=== PATIENT | female | born 1955 | race American Indian/Alaskan Native ===

== ENCOUNTER 2016-12-15 22:18 | Emergency (ER) | payer MEDICARE, MEDICAID ==
[2016-12-15 22:48] VITALS: BP 144/73
--- NOTE | 2016-12-16 00:20 | EDM.PDOC ---
ED HPI GENERAL MEDICAL PROBLEM - General Chief Complaint: Respiratory Problem Stated Complaint: SOPD SICK PAIN LEFT SIDE [id number] Time Seen by Provider: 12/16/16 00:10 Source of Information: Reports: Patient History Limitations: Reports: No Limitations - History of Present Illness INITIAL COMMENTS - FREE TEXT/NARRATIVE: This 61 yo female patient reports to the ED due to a 3 week history of her " COPD acting up" and a 3-4 day history of increased left flank pain. The patient reports she was hospitalized in [place] for 3 days and got out of the hospital last . The patient reports they had her on steroids and breathing treatments while in the hospital. The patient noticed increasing flank pain while riding in the car on the way back from [place]. The patient reports no history of falls or known injuries to her back. The patient reports her last neb treatment was at about 4:30 or 5:00 last night. Onset: Gradual Onset Date: 12/13/16 Duration: Constant, Getting Worse Location: Reports: Back (left flank pain), Other (generalized shortness of breath) Quality: Reports: Ache, Dull Severity: Moderate Improves with: Reports: Medication (nebulizer treatment) Worsens with: Reports: None Context: Reports: Other Associated Symptoms: Reports: Shortness of Breath Left Flank Pain Score (Numeric/FACES): 7 - Related Data Allergies Allergy/AdvReac Type Severity Reaction Status Date / Time codeine Allergy Cannot Verified 12/15/16 22:48 Remember tramadol HCl [From Ultram] Allergy Cannot Verified 12/15/16 22:48 Remember aspirin Allergy Abdominal Uncoded 12/15/16 22:48 Pain Home Meds: Home Meds Albuterol [Proair HFA] 2 puff INH Q4HR PRN 09/27/13 [History] Estrogens, Conjugated [Premarin] 1 tab PO DAILY 09/27/13 [History] Sertraline [Zoloft] 150 mg PO DAILY 09/27/13 [History] Tiotropium [Spiriva Handihaler] 1 puff INH DAILY 09/27/13 [History] Albuterol/Ipratropium [DuoNeb 3.0-0.5 MG/3 ML] 1 ampule INH QID PRN 02/20/14 [ History] Ranitidine [Zantac] 1 tab PO BID 09/23/14 [History] Pantoprazole [ProTONIX] 1 tab PO DAILY 10/01/14 [History] Gabapentin [Neurontin] 600 mg PO TID 11/01/14 [History] Mometasone/Formoterol [Dulera 100-5 MCG] 2 puff IH BIDRT 05/10/16 [History] Past Medical History - Past Health History Medical/Surgical History: Denies Medical/Surgical History HEENT History: Reports: Impaired Vision Other HEENT History: near sided Other Cardiovascular History: has a stress test this coming Respiratory History: Reports: Bronchitis, Recurrent, COPD, TB Other Respiratory History: TB when pt. was a small child. Emphysema by pt account Gastrointestinal History: Reports: GERD Other Gastrointestinal History: N/A Genitourinary History: Reports: Renal Calculus Other Genitourinary History: kidney stones Other OB/BYN History: nvd two children/ hysterectomy Musculoskeletal History: Reports: Arthritis Other Musculoskeletal History: arthritis , restless leg syndrome Neurological History: Reports: None Psychiatric History: Reports: None Endocrine/Metabolic History: Reports: None Hematologic History: Reports: None Dermatologic History: Reports: None - Infectious Disease History Infectious Disease History: Reports: TB - Past Surgical History GI Surgical History: Reports: Appendectomy, Cholecystectomy Female Surgical History: Reports: Hysterectomy Social & Family History - Family History Family Medical History: Noncontributory HEENT: Reports: None Cardiac: Reports: None Respiratory: Reports: None GI: Reports: None : Reports: None OBGYN: Reports: None - Tobacco Use Smoking Status *Q: Current Every Day Smoker Years of Tobacco use: 49 Packs/Tins Daily: 0.3 Used Tobacco, but Quit: No Month Tobacco Last Used: 10/23/14 Second Hand Smoke Exposure: Yes - Caffeine Use Caffeine Use: Reports: Coffee - Alcohol Use Days Per Week of Alcohol Use: 0 - Recreational Drug Use Recreational Drug Use: No - Living Situation & Occupation Living situation: Reports: , with Family Occupation: Retired ED ROS GENERAL - Review of Systems Review Of Systems: ROS reveals no pertinent complaints other than HPI. ED EXAM, GENERAL - Physical Exam Exam: See Below Exam Limited By: No Limitations General Appearance: Alert, WD/WN, Moderate Distress, Thin Eye Exam: Bilateral Eye: EOMI, Normal Inspection, PERRL Ears: Normal External Exam, Normal Canal, Hearing Grossly Normal, Normal TMs Nose: Normal Inspection, Normal Mucosa, No Blood Throat/Mouth: Normal Inspection, Normal Lips, Normal Teeth, Normal Gums, Normal Oropharynx, Normal Voice, No Airway Compromise Head: Atraumatic, Normocephalic Neck: Normal Inspection, Supple, Non-Tender, Full Range of Motion Respiratory/Chest: No Respiratory Distress, Chest Non-Tender, Crackles (diffuse) Cardiovascular: Normal Peripheral Pulses, Regular Rate, Rhythm, No Edema, No Gallop, No JVD, No Murmur, No Rub GI/Abdominal: Normal Bowel Sounds, Soft, Non-Tender, No Organomegaly, No Distention, No Abnormal Bruit, No Mass, Pelvis Stable (Female) Exam: Deferred Rectal (Female) Exam: Deferred Back Exam: CVA Tenderness (L) Extremities: Normal Inspection, Normal Range of Motion, Non-Tender, Normal Capillary Refill, No Pedal Edema Neurological: Alert, Oriented, CN II-XII Intact, Normal Cognition, Normal Gait, Normal Reflexes, No Motor/Sensory Deficits Psychiatric: Normal Affect, Normal Mood Skin Exam: Warm, Dry, Intact, Normal Color, No Rash Lymphatic: No Adenopathy Course - Vital Signs Last Recorded V/S: Last Vital Signs Temp 37.3 C 12/15/16 22:43 Pulse 102 H 12/15/16 22:43 Resp 18 12/15/16 22:43 BP 144/73 H 12/15/16 22:43 Pulse Ox 91 L 12/15/16 22:43 - Orders/Labs/Meds Orders: Active Orders 24 hr Category Date Time Status Chest 2V [CR] Urgent Exams 12/16/16 00:07 Taken Labs: Laboratory Tests 12/16/16 12/16/16 12/16/16 Range/Units 00:20 00:20 00:20 WBC 11.1 H (5.0-10.0) 10^3/uL RBC 4.78 (4.2-5.4) 10^6/uL Hgb 12.7 (12.0-16.0) g/dL Hct 39.1 (37.0-47.0) % MCV 81.8 (80-100) fL MCH 26.6 L (27.0-34.0) pg MCHC 32.5 L (33.0-35.0) g/dL Plt Count 310 (150-450) 10^3/uL Neut % (Auto) 60.0 (42.2-75.2) % Lymph % (Auto) 28.2 (20.5-50.1) % Desha % (Auto) 8.7 H (2-8) % Eos % (Auto) 3.0 (1.0-3.0) % Baso % (Auto) 0.1 (0.0-1.0) % Sodium 144 (135-145) mmol/L Potassium 3.4 L (3.6-5.0) mmol/L Chloride 107 (101-111) mmol/L Carbon Dioxide 28.0 (21.0-31.0) mmol/L Anion Gap 12.4 BUN 14 (7-18) mg/dL Creatinine 0.6 (0.6-1.3) mg/dL Est Cr Clr Drug Dosing 69.83 mL/min Estimated GFR (MDRD) > 60 BUN/Creatinine Ratio 23.33 Glucose 130 H (74-105) mg/dL Calcium 8.3 L (8.4-10.2) mg/dl Total Bilirubin 0.2 (0.2-1.0) mg/dL AST 16 (10-42) IU/L ALT 14 (10-60) IU/L Alkaline Phosphatase 84 (42-121) IU/L Total Protein 6.7 (6.7-8.2) g/dl Albumin 3.6 (3.2-5.5) g/dl Globulin 3.1 Albumin/Globulin Ratio 1.16 Urine Color (YELLOW) Urine Appearance (CLEAR) Urine pH (5.0-9.0) Ur Specific [place] (1.005-1.030) Urine Protein (NEGATIVE) Urine Glucose (UA) (NEGATIVE) Urine Ketones (NEGATIVE) Urine Occult Blood (NEGATIVE) Urine Nitrite (NEGATIVE) Urine Bilirubin (NEGATIVE) Urine Urobilinogen (0.2-1.0) mg/dL Ur Leukocyte Esterase (NEGATIVE) Urine RBC /HPF Urine WBC (0-5/HPF) /HPF Ur Epithelial Cells /HPF Amorphous Sediment (0/HPF) /HPF Urine Bacteria (0-FEW/HPF) /HPF Urine Opiates Screen (NEGATIVE) Ur Oxycodone Screen (NEGATIVE) Urine Methadone Screen (NEGATIVE) Ur Barbiturates Screen (NEGATIVE) U Tricyclic Antidepress (NEGATIVE) Ur Phencyclidine Scrn (NEGATIVE) Ur Amphetamine Screen (NEGATIVE) U Methamphetamines Scrn (NEGATIVE) Urine MDMA Screen (NEGATIVE) U Benzodiazepines Scrn (NEGATIVE) Urine Cocaine Screen (NEGATIVE) U Marijuana (THC) Screen (NEGATIVE) Ethyl Alcohol < 5 mg/dL 12/16/16 12/16/16 Range/Units 00:30 00:30 WBC (5.0-10.0) 10^3/uL RBC (4.2-5.4) 10^6/uL Hgb (12.0-16.0) g/dL Hct (37.0-47.0) % MCV (80-100) fL MCH (27.0-34.0) pg MCHC (33.0-35.0) g/dL Plt Count (150-450) 10^3/uL Neut % (Auto) (42.2-75.2) % Lymph % (Auto) (20.5-50.1) % Desha % (Auto) (2-8) % Eos % (Auto) (1.0-3.0) % Baso % (Auto) (0.0-1.0) % Sodium (135-145) mmol/L Potassium (3.6-5.0) mmol/L Chloride (101-111) mmol/L Carbon Dioxide (21.0-31.0) mmol/L Anion Gap BUN (7-18) mg/dL Creatinine (0.6-1.3) mg/dL Est Cr Clr Drug Dosing mL/min Estimated GFR (MDRD) BUN/Creatinine Ratio Glucose (74-105) mg/dL Calcium (8.4-10.2) mg/dl Total Bilirubin (0.2-1.0) mg/dL AST (10-42) IU/L ALT (10-60) IU/L Alkaline Phosphatase (42-121) IU/L Total Protein (6.7-8.2) g/dl Albumin (3.2-5.5) g/dl Globulin Albumin/Globulin Ratio Urine Color Yellow (YELLOW) Urine Appearance Clear (CLEAR) Urine pH 7.0 (5.0-9.0) Ur Specific [place] 1.020 (1.005-1.030) Urine Protein Negative (NEGATIVE) Urine Glucose (UA) Negative (NEGATIVE) Urine Ketones Negative (NEGATIVE) Urine Occult Blood Negative (NEGATIVE) Urine Nitrite Negative (NEGATIVE) Urine Bilirubin Negative (NEGATIVE) Urine Urobilinogen 0.2 (0.2-1.0) mg/dL Ur Leukocyte Esterase Negative (NEGATIVE) Urine RBC 0-5 /HPF Urine WBC 5-10 H (0-5/HPF) /HPF Ur Epithelial Cells Many H /HPF Amorphous Sediment Moderate H (0/HPF) /HPF Urine Bacteria Moderate H (0-FEW/HPF) /HPF Urine Opiates Screen Negative (NEGATIVE) Ur Oxycodone Screen Negative (NEGATIVE) Urine Methadone Screen Negative (NEGATIVE) Ur Barbiturates Screen Negative (NEGATIVE) U Tricyclic Antidepress Negative (NEGATIVE) Ur Phencyclidine Scrn Negative (NEGATIVE) Ur Amphetamine Screen Negative (NEGATIVE) U Methamphetamines Scrn Positive H (NEGATIVE) Urine MDMA Screen Negative (NEGATIVE) U Benzodiazepines Scrn Negative (NEGATIVE) Urine Cocaine Screen Negative (NEGATIVE) U Marijuana (THC) Screen Negative (NEGATIVE) Ethyl Alcohol mg/dL Meds: Medications Discontinued Medications Generic Name Dose Route Start Last Admin Trade Name Freq PRN Reason Stop Dose Admin Ketorolac Tromethamine 30 mg 12/16/16 01:00 Toradol IM 12/16/16 01:01 ONETIME ONE Departure - Departure Time of Disposition: 01:04 Disposition: Home, Self-Care 01 Condition: Fair Clinical Impression: COPD (chronic obstructive pulmonary disease) Qualifiers: COPD type: unspecified COPD Qualified Code(s): J44.9 - Chronic obstructive pulmonary disease, unspecified Low back strain Qualifiers: Encounter type: initial encounter Qualified Code(s): S39.012A - Strain of muscle, fascia and tendon of lower back, initial encounter - Discharge Information Instructions: Chronic Obstructive Pulmonary Disease, [id number], Back Pain, Adult, [id number] Forms: ED Department Discharge Care Plan Goals: The patient and family were advised of the examination, lab and x-ray results during the visit. The patient was given an injection of Toradol while in the ED. The patient was discharged with an oral dose of Toradol (10 mg) to take in the morning and a script for Toradol (10 mg) #16 to take 1 by mouth every 6 hours. If the patient has any additional symptoms or concerns, the patient should follow-up with her primary care facility or return to the emergency department. - My Orders Last 24 Hours: My Active Orders 12/16/16 00:07 Chest 2V [CR] Urgent - Assessment/Plan Last 24 Hours: My Active Orders 12/16/16 00:07 Chest 2V [CR] Urgent
[2016-12-16 00:46] LABS: CHLORIDE,CL 107 mmol/L (101-111); SODIUM,NA 144 mmol/L (135-145)
[2016-12-16] MEDS ORDERED: Ketorolac 30 MG/ML SDV IM ONE (01:00)
[2016-12-16] MEDS ORDERED: Ketorolac 10 MG Tab ONE (01:21)
[2016-12-16] MEDS ORDERED: Ketorolac 10 MG Tab PO ONE (01:21)
== END 2016-12-16 01:25 | disposition home or self-care (01) ==
LOC: DL.ED 22:18
DX: J44.9 Chronic obstructive pulmonary disease, unspecified (principal); S39.012A Strain of muscle, fascia and tendon of lower back, initial encounter; K21.9 Gastro-esophageal reflux disease without esophagitis; M19.90 Unspecified osteoarthritis, unspecified site; F17.210 Nicotine dependence, cigarettes, uncomplicated; Z88.5 Allergy status to narcotic agent; Z88.6 Allergy status to analgesic agent; Z90.49 Acquired absence of other specified parts of digestive tract; Z79.899 Other long term (current) drug therapy; Z90.710 Acquired absence of both cervix and uterus; X58.XXXA Exposure to other specified factors, initial encounter
CPT/HCPCS: 36415; 71020; 80053; 80305; 81001; 85025; 96372; 99285; A9270; G0480; J1885

== ENCOUNTER 2017-01-20 20:56 | Emergency (ER) | payer MEDICARE, MEDICAID ==
[2017-01-20] MEDS ORDERED: Albuterol/Ipratropium 3.0-0.5 MG/3 ML Neb Soln NEB ONE (21:10)
[2017-01-20 21:17] VITALS: BP 128/81
[2017-01-20] MEDS ORDERED: methylPREDNISolone Sodium Succinate 125 MG/2 ML SDV IVPUSH ONE (22:08)
--- NOTE | 2017-01-20 22:14 | EDM.PDOC ---
ED HPI GENERAL MEDICAL PROBLEM - General Chief Complaint: Respiratory Problem Stated Complaint: LUNGS Time Seen by Provider: 01/20/17 22:04 Source of Information: Reports: Patient History Limitations: Reports: No Limitations - History of Present Illness INITIAL COMMENTS - FREE TEXT/NARRATIVE: This 61 yo female patient reports to the ED with a 2 day history of increased shortness of breath with any exertion. The patient reports she has been getting winded with walking any more than about 10 feet. The patient also reports she has been coughing up whitish phlegm. 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 The patient has been doing the treatments as prescribed. Onset Date: 01/18/17 Duration: Constant, Getting Worse Location: Reports: Chest Quality: Reports: Other Severity: Moderate Improves with: Reports: None Worsens with: Reports: None Associated Symptoms: Reports: No Other Symptoms Lower Chest Pain Score (Numeric/FACES): 8 - Related Data Allergies Allergy/AdvReac Type Severity Reaction Status Date / Time codeine Allergy Cannot Verified 01/20/17 21:13 Remember tramadol HCl [From Ultram] Allergy Cannot Verified 01/20/17 21:13 Remember aspirin Allergy Abdominal Uncoded 01/20/17 21:13 Pain Home Meds: Home Meds Albuterol [Proair HFA] 2 puff INH Q4HR PRN 09/27/13 [History] Estrogens, Conjugated [Premarin] 1 tab PO DAILY 09/27/13 [History] Sertraline [Zoloft] 150 mg PO DAILY 09/27/13 [History] Tiotropium [Spiriva Handihaler] 1 puff INH DAILY 09/27/13 [History] Albuterol/Ipratropium [DuoNeb 3.0-0.5 MG/3 ML] 1 ampule INH QID PRN 02/20/14 [ History] Ranitidine [Zantac] 1 tab PO BID 09/23/14 [History] Pantoprazole [ProTONIX] 1 tab PO DAILY 10/01/14 [History] Gabapentin [Neurontin] 600 mg PO TID 11/01/14 [History] Budesonide [Pulmicort] 0.5 mg NEB ASDIRECTED 01/20/17 [History] Cetirizine HCl [All Day Allergy] 5 - 10 mg PO DAILY 01/20/17 [History] Ibuprofen 2 - 3 tab PO TID 01/20/17 [History] Past Medical History - Past Health History Medical/Surgical History: Denies Medical/Surgical History HEENT History: Reports: Impaired Vision Other HEENT History: near sided Cardiovascular History: Reports: None Other Cardiovascular History: has a stress test this coming Respiratory History: Reports: Bronchitis, Recurrent, COPD, TB Other Respiratory History: TB when pt. was a small child. Emphysema by pt account Gastrointestinal History: Reports: GERD Other Gastrointestinal History: N/A Genitourinary History: Reports: Renal Calculus Other Genitourinary History: kidney stones Other OB/BYN History: nvd two children/ hysterectomy Musculoskeletal History: Reports: Arthritis Other Musculoskeletal History: arthritis , restless leg syndrome Neurological History: Reports: None Psychiatric History: Reports: None Endocrine/Metabolic History: Reports: None Hematologic History: Reports: None Immunologic History: Reports: None Oncologic (Cancer) History: Reports: None Dermatologic History: Reports: None - Infectious Disease History Infectious Disease History: Reports: TB - Past Surgical History GI Surgical History: Reports: Appendectomy, Cholecystectomy Female Surgical History: Reports: Hysterectomy Social & Family History - Family History Family Medical History: Noncontributory HEENT: Reports: None Cardiac: Reports: None Respiratory: Reports: None GI: Reports: None : Reports: None OBGYN: Reports: None - Tobacco Use Smoking Status *Q: Light Tobacco Smoker Years of Tobacco use: 30 Packs/Tins Daily: 0.3 Used Tobacco, but Quit: No Month Tobacco Last Used: 10/23/14 Second Hand Smoke Exposure: Yes - Caffeine Use Caffeine Use: Reports: Coffee - Alcohol Use Days Per Week of Alcohol Use: 0 - Recreational Drug Use Recreational Drug Use: No - Living Situation & Occupation Living situation: Reports: , with Family Occupation: Retired ED ROS GENERAL - Review of Systems Review Of Systems: ROS reveals no pertinent complaints other than HPI. ED EXAM, GENERAL - Physical Exam Exam: See Below Exam Limited By: No Limitations General Appearance: Alert, WD/WN, Moderate Distress, Thin Eye Exam: Bilateral Eye: EOMI, Normal Inspection, PERRL Ears: Normal External Exam, Normal Canal, Hearing Grossly Normal, Normal TMs Nose: Normal Inspection, Normal Mucosa, No Blood Throat/Mouth: Normal Inspection, Normal Lips, Normal Teeth, Normal Gums, Normal Oropharynx, Normal Voice, No Airway Compromise Head: Atraumatic, Normocephalic Neck: Normal Inspection, Supple, Non-Tender, Full Range of Motion Respiratory/Chest: Decreased Breath Sounds (throughout ), Wheezing Cardiovascular: Normal Peripheral Pulses, Regular Rate, Rhythm, No Edema, No Gallop, No JVD, No Murmur, No Rub GI/Abdominal: Normal Bowel Sounds, Soft, Non-Tender, No Organomegaly, No Distention, No Abnormal Bruit, No Mass (Female) Exam: Deferred Rectal (Female) Exam: Deferred Back Exam: Normal Inspection, Full Range of Motion, NT Extremities: Normal Inspection, Normal Range of Motion, Non-Tender, Normal Capillary Refill, No Pedal Edema Neurological: Alert, Oriented, CN II-XII Intact, Normal Cognition, Normal Gait, Normal Reflexes, No Motor/Sensory Deficits Psychiatric: Normal Affect, Normal Mood Skin Exam: Warm, Dry, Intact, Normal Color, No Rash Lymphatic: No Adenopathy Course - Vital Signs Last Recorded V/S: Last Vital Signs Temp 37 C 01/20/17 21:13 Pulse 76 01/20/17 21:13 Resp 20 01/20/17 21:13 BP 128/81 01/20/17 21:13 Pulse Ox 94 L 01/20/17 21:13 - Orders/Labs/Meds Orders: Active Orders 24 hr Category Date Time Status RT Aerosol Therapy [RC] ASDIRECTED Care 01/20/17 21:10 Active CULTURE BLOOD [BC] Stat Lab 01/20/17 21:20 Received CULTURE BLOOD [BC] Stat Lab 01/20/17 21:26 Received Levofloxacin [Levaquin] Med 01/20/17 23:05 Once 500 mg PO ONETIME ONE Blood Culture x2 Reflex Set [OM.PC] Stat Oth 01/20/17 21:10 Ordered Labs: Laboratory Tests 01/20/17 01/20/17 01/20/17 Range/Units 21:20 21:20 21:20 WBC 8.9 (5.0-10.0) 10^3/uL RBC 5.20 (4.2-5.4) 10^6/uL Hgb 13.4 (12.0-16.0) g/dL Hct 41.6 (37.0-47.0) % MCV 80.0 (80-100) fL MCH 25.8 L (27.0-34.0) pg MCHC 32.2 L (33.0-35.0) g/dL Plt Count 281 (150-450) 10^3/uL Neut % (Auto) 65.8 (42.2-75.2) % Lymph % (Auto) 23.2 (20.5-50.1) % [place] % (Auto) 8.4 H (2-8) % Eos % (Auto) 2.5 (1.0-3.0) % Baso % (Auto) 0.1 (0.0-1.0) % Sodium 143 (135-145) mmol/L Potassium 4.0 (3.6-5.0) mmol/L Chloride 106 (101-111) mmol/L Carbon Dioxide 26.0 (21.0-31.0) mmol/L Anion Gap 15.0 BUN 17 (7-18) mg/dL Creatinine 0.6 (0.6-1.3) mg/dL Est Cr Clr Drug Dosing 69.83 mL/min Estimated GFR (MDRD) > 60 BUN/Creatinine Ratio 28.33 Glucose 86 (74-105) mg/dL Lactic Acid 0.8 (0.5-2.2) mmol/L Calcium 9.2 (8.4-10.2) mg/dl Total Bilirubin 0.3 (0.2-1.0) mg/dL AST 16 (10-42) IU/L ALT 14 (10-60) IU/L Alkaline Phosphatase 86 (42-121) IU/L Total Protein 7.0 (6.7-8.2) g/dl Albumin 3.5 (3.2-5.5) g/dl Globulin 3.5 Albumin/Globulin Ratio 1.00 Meds: Medications Discontinued Medications Generic Name Dose Route Start Last Admin Trade Name Freq PRN Reason Stop Dose Admin Albuterol/Ipratropium 3 ml 01/20/17 21:10 01/20/17 21:28 Duoneb 3.0-0.5 Mg/3 Ml NEB 01/20/17 21:11 3 ml ONETIME ONE Administration Methylprednisolone Sodium Succinate 125 mg 01/20/17 22:08 01/20/17 22:20 Solu-Medrol IVPUSH 01/20/17 22:09 125 mg ONETIME ONE Administration Departure - Departure Time of Disposition: 23:07 Disposition: Home, Self-Care 01 Condition: Fair Clinical Impression: Acute bronchitis with COPD - Discharge Information Instructions: Chronic Obstructive Pulmonary Disease Exacerbation, [id number] , Acute Bronchitis, [id number] Forms: ED Department Discharge Care Plan Goals: The patient was advised of the examination, lab and x-ray results during the visit. The patient was given a Duoneb treatment, IV SoluMedrol and oral Levaquin while in the ED. The patient was discharged with a script for Levaquin (500 mg) #7 to take 1 by mouth daily for 7 days and Prednisone (20 mg) #10 to take 2 by mouth daily for 5 days. The patient should follow-up with her primary care provider for continued evaluation and further treatment. If the patient has any additional symptoms or concerns, the patient should either visit her primary care facility or return to the emergency department. - My Orders Last 24 Hours: My Active Orders 01/20/17 21:10 RT Aerosol Therapy [RC] ASDIRECTED Blood Culture x2 Reflex Set [OM.PC] Stat 01/20/17 21:20 CULTURE BLOOD [BC] Stat 01/20/17 21:26 CULTURE BLOOD [BC] Stat 01/20/17 23:05 Levofloxacin [Levaquin] 500 mg PO ONETIME ONE - Assessment/Plan Last 24 Hours: My Active Orders 01/20/17 21:10 RT Aerosol Therapy [RC] ASDIRECTED Blood Culture x2 Reflex Set [OM.PC] Stat 01/20/17 21:20 CULTURE BLOOD [BC] Stat 01/20/17 21:26 CULTURE BLOOD [BC] Stat 01/20/17 23:05 Levofloxacin [Levaquin] 500 mg PO ONETIME ONE
[2017-01-20 22:34] LABS: CHLORIDE,CL 106 mmol/L (101-111); SODIUM,NA 143 mmol/L (135-145)
[2017-01-20] MEDS ORDERED: Levofloxacin 500 MG Tab PO ONE (23:05)
== END 2017-01-20 23:25 | disposition home or self-care (01) ==
LOC: DL.ED 20:56
DX: J44.0 Chronic obstructive pulmonary disease with (acute) lower respiratory infection (principal); J20.9 Acute bronchitis, unspecified; H54.7 Unspecified visual loss; K21.9 Gastro-esophageal reflux disease without esophagitis; J44.9 Chronic obstructive pulmonary disease, unspecified; M19.90 Unspecified osteoarthritis, unspecified site; Z90.710 Acquired absence of both cervix and uterus; Z88.5 Allergy status to narcotic agent; Z88.8 Allergy status to other drugs, medicaments and biological substances; Z79.899 Other long term (current) drug therapy
CPT/HCPCS: 36415; 71020; 80053; 83605; 85025; 87040; 96374; 99285; A9270; J2930; 99284

== ENCOUNTER 2017-01-25 21:35 | Inpatient (IN) | payer MEDICARE, MEDICAID ==
[2017-01-25 22:01] LABS: BICARBONATE,ARTERIAL 29.2 mmol/L (22-26); O2 DELIVERY DEVICE NASAL CANNULA; O2 SATURATION ARTERIAL 96 % (95-100); PCO2 ARTERIAL 52 mmHg (35-45); PO2 ARTERIAL 82 mmHg (70-100)
[2017-01-25 22:02] LABS: ALLEN TEST POSITIVE; BASE EXCESS ARTERIAL 3 mmol/L ((-2)-(+3)); O2 FLOW RATE 2
[2017-01-25 22:28] LABS: CHLORIDE,CL 105 mmol/L (101-111); SODIUM,NA 144 mmol/L (135-145)
[2017-01-25] MEDS ORDERED: Albuterol 0.083% 2.5 MG/3 ML Neb Soln NEB ONE (22:55)
--- NOTE | 2017-01-25 23:03 | EDM.PDOC ---
[id number]: SHORTNESS OF BREATH Time Seen by Provider: 01/25/17 21:40 Source of Information: Reports: Patient, EMS History Limitations: Reports: No Limitations - History of Present Illness INITIAL COMMENTS - FREE TEXT/NARRATIVE: ED via [facility] with c/o increased SOB karlo billings Was in ED on Saturday and started on ABX and prednisone but not getting any better. EMS report difficulty talking as short of breath. O2 sats 88% on arrival. 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 Patient reports some relief of dyspnea. Treatments POULTRY FARMER: Reports: Breathing Treatments, IV/IO, Other Medication(s), Oxygen Left Lower Chest Pain Score (Numeric/FACES): 3 Headache Pain Score (Numeric/FACES): 3 Chest Pain Score (Numeric/FACES): 6 - Related Data Allergies Allergy/AdvReac Type Severity Reaction Status Date / Time codeine Allergy Cannot Verified 01/20/17 21:13 Remember tramadol HCl [From Ultram] Allergy Cannot Verified 01/20/17 21:13 Remember aspirin Allergy Abdominal Uncoded 01/20/17 21:13 Pain Home Meds: Home Meds Albuterol [Proair HFA] 2 puff INH Q4HR PRN 09/27/13 [History] Estrogens, Conjugated [Premarin] 1 tab PO DAILY 09/27/13 [History] Sertraline [Zoloft] 150 mg PO DAILY 09/27/13 [History] Tiotropium [Spiriva Handihaler] 1 puff INH DAILY 09/27/13 [History] Albuterol/Ipratropium [DuoNeb 3.0-0.5 MG/3 ML] 1 ampule INH QID PRN 02/20/14 [ History] Ranitidine [Zantac] 1 tab PO BID 09/23/14 [History] Pantoprazole [ProTONIX] 1 tab PO DAILY 10/01/14 [History] Gabapentin [Neurontin] 600 mg PO TID 11/01/14 [History] Budesonide [Pulmicort] 0.5 mg NEB BID 01/20/17 [History] Cetirizine HCl [All Day Allergy] 5 - 10 mg PO DAILY 01/20/17 [History] Ibuprofen 2 - 3 tab PO TID 01/20/17 [History] Amoxicillin/Potassium Clav [Augmentin 500-125 Tablet] 1 each PO BID #14 tablet 01/29/17 [Rx] Prednisone [IJD: Prednisone] 10 mg PO DAILY #16 tab 01/29/17 [Rx] Past Medical History - Past Health History Medical/Surgical History: Denies Medical/Surgical History HEENT History: Reports: Impaired Vision Other HEENT History: near sided Cardiovascular History: Reports: None Other Cardiovascular History: has a stress test this coming Respiratory History: Reports: Bronchitis, Recurrent, COPD, TB Other Respiratory History: TB when pt. was a small child. Emphysema by pt account Gastrointestinal History: Reports: GERD Other Gastrointestinal History: N/A Genitourinary History: Reports: Renal Calculus Other Genitourinary History: kidney stones Other OB/BYN History: nvd two children/ hysterectomy Musculoskeletal History: Reports: Arthritis Other Musculoskeletal History: arthritis , restless leg syndrome Neurological History: Reports: None Psychiatric History: Reports: None Endocrine/Metabolic History: Reports: None Hematologic History: Reports: None Immunologic History: Reports: None Oncologic (Cancer) History: Reports: None Dermatologic History: Reports: None - Infectious Disease History Infectious Disease History: Reports: TB - Past Surgical History GI Surgical History: Reports: Appendectomy, Cholecystectomy Female Surgical History: Reports: Hysterectomy Social & Family History - Family History Family Medical History: Noncontributory HEENT: Reports: None Cardiac: Reports: None Respiratory: Reports: None GI: Reports: None : Reports: None OBGYN: Reports: None - Tobacco Use Smoking Status *Q: Current Every Day Smoker Years of Tobacco use: 40 Packs/Tins Daily: 0.5 Used Tobacco, but Quit: No Month Tobacco Last Used: 10/23/14 Second Hand Smoke Exposure: Yes - Caffeine Use Caffeine Use: Reports: Coffee - Alcohol Use Days Per Week of Alcohol Use: 0 - Recreational Drug Use Recreational Drug Use: No - Living Situation & Occupation Living situation: Reports: , with Family Occupation: Retired ED ROS GENERAL - Review of Systems Review Of Systems: See Below Constitutional: Denies: Fever, Chills HEENT: Reports: No Symptoms Respiratory: Reports: Shortness of Breath, Wheezing, Cough, Other (O2 dependent) Cardiovascular: Reports: Chest Pain (from coughing). Denies: Blood Pressure Problem, Lightheadedness Endocrine: Reports: No Symptoms GI/Abdominal: Reports: No Symptoms : Reports: No Symptoms Musculoskeletal: Reports: No Symptoms Skin: Reports: No Symptoms Neurological: Reports: No Symptoms Psychiatric: Reports: Anxiety ED EXAM, GENERAL - Physical Exam Exam: See Below Exam Limited By: No Limitations (1-2 word resposonses) General Appearance: Alert, Moderate Distress, Thin Eye Exam: Bilateral Eye: EOMI, PERRL Ears: Normal External Exam Nose: Normal Inspection Throat/Mouth: Normal Inspection Head: Atraumatic Respiratory/Chest: Decreased Breath Sounds, Rhonchi, Wheezing (inspiratory , expiratory throughout), Accessory Muscle Use Cardiovascular: Normal Peripheral Pulses, Regular Rate, Rhythm GI/Abdominal: Normal Bowel Sounds, Soft Extremities: Normal Inspection, Normal Range of Motion Neurological: Alert, Oriented, Normal Cognition Psychiatric: Normal Mood Skin Exam: Warm, Dry, Intact, Normal Color Course - Vital Signs Last Recorded V/S: Last Vital Signs Temp 97.5 F 01/29/17 11:00 Pulse 84 01/29/17 11:04 Resp 20 01/29/17 11:00 BP 148/79 H 01/29/17 11:00 Pulse Ox 99 01/29/17 11:04 - Orders/Labs/Meds Labs: Laboratory Tests 01/25/17 01/25/17 01/25/17 Range/Units 21:48 22:00 22:00 WBC 14.2 H (5.0-10.0) 10^3/uL RBC 4.82 (4.2-5.4) 10^6/uL Hgb 12.4 (12.0-16.0) g/dL Hct 38.4 (37.0-47.0) % MCV 79.7 L (80-100) fL MCH 25.7 L (27.0-34.0) pg MCHC 32.3 L (33.0-35.0) g/dL Plt Count 302 (150-450) 10^3/uL Neut % (Auto) 58.1 (42.2-75.2) % Lymph % (Auto) 31.8 (20.5-50.1) % [place] % (Auto) 6.3 (2-8) % Eos % (Auto) 3.7 H (1.0-3.0) % Baso % (Auto) 0.1 (0.0-1.0) % ABG pH 7.37 (7.35-7.45) ABG pCO2 52 H (35-45) mmHg ABG pO2 82 (70-100) mmHg ABG HCO3 29.2 H (22-26) mmol/L ABG O2 Saturation 96 (95-100) % ABG Base Excess 3 ((-2)-(+3)) mmol/L Eder Test Positive O2 Delivery Device Nasal cannula Oxygen Flow Rate 2 Sodium 144 (135-145) mmol/L Potassium 3.2 L (3.6-5.0) mmol/L Chloride 105 (101-111) mmol/L Carbon Dioxide 27.0 (21.0-31.0) mmol/L Anion Gap 15.2 BUN 25 H (7-18) mg/dL Creatinine 0.8 (0.6-1.3) mg/dL Est Cr Clr Drug Dosing TNP Estimated GFR (MDRD) > 60 BUN/Creatinine Ratio 31.25 Glucose 118 H (74-105) mg/dL Lactic Acid (0.5-2.2) mmol/L Calcium 8.7 (8.4-10.2) mg/dl Total Bilirubin 0.3 (0.2-1.0) mg/dL AST 15 (10-42) IU/L ALT 17 (10-60) IU/L Alkaline Phosphatase 79 (42-121) IU/L Troponin I < 0.02 (0.00-0.02) ng/ml B-Natriuretic Peptide 20 (0-100) pg/ml Total Protein 6.5 L (6.7-8.2) g/dl Albumin 3.3 (3.2-5.5) g/dl Globulin 3.2 Albumin/Globulin Ratio 1.03 Amylase 43 (28-100) U/L Lipase 15 L (22-51) U/L 01/25/17 Range/Units 22:00 WBC (5.0-10.0) 10^3/uL RBC (4.2-5.4) 10^6/uL Hgb (12.0-16.0) g/dL Hct (37.0-47.0) % MCV (80-100) fL MCH (27.0-34.0) pg MCHC (33.0-35.0) g/dL Plt Count (150-450) 10^3/uL Neut % (Auto) (42.2-75.2) % Lymph % (Auto) (20.5-50.1) % [place] % (Auto) (2-8) % Eos % (Auto) (1.0-3.0) % Baso % (Auto) (0.0-1.0) % ABG pH (7.35-7.45) ABG pCO2 (35-45) mmHg ABG pO2 (70-100) mmHg ABG HCO3 (22-26) mmol/L ABG O2 Saturation (95-100) % ABG Base Excess ((-2)-(+3)) mmol/L Eder Test O2 Delivery Device Oxygen Flow Rate Sodium (135-145) mmol/L Potassium (3.6-5.0) mmol/L Chloride (101-111) mmol/L Carbon Dioxide (21.0-31.0) mmol/L Anion Gap BUN (7-18) mg/dL Creatinine (0.6-1.3) mg/dL Est Cr Clr Drug Dosing Estimated GFR (MDRD) BUN/Creatinine Ratio Glucose (74-105) mg/dL Lactic Acid 0.9 (0.5-2.2) mmol/L Calcium (8.4-10.2) mg/dl Total Bilirubin (0.2-1.0) mg/dL AST (10-42) IU/L ALT (10-60) IU/L Alkaline Phosphatase (42-121) IU/L Troponin I (0.00-0.02) ng/ml B-Natriuretic Peptide (0-100) pg/ml Total Protein (6.7-8.2) g/dl Albumin (3.2-5.5) g/dl Globulin Albumin/Globulin Ratio Amylase (28-100) U/L Lipase (22-51) U/L Meds: Medications Discontinued Medications Generic Name Dose Route Start Last Admin Trade Name Freq PRN Reason Stop Dose Admin Acetaminophen 650 mg 01/26/17 02:22 01/27/17 21:10 Tylenol PO 650 mg Q4H PRN Administration Pain (mild 1-3 )/fever Albuterol 2.5 mg 01/25/17 22:55 01/25/17 23:02 Proventil Neb Soln NEB 01/25/17 22:56 2.5 mg ONETIME ONE Administration Albuterol 0 gm 01/26/17 02:27 Proventil Hfa INH Q4HR PRN Dyspnea Albuterol 0.63 mg 01/26/17 02:37 Proventil Neb Soln NEB Q6HRRT PRN Shortness of Breath Albuterol 2.5 mg 01/27/17 11:31 Proventil Neb Soln NEB Q4H PRN Wheezing Albuterol/Ipratropium 3 ml 01/26/17 02:27 01/27/17 11:14 Duoneb 3.0-0.5 Mg/3 Ml INH 3 ml QID PRN Administration Shortness of Breath Albuterol/Ipratropium 3 ml 01/27/17 17:00 01/29/17 11:03 Duoneb 3.0-0.5 Mg/3 Ml NEB 3 ml QIDRT ELIZABETH Administration Budesonide 0.5 mg 01/26/17 07:00 01/27/17 07:24 Pulmicort NEB 0.5 mg BIDRT ELIZABETH Administration Budesonide 0.5 mg 01/27/17 18:00 01/29/17 07:04 Pulmicort NEB 0.5 mg BIDRT ELIZABETH Administration Docusate Sodium 100 mg 01/26/17 02:22 Colace PO DAILY PRN Constipation Estrogens Conjugated 0.9 mg 01/26/17 09:00 01/28/17 08:53 Premarin PO Not Given DAILY [facility] Estrogens Conjugated 0.9 mg 01/29/17 09:00 Premarin PO DAILY [facility] Gabapentin 600 mg 01/26/17 09:00 01/29/17 14:18 Neurontin PO 600 mg TID ELIZABETH Administration Heparin Sodium (Porcine) 5,000 units 01/26/17 02:30 01/26/17 02:43 Heparin Sodium SUBCUT Not Given Q8H [facility] Heparin Sodium (Porcine) 5,000 units 01/26/17 06:00 01/29/17 14:19 Heparin Sodium SUBCUT 5,000 units Q8H [facility] Administration Piperacillin Sod/Tazobactam 100 mls @ 200 mls/hr 01/26/17 02:45 01/29/17 15: 30 Sod 3.375 gm/ Sodium Chloride IV Infused Q6H [facility] Infusion Methylprednisolone Sodium Succinate 40 mg 01/26/17 02:45 01/27/17 08:58 Solu-Medrol IVPUSH 40 mg Q6H ELIZABETH Administration Methylprednisolone Sodium Succinate 40 mg 01/27/17 17:00 01/29/17 15:00 Solu-Medrol IVPUSH 40 mg Q8H [facility] Administration Metoclopramide HCl 5 mg 01/27/17 00:48 01/27/17 00:59 Reglan IVPUSH 5 mg Q12H PRN Administration Nausea Metoclopramide HCl 5 mg 01/27/17 12:29 01/28/17 12:18 Reglan IVPUSH 5 mg Q8H PRN Administration Nausea Nicotine 14 mg 01/26/17 09:00 01/29/17 08:37 Habitrol TRDERM 14 mg DAILY ELIZ[facility]ETH Administration Ondansetron HCl 4 mg 01/28/17 19:26 01/28/17 21:42 Zofran Odt PO 4 mg Q6H PRN Administration Nausea/Vomiting Oxycodone HCl 5 mg 01/28/17 20:21 Oxycodone PO Q6H PRN Chest Pain Oxycodone HCl 5 mg 01/28/17 20:23 01/29/17 14:18 Oxycodone PO 5 mg Q8H PRN Administration Chest Pain Pantoprazole Sodium 40 mg 01/26/17 09:00 01/29/17 08:35 Protonix PO 40 mg DAILY [facility] Administration Potassium Chloride 20 meq 01/25/17 23:07 01/25/17 23:32 Klor-Con 10 PO 01/25/17 23:08 20 meq ONETIME ONE Administration Potassium Chloride 40 meq 01/26/17 02:45 01/26/17 03:29 Klor-Con 10 PO 01/26/17 02:46 40 meq ONETIME ONE Administration Sertraline HCl 150 mg 01/26/17 09:00 01/29/17 08:35 Zoloft PO 150 mg DAILY EL[facility]ETH Administration Tiotropium [place] 18 mcg 01/26/17 09:00 01/29/17 09:18 Spiriva Handihaler INH 18 mcg DAILY ELIZABETH Administration - Re-Assessments/Exams Free Text/Narrative Re-Assessment/Exam: 01/25/17 23:[address] Bolaños regarding patient with COPD exacerbation. Reviewed labs, medical hx and recent state with wheezing and frequency of nebs. does not feel patient meets admission criteria at present. 01/26/17 00:02 Follow up with MD, Patient up to BR and saturation dropped to 78%. Weak, Accessory muscle use. MD accepting for acute admission Departure - Departure Time of Disposition: 23:16 Disposition: Admitted As Inpatient 65 Condition: Poor Clinical Impression: COPD exacerbation, Hypoxia - Discharge Information
[2017-01-25] MEDS ORDERED: Potassium Chloride 10 MEQ Tab.ER PO ONE (23:07)
--- NOTE | 2017-01-26 01:50 | PCM.HP ---
H&P History of Present Illness - General Date of Service: 01/26/17 Admit Problem/Dx: Admitted with Increased shortness of breath and no improvement with Nebs treatment Source of Information: Patient, Old Records History Limitations: Reports: No Limitations - History of Present Illness Initial Comments - Free Text/Narative: Donna~is a 61 y.o.~COPD, a 45 year history of smoking, quit 4~months ago, depression, GERD, restless leg syndrome, and peripheral neuropathy, who came to the emergency room with complaint of feeling short of breath, she was recently admitted at [facility] on 11/15/16 and D/C 11/16/16 > she came to ED with complain of increased SOB this iona. Was in ED on Saturday ( 01/20) and started on ABX and prednisone but not getting any better. EMS report difficulty talking as short of breath. O2 sats 88% on arrival. Increased to 92% with 2L, Duo neb and Albuterol repeated as both given by EMS. Patient reports some relief of dyspnea but 02 sat dropped with any activity even going to rest room. Admitted for COPD exacerbation. Onset of Symptoms: Reports: Sudden Associated Symptoms: Reports: cough w sputum, Shortness of Breath Left Lower Chest Pain Score (Numeric/FACES): 0 - Related Data Allergies/Adverse Reactions: Allergies Allergy/AdvReac Type Severity Reaction Status Date / Time codeine Allergy Cannot Verified 01/20/17 21:13 Remember tramadol HCl [From Ultram] Allergy Cannot Verified 01/20/17 21:13 Remember aspirin Allergy Abdominal Uncoded 01/20/17 21:13 Pain Home Medications: Home Meds Albuterol [Proair HFA] 2 puff INH Q4HR PRN 09/27/13 [History] Estrogens, Conjugated [Premarin] 1 tab PO DAILY 09/27/13 [History] Sertraline [Zoloft] 150 mg PO DAILY 09/27/13 [History] Tiotropium [Spiriva Handihaler] 1 puff INH DAILY 09/27/13 [History] Albuterol/Ipratropium [DuoNeb 3.0-0.5 MG/3 ML] 1 ampule INH QID PRN 02/20/14 [ History] Ranitidine [Zantac] 1 tab PO BID 09/23/14 [History] Pantoprazole [ProTONIX] 1 tab PO DAILY 10/01/14 [History] Gabapentin [Neurontin] 600 mg PO TID 11/01/14 [History] Budesonide [Pulmicort] 0.5 mg NEB BID 01/20/17 [History] Cetirizine HCl [All Day Allergy] 5 - 10 mg PO DAILY 01/20/17 [History] Ibuprofen 2 - 3 tab PO TID 01/20/17 [History] Past Medical History - Past Health History Medical/Surgical History: Denies Medical/Surgical History HEENT History: Reports: Impaired Vision Other HEENT History: near sided Cardiovascular History: Reports: None Other Cardiovascular History: has a stress test this coming Respiratory History: Reports: Bronchitis, Recurrent, COPD, TB Other Respiratory History: TB when pt. was a small child. Emphysema by pt account Gastrointestinal History: Reports: GERD Other Gastrointestinal History: N/A Genitourinary History: Reports: Renal Calculus Other Genitourinary History: kidney stones Other OB/BYN History: nvd two children/ hysterectomy Musculoskeletal History: Reports: Arthritis, Back Pain, Chronic Other Musculoskeletal History: arthritis , restless leg syndrome Neurological History: Reports: None Psychiatric History: Reports: None Endocrine/Metabolic History: Reports: None Hematologic History: Reports: None Immunologic History: Reports: None Oncologic (Cancer) History: Reports: None Dermatologic History: Reports: None - Infectious Disease History Infectious Disease History: Reports: TB - Past Surgical History GI Surgical History: Reports: Appendectomy, Cholecystectomy Female Surgical History: Reports: Hysterectomy Social & Family History - Family History Family Medical History: Noncontributory HEENT: Reports: None Cardiac: Reports: None Respiratory: Reports: None GI: Reports: None : Reports: None OBGYN: Reports: None - Tobacco Use Smoking Status *Q: Current Every Day Smoker Years of Tobacco use: 49 Packs/Tins Daily: 0.5 Used Tobacco, but Quit: No Month Tobacco Last Used: 10/23/14 Second Hand Smoke Exposure: No - Caffeine Use Caffeine Use: Reports: Coffee - Alcohol Use Days Per Week of Alcohol Use: 0 - Recreational Drug Use Recreational Drug Use: No - Living Situation & Occupation Living situation: Reports: , with Family Occupation: Retired H&P Review of Systems - Review of Systems: Review Of Systems: See Below General: Reports: Weakness, Other (increased shortness of breath). Denies: Fever, Chills HEENT: Denies: Headaches, Post Nasal Drip, Sinus Congestion, Sore Throat, Visual Changes Pulmonary: Reports: Shortness of Breath, Wheezing. Denies: Cough, Sputum, Hemoptysis Cardiovascular: Reports: Dyspnea on Exertion. Denies: Chest Pain, Edema, Lightheadedness Gastrointestinal: Denies: Abdominal Pain, Constipation, Difficulty Swallowing, Nausea, Vomiting Genitourinary: Denies: Dysuria, Burning, Urgency, Flank Pain Musculoskeletal: Denies: Shoulder Pain, Back Pain, Foot Pain, Joint Pain Skin: Denies: Cyanosis, Bruising, Pruritis Psychiatric: Denies: Confusion Neurological: Denies: Dizziness, Numbness, Tremors Exam - Exam Exam: See Below - Vital Signs Vital Signs: Last Vital Signs Temp 37.3 C 01/26/17 00:20 Pulse 90 01/26/17 00:20 Resp 18 01/26/17 00:20 BP 127/72 01/26/17 00:20 Pulse Ox 98 01/26/17 00:20 Weight: 54.522 kg - Exam Quality Assessment: Supplemental Oxygen, DVT Prophylaxis. No: Urinary Catheter General: Alert, Oriented, Cooperative HEENT: Conjunctiva Clear, EOMI, Hearing Intact, Mucosa Moist & [place], Pupils Equal, Pupils Reactive Neck: Supple. No: Lymphadenopathy Lungs: Decreased Breath Sounds, Crackles, Wheezing Cardiovascular: Regular Rate, Regular Rhythm, Normal S1, Normal S2, Systolic Murmur GI/Abdominal Exam: Normal Bowel Sounds, Soft, Non-Tender, No Distention. No: Guarding, Rebound (Female) Exam: Deferred Rectal (Female) Exam: Deferred Back Exam: Normal Inspection, Full Range of Motion Extremities: Normal Inspection, Normal Range of Motion, No Pedal Edema Skin: Warm, Dry, Intact Neurological: Cranial Nerves Intact, Reflexes Equal Bilateral Neuro Extensive - Mental Status: Alert, Oriented x3, Normal Mood/Affect, Normal Cognition, Memory Intact Neuro Extensive - Motor, Sensory, Reflexes: CN II-XII Intact, Normal Gait, Normal Reflexes Psychiatric: Alert, Normal Affect, Normal Mood - Patient Data Result Diagrams: 01/25/17 22:00 01/26/17 10:03 *Q Meaningful Use (ADM) - VTE *Q VTE Criteria *Q: - Stroke *Q Stroke Criteria *Q: - AMI *Q AMI Criteria *Q: - Problem List (1) COPD exacerbation SNOMED Code(s): 764888940, [id number] ICD Code: J44.1 - CHRONIC OBSTRUCTIVE PULMONARY DISEASE W (ACUTE) EXACERBATION Status: Acute Current Visit: Yes (2) Depression SNOMED Code(s): 18979972 ICD Code: F32.9 - MAJOR DEPRESSIVE DISORDER, SINGLE EPISODE, UNSPECIFIED Status: Acute Current Visit: Yes (3) GERD (gastroesophageal reflux disease) SNOMED Code(s): 396157530 ICD Code: K21.9 - GASTRO-ESOPHAGEAL REFLUX DISEASE WITHOUT ESOPHAGITIS Status: Acute Current Visit: Yes Problem List Initiated/Reviewed/Updated: Yes Assessment/Plan Comment:: This is a 61 y/o F with history of COPD and multiple hospital visits and admission for COPD exacerbation. Admitted for COPD exacerbation 1. COPD exacerbation: The pt is with History of COPD and followed at [facility] with Dr. Collins, seen recently on 12/27 -Will start her on Zosyn 3.375 mg IV q6hrs -Will start Solumedrol 40 mg IV q6 hrs -Continue Due nebs and albuterol -Continue supplemental oxygen 2. Depression: cotinue out pt medication Zoloft 3. GI prophylaxis: Continue protonix 4. DVT prophylaxis: Heparin Code status: Full Code
[2017-01-26] MEDS ORDERED: Docusate Sodium 100 MG Cap PO PRN (02:22)
[2017-01-26] MEDS ORDERED: Albuterol 6.7 GM Inhaler INH PRN (02:27)
[2017-01-26] MEDS ORDERED: Heparin Sodium 5,000 Units/ML Vial SUBCUT SCH (02:30)
[2017-01-26] MEDS ORDERED: Budesonide 0.5 MG/2 ML Neb Susp NEB SCH (02:30)
[2017-01-26] MEDS ORDERED: Albuterol 0.021% 0.63 MG/3 ML Neb Soln NEB PRN (02:37)
[2017-01-26] MEDS ORDERED: Potassium Chloride 10 MEQ Tab.ER PO ONE (02:45)
[2017-01-26] MEDS: Piperacillin/Tazobactam 3.375 GM in Sodium Chloride 0.9% 100 ML IV SCH ×4 (03:30→21:05)
[2017-01-26] MEDS: methylPREDNISolone Sodium Succinate 40 MG/1 ML SDV IVPUSH SCH ×4 (03:30→21:05)
[2017-01-26] MEDS: Heparin Sodium 5,000 Units/ML Vial SUBCUT SCH ×3 (06:29→21:05)
[2017-01-26] MEDS: Budesonide 0.5 MG/2 ML Neb Susp NEB SCH ×2 (07:03→18:25)
[2017-01-26] MEDS: Albuterol/Ipratropium 3.0-0.5 MG/3 ML Neb Soln INH PRN ×3 (07:03→18:25)
[2017-01-26] MEDS: Tiotropium Inhaler 18 MCG Inhalation Powder Cap Kit of 5 INH SCH (10:03)
[2017-01-26] MEDS: Gabapentin 300 MG Cap PO SCH ×3 (10:05→21:05)
[2017-01-26] MEDS: Nicotine 14 MG/24 Hr Patch TRDERM SCH (10:06)
[2017-01-26] MEDS: Sertraline 50 MG Tab PO SCH (10:06)
[2017-01-26] MEDS: Pantoprazole 40 MG Tab.CR PO SCH (10:06)
[2017-01-26 10:37] LABS: CHLORIDE,CL 105 mmol/L (101-111); SODIUM,NA 140 mmol/L (135-145)
[2017-01-26] MEDS: Acetaminophen 325 MG Tab PO PRN (21:04)
[2017-01-27] MEDS ORDERED: Metoclopramide 10 MG/2 ML SDV IVPUSH PRN (00:48)
[2017-01-27] MEDS: methylPREDNISolone Sodium Succinate 40 MG/1 ML SDV IVPUSH SCH ×3 (03:20→17:34)
[2017-01-27] MEDS: Piperacillin/Tazobactam 3.375 GM in Sodium Chloride 0.9% 100 ML IV SCH ×4 (03:20→21:21)
[2017-01-27] MEDS: Albuterol/Ipratropium 3.0-0.5 MG/3 ML Neb Soln INH PRN ×3 (03:28→11:14)
[2017-01-27] MEDS: Heparin Sodium 5,000 Units/ML Vial SUBCUT SCH ×3 (05:54→21:27)
[2017-01-27] MEDS: Budesonide 0.5 MG/2 ML Neb Susp NEB SCH ×2 (07:24→17:09)
[2017-01-27] MEDS: Gabapentin 300 MG Cap PO SCH ×3 (08:36→21:11)
[2017-01-27] MEDS: Sertraline 50 MG Tab PO SCH (08:37)
[2017-01-27] MEDS: Pantoprazole 40 MG Tab.CR PO SCH (08:37)
[2017-01-27] MEDS: Nicotine 14 MG/24 Hr Patch TRDERM SCH (08:38)
[2017-01-27] MEDS: Tiotropium Inhaler 18 MCG Inhalation Powder Cap Kit of 5 INH SCH (08:46)
[2017-01-27] MEDS ORDERED: Albuterol 0.083% 2.5 MG/3 ML Neb Soln NEB PRN (11:31)
--- NOTE | 2017-01-27 12:27 | PCM.PN ---
- General Info Date of Service: 01/27/17 Admission Dx/Problem (Free Text): Admitted with Increased shortness of breath and no improvement with Nebs treatment, COPD exacerbation Subjective Update: pt is feeling much better today but her day time oxygen requirement is high with activity ( Need 2L instead of 1L ), appetite is good, but gets nauseated occasionally Functional Status: Reports: Pain Controlled, Tolerating Diet, Ambulating, Urinating - Review of Systems General: Reports: Weakness, Fatigue, Appetite (good). Denies: Fever, Chills HEENT: Denies: Eye Pain, Headaches, Sinus Congestion, Sore Throat Pulmonary: Reports: Shortness of Breath, Cough, Wheezing Cardiovascular: Reports: Dyspnea on Exertion. Denies: Chest Pain, Edema, Lightheadedness Gastrointestinal: Denies: Abdominal Pain, Diarrhea, Nausea, Vomiting Genitourinary: Denies: Dysuria, Frequency, Urgency, Flank Pain Musculoskeletal: Reports: Back Pain. Denies: Shoulder Pain, Leg Pain Skin: Denies: Cyanosis, Jaundice, Bruising, Pruritis, Rash Neurological: Denies: Confusion, Headache, Tremors Psychiatric: Denies: Confusion, Anxiety - Patient Data Vitals - Most Recent: Last Vital Signs Temp 36.9 C 01/27/17 11:00 Pulse 84 01/27/17 11:14 Resp 20 01/27/17 11:00 BP 138/78 01/27/17 11:00 Pulse Ox 98 01/27/17 11:14 Weight - Most Recent: 54.522 kg I&O - Last 24 Hours: Intake & Output 01/26/17 01/27/17 01/27/17 22:59 06:59 14:59 Intake Total 93 307 Output Total 300 Balance 93 7 Med Orders - Current: Current Medications Acetaminophen (Tylenol) 650 mg PO Q4H PRN PRN Reason: Pain (mild 1-3 )/fever Last Admin: 01/26/17 21:04 Dose: 650 mg Albuterol (Proventil Hfa) 0 gm INH Q4HR PRN PRN Reason: Dyspnea Albuterol (Proventil Neb Soln) 2.5 mg NEB Q4H PRN PRN Reason: Wheezing Albuterol/Ipratropium (Duoneb 3.0-0.5 Mg/3 Ml) 3 ml NEB QIDRT [facility] Budesonide (Pulmicort) 0.5 mg NEB BIDRT [facility] Docusate Sodium (Colace) 100 mg PO DAILY PRN PRN Reason: Constipation Estrogens Conjugated (Premarin) 0.9 mg PO DAILY [facility] Last Admin: 01/27/17 08:48 Dose: Not Given Gabapentin (Neurontin) 600 mg PO TID [facility] Last Admin: 01/27/17 08:36 Dose: 600 mg Heparin Sodium (Porcine) (Heparin Sodium) 5,000 units SUBCUT Q8H [facility] Last Admin: 01/27/17 05:54 Dose: 5,000 units Piperacillin Sod/Tazobactam (Sod 3.375 gm/ Sodium Chloride) 100 mls @ 200 mls/ hr IV Q6H [facility] Last Admin: 01/27/17 09:04 Dose: 100 mls/hr Methylprednisolone Sodium Succinate (Solu-Medrol) 40 mg IVPUSH Q6H [facility] Last Admin: 01/27/17 08:58 Dose: 40 mg Metoclopramide HCl (Reglan) 5 mg IVPUSH Q12H PRN PRN Reason: Nausea Last Admin: 01/27/17 00:59 Dose: 5 mg Nicotine (Habitrol) 14 mg TRDERM DAILY [facility] Last Admin: 01/27/17 08:38 Dose: 14 mg Pantoprazole Sodium (Protonix) 40 mg PO DAILY [facility] Last Admin: 01/27/17 08:37 Dose: 40 mg Sertraline HCl (Zoloft) 150 mg PO DAILY [facility] Last Admin: 01/27/17 08:37 Dose: 150 mg Tiotropium [place] (Spiriva Handihaler) 18 mcg INH DAILY [facility] Last Admin: 01/27/17 08:46 Dose: 18 mcg Discontinued Medications Albuterol (Proventil Neb Soln) 2.5 mg NEB ONETIME ONE Stop: 01/25/17 22:56 Last Admin: 01/25/17 23:02 Dose: 2.5 mg Albuterol (Proventil Neb Soln) 0.63 mg NEB Q6HRRT PRN PRN Reason: Shortness of Breath Albuterol/Ipratropium (Duoneb 3.0-0.5 Mg/3 Ml) 3 ml INH QID PRN PRN Reason: Shortness of Breath Last Admin: 01/27/17 11:14 Dose: 3 ml Budesonide (Pulmicort) 0.5 mg NEB BIDRT [facility] Last Admin: 01/27/17 07:24 Dose: 0.5 mg Heparin Sodium (Porcine) (Heparin Sodium) 5,000 units SUBCUT Q8H [facility] Last Admin: 01/26/17 02:43 Dose: Not Given Potassium Chloride (Klor-Con 10) 20 meq PO ONETIME ONE Stop: 01/25/17 23:08 Last Admin: 01/25/17 23:32 Dose: 20 meq Potassium Chloride (Klor-Con 10) 40 meq PO ONETIME ONE Stop: 01/26/17 02:46 Last Admin: 01/26/17 03:29 Dose: 40 meq - Exam Quality Assessment: Supplemental Oxygen, DVT Prophylaxis. No: Urine Catheter General: Alert, Oriented, Cooperative, No Acute Distress HEENT: Pupils Equal, Pupils Reactive, Mucous Membr. Moist/[place] Neck: Supple, No JVD, No Thyromegaly Lungs: Clear to Auscultation, Normal Respiratory Effort, Crackles, Wheezing GI/Abdominal Exam: Normal Bowel Sounds, Soft, Non-Tender. No: Guarding, Rebound , Tender (Female) Exam: Deferred Back Exam: Normal Inspection, Full Range of Motion Extremities: Normal Inspection, No Pedal Edema Skin: Warm, Dry, Intact Neurological: No New Focal Deficit, Normal Speech, Normal Tone Psy/Mental Status: Alert, Normal Affect, Normal Mood - Problem List & Annotations (1) COPD exacerbation SNOMED Code(s): 267770409, 470944190 Code(s): J44.1 - CHRONIC OBSTRUCTIVE PULMONARY DISEASE W (ACUTE) EXACERBATION Status: Acute Current Visit: Yes (2) Depression SNOMED Code(s): 54985379 Code(s): F32.9 - MAJOR DEPRESSIVE DISORDER, SINGLE EPISODE, UNSPECIFIED Status: Acute Current Visit: Yes (3) GERD (gastroesophageal reflux disease) SNOMED Code(s): 953369474 Code(s): K21.9 - GASTRO-ESOPHAGEAL REFLUX DISEASE WITHOUT ESOPHAGITIS Status: Acute Current Visit: Yes - Problem List Review Problem List Initiated/Reviewed/Updated: Yes - My Orders Last 24 Hours: My Active Orders 01/27/17 00:48 Metoclopramide [Reglan] 5 mg IVPUSH Q12H PRN 01/27/17 11:12 Consult to Automotive Manufacturer [CONS] Routine 01/27/17 11:31 Albuterol [Proventil Neb Soln] 2.5 mg NEB Q4H PRN 01/27/17 17:00 RT Aerosol Therapy [RC] QID Albuterol/Ipratropium [DuoNeb 3.0-0.5 MG/3 ML] 3 ml NEB QIDRT 01/27/17 18:00 Budesonide [Pulmicort] 0.5 mg NEB BIDRT - Plan Plan:: This is a 61 y/o F with history of COPD and multiple hospital visits and admission for COPD exacerbation. Admitted for COPD exacerbation 1. COPD exacerbation: The pt is with History of COPD and gets followed at [facility] with Dr. Collins, seen recently on 12/27 -Will continue her on Zosyn 3.375 mg IV q6hrs -Will decrease Solumedrol to 40 mg IV q8 hrs [ was at q6 hrs] -Continue Due nebs and albuterol -Continue supplemental oxygen 2. Depression: cotinue out pt medication Zoloft 3. GI prophylaxis: Continue protonix 4. Nausea: Will continue Reglan 5 mg IV q 8 hrs prn 5. DVT prophylaxis: Heparin Code status: Full Code
[2017-01-27] MEDS: Metoclopramide 10 MG/2 ML SDV IVPUSH PRN ×2 (13:22→21:22)
[2017-01-27] MEDS: Acetaminophen 325 MG Tab PO PRN ×2 (15:07→21:10)
[2017-01-27] MEDS: Albuterol/Ipratropium 3.0-0.5 MG/3 ML Neb Soln NEB SCH ×2 (17:09→21:20)
[2017-01-28] MEDS: methylPREDNISolone Sodium Succinate 40 MG/1 ML SDV IVPUSH SCH ×3 (01:05→17:24)
[2017-01-28] MEDS: Piperacillin/Tazobactam 3.375 GM in Sodium Chloride 0.9% 100 ML IV SCH ×4 (03:32→19:48)
[2017-01-28] MEDS: Heparin Sodium 5,000 Units/ML Vial SUBCUT SCH ×3 (06:15→21:22)
[2017-01-28] MEDS: Budesonide 0.5 MG/2 ML Neb Susp NEB SCH ×2 (07:18→18:01)
[2017-01-28] MEDS: Albuterol/Ipratropium 3.0-0.5 MG/3 ML Neb Soln NEB SCH ×4 (07:18→21:21)
[2017-01-28] MEDS: Pantoprazole 40 MG Tab.CR PO SCH (08:52)
[2017-01-28] MEDS: Gabapentin 300 MG Cap PO SCH ×3 (08:52→21:21)
[2017-01-28] MEDS: Sertraline 50 MG Tab PO SCH (08:53)
[2017-01-28] MEDS: Nicotine 14 MG/24 Hr Patch TRDERM SCH (08:53)
[2017-01-28] MEDS: Tiotropium Inhaler 18 MCG Inhalation Powder Cap Kit of 5 INH SCH (08:54)
[2017-01-28] MEDS: Metoclopramide 10 MG/2 ML SDV IVPUSH PRN (12:18)
[2017-01-28] MEDS ORDERED: Ondansetron 4 MG Tab.DIS PO PRN (19:26)
[2017-01-28] MEDS ORDERED: traMADol 50 MG Tab PO SCH (19:30)
[2017-01-28] MEDS ORDERED: oxyCODONE 5 MG Tab PO PRN (20:21)
[2017-01-28] MEDS: oxyCODONE 5 MG Tab PO PRN (21:22)
[2017-01-29] MEDS: methylPREDNISolone Sodium Succinate 40 MG/1 ML SDV IVPUSH SCH ×3 (01:51→15:00)
[2017-01-29] MEDS: Piperacillin/Tazobactam 3.375 GM in Sodium Chloride 0.9% 100 ML IV SCH ×3 (01:54→14:19)
[2017-01-29] MEDS: Heparin Sodium 5,000 Units/ML Vial SUBCUT SCH ×2 (05:39→14:19)
[2017-01-29] MEDS: oxyCODONE 5 MG Tab PO PRN ×2 (06:37→14:18)
[2017-01-29] MEDS: Albuterol/Ipratropium 3.0-0.5 MG/3 ML Neb Soln NEB SCH ×2 (07:03→11:03)
[2017-01-29] MEDS: Budesonide 0.5 MG/2 ML Neb Susp NEB SCH (07:04)
[2017-01-29] MEDS: Sertraline 50 MG Tab PO SCH (08:35)
[2017-01-29] MEDS: Pantoprazole 40 MG Tab.CR PO SCH (08:35)
[2017-01-29] MEDS: Gabapentin 300 MG Cap PO SCH ×2 (08:36→14:18)
[2017-01-29] MEDS: Nicotine 14 MG/24 Hr Patch TRDERM SCH (08:37)
[2017-01-29] MEDS: Tiotropium Inhaler 18 MCG Inhalation Powder Cap Kit of 5 INH SCH (09:18)
--- NOTE | 2017-01-29 09:18 | PN ---
DATE: 01/28/2017 SUBJECTIVE: Ms. Zavaleta is a 61-year-old lady who is a daily smoker. She was admitted with a main complaint of shortness of breath. She recently was at [facility] on 11/15/2016 and 11/16/2016 for similar complaints. She was seen here prior to this admission in the ER and was started on antibiotics and prednisone, but felt was not getting any better. She came to the emergency room because of shortness of breath. O2 saturation was 88% on arrival and improved to 92% with 2 L. She was started on Zosyn and Solu-Medrol. She is on nebulized bronchodilator and steroid therapy. She is on heparin for VTE prophylaxis. She is wearing a nicotine patch. Admission date is reviewed. Chest x-ray at the time of admission showed no active disease. They felt that this exam was stable from a previous x-ray on 01/20/2017. Lab work was reviewed from the time of admission. Potassium was 3.2 and was repleted. Blood gas at the time of admission showed a slightly increased pCO2, but she was not hypoxic. A repeat lab work has been ordered for tomorrow morning including white count with differential. Her clinical data is reviewed. She is taking in adequate fluids. She is voiding and moving her bowels. She is tolerating 100% of her diet. Vital signs are stable, and she has remained afebrile. PHYSICAL EXAMINATION: General: She is lying comfortably in bed. Nursing staff is attempting to restart on an IV line. She has fine thin skin and very small veins. We are trying to preserve IV access for her medications. She stated she was feeling better. Her main complaint has been of some chest pain, probably related to the fact that she has done quite a few nebulizer treatments in the last few days. There is no central substernal pressure. No radiation of the pain. Vital Signs: Blood pressure was 126/73, pulse 88, respiratory rate 20 and unlabored, oxygen saturation 95% on room air. She is afebrile. HEENT: Unremarkable. ENT was clear. Chest: Showed mild anterior and posterior wheezing. Heart: Showed regular rate and rhythm. Abdomen: Benign. Extremities: Showed no edema. Neurologic: She is intact. PLAN: Exacerbation of chronic obstructive pulmonary disease. We will continue with therapy as above. She is on IV Zosyn, and we can switch this to an oral antibiotic. Prior to the end of the visit, she did speak to the nursing staff about wanting more for pain. She has been on Tylenol. She claims allergies to codeine, tramadol, and aspirin. This eliminates the use of tramadol or Toradol. When I spoke to her about what she had used for pain given the codeine allergy, she said "they usually give me Perc's." We did give her low-dose oxycodone but with an interval of every 8 hours, and she was given a warm K-pad to place on the chest wall. We will continue the present management, and we will consider early discharge to home. [facility] /[id number] MTDD
[2017-01-29 11:04] VITALS: BP 148/79
--- NOTE | 2017-02-02 14:51 | EKG ---
DATE: 01/25/2017 This is a standard 12-lead EKG showing normal sinus rhythm with a ventricular rate of 92 beats per minute. Normal MA interval and QRS duration. Normal axis and no significant ST-T changes. [facility] /[id number] MTDD
--- NOTE | 2017-02-05 02:29 | DISCH ---
DISCHARGE DIAGNOSES: 1. Acute exacerbation of chronic obstructive pulmonary disease/bronchitis. 2. Tobacco use disorder, daily smoker. 3. Hypokalemia, corrected. BRIEF HISTORY OF THE PRESENT ILLNESS: Donna is a 61-year-old lady, who is a daily smoker. She was admitted with a main complaint of shortness of breath. She had recently been in [facility] from 11/15 to 11/16 for similar complaints. She was seen here prior to admission in the ER and had been started on antibiotics and prednisone, but felt she was not getting any better and returned to the emergency room for re-evaluation. In the ER, chest x-ray was negative for any acute infiltrate. Oxygen saturation was 88% on room air when she arrived and improved to 92% with oxygen. She is on home oxygen at 2 L/minute. She was started on IV Zosyn and IV Solu-Medrol and admitted for further management. PERTINENT LABS AND X-RAYS: CBC on day of admission showed a white count of 14,000, on repeat of 15,000 consistent with the use of IV steroids, hemoglobin and hematocrit 12.4 and 38.4, and platelets were normal. Chemistry showed a sodium of 3.2 at admission and was improved to 4.3 prior to discharge. Renal function was intact with BUN and creatinine of 22 and 0.5 and a GFR of more than 60 and a creatinine clearance of 84. Blood sugars were unremarkable. LFTs were normal. Troponin was negative at less than 0.02. BNP was normal at 20. Amylase and lipase were also negative. An arterial blood gas was performed on 2 L nasal oxygen, showed a pH of 7.37 pCO2 of 52, PO2 of 82, and oxygen saturation 96% on room air. A single-view chest x-ray, showed no active disease. There was a subtle nodular density in the right lower lobe, which could be a vessel seen on end. It is stable from a recent exam dated 01/20/17. Radiology suggested correlation with previous studies to assess for stability. A 12-lead EKG showed a normal sinus rhythm with a ventricular rate of 92. Normal axis and intervals. No acute ST-segment or T-wave changes. HOSPITAL COURSE: She was admitted as an acute inpatient. She was given nebulized bronchodilator therapy. She was started on IV Solu-Medrol in tapering doses. Her potassium was corrected. Her usual medications were continued, and she was started on IV Zosyn 3.375 g IV every 6 hours. Subcu heparin was used for VTE prophylaxis. Donna complained of pain during the visit and when asked what she normally would be given, given the fact that she has codeine, tramadol, as well as aspirin allergies. She said "they usually give me Perc's." An order was given for oxycodone 5 mg every 8 hours p.r.n. She voiced her unhappiness with the fact that it was being given only every 8 hours. We pointed out to her that this medication is reserved for severe pain, which she was not in and that was the reason for our conservative use of the medication. Donna rapidly improved, and she felt that she could be discharged to home. She will follow up at the [facility] in the next 7 to 10 days. She also has an upcoming appointment to see Dr. Collins of Pulmonary Medicine in [place]. She will follow her usual diet. Activity level be as tolerated. She should return for increasing symptoms. DISCHARGE MEDICATIONS: 1. Pulmicort neb treatment twice a day. 2. Spiriva 18 mcg inhaled daily. 3. Sertraline 150 mg daily. 4. Zantac 150 mg twice a day. 5. She takes ibuprofen on a p.r.n. basis. 6. Gabapentin 600 mg t.i.d. 7. Premarin 1 tablet daily. 8. Cetirizine 5 to 10 mg p.o. daily p.r.n. for allergies. 9. DuoNeb nebulizer treatment q.i.d. p.r.n. 10.Albuterol handheld inhaler 2 puffs every 4 hours p.r.n. 11.Augmentin 500-125, 1 tablet b.i.d. for 7 days. 12.She was placed on a prednisone taper. She was given take-home instructions on COPD, as well as smoking cessation, and we strongly encouraged her to stop smoking. On the day of discharge, review of her clinical data showed good oral intake. She was voiding and moving her bowels. She was tolerating 100% of her meals. PHYSICAL EXAMINATION: Vital Signs: Stable, and she was afebrile. Blood pressure is 148/79, pulse 89, respiratory rate 20, oxygen saturation 100% on 2 L, and she was afebrile. HEENT: Unremarkable. ENT was clear. Chest: Mild anterior and posterior wheezing. Heart: Regular rate and rhythm. Abdomen: Benign. Extremities: No edema. Neurologic: She was intact. Donna was insistent that she wished to be discharged to home. She was given her IV medications prior to discharge and will follow up as above. CONDITION AT THE TIME OF DISCHARGE: Much improved and stable. [facility] /[id number] MTDD
== END 2017-01-29 16:25 | disposition home or self-care (01) | DRG 192 ==
LOC: DL.ED 21:35 → UNDOADMIN 01-26 00:15 → DL.MS 01-26 00:15
PROVIDERS: ADMIT Internal Medicine Nephrology; ATTEND Internal Medicine Nephrology
DX: J44.1 Chronic obstructive pulmonary disease with (acute) exacerbation (principal); R09.02 Hypoxemia; K21.9 Gastro-esophageal reflux disease without esophagitis; R11.0 Nausea; G25.81 Restless legs syndrome; F32.9 Major depressive disorder, single episode, unspecified; F17.210 Nicotine dependence, cigarettes, uncomplicated; M19.90 Unspecified osteoarthritis, unspecified site; G89.29 Other chronic pain; M54.9 Dorsalgia, unspecified; Z79.899 Other long term (current) drug therapy; Z88.6 Allergy status to analgesic agent; Z88.5 Allergy status to narcotic agent
CPT/HCPCS: 36415; 36600; 71010; 80053; 82150; 82803; 83605; 83690; 83880; 84484; 85025; 93005; 93010; 94640; 99285 ×2; A9270; J7620; 36410; 80048; 85004; J1644; J2543; J2765; J2920; J7050

== ENCOUNTER 2017-02-11 22:55 | Inpatient (IN) | payer MEDICARE, MEDICAID ==
--- NOTE | 2017-02-11 22:57 | EDM.PDOC ---
ED HPI GENERAL MEDICAL PROBLEM - General Chief Complaint: Respiratory Problem Stated Complaint: AMBULANCE Time Seen by Provider: 02/11/17 22:55 Source of Information: Reports: Patient, EMS History Limitations: Reports: No Limitations - History of Present Illness INITIAL COMMENTS - FREE TEXT/NARRATIVE: SOB worse today, started yesterday. Sweats, Not coughing anything up. 3 Neb treatments today, Last at 7pm. Recent hospitalization Duration: Day(s):, Getting Worse Worsens with: Reports: Movement Associated Symptoms: Reports: Shortness of Breath, Weakness. Denies: Chest Pain , Cough, Fever/Chills - Related Data Allergies Allergy/AdvReac Type Severity Reaction Status Date / Time codeine Allergy Cannot Verified 01/20/17 21:13 Remember tramadol HCl [From Ultram] Allergy Cannot Verified 01/20/17 21:13 Remember aspirin Allergy Abdominal Uncoded 01/20/17 21:13 Pain Home Meds: Home Meds Albuterol [Proair HFA] 2 puff INH Q4HR PRN 09/27/13 [History] Estrogens, Conjugated [Premarin] 1 tab PO DAILY 09/27/13 [History] Sertraline [Zoloft] 150 mg PO DAILY 09/27/13 [History] Tiotropium [Spiriva Handihaler] 1 puff INH DAILY 09/27/13 [History] Albuterol/Ipratropium [DuoNeb 3.0-0.5 MG/3 ML] 1 ampule INH QID PRN 02/20/14 [ History] Ranitidine [Zantac] 1 tab PO BID 09/23/14 [History] Pantoprazole [ProTONIX] 1 tab PO DAILY 10/01/14 [History] Gabapentin [Neurontin] 600 mg PO TID 11/01/14 [History] Budesonide [Pulmicort] 0.5 mg NEB BID 01/20/17 [History] Cetirizine HCl [All Day Allergy] 5 - 10 mg PO DAILY 01/20/17 [History] Ibuprofen 2 - 3 tab PO TID 01/20/17 [History] Amoxicillin/Potassium Clav [Augmentin 500-125 Tablet] 1 each PO BID #14 tablet 01/29/17 [Rx] Prednisone [IJD: Prednisone] 10 mg PO DAILY #16 tab 01/29/17 [Rx] Past Medical History - Past Health History Medical/Surgical History: Denies Medical/Surgical History HEENT History: Reports: Impaired Vision Other HEENT History: near sided Cardiovascular History: Reports: None Other Cardiovascular History: has a stress test this coming Respiratory History: Reports: Bronchitis, Recurrent, COPD, TB Other Respiratory History: TB when pt. was a small child. Emphysema by pt account Gastrointestinal History: Reports: GERD Other Gastrointestinal History: N/A Genitourinary History: Reports: Renal Calculus Other Genitourinary History: kidney stones Other OB/BYN History: nvd two children/ hysterectomy Musculoskeletal History: Reports: Arthritis Other Musculoskeletal History: arthritis , restless leg syndrome Neurological History: Reports: None Psychiatric History: Reports: None Endocrine/Metabolic History: Reports: None Hematologic History: Reports: None Immunologic History: Reports: None Oncologic (Cancer) History: Reports: None Dermatologic History: Reports: None - Infectious Disease History Infectious Disease History: Reports: TB - Past Surgical History GI Surgical History: Reports: Appendectomy, Cholecystectomy Female Surgical History: Reports: Hysterectomy Social & Family History - Family History Family Medical History: Noncontributory HEENT: Reports: None Cardiac: Reports: None Respiratory: Reports: None GI: Reports: None : Reports: None OBGYN: Reports: None - Tobacco Use Smoking Status *Q: Current Every Day Smoker Years of Tobacco use: 40 Packs/Tins Daily: 0.5 Used Tobacco, but Quit: No Month Tobacco Last Used: 10/23/14 Second Hand Smoke Exposure: Yes - Caffeine Use Caffeine Use: Reports: Coffee - Alcohol Use Days Per Week of Alcohol Use: 0 - Recreational Drug Use Recreational Drug Use: No - Living Situation & Occupation Living situation: Reports: , with Family Occupation: Retired ED ROS GENERAL - Review of Systems Review Of Systems: See Below Constitutional: Reports: Malaise, Diaphoresis HEENT: Reports: No Symptoms Respiratory: Reports: Shortness of Breath, Wheezing. Denies: Cough, Sputum Cardiovascular: Reports: No Symptoms GI/Abdominal: Reports: No Symptoms : Reports: No Symptoms Musculoskeletal: Reports: No Symptoms Skin: Reports: Dryness Neurological: Reports: No Symptoms Psychiatric: Reports: No Symptoms ED EXAM, GENERAL - Physical Exam Exam: See Below Exam Limited By: No Limitations General Appearance: Alert, Moderate Distress Eye Exam: Bilateral Eye: EOMI Ears: Normal External Exam Nose: Normal Inspection Throat/Mouth: Normal Inspection Head: Atraumatic, Normocephalic Neck: Normal Inspection Respiratory/Chest: Respiratory Distress, Wheezing Back Exam: Normal Inspection, Full Range of Motion Extremities: Normal Inspection. No: Pedal Edema Neurological: Alert, Oriented, Normal Cognition Psychiatric: Normal Affect Skin Exam: Warm, Dry, Intact, Normal Color Course - Vital Signs Last Recorded V/S: Last Vital Signs Temp 97.1 F 02/11/17 23:16 Pulse 90 02/11/17 23:16 Resp 20 02/11/17 23:16 BP 150/91 H 02/11/17 23:16 Pulse Ox 91 L 02/11/17 23:16 - Orders/Labs/Meds Orders: Active Orders 24 hr Category Date Time Status EKG 12 Lead [EKG Documentation Completion] [RC] URGENT Care 02/11/17 22:59 Active RT Aerosol Therapy [RC] ASDIRECTED Care 02/11/17 23:10 Active RT Aerosol Therapy [RC] ASDIRECTED Care 02/11/17 23:41 Active CULTURE BLOOD [BC] Stat Lab 02/11/17 23:25 Results CULTURE BLOOD [BC] Stat Lab 02/11/17 23:29 Received Blood Culture x2 Reflex Set [OM.PC] Stat Oth 02/11/17 22:57 Ordered Labs: Laboratory Tests 02/11/17 02/11/17 02/11/17 Range/Units 23:01 23:01 23:01 WBC 8.8 (5.0-10.0) 10^3/uL RBC 4.91 (4.2-5.4) 10^6/uL Hgb 12.5 (12.0-16.0) g/dL Hct 39.0 (37.0-47.0) % MCV 79.4 L (80-100) fL MCH 25.5 L (27.0-34.0) pg MCHC 32.1 L (33.0-35.0) g/dL Plt Count 293 (150-450) 10^3/uL Neut % (Auto) 66.9 (42.2-75.2) % Lymph % (Auto) 22.9 (20.5-50.1) % [place] % (Auto) 6.8 (2-8) % Eos % (Auto) 3.2 H (1.0-3.0) % Baso % (Auto) 0.2 (0.0-1.0) % ABG pH (7.35-7.45) ABG pCO2 (35-45) mmHg ABG pO2 (70-100) mmHg ABG HCO3 (22-26) mmol/L ABG O2 Saturation (95-100) % ABG Base Excess ((-2)-(+3)) mmol/L Eder Test O2 Delivery Device Oxygen Flow Rate Sodium 143 (135-145) mmol/L Potassium 3.4 L (3.6-5.0) mmol/L Chloride 104 (101-111) mmol/L Carbon Dioxide 28.0 (21.0-31.0) mmol/L Anion Gap 14.4 BUN 7 (7-18) mg/dL Creatinine 0.4 L (0.6-1.3) mg/dL Est Cr Clr Drug Dosing 104.74 mL/min Estimated GFR (MDRD) > 60 BUN/Creatinine Ratio 17.50 Glucose 70 L (74-105) mg/dL Lactic Acid 1.0 (0.5-2.2) mmol/L Calcium 8.8 (8.4-10.2) mg/dl Total Bilirubin 0.3 (0.2-1.0) mg/dL AST 18 (10-42) IU/L ALT 16 (10-60) IU/L Alkaline Phosphatase 82 (42-121) IU/L Troponin I < 0.02 (0.00-0.02) ng/ml B-Natriuretic Peptide 199 H (0-100) pg/ml Total Protein 7.1 (6.7-8.2) g/dl Albumin 3.4 (3.2-5.5) g/dl Globulin 3.7 Albumin/Globulin Ratio 0.92 Amylase 37 (28-100) U/L 02/11/ Range/Units 23:23 WBC (5.0-10.0) 10^3/uL RBC (4.2-5.4) 10^6/uL Hgb (12.0-16.0) g/dL Hct (37.0-47.0) % MCV (80-100) fL MCH (27.0-34.0) pg MCHC (33.0-35.0) g/dL Plt Count (150-450) 10^3/uL Neut % (Auto) (42.2-75.2) % Lymph % (Auto) (20.5-50.1) % [place] % (Auto) (2-8) % Eos % (Auto) (1.0-3.0) % Baso % (Auto) (0.0-1.0) % ABG pH 7.38 (7.35-7.45) ABG pCO2 48 H (35-45) mmHg ABG pO2 267 H (70-100) mmHg ABG HCO3 27.6 H (22-26) mmol/L ABG O2 Saturation 100 (95-100) % ABG Base Excess 2 ((-2)-(+3)) mmol/L Eder Test pos O2 Delivery Device Nasal cannula Oxygen Flow Rate 7 Sodium (135-145) mmol/L Potassium (3.6-5.0) mmol/L Chloride (101-111) mmol/L Carbon Dioxide (21.0-31.0) mmol/L Anion Gap BUN (7-18) mg/dL Creatinine (0.6-1.3) mg/dL Est Cr Clr Drug Dosing mL/min Estimated GFR (MDRD) BUN/Creatinine Ratio Glucose (74-105) mg/dL Lactic Acid (0.5-2.2) mmol/L Calcium (8.4-10.2) mg/dl Total Bilirubin (0.2-1.0) mg/dL AST (10-42) IU/L ALT (10-60) IU/L Alkaline Phosphatase (42-121) IU/L Troponin I (0.00-0.02) ng/ml B-Natriuretic Peptide (0-100) pg/ml Total Protein (6.7-8.2) g/dl Albumin (3.2-5.5) g/dl Globulin Albumin/Globulin Ratio Amylase (28-100) U/L Meds: Medications Discontinued Medications Generic Name Dose Route Start Last Admin Trade Name Freq PRN Reason Stop Dose Admin Albuterol 2.5 mg 02/11/17 23:41 02/11/17 23:44 Proventil Neb Soln [facility] 02/11/17 23:42 2.5 mg ONETIME ONE Administration Albuterol/Ipratropium 3 ml 02/11/17 23:10 02/11/17 23:13 Duoneb 3.0-0.5 Mg/3 Ml [facility] 02/11/17 23:11 3 ml ONETIME ONE Administration Methylprednisolone Sodium Succinate 125 mg 02/11/17 23:00 02/11/17 23:05 Solu-Medrol IVPUSH 02/11/17 23:01 125 mg ONETIME ONE Administration - Radiology Interpretation Free Text/Narrative:: CXR- COPD possible infiltrate Right upper lung vs mass. - Re-Assessments/Exams Free Text/Narrative Re-Assessment/Exam: 02/12/17 00:28 Slight improvement in airexchange following nebulizer treatments. Continued wheezing throughout. Now c/o feeling tired and shakey from neb treatments . Dr. Dalton accepting of patient for further management of COPD exacerbation. Departure - Departure Time of Disposition: 00:30 Disposition: Admitted As Inpatient 65 Condition: Fair Clinical Impression: COPD exacerbation - Discharge Information - My Orders Last 24 Hours: My Active Orders 02/11/17 22:57 Blood Culture x2 Reflex Set [OM.PC] Stat 02/11/17 22:59 EKG 12 Lead [EKG Documentation Completion] [RC] URGENT 02/11/17 23:10 RT Aerosol Therapy [RC] ASDIRECTED 02/11/17 23:25 CULTURE BLOOD [BC] Stat 02/11/17 23:29 CULTURE BLOOD [BC] Stat 02/11/17 23:41 RT Aerosol Therapy [RC] ASDIRECTED - Assessment/Plan Last 24 Hours: My Active Orders 02/11/17 22:57 Blood Culture x2 Reflex Set [OM.PC] Stat 02/11/17 22:59 EKG 12 Lead [EKG Documentation Completion] [RC] URGENT 02/11/17 23:10 RT Aerosol Therapy [RC] ASDIRECTED 02/11/17 23:25 CULTURE BLOOD [BC] Stat 02/11/17 23:29 CULTURE BLOOD [BC] Stat 02/11/17 23:41 RT Aerosol Therapy [RC] ASDIRECTED
[2017-02-11] MEDS ORDERED: methylPREDNISolone Sodium Succinate 125 MG/2 ML SDV IVPUSH ONE (23:00)
[2017-02-11] MEDS ORDERED: Albuterol/Ipratropium 3.0-0.5 MG/3 ML Neb Soln NEB ONE (23:10)
[2017-02-11 23:22] LABS: BASE EXCESS ARTERIAL 2 mmol/L ((-2)-(+3)); BICARBONATE,ARTERIAL 27.6 mmol/L (22-26); O2 DELIVERY DEVICE NASAL CANNULA; PCO2 ARTERIAL 48 mmHg (35-45); PO2 ARTERIAL 267 mmHg (70-100)
[2017-02-11 23:26] LABS: O2 SATURATION ARTERIAL 100 % (95-100)
[2017-02-11 23:28] LABS: CHLORIDE,CL 104 mmol/L (101-111); SODIUM,NA 143 mmol/L (135-145)
[2017-02-11 23:30] LABS: ALLEN TEST pos; O2 FLOW RATE 7
[2017-02-11] MEDS ORDERED: Albuterol 0.083% 2.5 MG/3 ML Neb Soln NEB ONE (23:41)
[2017-02-12] MEDS ORDERED: Albuterol/Ipratropium 3.0-0.5 MG/3 ML Neb Soln INH PRN (01:05)
[2017-02-12] MEDS ORDERED: Docusate Sodium 100 MG Cap PO PRN (01:33)
[2017-02-12] MEDS: Sodium Chloride 0.9% 10 ML Syringe FLUSH PRN ×3 (01:50→06:31)
[2017-02-12] MEDS: cefTRIAXone 1 GM in Sodium Chloride 0.9% 50 ML IV SCH (01:50)
[2017-02-12] MEDS: Azithromycin 500 MG in Sodium Chloride 0.9% 250 ML IV SCH (02:24)
--- NOTE | 2017-02-12 02:27 | PCM.HP ---
H&P History of Present Illness - General Date of Service: 02/12/17 Admit Problem/Dx: Admission Diagnosis/Problem Admission Diagnosis/Problem Dyspnea Source of Information: Patient - History of Present Illness Initial Comments - Free Text/Narative: Presented with shortness of breath The patient has a history of COPD, home oxygen dependent at 2 L/m. The patient was recently hospitalized and treated for COPD exacerbation. Past 3 days the patient's breathing has deteriorated. He she is increasingly more short of breath, no associated chest pain, no fever but feeling chills. She has no chest pain, she has no abdominal pain. No lower extremity swelling. - Related Data Allergies/Adverse Reactions: Allergies Allergy/AdvReac Type Severity Reaction Status Date / Time codeine Allergy Cannot Verified 01/20/17 21:13 Remember tramadol HCl [From Ultram] Allergy Cannot Verified 01/20/17 21:13 Remember aspirin Allergy Abdominal Uncoded 01/20/17 21:13 Pain Home Medications: Home Meds Albuterol [Proair HFA] 2 puff INH Q4HR PRN 09/27/13 [History] Estrogens, Conjugated [Premarin] 1 tab PO DAILY 09/27/13 [History] Sertraline [Zoloft] 150 mg PO DAILY 09/27/13 [History] Tiotropium [Spiriva Handihaler] 1 puff INH DAILY 09/27/13 [History] Albuterol/Ipratropium [DuoNeb 3.0-0.5 MG/3 ML] 1 ampule INH QID PRN 02/20/14 [ History] Ranitidine [Zantac] 150 mg PO BID 09/23/14 [History] Pantoprazole [ProTONIX] 40 mg PO DAILY 10/01/14 [History] Gabapentin [Neurontin] 600 mg PO TID 11/01/14 [History] Budesonide [Pulmicort] 0.5 mg NEB BID 01/20/17 [History] Cetirizine HCl [All Day Allergy] 5 - 10 mg PO BEDTIME PRN 01/20/17 [History] Ibuprofen 2 - 3 tab PO TID PRN 01/20/17 [History] Prednisone [IJD: Prednisone] 10 mg PO DAILY #16 tab 01/29/17 [Rx] Pantoprazole Sodium [Protonix] 40 mg PO DAILY 02/12/17 [History] Past Medical History - Past Health History Medical/Surgical History: Denies Medical/Surgical History HEENT History: Reports: Impaired Vision Other HEENT History: near sided Cardiovascular History: Reports: None Other Cardiovascular History: has a stress test this coming Respiratory History: Reports: Bronchitis, Recurrent, COPD, SOB, TB Other Respiratory History: TB when pt. was a small child. Emphysema by pt account Gastrointestinal History: Reports: GERD Other Gastrointestinal History: N/A Genitourinary History: Reports: Renal Calculus Other Genitourinary History: kidney stones Other OB/BYN History: nvd two children/ hysterectomy Musculoskeletal History: Reports: Arthritis Other Musculoskeletal History: arthritis , restless leg syndrome Neurological History: Reports: None Psychiatric History: Reports: Depression Endocrine/Metabolic History: Reports: None Hematologic History: Reports: None Immunologic History: Reports: None Oncologic (Cancer) History: Reports: None Dermatologic History: Reports: None - Infectious Disease History Infectious Disease History: Reports: Chicken Pox, Mumps, TB - Past Surgical History Respiratory Surgical History: Reports: None GI Surgical History: Reports: Appendectomy, Cholecystectomy Female Surgical History: Reports: Hysterectomy Musculoskeletal Surgical History: Reports: None Social & Family History - Family History Family Medical History: Noncontributory HEENT: Reports: None Cardiac: Reports: None Respiratory: Reports: None GI: Reports: None : Reports: None OBGYN: Reports: None - Tobacco Use Smoking Status *Q: Former Smoker Years of Tobacco use: 40 Packs/Tins Daily: 0.5 Used Tobacco, but Quit: Yes Month Tobacco Last Used: December Tobacco Use Comment: Patient states that her last cigarette was 4 days ago. Second Hand Smoke Exposure: No - Caffeine Use Caffeine Use: Reports: Coffee - Alcohol Use Days Per Week of Alcohol Use: 0 - Recreational Drug Use Recreational Drug Use: No - Living Situation & Occupation Living situation: Reports: , with Family Occupation: Retired H&P Review of Systems - Review of Systems: Review Of Systems: See Below General: Reports: Chills. Denies: Fever Pulmonary: Reports: Shortness of Breath, Wheezing. Denies: Pleuritic Chest Pain Cardiovascular: Denies: Chest Pain Gastrointestinal: Denies: Abdominal Pain Genitourinary: Denies: Dysuria Exam - Exam Exam: See Below - Vital Signs Vital Signs: Last Vital Signs Temp 36.2 C 02/12/17 00:45 Pulse 78 02/12/17 00:45 Resp 20 02/12/17 00:45 BP 128/62 02/12/17 00:45 Pulse Ox 98 02/12/17 01:33 Weight: 53.524 kg - Exam Quality Assessment: Supplemental Oxygen General: Alert, Oriented Neck: Supple Lungs: Decreased Breath Sounds, Wheezing Cardiovascular: Regular Rate, Regular Rhythm GI/Abdominal Exam: Normal Bowel Sounds Extremities: No Pedal Edema - Patient Data Result Diagrams: 02/11/17 23:01 02/11/17 23:01 Imaging Impressions Last 24 hrs: Chest x-ray per reading is questioning a right upper lobe nodule versus infiltrate. *Q Meaningful Use (ADM) - VTE *Q VTE Criteria *Q: - Stroke *Q Stroke Criteria *Q: - AMI *Q AMI Criteria *Q: - Problem List (1) COPD exacerbation SNOMED Code(s): 608847492, 727216029 ICD Code: J44.1 - CHRONIC OBSTRUCTIVE PULMONARY DISEASE W (ACUTE) EXACERBATION Status: Acute Priority: High Current Visit: Yes Problem List Initiated/Reviewed/Updated: Yes Orders Last 24hrs: Active Orders 24 hr Category Date Time Status Albuterol [Proventil Neb Soln] Med 02/12/17 07:00 Active 2.5 mg NEB Q6HRRT Medication Orders Albuterol (Proventil Neb Soln) 2.5 mg NEB Q6HRRT [facility] Albuterol/Ipratropium (Duoneb 3.0-0.5 Mg/3 Ml) 3 ml INH Q4HRRT PRN PRN Reason: sob Budesonide (Pulmicort) 0.5 mg NEB BID [facility] Docusate Sodium (Colace) 100 mg PO BID PRN PRN Reason: Constipation Estrogens Conjugated (Premarin) 0.9 mg PO DAILY [facility] Famotidine (Pepcid) 20 mg PO BIDAC [facility] Gabapentin (Neurontin) 600 mg PO TID [facility] Heparin Sodium (Porcine) (Heparin Sodium) 5,000 units SUBCUT Q8HR [facility] Azithromycin 500 mg/ Sodium (Chloride) 250 mls @ 250 mls/hr IV Q24H [facility] Ceftriaxone Sodium 1 gm/ (Sodium Chloride) 50 mls @ 100 mls/hr IV Q24H [facility] Last Admin: 02/12/17 01:50 Dose: 100 mls/hr Ibuprofen (Motrin) 600 mg PO Q6H PRN PRN Reason: Pain Methylprednisolone Sodium Succinate (Solu-Medrol) 40 mg IVPUSH Q8H [facility] Oxycodone HCl (Oxycodone) 5 mg PO Q6H PRN PRN Reason: Pain (moderate 4-6) Pantoprazole Sodium (Protonix) 40 mg PO DAILY [facility] Sertraline HCl (Zoloft) 150 mg PO DAILY [facility] Sodium Chloride (Saline Flush) 10 ml FLUSH ASDIRECTED PRN PRN Reason: Keep Vein Open Last Admin: 02/12/17 01:50 Dose: 10 ml Tiotropium [place] (Spiriva Handihaler) 18 mcg INH DAILY [facility] Zolpidem Tartrate (Ambien) 5 mg PO BEDTIME PRN PRN Reason: Sleep Assessment/Plan Comment:: Acute exacerbation of COPD Treat with IV steroids Treat with scheduled albuterol, Spiriva, Pulmicort nebulizers Use as needed DuoNeb Possible right upper lobe infiltrate versus nodule The patient's last CT scan was in August 2016 which did not show a nodule For now obtain blood culture, sputum culture Treat empirically with azithromycin and ceftriaxone Consider CT scan in a week or 2 after antibiotics Gastroesophageal reflux disease Treat with proton pump inhibitor and Pepcid DVT prophylaxis will be with subcutaneous heparin
[2017-02-12] MEDS ORDERED: Albuterol 0.083% 2.5 MG/3 ML Neb Soln NEB SCH (06:00)
[2017-02-12] MEDS: Famotidine 20 MG Tab PO SCH ×2 (06:31→17:05)
[2017-02-12] MEDS: Heparin Sodium 5,000 Units/ML Vial SUBCUT SCH ×3 (06:31→21:57)
[2017-02-12] MEDS: methylPREDNISolone Sodium Succinate 40 MG/1 ML SDV IVPUSH SCH ×3 (06:32→22:01)
[2017-02-12] MEDS: Budesonide 0.5 MG/2 ML Neb Susp NEB SCH ×3 (07:23→21:56)
[2017-02-12] MEDS: Albuterol 0.083% 2.5 MG/3 ML Neb Soln NEB SCH ×3 (07:24→17:34)
[2017-02-12] MEDS: Sertraline 50 MG Tab PO SCH (08:48)
[2017-02-12] MEDS: Pantoprazole 40 MG Tab.CR PO SCH (08:48)
[2017-02-12] MEDS: Gabapentin 300 MG Cap PO SCH ×3 (08:48→21:56)
[2017-02-12] MEDS: Tiotropium Inhaler 18 MCG Inhalation Powder Cap Kit of 5 INH SCH (08:49)
--- NOTE | 2017-02-12 12:39 | PCM.PN ---
- General Info Date of Service: 02/12/17 Admission Dx/Problem (Free Text): Admission Diagnosis/Problem Admission Diagnosis/Problem Dyspnea Subjective Update: Feeling a little bit better but still has moderate shortness of breath associated with activity. No associated chest pain. Eating and drinking well. No abdominal pain. - Review of Systems General: Reports: Weakness. Denies: Fever Pulmonary: Reports: Shortness of Breath, Wheezing Cardiovascular: Denies: Chest Pain Gastrointestinal: Denies: Abdominal Pain Genitourinary: Denies: Dysuria - Patient Data Vitals - Most Recent: Last Vital Signs Temp 36.3 C 02/12/17 11:00 Pulse 82 02/12/17 11:00 Resp 20 02/12/17 11:00 BP 113/58 L 02/12/17 11:00 Pulse Ox 99 02/12/17 11:00 Weight - Most Recent: 53.524 kg I&O - Last 24 Hours: Intake & Output 02/11/17 02/12/17 02/12/17 22:59 06:59 14:59 Intake Total 286 Balance 286 Med Orders - Current: Current Medications Albuterol (Proventil Neb Soln) 2.5 mg NEB Q6HRRT [facility] Last Admin: 02/12/17 07:24 Dose: 2.5 mg Albuterol/Ipratropium (Duoneb 3.0-0.5 Mg/3 Ml) 3 ml INH Q4HRRT PRN PRN Reason: sob Budesonide (Pulmicort) 0.5 mg NEB BID [facility] Last Admin: 02/12/17 08:48 Dose: Not Given Docusate Sodium (Colace) 100 mg PO BID PRN PRN Reason: Constipation Estrogens Conjugated (Premarin) 0.9 mg PO DAILY [facility] Last Admin: 02/12/17 08:49 Dose: 0.9 mg Famotidine (Pepcid) 20 mg PO BIDAC [facility] Last Admin: 02/12/17 06:31 Dose: 20 mg Gabapentin (Neurontin) 600 mg PO TID [facility] Last Admin: 02/12/17 08:48 Dose: 600 mg Heparin Sodium (Porcine) (Heparin Sodium) 5,000 units SUBCUT Q8HR [facility] Last Admin: 02/12/17 06:31 Dose: 5,000 units Azithromycin 500 mg/ Sodium (Chloride) 250 mls @ 250 mls/hr IV Q24H [facility] Last Admin: 08/29/17 02:24 Dose: 250 mls/hr Ceftriaxone Sodium 1 gm/ (Sodium Chloride) 50 mls @ 100 mls/hr IV Q24H [facility] Last Admin: 02/12/17 01:50 Dose: 100 mls/hr Ibuprofen (Motrin) 600 mg PO Q6H PRN PRN Reason: Pain Methylprednisolone Sodium Succinate (Solu-Medrol) 40 mg IVPUSH Q8H [facility] Last Admin: 02/12/17 06:32 Dose: 40 mg Oxycodone HCl (Oxycodone) 5 mg PO Q6H PRN PRN Reason: Pain (moderate 4-6) Pantoprazole Sodium (Protonix) 40 mg PO DAILY [facility] Last Admin: 02/12/17 08:48 Dose: 40 mg Sertraline HCl (Zoloft) 150 mg PO DAILY [facility] Last Admin: 02/12/17 08:48 Dose: 150 mg Sodium Chloride (Saline Flush) 10 ml FLUSH ASDIRECTED PRN PRN Reason: Keep Vein Open Last Admin: 02/12/17 06:31 Dose: 10 ml Tiotropium [place] (Spiriva Handihaler) 18 mcg INH DAILY [facility] Last Admin: 02/12/17 08:49 Dose: 18 mcg Zolpidem Tartrate (Ambien) 5 mg PO BEDTIME PRN PRN Reason: Sleep Discontinued Medications Albuterol (Proventil Neb Soln) 2.5 mg NEB ONETIME ONE Stop: 02/11/17 23:42 Last Admin: 02/11/17 23:44 Dose: 2.5 mg Albuterol (Proventil Neb Soln) 2.5 mg NEB Q6HRRT [facility] Albuterol/Ipratropium (Duoneb 3.0-0.5 Mg/3 Ml) 3 ml NEB ONETIME ONE Stop: 02/11/17 23:11 Last Admin: 02/11/17 23:13 Dose: 3 ml Methylprednisolone Sodium Succinate (Solu-Medrol) 125 mg IVPUSH ONETIME ONE Stop: 02/11/17 23:01 Last Admin: 02/11/17 23:05 Dose: 125 mg - Exam General: Alert, Oriented Neck: Supple Lungs: Normal Respiratory Effort, Wheezing Cardiovascular: Regular Rate, Regular Rhythm GI/Abdominal Exam: Normal Bowel Sounds, Soft, Non-Tender Extremities: No Pedal Edema - Problem List & Annotations (1) COPD exacerbation SNOMED Code(s): 570109716, [id number] Code(s): J44.1 - CHRONIC OBSTRUCTIVE PULMONARY DISEASE W (ACUTE) EXACERBATION Status: Acute Priority: High Current Visit: Yes - Problem List Review Problem List Initiated/Reviewed/Updated: Yes - My Orders Last 24 Hours: My Active Orders 02/12/17 07:00 Albuterol [Proventil Neb Soln] 2.5 mg NEB Q6HRRT 02/13/17 05:15 BASIC METABOLIC PANEL,BMP [CHEM] AM CBC WITH AUTO DIFF [HEME] AM - Plan Plan:: Acute exacerbation of COPD Treat with IV steroids Treat with scheduled albuterol, Spiriva, Pulmicort nebulizers Use as needed DuoNeb Possible right upper lobe infiltrate versus nodule The patient's last CT scan was in August 2016 which did not show a nodule Pending blood culture, sputum culture: Pending Treat empirically with azithromycin and ceftriaxone Consider CT scan in a week or 2 after antibiotics Gastroesophageal reflux disease Treat with proton pump inhibitor and Pepcid DVT prophylaxis will be with subcutaneous heparin
[2017-02-12] MEDS: Nicotine 14 MG/24 Hr Patch TRDERM SCH (15:56)
[2017-02-12] MEDS: Ibuprofen 600 MG Tab PO PRN ×2 (15:59→22:00)
[2017-02-12] MEDS: Zolpidem 5 MG Tab PO PRN (23:03)
[2017-02-13] MEDS: cefTRIAXone 1 GM in Sodium Chloride 0.9% 50 ML IV SCH (00:53)
[2017-02-13] MEDS: Sodium Chloride 0.9% 10 ML Syringe FLUSH PRN (00:53)
[2017-02-13] MEDS: Albuterol 0.083% 2.5 MG/3 ML Neb Soln NEB SCH ×4 (00:53→17:02)
[2017-02-13] MEDS: Azithromycin 500 MG in Sodium Chloride 0.9% 250 ML IV SCH (01:23)
[2017-02-13] MEDS: methylPREDNISolone Sodium Succinate 40 MG/1 ML SDV IVPUSH SCH ×2 (06:08→17:31)
[2017-02-13] MEDS: Heparin Sodium 5,000 Units/ML Vial SUBCUT SCH ×3 (06:08→22:03)
[2017-02-13] MEDS: Famotidine 20 MG Tab PO SCH ×2 (06:08→17:31)
[2017-02-13 06:57] LABS: CHLORIDE,CL 107 mmol/L (101-111); SODIUM,NA 142 mmol/L (135-145)
[2017-02-13] MEDS: Pantoprazole 40 MG Tab.CR PO SCH (08:14)
[2017-02-13] MEDS: Sertraline 50 MG Tab PO SCH (08:14)
[2017-02-13] MEDS: Ibuprofen 600 MG Tab PO PRN ×2 (08:14→14:24)
[2017-02-13] MEDS: Gabapentin 300 MG Cap PO SCH ×3 (08:15→21:05)
[2017-02-13] MEDS: Nicotine 14 MG/24 Hr Patch TRDERM SCH (08:15)
[2017-02-13] MEDS: Budesonide 0.5 MG/2 ML Neb Susp NEB SCH ×2 (08:15→21:04)
[2017-02-13] MEDS: Tiotropium Inhaler 18 MCG Inhalation Powder Cap Kit of 5 INH SCH (08:16)
--- NOTE | 2017-02-13 10:15 | PCM.PN ---
- General Info Date of Service: 02/13/17 Admission Dx/Problem (Free Text): Admission Diagnosis/Problem Admission Diagnosis/Problem Dyspnea Subjective Update: Feeling a little bit better but still has mild to moderate shortness of breath associated with activity. No associated chest pain. Eating and drinking well. No abdominal pain. No fever - Review of Systems General: Denies: Fever, Weakness Pulmonary: Reports: Shortness of Breath Cardiovascular: Denies: Chest Pain Gastrointestinal: Denies: Abdominal Pain Neurological: Denies: Confusion - Patient Data Vitals - Most Recent: Last Vital Signs Temp 36.6 C 02/13/17 07:00 Pulse 82 02/13/17 07:00 Resp 20 02/13/17 07:00 BP 93/53 L 02/13/17 07:00 Pulse Ox 99 02/13/17 07:00 Weight - Most Recent: 53.524 kg I&O - Last 24 Hours: Intake & Output 02/12/17 02/13/17 02/13/17 22:59 06:59 14:59 Intake Total 440 768 Output Total 1000 Balance 440 -232 Lab Results Last 24 Hours: Laboratory Results - last 24 hr 02/13/17 02/13/17 Range/Units 06:14 06:14 WBC 10.8 H (5.0-10.0) 10^3/uL RBC 3.94 L (4.2-5.4) 10^6/uL Hgb 10.1 L (12.0-16.0) g/dL Hct 31.5 L (37.0-47.0) % MCV 79.9 L (80-100) fL MCH 25.6 L (27.0-34.0) pg MCHC 32.1 L (33.0-35.0) g/dL Plt Count 298 (150-450) 10^3/uL Neut % (Auto) 86.0 H (42.2-75.2) % Lymph % (Auto) 8.0 L (20.5-50.1) % [place] % (Auto) 5.9 (2-8) % Eos % (Auto) 0.0 L (1.0-3.0) % Baso % (Auto) 0.1 (0.0-1.0) % Sodium 142 (135-145) mmol/L Potassium 4.2 (3.6-5.0) mmol/L Chloride 107 (101-111) mmol/L Carbon Dioxide 25.0 (21.0-31.0) mmol/L Anion Gap 14.2 BUN 20 H (7-18) mg/dL Creatinine 0.5 L (0.6-1.3) mg/dL Est Cr Clr Drug Dosing 83.80 mL/min Estimated GFR (MDRD) > 60 Glucose 134 H (74-105) mg/dL Calcium 8.9 (8.4-10.2) mg/dl Sean Results Last 24 Hours: Microbiology 02/13/17 09:00 Gram Stain - Final Sputum - Expectorated Med Orders - Current: Current Medications Albuterol (Proventil Neb Soln) 2.5 mg NEB Q6HRRT [facility] Last Admin: 02/13/17 06:10 Dose: 2.5 mg Albuterol/Ipratropium (Duoneb 3.0-0.5 Mg/3 Ml) 3 ml INH Q4HRRT PRN PRN Reason: sob Budesonide (Pulmicort) 0.5 mg NEB BID [facility] Last Admin: 02/13/17 08:15 Dose: 0.5 mg Docusate Sodium (Colace) 100 mg PO BID PRN PRN Reason: Constipation Estrogens Conjugated (Premarin) 0.9 mg PO DAILY [facility] Last Admin: 02/13/17 08:15 Dose: 0.9 mg Famotidine (Pepcid) 20 mg PO BIDAC [facility] Last Admin: 02/13/17 06:08 Dose: 20 mg Gabapentin (Neurontin) 600 mg PO TID [facility] Last Admin: 02/13/17 08:15 Dose: 600 mg Heparin Sodium (Porcine) (Heparin Sodium) 5,000 units SUBCUT Q8HR [facility] Last Admin: 02/13/17 06:08 Dose: 5,000 units Azithromycin 500 mg/ Sodium (Chloride) 250 mls @ 250 mls/hr IV Q24H [facility] Last Admin: 02/13/17 01:23 Dose: 250 mls/hr Ceftriaxone Sodium 1 gm/ (Sodium Chloride) 50 mls @ 100 mls/hr IV Q24H [facility] Last Admin: 02/13/17 00:53 Dose: 100 mls/hr Ibuprofen (Motrin) 600 mg PO Q6H PRN PRN Reason: Pain Last Admin: 08/30/17 08:14 Dose: 600 mg Methylprednisolone Sodium Succinate (Solu-Medrol) 40 mg IVPUSH Q8H [facility] Last Admin: 02/13/17 06:08 Dose: 40 mg Nicotine (Habitrol) 14 mg TRDERM DAILY [facility] Last Admin: 02/13/17 08:15 Dose: 14 mg Oxycodone HCl (Oxycodone) 5 mg PO Q6H PRN PRN Reason: Pain (moderate 4-6) Pantoprazole Sodium (Protonix) 40 mg PO DAILY [facility] Last Admin: 02/13/17 08:14 Dose: 40 mg Sertraline HCl (Zoloft) 150 mg PO DAILY [facility] Last Admin: 02/13/17 08:14 Dose: 150 mg Sodium Chloride (Saline Flush) 10 ml FLUSH ASDIRECTED PRN PRN Reason: Keep Vein Open Last Admin: 02/13/17 00:53 Dose: 10 ml Tiotropium [place] (Spiriva Handihaler) 18 mcg INH DAILY [facility] Last Admin: 02/13/17 08:16 Dose: 18 mcg Zolpidem Tartrate (Ambien) 5 mg PO BEDTIME PRN PRN Reason: Sleep Last Admin: 02/12/17 23:03 Dose: 5 mg Discontinued Medications Albuterol (Proventil Neb Soln) 2.5 mg NEB ONETIME ONE Stop: 02/11/17 23:42 Last Admin: 02/11/17 23:44 Dose: 2.5 mg Albuterol (Proventil Neb Soln) 2.5 mg NEB Q6HRRT [facility] Albuterol/Ipratropium (Duoneb 3.0-0.5 Mg/3 Ml) 3 ml NEB ONETIME ONE Stop: 02/11/17 23:11 Last Admin: 02/11/17 23:13 Dose: 3 ml Methylprednisolone Sodium Succinate (Solu-Medrol) 125 mg IVPUSH ONETIME ONE Stop: 02/11/17 23:01 Last Admin: 02/11/17 23:05 Dose: 125 mg - Exam General: Alert, Oriented Neck: Supple Lungs: Normal Respiratory Effort, Wheezing Cardiovascular: Regular Rate, Regular Rhythm Extremities: Normal Inspection, No Pedal Edema - Problem List & Annotations (1) COPD exacerbation SNOMED Code(s): 812472682, [id number] Code(s): J44.1 - CHRONIC OBSTRUCTIVE PULMONARY DISEASE W (ACUTE) EXACERBATION Status: Acute Priority: High Current Visit: Yes - Problem List Review Problem List Initiated/Reviewed/Updated: Yes - My Orders Last 24 Hours: My Active Orders 02/12/17 15:00 Nicotine [Habitrol] 14 mg TRDERM DAILY 02/14/17 05:15 BASIC METABOLIC PANEL,BMP [CHEM] AM CBC WITH AUTO DIFF [HEME] AM - Plan Plan:: Acute exacerbation of COPD Continue to Treat with IV steroids - taper the dose Treat with scheduled albuterol, Spiriva, Pulmicort nebulizers Use as needed DuoNeb Possible right upper lobe infiltrate versus nodule The patient's last CT scan was in August 2016 which did not show a nodule blood culture: negative sputum culture: negative Treat empirically with azithromycin and ceftriaxone Consider CT scan in a week or 2 after antibiotics to evaluate for nodule Gastroesophageal reflux disease Treat with proton pump inhibitor and Pepcid DVT prophylaxis will be with subcutaneous heparin
--- NOTE | 2017-02-13 15:22 | EKG ---
02/11/2017- STEVEN MALIN - EKG per my reading shows sinus rhythm with no acute ST changes. [facility] /[id number]
[2017-02-13] MEDS: Zolpidem 5 MG Tab PO PRN (22:07)
[2017-02-14] MEDS: Albuterol 0.083% 2.5 MG/3 ML Neb Soln NEB SCH ×4 (00:58→17:31)
[2017-02-14] MEDS: cefTRIAXone 1 GM in Sodium Chloride 0.9% 50 ML IV SCH (01:06)
[2017-02-14] MEDS: Azithromycin 500 MG in Sodium Chloride 0.9% 250 ML IV SCH (01:37)
[2017-02-14] MEDS: methylPREDNISolone Sodium Succinate 40 MG/1 ML SDV IVPUSH SCH ×2 (06:18→17:29)
[2017-02-14] MEDS: Heparin Sodium 5,000 Units/ML Vial SUBCUT SCH ×3 (06:22→21:15)
[2017-02-14] MEDS: Famotidine 20 MG Tab PO SCH ×2 (06:22→17:28)
[2017-02-14] MEDS: Budesonide 0.5 MG/2 ML Neb Susp NEB SCH ×3 (07:03→21:14)
[2017-02-14 07:10] LABS: CHLORIDE,CL 108 mmol/L (101-111); SODIUM,NA 143 mmol/L (135-145)
[2017-02-14] MEDS: Sertraline 50 MG Tab PO SCH (09:49)
[2017-02-14] MEDS: Gabapentin 300 MG Cap PO SCH ×3 (09:51→21:14)
[2017-02-14] MEDS: Pantoprazole 40 MG Tab.CR PO SCH (09:51)
[2017-02-14] MEDS: Tiotropium Inhaler 18 MCG Inhalation Powder Cap Kit of 5 INH SCH (09:53)
[2017-02-14] MEDS: Nicotine 14 MG/24 Hr Patch TRDERM SCH (09:54)
[2017-02-14] MEDS: Ibuprofen 600 MG Tab PO PRN ×2 (11:37→21:14)
[2017-02-14] MEDS: Sodium Chloride 0.9% 10 ML Syringe FLUSH PRN (17:29)
[2017-02-14] MEDS ORDERED: oxyCODONE 5 MG Tab PO ONE (22:38)
[2017-02-15] MEDS: Albuterol 0.083% 2.5 MG/3 ML Neb Soln NEB SCH ×4 (01:31→18:25)
[2017-02-15] MEDS: Zolpidem 5 MG Tab PO PRN (01:32)
[2017-02-15] MEDS: Azithromycin 500 MG in Sodium Chloride 0.9% 250 ML IV SCH (01:32)
[2017-02-15] MEDS: cefTRIAXone 1 GM in Sodium Chloride 0.9% 50 ML IV SCH (01:32)
[2017-02-15] MEDS: Heparin Sodium 5,000 Units/ML Vial SUBCUT SCH ×2 (05:51→14:05)
[2017-02-15] MEDS: methylPREDNISolone Sodium Succinate 40 MG/1 ML SDV IVPUSH SCH ×3 (05:51→18:26)
[2017-02-15] MEDS: Famotidine 20 MG Tab PO SCH ×2 (05:52→16:08)
--- NOTE | 2017-02-15 08:01 | PN ---
DATE: 02/14/2017 SUBJECTIVE: Donna is a 61-year-old lady well known to the staff. She is a chronic smoker and has a long history of COPD. She was just recently hospitalized from January 26 to January 29 for somewhat presentation of shortness of breath with an exacerbation of her COPD. She was seen by her oil drilling engineer following that visit. She did take the antibiotics that we prescribed but did not fill the steroids, and her oil drilling engineer did give her a depot injection of steroids at that visit. She now says that she has been short of breath starting about February 10; came to the emergency room on the and was admitted. She currently is on IV ceftriaxone and azithromycin as well as Solu-Medrol which is being tapered down. She is feeling better, and as usual, is more than ready to be discharged. We encouraged her to stay the night and finish further IV antibiotic and steroid treatment, and we can discuss discharge for tomorrow. Review of her clinical data shows stable vital signs. She has been afebrile. Oxygen saturations are in the high 90s. She is drinking adequate fluids. She is voiding and moving her bowels. She is tolerating her diet. Two sets of blood cultures remained without growth after 3 days. Sputum culture is pending and shows gram-negative cocci in pairs as well as gram-negative rods. The final report should be available tomorrow. Lab work today showed CBC with a white count of 10.7, hemoglobin and hematocrit of 9.8 and 31, platelets were normal. Basic panel showed normal electrolytes with a BUN and creatinine of 22 and 0.5 and a GFR of more than 60. Blood sugars have been well controlled. Her admission blood gas showed elevated CO2 of 48 with a pH of 7.38. PHYSICAL EXAMINATION: General: She is lying comfortably in bed. She has family members who are present. She voiced no new concerns or complaint other than vague anterior chest wall pain that she has when her COPD is exacerbated, and for which, she prefers to take Percocet. Vital Signs: Blood pressure 118/66, pulse 85, respiratory rate 20, oxygen saturation 99%, and she is afebrile. HEENT: Unremarkable. Chest: Showed mild anterior and posterior wheezing, otherwise, diminished breath sounds. Heart: Showed regular rate and rhythm. Abdomen: Soft, flat, and benign. Extremities: Showed no edema. Neurologic: She is intact. IMPRESSION: I spoke to Donna regarding her admission chest x-ray. Once again, seen is a nodular density in the right upper lobe. Radiology is concerned that this could be a mass versus an infiltrate and have suggested a followup CT. We have ordered a CT scan with IV contrast for tomorrow morning. We had discussed this with Donna, and she was in agreement with this plan. Following the scan, we will consider discharge to home. NOTE: CT scan with contrast performed on 02/15/17 did not show any evidence of malignancy. No mass was seen in the right upper lobe. Her Solu-Medrol was tapered again today. PLAN: Plan is for discharge tomorrow. [facility] /[id number] [facility]ARREN
[2017-02-15] MEDS: Nicotine 14 MG/24 Hr Patch TRDERM SCH (09:20)
[2017-02-15] MEDS: Gabapentin 300 MG Cap PO SCH ×2 (09:22→14:03)
[2017-02-15] MEDS: Sertraline 50 MG Tab PO SCH (09:23)
[2017-02-15] MEDS: Pantoprazole 40 MG Tab.CR PO SCH (09:24)
[2017-02-15] MEDS: Budesonide 0.5 MG/2 ML Neb Susp NEB SCH (09:25)
[2017-02-15] MEDS: Tiotropium Inhaler 18 MCG Inhalation Powder Cap Kit of 5 INH SCH (09:26)
[2017-02-15] MEDS: Ibuprofen 600 MG Tab PO PRN ×2 (09:32→16:08)
[2017-02-15] MEDS: oxyCODONE 5 MG Tab PO PRN ×2 (09:42→16:09)
[2017-02-15] MEDS ORDERED: Iopamidol 612 MG/ML 75 ML Bottle IVPUSH ONE (11:00)
[2017-02-15 14:29] VITALS: BP 122/58
--- NOTE | 2017-02-15 15:11 | CT ---
Clinical history: 61-year-old 118 pound female "smoker" with dyspnea and COPD noted to have "worsenin g" density right upper lobe on recent plain chest radiograph. R/O neoplasm this patient with remote h istory of "tuberculosis". Scan technique: Volume acquisition of data from the chest (bony thorax lungs and mediastinum) obtaine d during intravenous ministration 75 cc nonionic Isovue contrast while the patient was lying supine o n the Siemens multi slice scanner [place], [place]. All data archived in the PACS system for storage, reformatting axial/sagittal/coronal planes and study (lung/mediastina l windows). Interpretation: Abnormal. 1. Asymmetric pleural parenchymal scarring, right apical pleural nodularity, underlying cysts and RUL atelectasis/fibrosis characteristic of chronic reactive airway disease and old infection. No current lobar consolidation or pneumonia. 2. Peribronchial "cuffing" and generalized air trapping with emphysematous cystic lesions both lung f ields. 3. Patchy nonconsolidative infiltrates (bronchiectasis?) both lower lobes, left greater than right. 4. No parenchymal lung mass lesion or hilar/mediastinal lymphadenopathy. No malignant effusions. 5. Normal cardiac silhouette. No pericardial effusion, cephalization of vascular flow, alveolar edema or dependent effusion. 6. Generalized osteopenia. Chronic hypertrophic spondylosis. No pathologic skeletal lesion, vertebral fracture or dislocation. 7. Gallbladder, liver, stomach, spleen and pancreas unremarkable. Normal adrenal glands. 8. Calcification scattered along the course of normal caliber thoracic aorta. No aneurysm or dissecti on. CONCLUSION: Bronchitis, apparent bronchiectasis, and chronic obstructive pulmonary disease. No current signs of lobar pneumonia or malignancy. No heart failure. No new signs of malignancy since previous CT scans of the chest dated February 2014 and October 2014.
--- NOTE | 2017-05-17 16:57 | DISCH ---
DISCHARGE DIAGNOSES: 1. Acute exacerbation of chronic obstructive pulmonary disease. 2. Oxygen-dependent by history. 3. Question of a nodular density in the right upper lobe. A followup CT scan of the chest with the use of IV contrast showed no parenchymal lung mass, lesion, or hilar/mediastinal adenopathy. It showed bronchitis, apparent bronchiectasis, and chronic obstructive pulmonary disease. No lobar pneumonia. No evidence of malignancy. No heart failure. This CT was compared to previous studies of February 2014 and October 2014. 4. Depression and anxiety by history. 5. Sputum culture revealed methicillin-resistant Staphylococcus aureus. Result was available following discharge. Please see hospital course for outcome. 6. Tobacco use disorder. BRIEF HISTORY OF PRESENT ILLNESS: Donna Zavaleta is a 61-year-old lady who had been previously hospitalized from January 26 to January 29 for an exacerbation of COPD. She was seen by her spine nurse. At the time of discharge, she was given prescriptions for antibiotics and steroids. She took the antibiotics, but never filled the steroid prescription, and her spine nurse gave her a depot injection of steroids at the followup visit. Starting about 2 to 3 days before admission, she developed increasing shortness of breath. She was seen in the emergency room and was referred for admission. PERTINENT LABORATORY AND X-RAY DATA: CBC at the time of admission showed a white count of 8.8, this mckenzie to 10.8 following admission with 86% neutrophils; hemoglobin and hematocrit were 9.8 and 31 at discharge. Comprehensive metabolic panel was essentially unremarkable. Troponin was negative, less than 0.02. BNP was 199. Amylase was normal. An arterial blood gas was performed on nasal cannula at 7 L/min and showed a pH of 7.38, pCO2 of 48, pO2 of 267, and oxygen saturation 100%. A single-view chest x-ray done at the time of admission showed changes consistent with COPD, and there was a question about the possibility of a nodular density in the right upper lobe. This was followed up by a CT scan of the chest with the use of IV contrast, which showed no evidence for any malignancy or nodular mass or lesion in the lungs. It demonstrated COPD, bronchitis, and apparent bronchiectasis. There was no sign of any acute lobar pneumonia. Two sets of blood cultures showed no growth after 5 days. A sputum culture was ordered prior to discharge. Results showed more than 25 epithelial cells, more than 25 WBCs per low power field, many gram-negative cocci and gram-negative rods. Preliminary results showed light growth of probable Staph aureus. The final culture results did not become available until after discharge and showed that this was MRSA. HOSPITAL COURSE: Donna was admitted as an acute inpatient. She was started on IV ceftriaxone and IV azithromycin as well as tapering doses of IV Solu-Medrol. She quickly improved, and as usual, she was to be discharged as soon as she felt better. She was discharged to home. On the day of discharge, a review of her clinical data showed she was taking adequate fluids. She was voiding and moving her bowels. She was tolerating her diet. Vital signs were stable, and she was afebrile. PHYSICAL EXAMINATION: Vital Signs: On the day of discharge, blood pressure was 122/58, pulse 81, respiratory rate 20, oxygen saturation 100% on 1 to 2 L, and she was afebrile. Weight was 118 pounds. General: On exam, she is lying comfortably in bed. She is eager to go home. HEENT: Unremarkable. ENT was clear. Chest: Showed only scattered wheezes anteriorly and posteriorly, otherwise, clear but diminished bilateral breath sounds. Heart: Showed a regular rate and rhythm. Abdomen: Soft and benign. Extremities: Showed no edema. Neurological: She is intact. DISCHARGE MEDICATIONS: She will resume her usual medications and usual nebulizer therapy. Please see [facility] for complete details. She was sent home on a prednisone taper. Antibiotics were not prescribed at the time of discharge as we were waiting for final culture report. When the culture showed MRSA, the Infection Control nurse, attempted to get a hold of Donna. She explained the results to her. The nurse then tried to get a hold of the family independence case manager at [facility], Sara Barth. She left a number of messages for her. When the Infection Control nurse finally spoke to Donna on , Donna stated that she had been to the clinic, and they had prescribed an antibiotic for her on February 22. No further information is available regarding that antibiotic. DISCHARGE PLAN: She will be discharged to home. She will continue her usual medications. She has an appointment coming up with her spine nurse, Dr. Collins, in [place]. She will also follow up with Dr. Jarod Montemayor at [facility]. She will follow her usual diet. Activity level as tolerated. CONDITION AT THE TIME OF DISCHARGE: Much improved and stable. RESUSCITATION STATUS DURING THIS ADMISSION: Full code. [facility] /[id number]
== END 2017-02-15 18:00 | disposition home or self-care (01) | DRG 192 ==
LOC: DL.ED 22:55 → UNDOADMIN 02-12 00:20 → DL.MS 02-12 00:20
PROVIDERS: ADMIT Internal Medicine; ATTEND Internal Medicine
DX: J44.1 Chronic obstructive pulmonary disease with (acute) exacerbation (principal); R06.02 Shortness of breath; R53.1 Weakness; F17.210 Nicotine dependence, cigarettes, uncomplicated; Z79.899 Other long term (current) drug therapy; K21.9 Gastro-esophageal reflux disease without esophagitis; Z99.81 Dependence on supplemental oxygen; Z88.6 Allergy status to analgesic agent; M19.90 Unspecified osteoarthritis, unspecified site; G25.81 Restless legs syndrome; F32.9 Major depressive disorder, single episode, unspecified; Z87.891 Personal history of nicotine dependence; R91.1 Solitary pulmonary nodule; R91.8 Other nonspecific abnormal finding of lung field
CPT/HCPCS: 36415; 36600; 71010; 80053; 82150; 82803; 83605; 83880; 84484; 85025; 87040 ×2; 93005; 93010; 94640; 96374; 99285; J2930; J7620; 71260; 80048; 87070; 87077; 87186; 87205; 99284; A9270-GY; J0456; J0696; J1644; J2920; J7050; Q9967

== ENCOUNTER 2017-06-20 11:40 | Emergency (ER) | payer MEDICARE, MEDICAID, OTHER ==
[2017-06-20 12:05] VITALS: BP 116/55
== END 2017-06-20 14:40 | disposition left against medical advice (07) ==
LOC: DL.ED 11:40
DX: Z53.21 Procedure and treatment not carried out due to patient leaving prior to being seen by health care provider (principal)
CPT/HCPCS: 99283

== ENCOUNTER 2017-09-05 20:49 | Inpatient (IN) | payer MEDICARE, MEDICAID ==
[2017-09-05 22:24] LABS: CHLORIDE,CL 106 mmol/L (101-111); SODIUM,NA 139 mmol/L (135-145)
[2017-09-05] MEDS ORDERED: Albuterol 0.083% 2.5 MG/3 ML Neb Soln NEB ONE (23:17)
--- NOTE | 2017-09-05 23:17 | EDM.PDOC ---
ED HPI GENERAL MEDICAL PROBLEM - General Chief Complaint: Respiratory Problem Stated Complaint: [id number] LUNGS AND STOMACH NAUSEA CHEST HURTS Time Seen by Provider: 09/05/17 21:05 Source of Information: Reports: Patient History Limitations: Reports: No Limitations - History of Present Illness INITIAL COMMENTS - FREE TEXT/NARRATIVE: increaaseing difficulty breathing, coughing tonight nauseated. Hx COPD. Last neb 1 hour ago, Unsure if fevers, has had chills. Started smoking again in last month, had quit for over 3 months, Right Back Pain Score (Numeric/FACES): 7 - Related Data Allergies Allergy/AdvReac Type Severity Reaction Status Date / Time codeine Allergy Cannot Verified 09/06/17 00:30 Remember tramadol HCl [From Ultram] Allergy Cannot Verified 09/06/17 00:30 Remember aspirin Allergy Abdominal Uncoded 01/20/17 21:13 Pain Home Meds: Home Meds Albuterol [Proair HFA] 2 puff INH Q4HR PRN 09/27/13 [History] Estrogens, Conjugated [Premarin] 1 tab PO DAILY 09/27/13 [History] Sertraline [Zoloft] 150 mg PO DAILY 09/27/13 [History] Tiotropium [Spiriva Handihaler] 1 puff INH DAILY 09/27/13 [History] Albuterol/Ipratropium [DuoNeb 3.0-0.5 MG/3 ML] 1 ampule INH QID PRN 02/20/14 [ History] Ranitidine [Zantac] 150 mg PO BID 09/23/14 [History] Pantoprazole [ProTONIX] 40 mg PO DAILY 10/01/14 [History] Gabapentin [Neurontin] 600 mg PO TID 11/01/14 [History] Budesonide [Pulmicort] 0.5 mg NEB BID 01/20/17 [History] Ibuprofen 2 - 3 tab PO TID PRN 01/20/17 [History] Past Medical History - Past Health History Medical/Surgical History: Denies Medical/Surgical History HEENT History: Reports: Impaired Vision, Other (See Below) Other HEENT History: near sided Cardiovascular History: Reports: None Other Cardiovascular History: has a stress test this coming Respiratory History: Reports: Bronchitis, Recurrent, COPD, SOB, TB, Other (See Below) Other Respiratory History: TB when pt. was a small child. 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 (See Below) Other OB/BYN History: nvd two children/ hysterectomy Musculoskeletal History: Reports: Arthritis, Other (See Below) Other Musculoskeletal History: arthritis , restless leg syndrome Neurological History: Reports: None Psychiatric History: Reports: Depression Endocrine/Metabolic History: Reports: None Hematologic History: Reports: None Immunologic History: Reports: None Oncologic (Cancer) History: Reports: None Dermatologic History: Reports: None - Infectious Disease History Infectious Disease History: Reports: Chicken Pox, Mumps, TB - Past Surgical History Respiratory Surgical History: Reports: None GI Surgical History: Reports: Appendectomy, Cholecystectomy Female Surgical History: Reports: Hysterectomy Musculoskeletal Surgical History: Reports: None Social & Family History - Family History Family Medical History: Noncontributory HEENT: Reports: None Cardiac: Reports: None Respiratory: Reports: None GI: Reports: None : Reports: None OBGYN: Reports: None - Tobacco Use Smoking Status *Q: Current Every Day Smoker Years of Tobacco use: 40 Packs/Tins Daily: 0.5 Used Tobacco, but Quit: Yes Month/Year Tobacco Last Used: December Second Hand Smoke Exposure: No - Caffeine Use Caffeine Use: Reports: Coffee - Alcohol Use Days Per Week of Alcohol Use: 0 - Recreational Drug Use Recreational Drug Use: No - Living Situation & Occupation Living situation: Reports: , with Family Occupation: Retired ED ROS GENERAL - Review of Systems Review Of Systems: See Below Constitutional: Reports: Chills, Malaise HEENT: Reports: No Symptoms Respiratory: Reports: Shortness of Breath, Wheezing, Pleuritic Chest Pain, Cough , Other (oxygen as needed at home) Cardiovascular: Reports: Dyspnea on Exertion, Edema GI/Abdominal: Reports: Nausea : Reports: No Symptoms ED EXAM, GENERAL - Physical Exam Exam: See Below Exam Limited By: No Limitations General Appearance: Alert, Moderate Distress, Thin Eye Exam: Bilateral Eye: EOMI Ears: Normal External Exam, Normal TMs Ear Exam: Bilateral Ear: Canal Normal, TM normal Nose: Normal Inspection Throat/Mouth: Normal Inspection Neck: Normal Inspection Respiratory/Chest: Decreased Breath Sounds, Rhonchi (inpiratory, expiratory), Wheezing. No: Lungs Clear, Normal Breath Sounds Cardiovascular: Regular Rate, Rhythm GI/Abdominal: Normal Bowel Sounds Back Exam: Normal Inspection, Full Range of Motion Neurological: Alert, Oriented, Normal Cognition Psychiatric: Normal Affect, Normal Mood Skin Exam: Warm, Dry, Intact Course - Vital Signs Last Recorded V/S: Last Vital Signs Temp 98.7 F 09/06/17 02:48 Pulse 97 09/06/17 02:48 Resp 20 09/06/17 02:48 BP 107/65 09/06/17 02:48 Pulse Ox 98 09/06/17 02:48 - Orders/Labs/Meds Orders: Active Orders 24 hr Category Date Time Status RT Aerosol Therapy [RC] ASDIRECTED Care 09/05/17 23:17 Active CULTURE BLOOD [BC] Stat Lab 09/05/17 21:45 Results CULTURE BLOOD [BC] Stat Lab 09/05/17 21:50 Results Blood Culture x2 Reflex Set [OM.PC] Stat Oth 09/05/17 21:37 Ordered Medication Orders Albuterol (Proventil Neb Soln) 2.5 mg NEB Q2H PRN PRN Reason: shortness of breath/wheezing Albuterol/Ipratropium (Duoneb 3.0-0.5 Mg/3 Ml) 3 ml NEB Q4HRRT [facility] Last Admin: 09/06/17 02:39 Dose: 3 ml Heparin Sodium (Porcine) (Heparin Sodium) 5,000 units SUBCUT Q8HR [facility] Azithromycin 500 mg/ Sodium (Chloride) 250 mls @ 250 mls/hr IV Q24H [facility] Last Admin: 09/06/17 01:22 Dose: 250 mls/hr Sodium Chloride (Normal Saline) 1,000 mls @ 50 mls/hr IV ASDIRECTED [facility] Last Admin: 09/06/17 02:39 Dose: 50 mls/hr Morphine Sulfate (Morphine) 2 mg IVPUSH Q4H PRN PRN Reason: Pain Last Admin: 09/06/17 01:49 Dose: 2 mg Ondansetron HCl (Zofran) 4 mg IVPUSH Q6H PRN PRN Reason: Nausea/Vomiting Labs: Laboratory Tests 09/05/17 09/05/17 09/05/17 Range/Units 21:45 21:45 21:45 WBC 9.7 (5.0-10.0) 10^3/uL RBC 5.54 H (4.2-5.4) 10^6/uL Hgb 14.2 D (12.0-16.0) g/dL Hct 42.6 (37.0-47.0) % MCV 76.9 L D (80-100) fL MCH 25.6 L (27.0-34.0) pg MCHC 33.3 (33.0-35.0) g/dL Plt Count 268 (150-450) 10^3/uL Neut % (Auto) 67.6 (42.2-75.2) % Lymph % (Auto) 22.4 (20.5-50.1) % [place] % (Auto) 8.6 H (2-8) % Eos % (Auto) 1.3 (1.0-3.0) % Baso % (Auto) 0.1 (0.0-1.0) % Sodium 139 (135-145) mmol/L Potassium 3.6 (3.6-5.0) mmol/L Chloride 106 (101-111) mmol/L Carbon Dioxide 25.0 (21.0-31.0) mmol/L Anion Gap 11.6 BUN 13 (7-18) mg/dL Creatinine 0.5 L (0.6-1.3) mg/dL Est Cr Clr Drug Dosing 82.72 mL/min Estimated GFR (MDRD) > 60 BUN/Creatinine Ratio 26.00 Glucose 73 L (74-105) mg/dL Lactic Acid 1.1 (0.5-2.2) mmol/L Calcium 9.7 (8.4-10.2) mg/dl Magnesium 1.7 L (1.8-2.5) mg/dL Total Bilirubin 0.6 (0.2-1.0) mg/dL AST 21 (10-42) IU/L ALT 21 (10-60) IU/L Alkaline Phosphatase 105 (42-121) IU/L Troponin I < 0.02 (0.00-0.02) ng/ml B-Natriuretic Peptide 35 (0-100) pg/ml Total Protein 7.4 (6.7-8.2) g/dl Albumin 3.8 (3.2-5.5) g/dl Globulin 3.6 Albumin/Globulin Ratio 1.06 Meds: Medications Generic Name Dose Route Start Last Admin Trade Name Freq PRN Reason Stop Dose Admin Albuterol 2.5 mg 09/06/17 00:24 Proventil Neb Soln NEB Q2H PRN shortness of breath/wheezing Albuterol/Ipratropium 3 ml 09/06/17 03:00 09/06/17 02:39 Duoneb 3.0-0.5 Mg/3 Ml NEB 3 ml Q4HRRT [facility] Administration Heparin Sodium (Porcine) 5,000 units 09/06/17 06:00 Heparin Sodium SUBCUT Q8HR [facility] Azithromycin 500 mg/ Sodium 250 mls @ 250 mls/hr 09/06/17 00:30 09/06/17 01: 22 Chloride IV 250 mls/hr Q24H [facility] Administration Sodium Chloride 1,000 mls @ 50 mls/hr 09/06/17 00:30 09/06/17 02:39 Normal Saline IV 50 mls/hr ASDIRECTED [facility] Administration Morphine Sulfate 2 mg 09/06/17 01:33 09/06/17 01:49 Morphine IVPUSH 2 mg Q4H PRN Administration Pain Ondansetron HCl 4 mg 09/06/17 00:24 Zofran IVPUSH Q6H PRN Nausea/Vomiting Discontinued Medications Generic Name Dose Route Start Last Admin Trade Name Freq PRN Reason Stop Dose Admin Albuterol 2.5 mg 09/05/17 23:17 09/05/17 23:22 Proventil Neb Soln NEB 09/05/17 23:18 2.5 mg ONETIME ONE Administration - Radiology Interpretation Free Text/Narrative:: CXR: COPD - Re-Assessments/Exams Free Text/Narrative Re-Assessment/Exam: 09/06/17 00:08 Brief improvement in dyspnea and wheezing following nebulizer treatments, Occasional, cough Dyspnea increases with minimal activity 09/06/17 00:10 Dr Church accepting patient for admission for CPOD exacerbation Departure - Departure Time of Disposition: 00:15 Disposition: Admitted As Inpatient 65 Condition: Fair Clinical Impression: COPD exacerbation - Discharge Information - My Orders Last 24 Hours: My Active Orders 09/05/17 21:37 Blood Culture x2 Reflex Set [OM.PC] Stat 09/05/17 21:45 CULTURE BLOOD [BC] Stat 09/05/17 21:50 CULTURE BLOOD [BC] Stat 09/05/17 23:17 RT Aerosol Therapy [RC] ASDIRECTED - Assessment/Plan Last 24 Hours: My Active Orders 09/05/17 21:37 Blood Culture x2 Reflex Set [OM.PC] Stat 09/05/17 21:45 CULTURE BLOOD [BC] Stat 09/05/17 21:50 CULTURE BLOOD [BC] Stat 09/05/17 23:17 RT Aerosol Therapy [RC] ASDIRECTED
[2017-09-06] MEDS ORDERED: Ondansetron 4 MG/2 ML SDV IVPUSH PRN (00:24)
[2017-09-06] MEDS ORDERED: Albuterol 0.083% 2.5 MG/3 ML Neb Soln NEB PRN (00:24)
[2017-09-06] MEDS ORDERED: Azithromycin 500 MG in Sodium Chloride 0.9% 250 ML IV SCH (00:30)
[2017-09-06] MEDS: Morphine 2 MG/ML Syringe IVPUSH PRN ×4 (01:49→14:17)
[2017-09-06] MEDS: Albuterol/Ipratropium 3.0-0.5 MG/3 ML Neb Soln NEB SCH ×6 (02:39→23:00)
[2017-09-06] MEDS: Sodium Chloride 0.9% 1,000 ML IV SCH (02:39)
[2017-09-06] MEDS: Heparin Sodium 5,000 Units/ML Vial SUBCUT SCH ×3 (05:45→22:31)
--- NOTE | 2017-09-06 11:29 | PCM.HP ---
H&P History of Present Illness - General Date of Service: 09/06/17 Admit Problem/Dx: Admission Diagnosis/Problem Admission Diagnosis/Problem COPD, Severe chronic obstructive pulmonary disease Source of Information: Patient - History of Present Illness Initial Comments - Free Text/Narative: The patient has medical history of COPD. She presented to the emergency room with complaint of shortness of breath which has been going on for 3 days. It has worsened over time. There is an associated cough and wheezing. She was using her nebulized bronchodilators but they will not helping. Denies fever or chills. Denies headache or blurring of vision. She does have intermittent chest discomfort. She has been coughing and it is sometimes productive of yellowish sputum Duration of Symptoms: Reports: Day(s): (3 days ) Severity: Moderate Worsens with: Reports: Movement Associated Symptoms: Reports: cough w sputum Right Back Pain Score (Numeric/FACES): 7 Bilateral Thoracic Pain Score (Numeric/FACES): 4 - Related Data Allergies/Adverse Reactions: Allergies Allergy/AdvReac Type Severity Reaction Status Date / Time codeine Allergy Cannot Verified 09/06/17 00:30 Remember tramadol HCl [From Ultram] Allergy Cannot Verified 09/06/17 00:30 Remember aspirin Allergy Abdominal Uncoded 01/20/17 21:13 Pain Home Medications: Home Meds Albuterol [Proair HFA] 2 puff INH Q4HR PRN 09/27/13 [History] Estrogens, Conjugated [Premarin] 1 tab PO DAILY 09/27/13 [History] Sertraline [Zoloft] 150 mg PO DAILY 09/27/13 [History] Tiotropium [Spiriva Handihaler] 1 puff INH DAILY 09/27/13 [History] Albuterol/Ipratropium [DuoNeb 3.0-0.5 MG/3 ML] 1 ampule INH QID PRN 02/20/14 [ History] Ranitidine [Zantac] 150 mg PO BID 09/23/14 [History] Pantoprazole [ProTONIX] 40 mg PO DAILY 10/01/14 [History] Gabapentin [Neurontin] 600 mg PO TID 11/01/14 [History] Budesonide [Pulmicort] 0.5 mg NEB BID 01/20/17 [History] Ibuprofen 2 - 3 tab PO TID PRN 01/20/17 [History] Past Medical History - Past Health History Medical/Surgical History: Denies Medical/Surgical History HEENT History: Reports: Impaired Vision, Other (See Below) Other HEENT History: near sided Cardiovascular History: Reports: None Other Cardiovascular History: has a stress test this coming Respiratory History: Reports: Bronchitis, Recurrent, COPD, SOB, TB, Other (See Below) Other Respiratory History: TB when pt. was a small child. 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 (See Below) Other OB/BYN History: nvd two children/ hysterectomy Musculoskeletal History: Reports: Arthritis, Other (See Below) Other Musculoskeletal History: arthritis , restless leg syndrome Neurological History: Reports: None Psychiatric History: Reports: Depression Endocrine/Metabolic History: Reports: None Hematologic History: Reports: None Immunologic History: Reports: None Oncologic (Cancer) History: Reports: None Dermatologic History: Reports: None - Infectious Disease History Infectious Disease History: Reports: Chicken Pox, Mumps, TB - Past Surgical History Respiratory Surgical History: Reports: None GI Surgical History: Reports: Appendectomy, Cholecystectomy Female Surgical History: Reports: Hysterectomy Musculoskeletal Surgical History: Reports: None Social & Family History - Family History Family Medical History: Noncontributory HEENT: Reports: None Cardiac: Reports: None Respiratory: Reports: None GI: Reports: None : Reports: None OBGYN: Reports: None - Tobacco Use Smoking Status *Q: Current Every Day Smoker Years of Tobacco use: 40 Packs/Tins Daily: 0.5 Used Tobacco, but Quit: Yes Month/Year Tobacco Last Used: December Second Hand Smoke Exposure: No - Caffeine Use Caffeine Use: Reports: Coffee - Alcohol Use Days Per Week of Alcohol Use: 0 - Recreational Drug Use Recreational Drug Use: No - Living Situation & Occupation Living situation: Reports: , with Family Occupation: Retired H&P Review of Systems - Review of Systems: Review Of Systems: See Below General: Reports: No Symptoms HEENT: Reports: No Symptoms Pulmonary: Reports: Shortness of Breath, Wheezing Cardiovascular: Reports: No Symptoms Gastrointestinal: Reports: No Symptoms Genitourinary: Reports: No Symptoms Musculoskeletal: Reports: No Symptoms Skin: Reports: No Symptoms Psychiatric: Reports: No Symptoms Neurological: Reports: No Symptoms Hematologic/Lymphatic: Reports: No Symptoms Exam - Exam Exam: See Below - Vital Signs Vital Signs: Last Vital Signs Temp 36.6 C 09/06/17 11:07 Pulse 74 09/06/17 11:07 Resp 18 09/06/17 11:07 BP 95/49 L 09/06/17 11:07 Pulse Ox 95 09/06/17 11:07 Weight: 52.163 kg - Exam Quality Assessment: Supplemental Oxygen HEENT: PERRLA, Hearing Intact, Mucosa Moist & [place], Nares Patent, Normal Nasal Septum, Posterior Pharynx Clear, Conjunctiva Clear, EOMI, EACs Clear, TMs Clear Neck: Supple, Trachea Midline, 2 Lungs: Decreased Breath Sounds, Rhonchi, Wheezing GI/Abdominal Exam: Normal Bowel Sounds, Soft Back Exam: Normal Inspection, Full Range of Motion, NT Extremities: Normal Inspection Skin: Warm, Dry - Patient Data Lab Results Last 24 hrs: Laboratory Results - last 24 hr 09/06/17 09/06/17 Range/Units 03:50 09:59 Troponin I < 0.02 < 0.02 (0.00-0.02) ng/ml Result Diagrams: 09/05/17 21:45 09/05/17 21:45 Sean Results Last 24 hrs: Microbiology 09/06/17 05:30 Gram Stain - Final Sputum - Expectorated *Q Meaningful Use (ADM) - VTE *Q VTE Criteria *Q: - Stroke *Q Stroke Criteria *Q: - AMI *Q AMI Criteria *Q: Problem List Initiated/Reviewed/Updated: Yes Orders Last 24hrs: Active Orders 24 hr Category Date Time Status Budesonide [Pulmicort] Med 09/06/17 21:00 Ordered 0.5 mg NEB BID Estrogens, Conjugated [Premarin] Med 09/07/17 09:00 Ordered 1 tab PO DAILY Gabapentin Med 09/06/17 14:00 Ordered 600 mg PO TID Morphine Med 09/06/17 01:33 Active 2 mg IVPUSH Q4H PRN Pantoprazole [ProTONIX] Med 09/07/17 09:00 Ordered 40 mg PO DAILY Ranitidine [Zantac] Med 09/06/17 21:00 Ordered 150 mg PO BID Sertraline [Zoloft] Med 09/07/17 09:00 Ordered 150 mg PO DAILY Tiotropium [Spiriva HandiHaler] Med 09/07/17 09:00 Ordered 1 puff INH DAILY methylPREDNISolone Sod Succ [Solu-MEDROL] Med 09/06/17 14:00 Active 40 mg IVPUSH Q8HR Medication Orders Albuterol (Proventil Neb Soln) 2.5 mg NEB Q2H PRN PRN Reason: shortness of breath/wheezing Albuterol/Ipratropium (Duoneb 3.0-0.5 Mg/3 Ml) 3 ml NEB Q4HRRT [facility] Last Admin: 09/06/17 08:28 Dose: 3 ml Admin: 09/06/17 02:39 Dose: 3 ml Budesonide (Pulmicort) 0.5 mg NEB BID [facility] Heparin Sodium (Porcine) (Heparin Sodium) 5,000 units SUBCUT Q8HR [facility] Last Admin: 09/06/17 05:45 Dose: 5,000 units Azithromycin 500 mg/ Sodium (Chloride) 250 mls @ 250 mls/hr IV Q24H [facility] Last Admin: 09/06/17 01:22 Dose: 250 mls/hr Sodium Chloride (Normal Saline) 1,000 mls @ 50 mls/hr IV ASDIRECTED [facility] Last Admin: 09/06/17 02:39 Dose: 50 mls/hr Methylprednisolone Sodium Succinate (Solu-Medrol) 40 mg IVPUSH Q8HR [facility] Morphine Sulfate (Morphine) 2 mg IVPUSH Q4H PRN PRN Reason: Pain Last Admin: 09/06/17 09:52 Dose: 2 mg Admin: 09/06/17 05:45 Dose: 2 mg Admin: 09/06/17 01:49 Dose: 2 mg Non-Formulary Medication (Estrogens, Conjugated [Premarin]) 1 tab PO DAILY [facility] Non-Formulary Medication (Gabapentin) 600 mg PO TID [facility] Non-Formulary Medication (Ranitidine [Zantac]) 150 mg PO BID [facility] Ondansetron HCl (Zofran) 4 mg IVPUSH Q6H PRN PRN Reason: Nausea/Vomiting Pantoprazole Sodium (Protonix) 40 mg PO DAILY [facility] Sertraline HCl (Zoloft) 150 mg PO DAILY [facility] Tiotropium [place] (Spiriva Handihaler) mcg INH DAILY [facility] Assessment/Plan Comment:: #. Acute exacerbation of COPD presented with shortness of breath, cough, wheezing #. Chronic hypoxemic respiratory failure The patient is normally on 2 L/m of oxygen #. Tobacco use disorder The patient went back to tobacco smoking Smokes about half a pack of cigarettes a day #. Elevated blood pressure She has no prior history of hypertension #. Gastroesophageal reflux disease Denies epigastric pain at this point #. Hypomagnesemia Serum magnesium is down to 1.7 Plan: Admit patient to medical floor Start patient on aggressive nebulization with DuoNeb every 4 hours Albuterol every 2 hours Start intravenous Solu Medrol 40 mg every 8 hours Send sputum for Gram stain and cultures Empiric antibiotics intravenous azithromycin Start patient on magnesium oxide Patient's medical chart was reviewed. Discussed with the emergency room physician assistant professor of communication
[2017-09-06] MEDS: Gabapentin 300 MG Cap PO SCH ×3 (11:49→21:01)
[2017-09-06] MEDS: Budesonide 0.5 MG/2 ML Neb Susp NEB SCH ×2 (11:49→17:53)
[2017-09-06] MEDS: Sertraline 50 MG Tab PO SCH (11:49)
[2017-09-06] MEDS: Famotidine 20 MG Tab PO SCH ×2 (12:01→17:53)
[2017-09-06] MEDS: methylPREDNISolone Sodium Succinate 40 MG/1 ML SDV IVPUSH SCH ×2 (13:43→22:25)
[2017-09-06] MEDS: Acetaminophen/oxyCODONE 325-5 MG Tab PO PRN (17:56)
[2017-09-06] MEDS: Azithromycin 500 MG in Sodium Chloride 0.9% 250 ML IV SCH (20:59)
[2017-09-07] MEDS: Sodium Chloride 0.9% 1,000 ML IV SCH
[2017-09-07] MEDS: Acetaminophen/oxyCODONE 325-5 MG Tab PO PRN ×4 (00:04→19:30)
[2017-09-07] MEDS: Albuterol/Ipratropium 3.0-0.5 MG/3 ML Neb Soln NEB SCH ×6 (02:35→22:43)
[2017-09-07] MEDS: methylPREDNISolone Sodium Succinate 40 MG/1 ML SDV IVPUSH SCH ×3 (05:11→21:39)
[2017-09-07] MEDS: Heparin Sodium 5,000 Units/ML Vial SUBCUT SCH ×3 (05:15→21:39)
[2017-09-07] MEDS: Famotidine 20 MG Tab PO SCH ×2 (05:18→17:04)
[2017-09-07] MEDS: Pantoprazole 40 MG Tab.CR PO SCH (05:18)
[2017-09-07] MEDS: Budesonide 0.5 MG/2 ML Neb Susp NEB SCH ×2 (07:44→18:23)
[2017-09-07] MEDS: Gabapentin 300 MG Cap PO SCH ×3 (08:37→20:34)
[2017-09-07] MEDS: Sertraline 50 MG Tab PO SCH (08:37)
[2017-09-07] MEDS: Tiotropium Inhaler 18 MCG Inhalation Powder Cap Kit of 5 INH SCH (08:37)
--- NOTE | 2017-09-07 09:50 | PCM.PN ---
- General Info Date of Service: 09/07/17 Admission Dx/Problem (Free Text): Admission Diagnosis/Problem Admission Diagnosis/Problem COPD, Severe chronic obstructive pulmonary disease Subjective Update: The patient indicates that she still feels short of breath especially when she ambulates. It improves when she lays down. Still has associated wheezing. Continues to require supplemental oxygen - Review of Systems General: Reports: No Symptoms Pulmonary: Reports: Shortness of Breath Gastrointestinal: Reports: No Symptoms Genitourinary: Reports: No Symptoms - Patient Data Vitals - Most Recent: Last Vital Signs Temp 37.1 C 09/07/17 08:00 Pulse 66 09/07/17 08:00 Resp 24 H 09/07/17 08:00 BP 117/58 L 09/07/17 08:00 Pulse Ox 95 09/07/17 08:00 Weight - Most Recent: 52.163 kg I&O - Last 24 Hours: Intake & Output 09/06/17 09/07/17 09/07/17 22:59 06:59 14:59 Intake Total 1050 2108 Output Total 1500 1400 Balance -450 708 Lab Results Last 24 Hours: Laboratory Results - last 24 hr 09/06/17 09/06/17 Range/Units 09:59 09:59 D-Dimer, Quantitative 177 (0-400) ng/mL Troponin I < 0.02 (0.00-0.02) ng/ml Sean Results Last 24 Hours: Microbiology 09/06/17 05:30 Gram Stain - Final Sputum - Expectorated Sputum Culture - Preliminary Normal [place] [facility] Orders - Current: Current Medications Albuterol (Proventil Neb Soln) 2.5 mg NEB Q2H PRN PRN Reason: shortness of breath/wheezing Albuterol/Ipratropium (Duoneb 3.0-0.5 Mg/3 Ml) 3 ml NEB Q4HRRT [facility] Last Admin: 09/07/17 07:44 Dose: 3 ml Budesonide (Pulmicort) 0.5 mg NEB BIDRT [facility] Last Admin: 09/07/17 07:44 Dose: 0.5 mg Famotidine (Pepcid) 20 mg PO BIDAC [facility] Last Admin: 09/07/17 05:18 Dose: 20 mg Gabapentin (Neurontin) 600 mg PO TID [facility] Last Admin: 09/07/17 08:37 Dose: 600 mg Heparin Sodium (Porcine) (Heparin Sodium) 5,000 units SUBCUT Q8HR [facility] Last Admin: 09/07/17 05:15 Dose: 5,000 units Sodium Chloride (Normal Saline) 1,000 mls @ 50 mls/hr IV ASDIRECTED [facility] Last Admin: 09/07/17 00:00 Dose: 50 mls/hr Azithromycin 500 mg/ Sodium (Chloride) 250 mls @ 250 mls/hr IV Q24H [facility] Last Infusion: 09/06/17 22:33 Dose: Infused Magnesium Oxide (Magnesium Oxide) 250 mg PO BIDM [facility] Last Admin: 09/07/17 08:37 Dose: 250 mg Methylprednisolone Sodium Succinate (Solu-Medrol) 40 mg IVPUSH Q8HR [facility] Last Admin: 09/07/17 05:11 Dose: 40 mg Non-Formulary Medication (Estrogens, Conjugated [Premarin]) 1 tab PO DAILY [facility] Ondansetron HCl (Zofran) 4 mg IVPUSH Q6H PRN PRN Reason: Nausea/Vomiting Oxycodone/Acetaminophen (Percocet 325-5 Mg) 1 tab PO Q6H PRN PRN Reason: Pain Last Admin: 09/07/17 06:17 Dose: 1 tab Pantoprazole Sodium (Protonix) 40 mg PO ACBRK [facility] Last Admin: 09/07/17 05:18 Dose: 40 mg Sertraline HCl (Zoloft) 150 mg PO DAILY [facility] Last Admin: 09/07/17 08:37 Dose: 150 mg Tiotropium [place] (Spiriva Handihaler) 18 mcg INH DAILY [facility] Last Admin: 09/07/17 08:37 Dose: 18 mcg Discontinued Medications Albuterol (Proventil Neb Soln) 2.5 mg NEB ONETIME ONE Stop: 09/05/17 23:18 Last Admin: 09/05/17 23:22 Dose: 2.5 mg Azithromycin 500 mg/ Sodium (Chloride) 250 mls @ 250 mls/hr IV Q24H [facility] Last Admin: 09/06/17 01:22 Dose: 250 mls/hr Morphine Sulfate (Morphine) 2 mg IVPUSH Q4H PRN PRN Reason: Pain Last Admin: 09/06/17 14:17 Dose: 2 mg - Exam General: Alert, Oriented Neck: Supple Lungs: Decreased Breath Sounds, Wheezing Cardiovascular: Regular Rate GI/Abdominal Exam: Soft, Non-Tender Extremities: Normal Inspection, Normal Range of Motion, Non-Tender, No Pedal Edema, Normal Capillary Refill - Problem List Review Problem List Initiated/Reviewed/Updated: Yes - My Orders Last 24 Hours: My Active Orders 09/06/17 11:30 Budesonide [Pulmicort] 0.5 mg NEB BIDRT 09/06/17 11:45 Gabapentin [Neurontin] 600 mg PO TID Sertraline [Zoloft] 150 mg PO DAILY 09/06/17 12:00 Famotidine [Pepcid] 20 mg PO BIDAC 09/06/17 14:00 methylPREDNISolone Sod Succ [Solu-MEDROL] 40 mg IVPUSH Q8HR 09/06/17 17:33 Acetaminophen/oxyCODONE [Percocet 325-5 MG] 1 tab PO Q6H PRN 09/06/17 18:00 Magnesium Oxide 250 mg PO BIDM 09/06/17 21:00 Azithromycin [Zithromax] 500 mg Sodium Chloride 0.9% [Normal Saline] 250 ml IV Q24H 09/07/17 06:00 Pantoprazole [ProTONIX] 40 mg PO ACBRK 09/07/17 09:00 Estrogens, Conjugated [Premarin] 1 tab PO DAILY Tiotropium [Spiriva HandiHaler] 18 mcg INH DAILY - Plan Plan:: #. Acute exacerbation of COPD presented with shortness of breath, cough, wheezing #. Chronic hypoxemic respiratory failure The patient is normally on 2 L/m of oxygen #. Tobacco use disorder The patient went back to tobacco smoking Smokes about half a pack of cigarettes a day #. Elevated blood pressure She has no prior history of hypertension #. Gastroesophageal reflux disease Denies epigastric pain at this point #. Hypomagnesemia Serum magnesium was down to 1.7 Plan: Patient is still wheezing a posterior short of breath Give patient on nebulized bronchodilators every 4 hours Intravenous Solu Medrol Discontinue intravenous fluids Encourage increased ambulation Possible discharge in the morning Patient's medical chart was reviewed. Discussed with the emergency room physician assistant to the ceo
[2017-09-07] MEDS: ESTROGENS CONJUGATED 0.9 MG PO SCH (17:04)
[2017-09-07] MEDS: Azithromycin 500 MG in Sodium Chloride 0.9% 250 ML IV SCH (20:31)
[2017-09-08] MEDS: Acetaminophen/oxyCODONE 325-5 MG Tab PO PRN ×4 (01:27→20:00)
[2017-09-08] MEDS: Albuterol/Ipratropium 3.0-0.5 MG/3 ML Neb Soln NEB SCH ×7 (02:22→22:41)
[2017-09-08] MEDS: Pantoprazole 40 MG Tab.CR PO SCH (05:57)
[2017-09-08] MEDS: Famotidine 20 MG Tab PO SCH ×2 (05:57→17:38)
[2017-09-08] MEDS: Heparin Sodium 5,000 Units/ML Vial SUBCUT SCH ×4 (05:59→21:44)
[2017-09-08] MEDS: methylPREDNISolone Sodium Succinate 40 MG/1 ML SDV IVPUSH SCH (06:04)
[2017-09-08] MEDS: Budesonide 0.5 MG/2 ML Neb Susp NEB SCH ×2 (07:07→18:37)
[2017-09-08] MEDS: Sertraline 50 MG Tab PO SCH (08:59)
[2017-09-08] MEDS: Gabapentin 300 MG Cap PO SCH ×3 (08:59→20:44)
[2017-09-08] MEDS: ESTROGENS CONJUGATED 0.9 MG PO SCH (09:00)
[2017-09-08] MEDS: Tiotropium Inhaler 18 MCG Inhalation Powder Cap Kit of 5 INH SCH (09:01)
[2017-09-08] MEDS: Doxycycline 100 MG Cap PO SCH ×2 (09:03→21:37)
--- NOTE | 2017-09-08 09:35 | PCM.PN ---
- General Info Date of Service: 09/08/17 Admission Dx/Problem (Free Text): Admission Diagnosis/Problem Admission Diagnosis/Problem COPD, Severe chronic obstructive pulmonary disease Subjective Update: the patient continues to cough Continues to have shortness of breath especially with activity Still wheezing intermittently She is still needing supplemental oxygen 1.5 L/m Denies significant chest pain - Review of Systems Pulmonary: Reports: Shortness of Breath, Cough Cardiovascular: Reports: No Symptoms Gastrointestinal: Reports: No Symptoms - Patient Data Vitals - Most Recent: Last Vital Signs Temp 36.8 C 09/08/17 07:08 Pulse 68 09/08/17 07:08 Resp 18 09/08/17 07:08 BP 117/68 09/08/17 07:08 Pulse Ox 95 09/08/17 07:08 Weight - Most Recent: 52.163 kg I&O - Last 24 Hours: Intake & Output 09/07/17 09/08/17 09/08/17 22:59 06:59 14:59 Intake Total 1300 300 265 Output Total 752 900 Balance 548 -600 265 Sean Results Last 24 Hours: Microbiology 09/06/17 05:30 Gram Stain - Final Sputum - Expectorated Sputum Culture - Preliminary Med Orders - Current: Current Medications Albuterol (Proventil Neb Soln) 2.5 mg NEB Q2H PRN PRN Reason: shortness of breath/wheezing Albuterol/Ipratropium (Duoneb 3.0-0.5 Mg/3 Ml) 3 ml NEB Q4HRRT [facility] Last Admin: 09/08/17 07:06 Dose: 3 ml Budesonide (Pulmicort) 0.5 mg NEB BIDRT [facility] Last Admin: 09/08/17 07:07 Dose: 0.5 mg Doxycycline Hyclate (Vibramycin) 100 mg PO BID [facility] Last Admin: 09/08/17 09:03 Dose: 100 mg Famotidine (Pepcid) 20 mg PO BIDAC [facility] Last Admin: 09/08/17 05:57 Dose: 20 mg Gabapentin (Neurontin) 600 mg PO TID [facility] Last Admin: 09/08/17 08:59 Dose: 600 mg Heparin Sodium (Porcine) (Heparin Sodium) 5,000 units SUBCUT Q8HR [facility] Last Admin: 09/08/17 05:59 Dose: 5,000 units Magnesium Oxide (Magnesium Oxide) 250 mg PO BIDM [facility] Last Admin: 09/08/17 07:32 Dose: 250 mg Estrogens, Conjugated [Premarin ] 0.9mgOwn Med 1 tab PO DAILY [facility] Last Admin: 09/08/17 09:00 Dose: 1 tab Ondansetron HCl (Zofran) 4 mg IVPUSH Q6H PRN PRN Reason: Nausea/Vomiting Oxycodone/Acetaminophen (Percocet 325-5 Mg) 1 tab PO Q6H PRN PRN Reason: Pain Last Admin: 09/08/17 07:32 Dose: 1 tab Pantoprazole Sodium (Protonix) 40 mg PO ACBRK [facility] Last Admin: 09/08/17 05:57 Dose: 40 mg Sertraline HCl (Zoloft) 150 mg PO DAILY [facility] Last Admin: 09/08/17 08:59 Dose: 150 mg Tiotropium [place] (Spiriva Handihaler) 18 mcg INH DAILY [facility] Last Admin: 09/08/17 09:01 Dose: 18 mcg Discontinued Medications Albuterol (Proventil Neb Soln) 2.5 mg NEB ONETIME ONE Stop: 09/05/17 23:18 Last Admin: 09/05/17 23:22 Dose: 2.5 mg Azithromycin 500 mg/ Sodium (Chloride) 250 mls @ 250 mls/hr IV Q24H [facility] Last Admin: 09/06/17 01:22 Dose: 250 mls/hr Sodium Chloride (Normal Saline) 1,000 mls @ 50 mls/hr IV ASDIRECTED [facility] Last Admin: 09/07/17 00:00 Dose: 50 mls/hr Azithromycin 500 mg/ Sodium (Chloride) 250 mls @ 250 mls/hr IV Q24H [facility] Last Infusion: 09/07/17 21:35 Dose: Infused Methylprednisolone Sodium Succinate (Solu-Medrol) 40 mg IVPUSH Q8HR [facility] Last Admin: 09/08/17 06:04 Dose: 40 mg Morphine Sulfate (Morphine) 2 mg IVPUSH Q4H PRN PRN Reason: Pain Last Admin: 09/06/17 14:17 Dose: 2 mg - Exam Quality Assessment: Supplemental Oxygen General: Alert, Oriented Lungs: Decreased Breath Sounds, Wheezing GI/Abdominal Exam: Soft, Non-Tender Extremities: Normal Inspection, Normal Range of Motion, Non-Tender, No Pedal Edema, Normal Capillary Refill Psy/Mental Status: Anxious - Problem List Review Problem List Initiated/Reviewed/Updated: Yes - My Orders Last 24 Hours: My Active Orders 09/07/17 09:00 Estrogens, Conjugated [Premarin] 1 tab PO DAILY Tiotropium [Spiriva HandiHaler] 18 mcg INH DAILY 09/08/17 08:00 predniSONE 40 mg PO WITHBREAKFAST 09/08/17 09:00 Doxycycline [Vibramycin] 100 mg PO BID - Plan Plan:: #. Acute exacerbation of COPD presented with shortness of breath, cough, wheezing #. Chronic hypoxemic respiratory failure The patient is normally on 2 L/m of oxygen #. Tobacco use disorder The patient went back to tobacco smoking Smokes about half a pack of cigarettes a day #. Elevated blood pressure She has no prior history of hypertension #. Gastroesophageal reflux disease Denies epigastric pain at this point #. Hypomagnesemia Serum magnesium was down to 1.7 Plan: sputum culture grew staph aureus I'll go ahead and discontinue his azithromycin Start patient on doxycycline 100 mg twice a day Discontinue Solu Medrol Start patient on prednisone 40 mg daily We'll monitor patient for the next 24 hours on possibly discharge if sustained improvement Patient's medical chart was reviewed. Discussed with the emergency room physician nursing home assistant administrator
[2017-09-08] MEDS: predniSONE 20 MG Tab PO SCH (10:01)
[2017-09-08] MEDS ORDERED: Acetaminophen 325 MG Tab PO PRN ×2 (12:34)
[2017-09-08] MEDS: Nicotine 21 MG/24 Hr Patch TRDERM SCH (20:49)
[2017-09-09] MEDS: Acetaminophen/oxyCODONE 325-5 MG Tab PO PRN ×2 (02:02→07:31)
[2017-09-09] MEDS: Albuterol/Ipratropium 3.0-0.5 MG/3 ML Neb Soln NEB SCH ×3 (02:37→11:16)
[2017-09-09] MEDS: Budesonide 0.5 MG/2 ML Neb Susp NEB SCH (07:29)
[2017-09-09] MEDS: Pantoprazole 40 MG Tab.CR PO SCH (07:30)
[2017-09-09] MEDS: Famotidine 20 MG Tab PO SCH (07:30)
[2017-09-09] MEDS: Heparin Sodium 5,000 Units/ML Vial SUBCUT SCH (07:30)
[2017-09-09] MEDS: predniSONE 20 MG Tab PO SCH (07:31)
[2017-09-09] MEDS: Tiotropium Inhaler 18 MCG Inhalation Powder Cap Kit of 5 INH SCH (08:20)
[2017-09-09] MEDS: Gabapentin 300 MG Cap PO SCH (08:20)
[2017-09-09] MEDS: ESTROGENS CONJUGATED 0.9 MG PO SCH (08:20)
[2017-09-09] MEDS: Nicotine 21 MG/24 Hr Patch TRDERM SCH (08:21)
[2017-09-09] MEDS: Sertraline 50 MG Tab PO SCH (08:21)
[2017-09-09] MEDS: Doxycycline 100 MG Cap PO SCH (08:21)
--- NOTE | 2017-09-09 08:48 | EKG ---
09/05/2017 - [place] - TIME: 3:37 p.m. EKG shows sinus rhythm, rate of 96 per minute. Nonspecific T-wave abnormalities. [facility] /[id number]
--- NOTE | 2017-09-09 10:22 | PCM.DCSUM1 ---
Discharge Summary - Hospital Course HPI Initial Comments: The patient has medical history of COPD. She presented with complaint of cough and shortness of breath. She was found to be in COPD exacerbation and got admitted to the hospital. The patient was treated with aggressive nebulization with DuoNeb and albuterol. She also was on intravenous steroids which was later switched to prednisone. Hospital culture grew staph aureus. The patient will be discharged on oral doxycycline has been advised to follow up with primary care provider in one week. She has also been advised to quit tobacco use #. Acute exacerbation of COPD presented with shortness of breath, cough, wheezing #. Chronic hypoxemic respiratory failure The patient is normally on 2 L/m of oxygen #. Tobacco use disorder The patient went back to tobacco smoking Smokes about half a pack of cigarettes a day #. Elevated blood pressure She has no prior history of hypertension #. Gastroesophageal reflux disease Denies epigastric pain at this point #. Hypomagnesemia Serum magnesium was down to 1.7 - Discharge Data Discharge Date: 09/09/17 Discharge Disposition: Home, Self-Care 01 Condition: Stable - Patient Instructions Diet: Regular Diet as Tolerated Activity: As Tolerated Showering/Bathing: May Shower Notify Provider of: Fever, Nausea and/or Vomiting - Discharge Plan Prescriptions/Med Rec: Doxycycline Calcium [IMW: Doxycycline] 100 mg PO BID #14 capsule predniSONE [Prednisone] 10 mg PO ASDIRECTED #21 tablet Home Medications: Home Meds Albuterol [Proair HFA] 2 puff INH Q4HR PRN 09/27/13 [History] Estrogens, Conjugated [Premarin] 1 tab PO DAILY 09/27/13 [History] Sertraline [Zoloft] 150 mg PO DAILY 09/27/13 [History] Tiotropium [Spiriva Handihaler] 1 puff INH DAILY 09/27/13 [History] Albuterol/Ipratropium [DuoNeb 3.0-0.5 MG/3 ML] 1 ampule INH QID PRN 02/20/14 [ History] Ranitidine [Zantac] 150 mg PO BID 09/23/14 [History] Pantoprazole [ProTONIX] 40 mg PO DAILY 10/01/14 [History] Gabapentin [Neurontin] 600 mg PO TID 11/01/14 [History] Budesonide [Pulmicort] 0.5 mg NEB BID 01/20/17 [History] Ibuprofen 2 - 3 tab PO TID PRN 01/20/17 [History] Doxycycline Calcium [IMW: Doxycycline] 100 mg PO BID #14 capsule 09/09/17 [Rx] predniSONE [Prednisone] 10 mg PO ASDIRECTED #21 tablet 09/09/17 [Rx] Patient Handouts: Chronic Obstructive Pulmonary Disease Exacerbation, Easy-to- Read, Doxycycline tablets or capsules, Prednisone tablets Referrals: Nikita Zendejas [Primary Care Provider] - - General Info Date of Service: 09/09/17 - Review of Systems General: Reports: No Symptoms Pulmonary: Reports: Shortness of Breath Cardiovascular: Reports: No Symptoms Gastrointestinal: Reports: No Symptoms Skin: Reports: No Symptoms - Patient Data Vitals - Most Recent: Last Vital Signs Temp 36.4 C 09/09/17 07:41 Pulse 72 09/09/17 07:41 Resp 20 09/09/17 07:41 BP 152/67 H 09/09/17 07:41 Pulse Ox 97 09/09/17 07:41 Weight - Most Recent: 52.163 kg I&O - Last 24 hours: Intake & Output 09/08/17 09/09/17 09/09/17 22:59 06:59 14:59 Intake Total 440 Balance 440 BRENDA Results - Last 24 hrs: Microbiology 09/06/17 05:30 Gram Stain - Final Sputum - Expectorated Sputum Culture - Final (Mrsa) Staphylococcus Aureus Med Orders - Current: Current Medications Acetaminophen (Tylenol) 650 mg PO Q6H PRN PRN Reason: Pain (moderate 4-6) Last Admin: 09/08/17 12:49 Dose: 650 mg Albuterol (Proventil Neb Soln) 2.5 mg NEB Q2H PRN PRN Reason: shortness of breath/wheezing Albuterol/Ipratropium (Duoneb 3.0-0.5 Mg/3 Ml) 3 ml NEB Q4HRRT [facility] Last Admin: 09/09/17 07:29 Dose: 3 ml Budesonide (Pulmicort) 0.5 mg NEB BIDRT [facility] Last Admin: 09/09/17 07:29 Dose: 0.5 mg Doxycycline Hyclate (Vibramycin) 100 mg PO BID [facility] Last Admin: 09/09/17 08:21 Dose: 100 mg Famotidine (Pepcid) 20 mg PO BIDAC [facility] Last Admin: 09/09/17 07:30 Dose: 20 mg Gabapentin (Neurontin) 600 mg PO TID [facility] Last Admin: 09/09/17 08:20 Dose: 600 mg Heparin Sodium (Porcine) (Heparin Sodium) 5,000 units SUBCUT Q8HR [facility] Last Admin: 09/09/17 07:30 Dose: 5,000 units Magnesium Oxide (Magnesium Oxide) 250 mg PO BIDM [facility] Last Admin: 09/09/17 07:31 Dose: 250 mg Nicotine (Habitrol) 21 mg TRDERM DAILY [facility] Last Admin: 09/09/17 08:21 Dose: 21 mg Estrogens, Conjugated [Premarin ] 0.9mgOwn Med 1 tab PO DAILY [facility] Last Admin: 09/09/17 08:20 Dose: 1 tab Ondansetron HCl (Zofran) 4 mg IVPUSH Q6H PRN PRN Reason: Nausea/Vomiting Oxycodone/Acetaminophen (Percocet 325-5 Mg) 1 tab PO Q6H PRN PRN Reason: Pain Last Admin: 09/09/17 07:31 Dose: 1 tab Pantoprazole Sodium (Protonix) 40 mg PO ACBRK [facility] Last Admin: 09/09/17 07:30 Dose: 40 mg Prednisone (Prednisone) 40 mg PO WITHBREAKFAST [facility] Last Admin: 09/09/17 07:31 Dose: 40 mg Sertraline HCl (Zoloft) 150 mg PO DAILY [facility] Last Admin: 09/09/17 08:21 Dose: 150 mg Tiotropium [place] (Spiriva Handihaler) 18 mcg INH DAILY [facility] Last Admin: 09/09/17 08:20 Dose: 18 mcg Discontinued Medications Acetaminophen (Tylenol) 650 mg PO Q6H PRN PRN Reason: Pain Albuterol (Proventil Neb Soln) 2.5 mg NEB ONETIME ONE Stop: 09/05/17 23:18 Last Admin: 09/05/17 23:22 Dose: 2.5 mg Azithromycin 500 mg/ Sodium (Chloride) 250 mls @ 250 mls/hr IV Q24H [facility] Last Admin: 09/06/17 01:22 Dose: 250 mls/hr Sodium Chloride (Normal Saline) 1,000 mls @ 50 mls/hr IV ASDIRECTED [facility] Last Admin: 09/07/17 00:00 Dose: 50 mls/hr Azithromycin 500 mg/ Sodium (Chloride) 250 mls @ 250 mls/hr IV Q24H [facility] Last Infusion: 09/07/17 21:35 Dose: Infused Methylprednisolone Sodium Succinate (Solu-Medrol) 40 mg IVPUSH Q8HR [facility] Last Admin: 09/08/17 06:04 Dose: 40 mg Morphine Sulfate (Morphine) 2 mg IVPUSH Q4H PRN PRN Reason: Pain Last Admin: 09/06/17 14:17 Dose: 2 mg - Exam General: Reports: Alert, Cooperative, No Acute Distress Lungs: Reports: Decreased Breath Sounds Cardiovascular: Reports: Regular Rate, Regular Rhythm GI/Abdominal Exam: Soft, Non-Tender Extremities: Normal Inspection, Normal Range of Motion, Non-Tender, No Pedal Edema, Normal Capillary Refill *Q Meaningful Use (DIS) - VTE *Q VTE Criteria *Q: - Stroke *Q Stroke Criteria *Q: - AMI *Q AMI Criteria *Q:
[2017-09-09 13:04] VITALS: BP 148/66
== END 2017-09-09 12:45 | disposition home or self-care (01) | DRG 191 ==
LOC: DL.ED 20:49 → UNDOADMIN 09-06 00:17 → DL.MS 09-06 00:17 → EEVIPCON 09-06 00:24 → DL.MS 09-06 00:24
PROVIDERS: ADMIT Hospitalist; ATTEND Hospitalist
DX: J44.1 Chronic obstructive pulmonary disease with (acute) exacerbation (principal); J96.11 Chronic respiratory failure with hypoxia; B95.61 Methicillin susceptible Staphylococcus aureus infection as the cause of diseases classified elsewhere; R03.0 Elevated blood-pressure reading, without diagnosis of hypertension; K21.9 Gastro-esophageal reflux disease without esophagitis; E83.42 Hypomagnesemia; F32.9 Major depressive disorder, single episode, unspecified; F17.200 Nicotine dependence, unspecified, uncomplicated; Z88.8 Allergy status to other drugs, medicaments and biological substances; Z79.899 Other long term (current) drug therapy
CPT/HCPCS: 36415; 71045; 80053; 83605; 83735; 83880; 84484; 85025; 85379; 87040; 87070; 87186; 87205; 93005; 93010; 94640; 99284; 99285; A9270-GY; J0456; J1644; J2270; J2920; J7030; J7050; J7620-GY

== ENCOUNTER 2017-09-20 11:31 | Emergency (ER) | payer MEDICARE, MEDICAID ==
[2017-09-20 11:42] VITALS: BP 112/80
--- NOTE | 2017-09-20 11:50 | EDM.PDOC ---
ED HPI GENERAL MEDICAL PROBLEM - General Chief Complaint: Respiratory Problem Stated Complaint: [id number] LUNGS SOB Time Seen by Provider: 09/20/17 11:50 Source of Information: Reports: Patient, Old Records, RN, RN Notes Reviewed History Limitations: Reports: No Limitations - History of Present Illness INITIAL COMMENTS - FREE TEXT/NARRATIVE: Pt c/o shortness of breath, sharp pain in ribs across the back and sided with deep breathing and cough, and generalized headache. Pt states she gets a similar headache every time she gets short of breath. Pt has known COPD which she states her doctor has told her is in the "severe stage". Pt is 24 hour supplemental oxygen dependent, but does not have portable oxygen for when she leaves her home. Today she came to the hospital for an outpt. CT Chest ordered by her doctor, and states that she had to come to the ER because she needs oxygen so she can "make it back home". She denies fever, edema, palpitations, rapid HR, or any other Sx's. She was admitted here for COPD exacerbation from September 06 to 2017. She has been taking all of her chronic medications and breathing treatments, and has been on Prednisone 10mg daily since being discharged on 09/09/17. Onset: Other (chronic) Duration: Chronic, Constant, Getting Worse Location: Reports: Chest Quality: Reports: Sharp Severity: Moderate Improves with: Reports: Rest Worsens with: Reports: Movement (coughing, deep breathing, and exertion) Context: Reports: Other (chronic problem) Associated Symptoms: Reports: No Other Symptoms Treatments APARTMENT MANAGER: Reports: Breathing Treatments, Other Medication(s), Oxygen Bilateral Chest Pain Score (Numeric/FACES): 7 - Related Data Allergies Allergy/AdvReac Type Severity Reaction Status Date / Time codeine Allergy Cannot Verified 09/06/17 00:30 Remember tramadol HCl [From Ultram] Allergy Cannot Verified 09/06/17 00:30 Remember aspirin Allergy Abdominal Uncoded 01/20/17 21:13 Pain Home Meds: Home Meds Albuterol [Proair HFA] 2 puff INH Q4HR PRN 09/27/13 [History] Estrogens, Conjugated [Premarin] 1 tab PO DAILY 09/27/13 [History] Sertraline [Zoloft] 150 mg PO DAILY 09/27/13 [History] Tiotropium [Spiriva Handihaler] 1 puff INH DAILY 09/27/13 [History] Albuterol/Ipratropium [DuoNeb 3.0-0.5 MG/3 ML] 1 ampule INH QID PRN 02/20/14 [ History] Ranitidine [Zantac] 150 mg PO BID 09/23/14 [History] Pantoprazole [ProTONIX] 40 mg PO DAILY 10/01/14 [History] Gabapentin [Neurontin] 600 mg PO TID 11/01/14 [History] Budesonide [Pulmicort] 0.5 mg NEB BID 01/20/17 [History] Ibuprofen 2 - 3 tab PO TID PRN 01/20/17 [History] Doxycycline Calcium [IMW: Doxycycline] 100 mg PO BID #14 capsule 09/09/17 [Rx] predniSONE [Prednisone] 10 mg PO ASDIRECTED #21 tablet 09/09/17 [Rx] Past Medical History - Past Health History Medical/Surgical History: Denies Medical/Surgical History HEENT History: Reports: Impaired Vision, Other (See Below) Other HEENT History: near sided Cardiovascular History: Reports: None Other Cardiovascular History: has a stress test this coming Respiratory History: Reports: Bronchitis, Recurrent, COPD, SOB, TB, Other (See Below) Other Respiratory History: TB when pt. was a small child. 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 (See Below) Other OB/BYN History: nvd two children/ hysterectomy Musculoskeletal History: Reports: Arthritis, Other (See Below) Other Musculoskeletal History: arthritis , restless leg syndrome Neurological History: Reports: None Psychiatric History: Reports: Depression Endocrine/Metabolic History: Reports: None Hematologic History: Reports: None Immunologic History: Reports: None Oncologic (Cancer) History: Reports: None Dermatologic History: Reports: None - Infectious Disease History Infectious Disease History: Reports: Chicken Pox, Mumps, TB - Past Surgical History Respiratory Surgical History: Reports: None GI Surgical History: Reports: Appendectomy, Cholecystectomy Female Surgical History: Reports: Hysterectomy Musculoskeletal Surgical History: Reports: None Social & Family History - Family History Family Medical History: Noncontributory HEENT: Reports: None Cardiac: Reports: None Respiratory: Reports: None GI: Reports: None : Reports: None OBGYN: Reports: None - Tobacco Use Smoking Status *Q: Current Every Day Smoker Years of Tobacco use: 50 Packs/Tins Daily: 0.3 Used Tobacco, but Quit: Yes Month/Year Tobacco Last Used: December Second Hand Smoke Exposure: No - Caffeine Use Caffeine Use: Reports: Coffee - Alcohol Use Days Per Week of Alcohol Use: 0 - Recreational Drug Use Recreational Drug Use: No - Living Situation & Occupation Living situation: Reports: , with Family Occupation: Retired ED ROS GENERAL - Review of Systems Review Of Systems: ROS reveals no pertinent complaints other than HPI. ED EXAM, GENERAL - Physical Exam Exam: See Below Exam Limited By: No Limitations General Appearance: Alert, No Apparent Distress, Thin, Other (chronically ill, but non-toxic appearing) Nose: Normal Inspection Throat/Mouth: Normal Oropharynx, Normal Voice, No Airway Compromise Head: Atraumatic, Normocephalic Neck: Normal Inspection, Supple, Non-Tender, Full Range of Motion. No: Lymphadenopathy (L), Lymphadenopathy (R) Respiratory/Chest: No Respiratory Distress, No Accessory Muscle Use, Decreased Breath Sounds, Crackles, Wheezing, Prolonged Expiration Cardiovascular: Regular Rate, Rhythm, No Edema, No JVD GI/Abdominal: Normal Bowel Sounds, Soft, Non-Tender, No Distention Back Exam: Normal Inspection. No: CVA Tenderness (L), CVA Tenderness (R) Extremities: Normal Inspection, Non-Tender, No Pedal Edema Neurological: Alert, Oriented, CN II-XII Intact, Normal Cognition, No Motor/ Sensory Deficits Psychiatric: Normal Mood Skin Exam: Warm, Dry, Intact, Normal Color, No Rash Course - Vital Signs Last Recorded V/S: Last Vital Signs Temp 36.2 C 09/20/17 11:37 Pulse 73 09/20/17 11:59 Resp 18 09/20/17 11:37 BP 112/80 09/20/17 11:37 Pulse Ox 95 09/20/17 11:59 - Orders/Labs/Meds Orders: Active Orders 24 hr Category Date Time Status Peripheral IV Care [RC] . DIRECTED Care 09/20/17 11:59 Active RT Aerosol Therapy [RC] ASDIRECTED Care 09/20/17 11:59 Active Sodium Chloride 0.9% [Saline Flush] Med 09/20/17 11:58 Active 10 ml FLUSH ASDIRECTED PRN Peripheral IV Insertion Adult [OM.PC] Stat Oth 09/20/17 11:57 Ordered Medication Orders Sodium Chloride (Saline Flush) 10 ml FLUSH ASDIRECTED PRN PRN Reason: Keep Vein Open Labs: Laboratory Tests 09/20/17 09/20/17 Range/Units 12:05 12:05 WBC 10.1 H (5.0-10.0) 10^3/uL RBC 5.32 (4.2-5.4) 10^6/uL Hgb 13.9 (12.0-16.0) g/dL Hct 42.7 (37.0-47.0) % MCV 80.3 D (80-100) fL MCH 26.1 L (27.0-34.0) pg MCHC 32.6 L (33.0-35.0) g/dL Plt Count 331 (150-450) 10^3/uL Neut % (Auto) 74.7 (42.2-75.2) % Lymph % (Auto) 15.0 L (20.5-50.1) % [place] % (Auto) 8.1 H (2-8) % Eos % (Auto) 2.1 (1.0-3.0) % Baso % (Auto) 0.1 (0.0-1.0) % Sodium 136 (135-145) mmol/L Potassium 4.3 (3.6-5.0) mmol/L Chloride 100 L (101-111) mmol/L Carbon Dioxide 27.0 (21.0-31.0) mmol/L Anion Gap 13.3 BUN 16 (7-18) mg/dL Creatinine 0.6 (0.6-1.3) mg/dL Est Cr Clr Drug Dosing 68.93 mL/min Estimated GFR (MDRD) > 60 BUN/Creatinine Ratio 26.66 Glucose 96 (74-105) mg/dL Calcium 9.3 (8.4-10.2) mg/dl Total Bilirubin 0.6 (0.2-1.0) mg/dL AST 24 (10-42) IU/L ALT 22 (10-60) IU/L Alkaline Phosphatase 97 (42-121) IU/L Total Protein 7.5 (6.7-8.2) g/dl Albumin 3.8 (3.2-5.5) g/dl Globulin 3.7 Albumin/Globulin Ratio 1.03 Meds: Medications Generic Name Dose Route Start Last Admin Trade Name Freq PRN Reason Stop Dose Admin Sodium Chloride 10 ml 09/20/17 11:58 Saline Flush FLUSH ASDIRECTED PRN Keep Vein Open Discontinued Medications Generic Name Dose Route Start Last Admin Trade Name Freq PRN Reason Stop Dose Admin Hydrocodone Bitart/Acetaminophen 1 tab 09/20/17 11:58 09/20/17 12:21 [place] 325-10 Mg PO 09/20/17 11:59 1 tab ONETIME ONE Administration Albuterol/Ipratropium 3 ml 09/20/17 11:58 09/20/17 12:25 Duoneb 3.0-0.5 Mg/3 Ml NEB 09/20/17 11:59 3 ml ONETIME ONE Administration Methylprednisolone Sodium Succinate 125 mg 09/20/17 11:58 09/20/17 12:22 Solu-Medrol IVPUSH 09/20/17 11:59 125 mg ONETIME ONE Administration Departure - Departure Time of Disposition: 12:48 Disposition: Home, Self-Care 01 Condition: Fair Clinical Impression: Tobacco use disorder COPD (chronic obstructive pulmonary disease) Qualifiers: COPD type: unspecified COPD Qualified Code(s): J44.9 - Chronic obstructive pulmonary disease, unspecified - Discharge Information Instructions: Chronic Obstructive Pulmonary Disease, [id number], Steps to Quit Smoking, [id number] Forms: ED Department Discharge Additional Instructions: Take your medications exactly as prescribed. Do not smoke, and avoid second hand smoke exposure. Follow up in clinic with your doctor next week for recheck. Ask your doctor about getting you portable oxygen. - My Orders Last 24 Hours: My Active Orders 09/20/17 11:57 Peripheral IV Insertion Adult [OM.PC] Stat 09/20/17 11:58 Sodium Chloride 0.9% [Saline Flush] 10 ml FLUSH ASDIRECTED PRN 09/20/17 11:59 Peripheral IV Care [RC] . DIRECTED RT Aerosol Therapy [RC] ASDIRECTED - Assessment/Plan Last 24 Hours: My Active Orders 09/20/17 11:57 Peripheral IV Insertion Adult [OM.PC] Stat 09/20/17 11:58 Sodium Chloride 0.9% [Saline Flush] 10 ml FLUSH ASDIRECTED PRN 09/20/17 11:59 Peripheral IV Care [RC] . DIRECTED RT Aerosol Therapy [RC] ASDIRECTED
[2017-09-20] MEDS ORDERED: Acetaminophen/HYDROcodone 325-10 MG Tab PO ONE (11:58)
[2017-09-20] MEDS ORDERED: Albuterol/Ipratropium 3.0-0.5 MG/3 ML Neb Soln NEB ONE (11:58)
[2017-09-20] MEDS ORDERED: Sodium Chloride 0.9% 10 ML Syringe FLUSH PRN (11:58)
[2017-09-20] MEDS ORDERED: methylPREDNISolone Sodium Succinate 125 MG/2 ML SDV IVPUSH ONE (11:58)
[2017-09-20 12:32] LABS: CHLORIDE,CL 100 mmol/L (101-111); SODIUM,NA 136 mmol/L (135-145)
== END 2017-09-20 12:56 | disposition home or self-care (01) ==
LOC: DL.ED 11:31
DX: J44.9 Chronic obstructive pulmonary disease, unspecified (principal); K21.9 Gastro-esophageal reflux disease without esophagitis; F17.210 Nicotine dependence, cigarettes, uncomplicated; Z88.5 Allergy status to narcotic agent; Z88.6 Allergy status to analgesic agent; Z79.899 Other long term (current) drug therapy
CPT/HCPCS: 36415; 80053; 85025; 94640; 96372; 99285; A9270; J2930

== ENCOUNTER 2017-09-23 18:28 | Inpatient (IN) | payer MEDICARE, MEDICAID ==
[2017-09-23] MEDS ORDERED: Albuterol/Ipratropium 3.0-0.5 MG/3 ML Neb Soln NEB ONE (19:10)
--- NOTE | 2017-09-23 19:17 | EDM.PDOC ---
ED HPI GENERAL MEDICAL PROBLEM - General Chief Complaint: Respiratory Problem Stated Complaint: [id number] CANT HARDLY BREATHE Time Seen by Provider: 09/23/17 18:55 Source of Information: Reports: Patient, RN, RN Notes Reviewed History Limitations: Reports: Respiratory Distress - History of Present Illness INITIAL COMMENTS - FREE TEXT/NARRATIVE: Pt to ER with c/o SOB. She states this began yesterday. She also c/o headache that began this morning. She states she has COPD and emphysema and is on O2 on home at all times. Patient admits to nausea, chest pains, fever and chills. She denies vomiting and diarrhea. Onset: Gradual Onset Date: 09/22/17 Generalized Pain Score (Numeric/FACES): 4 - Related Data Allergies Allergy/AdvReac Type Severity Reaction Status Date / Time codeine Allergy Cannot Verified 09/23/17 20:30 Remember tramadol HCl [From Ultram] Allergy Cannot Verified 09/23/17 20:30 Remember aspirin Allergy Abdominal Uncoded 09/23/17 20:30 Pain Home Meds: Home Meds Albuterol [Proair HFA] 2 puff INH Q4HR PRN 09/27/13 [History] Estrogens, Conjugated [Premarin] 1 tab PO DAILY 09/27/13 [History] Sertraline [Zoloft] 150 mg PO DAILY 09/27/13 [History] Tiotropium [Spiriva Handihaler] 1 puff INH DAILY 09/27/13 [History] Albuterol/Ipratropium [DuoNeb 3.0-0.5 MG/3 ML] 1 ampule INH QID PRN 02/20/14 [ History] Ranitidine [Zantac] 150 mg PO BID 09/23/14 [History] Pantoprazole [ProTONIX] 40 mg PO DAILY 10/01/14 [History] Gabapentin [Neurontin] 600 mg PO TID 11/01/14 [History] Budesonide [Pulmicort] 0.5 mg NEB BID 01/20/17 [History] Ibuprofen 2 - 3 tab PO TID PRN 01/20/17 [History] Doxycycline Calcium [IMW: Doxycycline] 100 mg PO BID #14 capsule 09/09/17 [Rx] Past Medical History - Past Health History Medical/Surgical History: Denies Medical/Surgical History HEENT History: Reports: Impaired Vision, Other (See Below) Other HEENT History: near sided Cardiovascular History: Reports: None Other Cardiovascular History: has a stress test this coming Respiratory History: Reports: Bronchitis, Recurrent, COPD, SOB, TB, Other (See Below) Other Respiratory History: TB when pt. was a small child. Emphysema by pt account Gastrointestinal History: Reports: GERD Other Gastrointestinal History: N/A Genitourinary History: Reports: Renal Calculus, Other (See Below) Other Genitourinary History: kidney stones MOBILE QA TESTER History: Reports: Other (See Below) Other OB/BYN History: nvd two children/ hysterectomy Musculoskeletal History: Reports: Arthritis, Other (See Below) Other Musculoskeletal History: arthritis , restless leg syndrome Neurological History: Reports: None Psychiatric History: Reports: Depression Endocrine/Metabolic History: Reports: None Hematologic History: Reports: None Immunologic History: Reports: None Oncologic (Cancer) History: Reports: None Dermatologic History: Reports: None - Infectious Disease History Infectious Disease History: Reports: Chicken Pox, Mumps, TB - Past Surgical History Respiratory Surgical History: Reports: None GI Surgical History: Reports: Appendectomy, Cholecystectomy Female Surgical History: Reports: Hysterectomy Musculoskeletal Surgical History: Reports: None Social & Family History - Family History Family Medical History: Noncontributory HEENT: Reports: None Cardiac: Reports: None Respiratory: Reports: None GI: Reports: None : Reports: None OBGYN: Reports: None - Tobacco Use Smoking Status *Q: Current Every Day Smoker Years of Tobacco use: 40 Packs/Tins Daily: 4 Used Tobacco, but Quit: Yes Month/Year Tobacco Last Used: December Second Hand Smoke Exposure: No - Caffeine Use Caffeine Use: Reports: Coffee - Alcohol Use Days Per Week of Alcohol Use: 0 - Recreational Drug Use Recreational Drug Use: No - Living Situation & Occupation Living situation: Reports: , with Family Occupation: Retired ED ROS GENERAL - Review of Systems Review Of Systems: ROS reveals no pertinent complaints other than HPI. ED EXAM, GENERAL - Physical Exam Exam: See Below Exam Limited By: Respiratory Distress General Appearance: Alert, WD/WN, Moderate Distress Eye Exam: Bilateral Eye: EOMI, Normal Inspection Ears: Normal External Exam, Hearing Grossly Normal Nose: Normal Inspection Throat/Mouth: Normal Inspection, Normal Voice, No Airway Compromise Head: Atraumatic, Normocephalic Neck: Normal Inspection, Supple, Non-Tender, Full Range of Motion Respiratory/Chest: Respiratory Distress, Decreased Breath Sounds, Crackles, Wheezing, Accessory Muscle Use Cardiovascular: Normal Peripheral Pulses, Regular Rate, Rhythm, No Edema, No Gallop, No JVD, No Murmur, No Rub Peripheral Pulses: 1+: Radial (L), Radial (R) GI/Abdominal: Normal Bowel Sounds, Soft, Non-Tender, No Organomegaly, No Distention, No Abnormal Bruit, No Mass (Female) Exam: Deferred Rectal (Female) Exam: Deferred Back Exam: Normal Inspection, Decreased Range of Motion Extremities: Normal Inspection, Normal Range of Motion, Non-Tender, Normal Capillary Refill, No Pedal Edema Neurological: Alert, Oriented, CN II-XII Intact, Normal Cognition, Normal Gait, Normal Reflexes, No Motor/Sensory Deficits Psychiatric: Normal Affect, Normal Mood Skin Exam: Warm, Dry, Intact, Normal Color, No Rash Lymphatic: No Adenopathy Course - Vital Signs Last Recorded V/S: Last Vital Signs Temp 101.6 F H 09/23/17 21:38 Pulse 123 H 09/23/17 21:38 Resp 24 H 09/23/17 21:38 BP 97/58 L 09/23/17 21:38 Pulse Ox 95 09/23/17 22:03 - Orders/Labs/Meds Orders: Active Orders 24 hr Category Date Time Status EKG Documentation Completion [RC] STAT Care 09/23/17 19:09 Active Peripheral IV Care [RC] . DIRECTED Care 09/23/17 19:10 Active RT Aerosol Therapy [RC] ASDIRECTED Care 09/23/17 19:12 Active Chest 1V Frontal [CR] Stat Exams 09/23/17 19:09 Taken CULTURE BLOOD [BC] Stat Lab 09/23/17 19:35 Received CULTURE BLOOD [BC] Stat Lab 09/23/17 19:40 Received INFLUENZA A+B AG SCREEN [RM] Stat Lab 09/23/17 20:18 Ordered UA W/MICROSCOPIC [URIN] Stat Lab 09/23/17 21:35 Ordered Sodium Chloride 0.9% [Saline Flush] Med 09/23/17 19:08 Active 10 ml FLUSH ASDIRECTED PRN Blood Culture x2 Reflex Set [OM.PC] Stat Oth 09/23/17 19:09 Ordered Peripheral IV Insertion Adult [OM.PC] Stat Oth 09/23/17 19:09 Ordered Medication Orders Al Hydroxide/Mg Hydroxide (Mag-Al Plus) 30 ml PO Q4H PRN PRN Reason: Dyspepsia Albuterol (Proventil Hfa) 0 gm INH Q4HR PRN PRN Reason: Dyspnea Albuterol/Ipratropium (Duoneb 3.0-0.5 Mg/3 Ml) 3 ml INH QID PRN PRN Reason: Shortness of Breath Bisacodyl (Dulcolax) 10 mg RECTAL DAILY PRN PRN Reason: Constipation Budesonide (Pulmicort) 0.5 mg NEB BID [facility] Docusate Sodium (Colace) 100 mg PO DAILY PRN PRN Reason: Constipation Estrogens Conjugated (Premarin) 0.9 mg PO DAILY [facility] Famotidine (Pepcid) 20 mg PO BID [facility] Gabapentin (Neurontin) 600 mg PO TID [facility] Heparin Sodium (Porcine) (Heparin Sodium) 5,000 units SUBCUT Q12H [facility] Last Admin: 09/23/17 22:48 Dose: 5,000 units Azithromycin 500 mg/ Sodium (Chloride) 250 mls @ 250 mls/hr IV Q24H [facility] Last Admin: 09/23/17 22:40 Dose: 250 mls/hr Sodium Chloride (Normal Saline) 1,000 mls @ 75 mls/hr IV ASDIRECTED [facility] Magnesium Hydroxide (Milk Of Magnesia) 30 ml PO BID PRN PRN Reason: Constipation Methylprednisolone Sodium Succinate (Solu-Medrol) 60 mg IVPUSH Q8H [facility] Last Admin: 09/23/17 22:42 Dose: 60 mg Nicotine (Habitrol) 14 mg TRDERM DAILY [facility] Oseltamivir Phosphate (Tamiflu) 30 mg PO DAILY [facility] Last Admin: 09/23/17 22:41 Dose: 30 mg Pantoprazole Sodium (Protonix) 40 mg PO DAILY [facility] Sertraline HCl (Zoloft) 150 mg PO DAILY [facility] Sodium Chloride (Saline Flush) 10 ml FLUSH ASDIRECTED PRN PRN Reason: Keep Vein Open Last Admin: 09/23/17 22:38 Dose: 10 ml Admin: 09/23/17 20:16 Dose: 10 ml Tiotropium Felch (Spiriva Handihaler) 18 mcg INH DAILY [facility] Labs: Laboratory Tests 04/03/0409/23/17 09/23/17 Range/Units 19:35 19:35 19:35 WBC 11.1 H (5.0-10.0) 10^3/uL RBC 5.18 (4.2-5.4) 10^6/uL Hgb 13.5 (12.0-16.0) g/dL Hct 41.0 (37.0-47.0) % MCV 79.2 L (80-100) fL MCH 26.1 L (27.0-34.0) pg MCHC 32.9 L (33.0-35.0) g/dL Plt Count 193 D (150-450) 10^3/uL Neut % (Auto) 80.2 H (42.2-75.2) % Lymph % (Auto) 13.6 L (20.5-50.1) % [place] % (Auto) 5.8 (2-8) % Eos % (Auto) 0.4 L (1.0-3.0) % Baso % (Auto) 0.0 (0.0-1.0) % Sodium 133 L (135-145) mmol/L Potassium 3.8 (3.6-5.0) mmol/L Chloride 98 L (101-111) mmol/L Carbon Dioxide 25.0 (21.0-31.0) mmol/L Anion Gap 13.8 BUN 9 (7-18) mg/dL Creatinine 0.5 L (0.6-1.3) mg/dL Est Cr Clr Drug Dosing 82.72 mL/min Estimated GFR (MDRD) > 60 BUN/Creatinine Ratio 18.00 Glucose 116 H (74-105) mg/dL Lactic Acid 0.7 (0.5-2.2) mmol/L Calcium 8.6 (8.4-10.2) mg/dl Total Bilirubin 0.5 (0.2-1.0) mg/dL AST 22 (10-42) IU/L ALT 15 (10-60) IU/L Alkaline Phosphatase 88 (42-121) IU/L Troponin I < 0.02 (0.00-0.02) ng/ml B-Natriuretic Peptide 20 (0-100) pg/ml Total Protein 7.1 (6.7-8.2) g/dl Albumin 3.5 (3.2-5.5) g/dl Globulin 3.6 Albumin/Globulin Ratio 0.97 Urine Color (YELLOW) Urine Appearance (CLEAR) Urine pH (5.0-9.0) Ur Specific [place] (1.005-1.030) Urine Protein (NEGATIVE) Urine Glucose (UA) (NEGATIVE) Urine Ketones (NEGATIVE) Urine Occult Blood (NEGATIVE) Urine Nitrite (NEGATIVE) Urine Bilirubin (NEGATIVE) Urine Urobilinogen (0.2-1.0) mg/dL Ur Leukocyte Esterase (NEGATIVE) Urine RBC /HPF Urine WBC (0-5/HPF) /HPF Ur Epithelial Cells /HPF Urine Bacteria (0-FEW/HPF) /HPF 09/23/17 Range/Units 21:35 WBC (5.0-10.0) 10^3/uL RBC (4.2-5.4) 10^6/uL Hgb (12.0-16.0) g/dL Hct (37.0-47.0) % MCV (80-100) fL MCH (27.0-34.0) pg MCHC (33.0-35.0) g/dL Plt Count (150-450) 10^3/uL Neut % (Auto) (42.2-75.2) % Lymph % (Auto) (20.5-50.1) % [place] % (Auto) (2-8) % Eos % (Auto) (1.0-3.0) % Baso % (Auto) (0.0-1.0) % Sodium (135-145) mmol/L Potassium (3.6-5.0) mmol/L Chloride (101-111) mmol/L Carbon Dioxide (21.0-31.0) mmol/L Anion Gap BUN (7-18) mg/dL Creatinine (0.6-1.3) mg/dL Est Cr Clr Drug Dosing mL/min Estimated GFR (MDRD) BUN/Creatinine Ratio Glucose (74-105) mg/dL Lactic Acid (0.5-2.2) mmol/L Calcium (8.4-10.2) mg/dl Total Bilirubin (0.2-1.0) mg/dL AST (10-42) IU/L ALT (10-60) IU/L Alkaline Phosphatase (42-121) IU/L Troponin I (0.00-0.02) ng/ml B-Natriuretic Peptide (0-100) pg/ml Total Protein (6.7-8.2) g/dl Albumin (3.2-5.5) g/dl Globulin Albumin/Globulin Ratio Urine Color Yellow (YELLOW) Urine Appearance Clear (CLEAR) Urine pH 7.5 (5.0-9.0) Ur Specific [place] 1.020 (1.005-1.030) Urine Protein Negative (NEGATIVE) Urine Glucose (UA) Negative (NEGATIVE) Urine Ketones 15 H (NEGATIVE) Urine Occult Blood Negative (NEGATIVE) Urine Nitrite Negative (NEGATIVE) Urine Bilirubin Negative (NEGATIVE) Urine Urobilinogen 0.2 (0.2-1.0) mg/dL Ur Leukocyte Esterase Negative (NEGATIVE) Urine RBC 0-5 /HPF Urine WBC 0-5 (0-5/HPF) /HPF Ur Epithelial Cells Few /HPF Urine Bacteria Few (0-FEW/HPF) /HPF Influenza A: Negative Influenza B: Positive Meds: Medications Generic Name Dose Route Start Last Admin Trade Name Freq PRN Reason Stop Dose Admin Al Hydroxide/Mg Hydroxide 30 ml 09/23/17 22:01 Mag-Al Plus PO Q4H PRN Dyspepsia Albuterol 0 gm 09/23/17 22:06 Proventil Hfa INH Q4HR PRN Dyspnea Albuterol/Ipratropium 3 ml 09/23/17 22:06 Duoneb 3.0-0.5 Mg/3 Ml INH QID PRN Shortness of Breath Bisacodyl 10 mg 09/23/17 22:01 Dulcolax RECTAL DAILY PRN Constipation Budesonide 0.5 mg 09/24/17 09:00 Pulmicort NEB BID [facility] Docusate Sodium 100 mg 09/23/17 22:01 Colace PO DAILY PRN Constipation Estrogens Conjugated 0.9 mg 09/24/17 09:00 Premarin PO DAILY [facility] Famotidine 20 mg 09/24/17 09:00 Pepcid PO BID [facility] Gabapentin 600 mg 09/24/17 09:00 Neurontin PO TID [facility] Heparin Sodium (Porcine) 5,000 units 09/23/17 22:15 09/23/17 22:48 Heparin Sodium SUBCUT 5,000 units Q12H [facility] Administration Azithromycin 500 mg/ Sodium 250 mls @ 250 mls/hr 09/23/17 22:15 09/23/17 22: 40 Chloride IV 250 mls/hr Q24H [facility] Administration Sodium Chloride 1,000 mls @ 75 mls/hr 09/23/17 22:30 Normal Saline IV ASDIRECTED [facility] Magnesium Hydroxide 30 ml 09/23/17 22:01 Milk Of Magnesia PO BID PRN Constipation Methylprednisolone Sodium Succinate 60 mg 09/23/17 22:15 09/23/17 22:42 Solu-Medrol IVPUSH 60 mg Q8H [facility] Administration Nicotine 14 mg 09/24/17 09:00 Habitrol TRDERM DAILY [facility] Oseltamivir Phosphate 30 mg 09/23/17 22:15 09/23/17 22:41 Tamiflu PO 30 mg DAILY [facility] Administration Pantoprazole Sodium 40 mg 09/24/17 09:00 Protonix PO DAILY [facility] Sertraline HCl 150 mg 09/24/17 09:00 Zoloft PO DAILY [facility] Sodium Chloride 10 ml 09/23/17 19:08 09/23/17 22:38 Saline Flush FLUSH 10 ml ASDIRECTED PRN Administration Keep Vein Open Tiotropium Felch 18 mcg 09/24/17 09:00 Spiriva Handihaler INH DAILY [facility] Discontinued Medications Generic Name Dose Route Start Last Admin Trade Name Freq PRN Reason Stop Dose Admin Acetaminophen 650 mg 09/23/17 20:33 09/23/17 20:43 Tylenol PO 09/23/17 20:34 650 mg NOW ONE Administration Albuterol/Ipratropium 3 ml 09/23/17 19:10 09/23/17 19:27 Duoneb 3.0-0.5 Mg/3 Ml NEB 09/23/17 19:11 3 ml ONETIME ONE Administration Methylprednisolone Sodium Succinate 125 mg 09/23/17 20:56 09/23/17 21:02 Solu-Medrol IVPUSH 09/23/17 20:57 125 mg ONETIME ONE Administration Morphine Sulfate 2 mg 09/23/17 20:47 09/23/17 20:51 Morphine IVPUSH 09/23/17 20:48 2 mg ONETIME ONE Administration - Radiology Interpretation Free Text/Narrative:: Chest xray: IMPRESSION: Questionable increased density within the lateral aspect of the right lower lobe which may represent a developing pneumonia. Thank you for allowing us to participate in the care of your patient. Dictated and Authenticated by: Eulogio Duvall MD 09/23/2017 9:27 PM Central Time ([place] & [place]) See rad report Departure - Departure Time of Disposition: 21:18 Disposition: Admitted As Inpatient 65 Condition: Poor Clinical Impression: Influenza, COPD exacerbation - Discharge Information - My Orders Last 24 Hours: My Active Orders 09/23/17 19:08 Sodium Chloride 0.9% [Saline Flush] 10 ml FLUSH ASDIRECTED PRN 09/23/17 19:09 EKG Documentation Completion [RC] STAT Chest 1V Frontal [CR] Stat Blood Culture x2 Reflex Set [OM.PC] Stat Peripheral IV Insertion Adult [OM.PC] Stat 09/23/17 19:10 Peripheral IV Care [RC] . DIRECTED 09/23/17 19:12 RT Aerosol Therapy [RC] ASDIRECTED 09/23/17 19:35 CULTURE BLOOD [BC] Stat 09/23/17 19:40 CULTURE BLOOD [BC] Stat 09/23/17 20:18 INFLUENZA A+B AG SCREEN [RM] Stat 09/23/17 21:35 UA W/MICROSCOPIC [URIN] Stat - Assessment/Plan Last 24 Hours: My Active Orders 09/23/17 19:08 Sodium Chloride 0.9% [Saline Flush] 10 ml FLUSH ASDIRECTED PRN 09/23/17 19:09 EKG Documentation Completion [RC] STAT Chest 1V Frontal [CR] Stat Blood Culture x2 Reflex Set [OM.PC] Stat Peripheral IV Insertion Adult [OM.PC] Stat 09/23/17 19:10 Peripheral IV Care [RC] . DIRECTED 09/23/17 19:12 RT Aerosol Therapy [RC] ASDIRECTED 09/23/17 19:35 CULTURE BLOOD [BC] Stat 09/23/17 19:40 CULTURE BLOOD [BC] Stat 09/23/17 20:18 INFLUENZA A+B AG SCREEN [RM] Stat 09/23/17 21:35 UA W/MICROSCOPIC [URIN] Stat
[2017-09-23] MEDS: Sodium Chloride 0.9% 10 ML Syringe FLUSH PRN ×2 (20:16→22:38)
[2017-09-23 20:18] LABS: CHLORIDE,CL 98 mmol/L (101-111); SODIUM,NA 133 mmol/L (135-145)
[2017-09-23] MEDS ORDERED: Acetaminophen 325 MG Tab PO ONE (20:33)
[2017-09-23] MEDS ORDERED: Morphine 2 MG/ML Syringe IVPUSH ONE (20:47)
[2017-09-23] MEDS ORDERED: methylPREDNISolone Sodium Succinate 125 MG/2 ML SDV IVPUSH ONE (20:56)
--- NOTE | 2017-09-23 22:00 | PCM.HP ---
H&P History of Present Illness - General Date of Service: 09/23/17 Source of Information: Patient History Limitations: Reports: No Limitations - History of Present Illness Initial Comments - Free Text/Narative: Patient is 62 y/o female with PMH of contimuous tobacco abuse, COPD/Asthma, Depression. She presented to ER with SOB and cough that started yesterday. Patient reports she was well till above started yesterday when above started. She said she started smoking and next thing she realized was cough. Cough was productive of greenish sputum. This was associated with SOB, wheezing, nasal congestion. She reports fever and chills. She denies ill contact, recent travel, chest pain, palpitation, orthopnea, PND. SOB was getting progressively worse so she presented to the ED. In the ED she was positive for influenza B. Onset of Symptoms: Reports: Today, Gradual, Unknown/Unsure Duration of Symptoms: Reports: Day(s): Improves with: Reports: Rest Worsens with: Reports: None Context: Reports: Activity/Exercise Associated Symptoms: Reports: Chest Pain, Cough, Fever/Chills, Headaches, Shortness of Breath Generalized Pain Score (Numeric/FACES): 4 - Related Data Allergies/Adverse Reactions: Allergies Allergy/AdvReac Type Severity Reaction Status Date / Time codeine Allergy Cannot Verified 09/23/17 20:30 Remember tramadol HCl [From Ultram] Allergy Cannot Verified 09/23/17 20:30 Remember aspirin Allergy Abdominal Uncoded 09/23/17 20:30 Pain Home Medications: Home Meds Albuterol [Proair HFA] 2 puff INH Q4HR PRN 09/27/13 [History] Estrogens, Conjugated [Premarin] 1 tab PO DAILY 09/27/13 [History] Sertraline [Zoloft] 150 mg PO DAILY 09/27/13 [History] Tiotropium [Spiriva Handihaler] 1 puff INH DAILY 09/27/13 [History] Albuterol/Ipratropium [DuoNeb 3.0-0.5 MG/3 ML] 1 ampule INH QID PRN 02/20/14 [ History] Ranitidine [Zantac] 150 mg PO BID 09/23/14 [History] Pantoprazole [ProTONIX] 40 mg PO DAILY 10/01/14 [History] Gabapentin [Neurontin] 600 mg PO TID 11/01/14 [History] Budesonide [Pulmicort] 0.5 mg NEB BID 01/20/17 [History] Ibuprofen 2 - 3 tab PO TID PRN 01/20/17 [History] Doxycycline Calcium [IMW: Doxycycline] 100 mg PO BID #14 capsule 09/09/17 [Rx] Past Medical History - Past Health History Medical/Surgical History: Denies Medical/Surgical History HEENT History: Reports: Impaired Vision, Other (See Below) Other HEENT History: near sided Cardiovascular History: Reports: None Other Cardiovascular History: has a stress test this coming Respiratory History: Reports: Bronchitis, Recurrent, COPD, SOB, TB, Other (See Below) Other Respiratory History: TB when pt. was a small child. Emphysema by pt account Gastrointestinal History: Reports: GERD Other Gastrointestinal History: N/A Genitourinary History: Reports: Renal Calculus, Other (See Below) Other Genitourinary History: kidney stones FIRST COOK History: Reports: Other (See Below) Other OB/BYN History: nvd two children/ hysterectomy Musculoskeletal History: Reports: Arthritis, Other (See Below) Other Musculoskeletal History: arthritis , restless leg syndrome Neurological History: Reports: None Psychiatric History: Reports: Depression Endocrine/Metabolic History: Reports: None Hematologic History: Reports: None Immunologic History: Reports: None Oncologic (Cancer) History: Reports: None Dermatologic History: Reports: None - Infectious Disease History Infectious Disease History: Reports: Chicken Pox, Mumps, TB - Past Surgical History Respiratory Surgical History: Reports: None GI Surgical History: Reports: Appendectomy, Cholecystectomy Female Surgical History: Reports: Hysterectomy Musculoskeletal Surgical History: Reports: None Social & Family History - Family History Family Medical History: Noncontributory HEENT: Reports: None Cardiac: Reports: None Respiratory: Reports: None GI: Reports: None : Reports: None OBGYN: Reports: None - Tobacco Use Smoking Status *Q: Current Every Day Smoker Years of Tobacco use: 40 Packs/Tins Daily: 4 Used Tobacco, but Quit: Yes Month/Year Tobacco Last Used: December Second Hand Smoke Exposure: No - Caffeine Use Caffeine Use: Reports: Coffee - Alcohol Use Days Per Week of Alcohol Use: 0 - Recreational Drug Use Recreational Drug Use: No - Living Situation & Occupation Living situation: Reports: , with Family Occupation: Retired H&P Review of Systems - Review of Systems: Review Of Systems: See Below General: Reports: Fever, Chills, Decreased Appetite HEENT: Reports: Sinus Congestion Pulmonary: Reports: Shortness of Breath, Wheezing, Pleuritic Chest Pain, Cough, Sputum Cardiovascular: Reports: No Symptoms Gastrointestinal: Reports: No Symptoms Genitourinary: Reports: No Symptoms Musculoskeletal: Reports: No Symptoms Skin: Reports: No Symptoms Psychiatric: Reports: No Symptoms Neurological: Reports: No Symptoms Hematologic/Lymphatic: Reports: No Symptoms Immunologic: Reports: No Symptoms Exam - Exam Exam: See Below - Vital Signs Vital Signs: Last Vital Signs Temp 101.6 F H 09/23/17 21:38 Pulse 123 H 09/23/17 21:38 Resp 24 H 09/23/17 21:38 BP 97/58 L 09/23/17 21:38 Pulse Ox 88 L 09/23/17 21:38 Weight: 110 lb 6 oz - Exam Quality Assessment: Supplemental Oxygen, DVT Prophylaxis General: Alert, Oriented HEENT: PERRLA, Hearing Intact, Mucosa Moist & [place], Nares Patent, Normal Nasal Septum, Posterior Pharynx Clear, Conjunctiva Clear, EOMI, EACs Clear, TMs Clear Neck: Supple, Trachea Midline, 2 Lungs: Decreased Breath Sounds, Rales, Wheezing Cardiovascular: Regular Rate, Regular Rhythm GI/Abdominal Exam: Normal Bowel Sounds, Soft, Non-Tender, No Organomegaly, No Distention, No Abnormal Bruit, No Mass, Pelvis Stable (Female) Exam: Normal External Exam, Normal Speculum Exam, Normal Bimanual Exam Rectal (Female) Exam: Normal Exam, Normal Rectal Tone Back Exam: Normal Inspection, Full Range of Motion, NT Extremities: Normal Inspection, Normal Range of Motion, Non-Tender, No Pedal Edema, Normal Capillary Refill Skin: Warm, Dry, Intact Neurological: Cranial Nerves Intact, Reflexes Equal Bilateral Neuro Extensive - Mental Status: Alert, Oriented x3, Normal Mood/Affect, Normal Cognition, Memory Intact Neuro Extensive - Motor, Sensory, Reflexes: CN II-XII Intact, Normal Gait, Normal Reflexes Psychiatric: Alert, Normal Affect, Normal Mood - Patient Data Lab Results Last 24 hrs: Laboratory Results - last 24 hr 09/23/17 09/23/17 09/23/17 Range/Units 19:35 19:35 19:35 WBC 11.1 H (5.0-10.0) 10^3/uL RBC 5.18 (4.2-5.4) 10^6/uL Hgb 13.5 (12.0-16.0) g/dL Hct 41.0 (37.0-47.0) % MCV 79.2 L (80-100) fL MCH 26.1 L (27.0-34.0) pg MCHC 32.9 L (33.0-35.0) g/dL Plt Count 193 D (150-450) 10^3/uL Neut % (Auto) 80.2 H (42.2-75.2) % Lymph % (Auto) 13.6 L (20.5-50.1) % [place] % (Auto) 5.8 (2-8) % Eos % (Auto) 0.4 L (1.0-3.0) % Baso % (Auto) 0.0 (0.0-1.0) % Sodium 133 L (135-145) mmol/L Potassium 3.8 (3.6-5.0) mmol/L Chloride 98 L (101-111) mmol/L Carbon Dioxide 25.0 (21.0-31.0) mmol/L Anion Gap 13.8 BUN 9 (7-18) mg/dL Creatinine 0.5 L (0.6-1.3) mg/dL Est Cr Clr Drug Dosing 82.72 mL/min Estimated GFR (MDRD) > 60 BUN/Creatinine Ratio 18.00 Glucose 116 H (74-105) mg/dL Lactic Acid 0.7 (0.5-2.2) mmol/L Calcium 8.6 (8.4-10.2) mg/dl Total Bilirubin 0.5 (0.2-1.0) mg/dL AST 22 (10-42) IU/L ALT 15 (10-60) IU/L Alkaline Phosphatase 88 (42-121) IU/L Troponin I < 0.02 (0.00-0.02) ng/ml B-Natriuretic Peptide 20 (0-100) pg/ml Total Protein 7.1 (6.7-8.2) g/dl Albumin 3.5 (3.2-5.5) g/dl Globulin 3.6 Albumin/Globulin Ratio 0.97 Urine Color (YELLOW) Urine Appearance (CLEAR) Urine pH (5.0-9.0) Ur Specific [place] (1.005-1.030) Urine Protein (NEGATIVE) Urine Glucose (UA) (NEGATIVE) Urine Ketones (NEGATIVE) Urine Occult Blood (NEGATIVE) Urine Nitrite (NEGATIVE) Urine Bilirubin (NEGATIVE) Urine Urobilinogen (0.2-1.0) mg/dL Ur Leukocyte Esterase (NEGATIVE) Urine RBC /HPF Urine WBC (0-5/HPF) /HPF Ur Epithelial Cells /HPF Urine Bacteria (0-FEW/HPF) /HPF 09/23/17 Range/Units 21:35 WBC (5.0-10.0) 10^3/uL RBC (4.2-5.4) 10^6/uL Hgb (12.0-16.0) g/dL Hct (37.0-47.0) % MCV (80-100) fL MCH (27.0-34.0) pg MCHC (33.0-35.0) g/dL Plt Count (150-450) 10^3/uL Neut % (Auto) (42.2-75.2) % Lymph % (Auto) (20.5-50.1) % [place] % (Auto) (2-8) % Eos % (Auto) (1.0-3.0) % Baso % (Auto) (0.0-1.0) % Sodium (135-145) mmol/L Potassium (3.6-5.0) mmol/L Chloride (101-111) mmol/L Carbon Dioxide (21.0-31.0) mmol/L Anion Gap BUN (7-18) mg/dL Creatinine (0.6-1.3) mg/dL Est Cr Clr Drug Dosing mL/min Estimated GFR (MDRD) BUN/Creatinine Ratio Glucose (74-105) mg/dL Lactic Acid (0.5-2.2) mmol/L Calcium (8.4-10.2) mg/dl Total Bilirubin (0.2-1.0) mg/dL AST (10-42) IU/L ALT (10-60) IU/L Alkaline Phosphatase (42-121) IU/L Troponin I (0.00-0.02) ng/ml B-Natriuretic Peptide (0-100) pg/ml Total Protein (6.7-8.2) g/dl Albumin (3.2-5.5) g/dl Globulin Albumin/Globulin Ratio Urine Color Yellow (YELLOW) Urine Appearance Clear (CLEAR) Urine pH 7.5 (5.0-9.0) Ur Specific [place] 1.020 (1.005-1.030) Urine Protein Negative (NEGATIVE) Urine Glucose (UA) Negative (NEGATIVE) Urine Ketones 15 H (NEGATIVE) Urine Occult Blood Negative (NEGATIVE) Urine Nitrite Negative (NEGATIVE) Urine Bilirubin Negative (NEGATIVE) Urine Urobilinogen 0.2 (0.2-1.0) mg/dL Ur Leukocyte Esterase Negative (NEGATIVE) Urine RBC 0-5 /HPF Urine WBC 0-5 (0-5/HPF) /HPF Ur Epithelial Cells Few /HPF Urine Bacteria Few (0-FEW/HPF) /HPF Result Diagrams: 09/23/17 19:35 09/23/17 19:35 Sean Results Last 24 hrs: Microbiology 09/23/17 20:18 Influenza Type A Antigen Screen - Final Nasopharyngeal Swab - Nare, Left NEGATIVE INFLUENZA A VIRUS AG Influenza Type B Antigen Screen - Final Positive Influenza B Ag - Problem List (1) Acute bronchitis with COPD SNOMED Code(s): 807893890008438 ICD Code: J44.0 - CHRONIC OBSTRUCTIVE PULMON DISEASE W ACUTE LOWER RESP INFCT Status: Acute Priority: High Current Visit: No (2) COPD (chronic obstructive pulmonary disease) SNOMED Code(s): 31858788 ICD Code: J44.9 - CHRONIC OBSTRUCTIVE PULMONARY DISEASE, UNSPECIFIED Status : Acute Current Visit: No Qualifiers: COPD type: unspecified COPD Qualified Code(s): J44.9 - Chronic obstructive pulmonary disease, unspecified (3) Depression SNOMED Code(s): 48232318 ICD Code: F32.9 - MAJOR DEPRESSIVE DISORDER, SINGLE EPISODE, UNSPECIFIED Status: Acute Current Visit: No (4) Exacerbation of asthma SNOMED Code(s): 720652161 ICD Code: J45.901 - UNSPECIFIED ASTHMA WITH (ACUTE) EXACERBATION Status: Acute Current Visit: No (5) Influenza SNOMED Code(s): 0772415 ICD Code: J11.1 - FLU DUE TO UNIDENTIFIED INFLUENZA VIRUS W OTH RESP MANIFEST Status: Acute Current Visit: Yes Problem List Initiated/Reviewed/Updated: Yes Orders Last 24hrs: Active Orders 24 hr Category Date Time Status EKG Documentation Completion [RC] STAT Care 09/23/17 19:09 Active Peripheral IV Care [RC] . DIRECTED Care 09/23/17 19:10 Active RT Aerosol Therapy [RC] ASDIRECTED Care 09/23/17 19:12 Active Chest 1V Frontal [CR] Stat Exams 09/23/17 19:09 Taken CULTURE BLOOD [BC] Stat Lab 09/23/17 19:35 Received CULTURE BLOOD [BC] Stat Lab 09/23/17 19:40 Received INFLUENZA A+B AG SCREEN [RM] Stat Lab 09/23/17 20:18 Ordered UA W/MICROSCOPIC [URIN] Stat Lab 09/23/17 21:35 Ordered Sodium Chloride 0.9% [Saline Flush] Med 09/23/17 19:08 Active 10 ml FLUSH ASDIRECTED PRN Blood Culture x2 Reflex Set [OM.PC] Stat Oth 09/23/17 19:09 Ordered Peripheral IV Insertion Adult [OM.PC] Stat Oth 09/23/17 19:09 Ordered Medication Orders Sodium Chloride (Saline Flush) 10 ml FLUSH ASDIRECTED PRN PRN Reason: Keep Vein Open Last Admin: 09/23/17 20:16 Dose: 10 ml Assessment/Plan Comment:: Assessment?Plan #Acute hypoxic respiratory failure -This is due to Influenza B vs COPD exacerbation/Asthma exacerbation -Oxygen saturation was in the low 80's on RA -She was positive for influenza B -Will give supplemental oxygen and wean off as needed #Influenza B -will start patient on Tamiflu -Droplet precautions #COPD/Asthma exacerbation -She was wheezing on exam -Duo-Nebs q4hr prn -IV methylprednisone 60 mg q8h -IV azithromycin -Monitor respiratory status closely #Likely sepsis -She has fever and source of infection -Lactate was 0.7 -IVF -Tamiflu and azithromycin as above #Continuous tobacco abuse -Advised to quit #Depression -Continue home medication #Regular Diet #Full code
[2017-09-23] MEDS ORDERED: Aluminum Hydroxide/Magnesium Hydroxide/Simethicone Susp 30 ML Cup PO PRN (22:01)
[2017-09-23] MEDS ORDERED: Magnesium Hydroxide 400 MG/5 ML Susp 30 ML Cup PO PRN (22:01)
[2017-09-23] MEDS ORDERED: Bisacodyl 10 MG Supp RECTAL PRN (22:01)
[2017-09-23] MEDS ORDERED: Docusate Sodium 100 MG Cap PO PRN (22:01)
[2017-09-23] MEDS ORDERED: Albuterol 6.7 GM Inhaler INH PRN (22:06)
[2017-09-23] MEDS: Azithromycin 500 MG in Sodium Chloride 0.9% 250 ML IV SCH (22:40)
[2017-09-23] MEDS: Oseltamivir 30 MG Cap PO SCH (22:41)
[2017-09-23] MEDS: methylPREDNISolone Sodium Succinate 40 MG/1 ML SDV IVPUSH SCH (22:42)
[2017-09-23] MEDS: Heparin Sodium 5,000 Units/ML Vial SUBCUT SCH (22:48)
[2017-09-24] MEDS: Acetaminophen 325 MG Tab PO PRN ×3 (00:15→13:48)
[2017-09-24] MEDS: methylPREDNISolone Sodium Succinate 40 MG/1 ML SDV IVPUSH SCH ×3 (06:09→22:21)
[2017-09-24] MEDS: Sodium Chloride 0.9% 10 ML Syringe FLUSH PRN ×3 (06:10→22:27)
[2017-09-24] MEDS: Sodium Chloride 0.9% 1,000 ML IV SCH ×2 (07:36→20:48)
[2017-09-24] MEDS: Budesonide 0.5 MG/2 ML Neb Susp NEB SCH ×2 (08:18→20:34)
[2017-09-24] MEDS: Albuterol/Ipratropium 3.0-0.5 MG/3 ML Neb Soln INH PRN ×2 (08:18→23:57)
[2017-09-24] MEDS: Nicotine 14 MG/24 Hr Patch TRDERM SCH (08:45)
[2017-09-24] MEDS: Famotidine 20 MG Tab PO SCH ×2 (08:46→20:34)
[2017-09-24] MEDS: Gabapentin 300 MG Cap PO SCH ×3 (08:46→20:34)
[2017-09-24] MEDS: Tiotropium Inhaler 18 MCG Inhalation Powder Cap Kit of 5 INH SCH (08:46)
[2017-09-24] MEDS: Pantoprazole 40 MG Tab.CR PO SCH (08:46)
[2017-09-24] MEDS: Sertraline 50 MG Tab PO SCH (08:46)
[2017-09-24] MEDS: Oseltamivir 30 MG Cap PO SCH (08:46)
--- NOTE | 2017-09-24 08:59 | PCM.PN ---
- General Info Date of Service: 09/24/17 Subjective Update: Patient is 62 y/o female with PMH of continuous tobacco abuse, COPD/Asthma on home oxygen 2L, Depression. She presented to ER with SOB and cough that started yesterday. She was found to have Influenza B and subsequently admitted. Seen this morning feeling much better. Reports pleurisy. No overnight event. Functional Status: Reports: Pain Controlled - Review of Systems General: Reports: No Symptoms HEENT: Reports: No Symptoms Pulmonary: Reports: No Symptoms Cardiovascular: Reports: No Symptoms Gastrointestinal: Reports: No Symptoms Genitourinary: Reports: No Symptoms Musculoskeletal: Reports: No Symptoms Skin: Reports: No Symptoms Neurological: Reports: No Symptoms Psychiatric: Reports: No Symptoms - Patient Data Vitals - Most Recent: Last Vital Signs Temp 97.5 F 09/24/17 07:37 Pulse 85 09/24/17 08:19 Resp 20 09/24/17 07:37 BP 108/66 09/24/17 07:37 Pulse Ox 93 L 09/24/17 08:19 Weight - Most Recent: 110 lb 6 oz I&O - Last 24 Hours: Intake & Output 09/23/17 09/24/17 09/24/17 22:59 06:59 14:59 Intake Total 604 Output Total 300 Balance -300 604 Lab Results Last 24 Hours: Laboratory Results - last 24 hr 09/23/17 09/23/17 09/23/17 Range/Units 19:35 19:35 19:35 WBC 11.1 H (5.0-10.0) 10^3/uL RBC 5.18 (4.2-5.4) 10^6/uL Hgb 13.5 (12.0-16.0) g/dL Hct 41.0 (37.0-47.0) % MCV 79.2 L (80-100) fL MCH 26.1 L (27.0-34.0) pg MCHC 32.9 L (33.0-35.0) g/dL Plt Count 193 D (150-450) 10^3/uL Neut % (Auto) 80.2 H (42.2-75.2) % Lymph % (Auto) 13.6 L (20.5-50.1) % [place] % (Auto) 5.8 (2-8) % Eos % (Auto) 0.4 L (1.0-3.0) % Baso % (Auto) 0.0 (0.0-1.0) % Sodium 133 L (135-145) mmol/L Potassium 3.8 (3.6-5.0) mmol/L Chloride 98 L (101-111) mmol/L Carbon Dioxide 25.0 (21.0-31.0) mmol/L Anion Gap 13.8 BUN 9 (7-18) mg/dL Creatinine 0.5 L (0.6-1.3) mg/dL Est Cr Clr Drug Dosing 82.72 mL/min Estimated GFR (MDRD) > 60 BUN/Creatinine Ratio 18.00 Glucose 116 H (74-105) mg/dL Lactic Acid 0.7 (0.5-2.2) mmol/L Calcium 8.6 (8.4-10.2) mg/dl Total Bilirubin 0.5 (0.2-1.0) mg/dL AST 22 (10-42) IU/L ALT 15 (10-60) IU/L Alkaline Phosphatase 88 (42-121) IU/L Troponin I < 0.02 (0.00-0.02) ng/ml B-Natriuretic Peptide 20 (0-100) pg/ml Total Protein 7.1 (6.7-8.2) g/dl Albumin 3.5 (3.2-5.5) g/dl Globulin 3.6 Albumin/Globulin Ratio 0.97 Urine Color (YELLOW) Urine Appearance (CLEAR) Urine pH (5.0-9.0) Ur Specific [place] (1.005-1.030) Urine Protein (NEGATIVE) Urine Glucose (UA) (NEGATIVE) Urine Ketones (NEGATIVE) Urine Occult Blood (NEGATIVE) Urine Nitrite (NEGATIVE) Urine Bilirubin (NEGATIVE) Urine Urobilinogen (0.2-1.0) mg/dL Ur Leukocyte Esterase (NEGATIVE) Urine RBC /HPF Urine WBC (0-5/HPF) /HPF Ur Epithelial Cells /HPF Urine Bacteria (0-FEW/HPF) /HPF 09/23/17 09/24/17 Range/Units 21:35 06:10 WBC 9.1 (5.0-10.0) 10^3/uL RBC 4.74 (4.2-5.4) 10^6/uL Hgb 12.4 (12.0-16.0) g/dL Hct 38.0 (37.0-47.0) % MCV 80.2 (80-100) fL MCH 26.2 L (27.0-34.0) pg MCHC 32.6 L (33.0-35.0) g/dL Plt Count 170 (150-450) 10^3/uL Neut % (Auto) (42.2-75.2) % Lymph % (Auto) (20.5-50.1) % [place] % (Auto) (2-8) % Eos % (Auto) (1.0-3.0) % Baso % (Auto) (0.0-1.0) % Sodium (135-145) mmol/L Potassium (3.6-5.0) mmol/L Chloride (101-111) mmol/L Carbon Dioxide (21.0-31.0) mmol/L Anion Gap BUN (7-18) mg/dL Creatinine (0.6-1.3) mg/dL Est Cr Clr Drug Dosing mL/min Estimated GFR (MDRD) BUN/Creatinine Ratio Glucose (74-105) mg/dL Lactic Acid (0.5-2.2) mmol/L Calcium (8.4-10.2) mg/dl Total Bilirubin (0.2-1.0) mg/dL AST (10-42) IU/L ALT (10-60) IU/L Alkaline Phosphatase (42-121) IU/L Troponin I (0.00-0.02) ng/ml B-Natriuretic Peptide (0-100) pg/ml Total Protein (6.7-8.2) g/dl Albumin (3.2-5.5) g/dl Globulin Albumin/Globulin Ratio Urine Color Yellow (YELLOW) Urine Appearance Clear (CLEAR) Urine pH 7.5 (5.0-9.0) Ur Specific [place] 1.020 (1.005-1.030) Urine Protein Negative (NEGATIVE) Urine Glucose (UA) Negative (NEGATIVE) Urine Ketones 15 H (NEGATIVE) Urine Occult Blood Negative (NEGATIVE) Urine Nitrite Negative (NEGATIVE) Urine Bilirubin Negative (NEGATIVE) Urine Urobilinogen 0.2 (0.2-1.0) mg/dL Ur Leukocyte Esterase Negative (NEGATIVE) Urine RBC 0-5 /HPF Urine WBC 0-5 (0-5/HPF) /HPF Ur Epithelial Cells Few /HPF Urine Bacteria Few (0-FEW/HPF) /HPF Sean Results Last 24 Hours: Microbiology 09/23/17 20:18 Influenza Type A Antigen Screen - Final Nasopharyngeal Swab - Nare, Left NEGATIVE INFLUENZA A VIRUS AG Influenza Type B Antigen Screen - Final Positive Influenza B Ag Med Orders - Current: Current Medications Acetaminophen (Tylenol) 650 mg PO Q6H PRN PRN Reason: Pain Last Admin: 09/24/17 07:35 Dose: 650 mg Al Hydroxide/Mg Hydroxide (Mag-Al Plus) 30 ml PO Q4H PRN PRN Reason: Dyspepsia Albuterol (Proventil Hfa) 0 gm INH Q4HR PRN PRN Reason: Dyspnea Albuterol/Ipratropium (Duoneb 3.0-0.5 Mg/3 Ml) 3 ml INH QID PRN PRN Reason: Shortness of Breath Last Admin: 09/24/17 08:18 Dose: 3 ml Bisacodyl (Dulcolax) 10 mg RECTAL DAILY PRN PRN Reason: Constipation Budesonide (Pulmicort) 0.5 mg NEB BID [facility] Last Admin: 09/24/17 08:18 Dose: 0.5 mg Docusate Sodium (Colace) 100 mg PO DAILY PRN PRN Reason: Constipation Estrogens Conjugated (Premarin) 0.9 mg PO DAILY [facility] Famotidine (Pepcid) 20 mg PO BID [facility] Last Admin: 09/24/17 08:46 Dose: 20 mg Gabapentin (Neurontin) 600 mg PO TID [facility] Last Admin: 09/24/17 08:46 Dose: 600 mg Heparin Sodium (Porcine) (Heparin Sodium) 5,000 units SUBCUT Q12H [facility] Last Admin: 09/23/17 22:48 Dose: 5,000 units Azithromycin 500 mg/ Sodium (Chloride) 250 mls @ 250 mls/hr IV Q24H [facility] Last Admin: 09/23/17 22:40 Dose: 250 mls/hr Sodium Chloride (Normal Saline) 1,000 mls @ 75 mls/hr IV ASDIRECTED [facility] Last Admin: 09/24/17 07:36 Dose: 75 mls/hr Magnesium Hydroxide (Milk Of Magnesia) 30 ml PO BID PRN PRN Reason: Constipation Methylprednisolone Sodium Succinate (Solu-Medrol) 60 mg IVPUSH Q8H [facility] Last Admin: 09/24/17 06:09 Dose: 60 mg Nicotine (Habitrol) 14 mg TRDERM DAILY [facility] Last Admin: 09/24/17 08:45 Dose: 14 mg Oseltamivir Phosphate (Tamiflu) 30 mg PO DAILY [facility] Last Admin: 09/24/17 08:46 Dose: 30 mg Pantoprazole Sodium (Protonix) 40 mg PO DAILY [facility] Last Admin: 09/24/17 08:46 Dose: 40 mg Sertraline HCl (Zoloft) 150 mg PO DAILY [facility] Last Admin: 09/24/17 08:46 Dose: 150 mg Sodium Chloride (Saline Flush) 10 ml FLUSH ASDIRECTED PRN PRN Reason: Keep Vein Open Last Admin: 09/24/17 06:10 Dose: 10 ml Tiotropium [place] (Spiriva Handihaler) 18 mcg INH DAILY [facility] Last Admin: 09/24/17 08:46 Dose: 18 mcg Discontinued Medications Acetaminophen (Tylenol) 650 mg PO NOW ONE Stop: 09/23/17 20:34 Last Admin: 09/23/17 20:43 Dose: 650 mg Albuterol/Ipratropium (Duoneb 3.0-0.5 Mg/3 Ml) 3 ml NEB ONETIME ONE Stop: 09/23/17 19:11 Last Admin: 09/23/17 19:27 Dose: 3 ml Methylprednisolone Sodium Succinate (Solu-Medrol) 125 mg IVPUSH ONETIME ONE Stop: 09/23/17 20:57 Last Admin: 09/23/17 21:02 Dose: 125 mg Morphine Sulfate (Morphine) 2 mg IVPUSH ONETIME ONE Stop: 09/23/17 20:48 Last Admin: 09/23/17 20:51 Dose: 2 mg - Exam General: Alert, Oriented HEENT: Pupils Equal, Pupils Reactive, EOMI, Mucous Membr. Moist/[place] Neck: Supple Lungs: Clear to Auscultation, Normal Respiratory Effort Cardiovascular: Regular Rate, Regular Rhythm GI/Abdominal Exam: Normal Bowel Sounds, Soft, Non-Tender, No Organomegaly, No Distention, No Abnormal Bruit, No Mass, Pelvis Stable (Female) Exam: Normal External Exam, Normal Speculum Exam, Normal Bimanual Exam Back Exam: Normal Inspection, Full Range of Motion Extremities: Normal Inspection, Normal Range of Motion, Non-Tender, No Pedal Edema, Normal Capillary Refill Skin: Warm, Dry, Intact Wound/Incisions: Healing Well Neurological: No New Focal Deficit Psy/Mental Status: Alert, Normal Affect, Normal Mood - Problem List & Annotations (1) Acute bronchitis with COPD SNOMED Code(s): 426602156695341 Code(s): J44.0 - CHRONIC OBSTRUCTIVE PULMON DISEASE W ACUTE LOWER RESP INFCT Status: Acute Priority: High Current Visit: No (2) COPD (chronic obstructive pulmonary disease) SNOMED Code(s): 25093720 Code(s): J44.9 - CHRONIC OBSTRUCTIVE PULMONARY DISEASE, UNSPECIFIED Status : Acute Current Visit: No Qualifiers: COPD type: unspecified COPD Qualified Code(s): J44.9 - Chronic obstructive pulmonary disease, unspecified (3) Depression SNOMED Code(s): 90936250 Code(s): F32.9 - MAJOR DEPRESSIVE DISORDER, SINGLE EPISODE, UNSPECIFIED Status: Acute Current Visit: No (4) Exacerbation of asthma SNOMED Code(s): 006557628 Code(s): J45.901 - UNSPECIFIED ASTHMA WITH (ACUTE) EXACERBATION Status: Acute Current Visit: No (5) Influenza SNOMED Code(s): 9898088 Code(s): J11.1 - FLU DUE TO UNIDENTIFIED INFLUENZA VIRUS W OTH RESP MANIFEST Status: Acute Current Visit: Yes - Problem List Review Problem List Initiated/Reviewed/Updated: Yes - My Orders Last 24 Hours: My Active Orders 09/23/17 22:01 Patient Status [ADT] Routine Ambulate [RC] ASDIRECTED Vital Signs [RC] Q4H Alum Hydrox/Mag Hydrox/[place] [Mag-Al Plus] 30 ml PO Q4H PRN Bisacodyl [Dulcolax] 10 mg RECTAL DAILY PRN Docusate Sodium [Colace] 100 mg PO DAILY PRN Magnesium Hydroxide [Milk of Magnesia] 30 ml PO BID PRN DVT/VTE Prophylaxis Reflex [OM.PC] Routine Resuscitation Status Routine 09/23/17 22:03 Oxygen Therapy [RC] PRN 09/23/17 22:05 Antiembolic Devices [RC] .Routine VTE/DVT Education [RC] PER UNIT ROUTINE 09/23/17 22:06 Albuterol [Proventil HFA] 0 gm INH Q4HR PRN Albuterol/Ipratropium [DuoNeb 3.0-0.5 MG/3 ML] 3 ml INH QID PRN 09/23/17 22:15 Azithromycin [Zithromax] 500 mg Sodium Chloride 0.9% [Normal Saline] 250 ml IV Q24H Heparin Sodium 5,000 units SUBCUT Q12H Oseltamivir [Tamiflu] 30 mg PO DAILY methylPREDNISolone Sod Succ [Solu-MEDROL] 60 mg IVPUSH Q8H 09/23/17 22:30 Sodium Chloride 0.9% [Normal Saline] 1,000 ml IV ASDIRECTED 09/24/17 00:05 Acetaminophen [Tylenol] 650 mg PO Q6H PRN 09/24/17 09:00 Budesonide [Pulmicort] 0.5 mg NEB BID Estrogens, Conjugated [Premarin] 0.9 mg PO DAILY Famotidine [Pepcid] 20 mg PO BID Gabapentin [Neurontin] 600 mg PO TID Nicotine [Habitrol] 14 mg TRDERM DAILY Pantoprazole [ProTONIX] 40 mg PO DAILY Sertraline [Zoloft] 150 mg PO DAILY Tiotropium [Spiriva HandiHaler] 18 mcg INH DAILY - Plan Plan:: Assessment?Plan #Acute hypoxic respiratory failure -This is due to Influenza B vs COPD exacerbation/Asthma exacerbation -Improved -Continue supplemental oxygen. She is now on 2L. #Influenza B -Continue Tamiflu -Droplet precautions #COPD/Asthma exacerbation -Improving -Duo-Nebs q4hr prn -IV methylprednisone 60 mg q8h -IV azithromycin -Monitor respiratory status closely #Likely sepsis -Resolved #Continuous tobacco abuse -Advised to quit #Depression -Continue home medication #Regular Diet #Full code
[2017-09-24] MEDS ORDERED: traMADol 50 MG Tab PO PRN (09:45)
[2017-09-24] MEDS: Heparin Sodium 5,000 Units/ML Vial SUBCUT SCH ×2 (10:01→22:08)
[2017-09-24] MEDS ORDERED: Ibuprofen 200 MG Tab PO PRN (10:35)
[2017-09-24] MEDS: Ibuprofen 200 MG Tab PO PRN ×2 (12:17→20:35)
[2017-09-24] MEDS: Azithromycin 500 MG in Sodium Chloride 0.9% 250 ML IV SCH (22:04)
[2017-09-25] MEDS: Sodium Chloride 0.9% 10 ML Syringe FLUSH PRN (06:12)
[2017-09-25] MEDS: methylPREDNISolone Sodium Succinate 40 MG/1 ML SDV IVPUSH SCH ×3 (06:14→22:12)
[2017-09-25] MEDS: Gabapentin 300 MG Cap PO SCH ×3 (09:22→22:04)
[2017-09-25] MEDS: Budesonide 0.5 MG/2 ML Neb Susp NEB SCH ×3 (09:23→22:04)
[2017-09-25] MEDS: Nicotine 14 MG/24 Hr Patch TRDERM SCH (09:23)
[2017-09-25] MEDS: Ibuprofen 200 MG Tab PO PRN (09:24)
[2017-09-25] MEDS: Sertraline 50 MG Tab PO SCH (09:26)
[2017-09-25] MEDS: Famotidine 20 MG Tab PO SCH ×2 (09:27→22:04)
[2017-09-25] MEDS: Pantoprazole 40 MG Tab.CR PO SCH (09:27)
[2017-09-25] MEDS: Oseltamivir 30 MG Cap PO SCH (09:27)
[2017-09-25] MEDS: Tiotropium Inhaler 18 MCG Inhalation Powder Cap Kit of 5 INH SCH (09:33)
[2017-09-25] MEDS: Albuterol/Ipratropium 3.0-0.5 MG/3 ML Neb Soln INH PRN (09:39)
--- NOTE | 2017-09-25 10:00 | PCM.PN ---
- General Info Date of Service: 09/25/17 Subjective Update: Patient is 62 y/o female with PMH of continuous tobacco abuse, COPD/Asthma on home oxygen 2L, Depression. She presented to ER with SOB and cough x 1 day. She was found to have Influenza B and subsequently admitted for COPD/Asthma exacerbation due to influenza B. This morning she says is not feeling too well. She still notes chest pain with inspiration and wants something strong for pain control. She indicates SOB is better. She denies fever or chills. She still have scattered expiratory wheeze on exam, more posteriorly. Functional Status: Reports: Pain Controlled - Review of Systems General: Reports: No Symptoms HEENT: Reports: No Symptoms Pulmonary: Reports: Wheezing Cardiovascular: Reports: No Symptoms Gastrointestinal: Reports: No Symptoms Genitourinary: Reports: No Symptoms Musculoskeletal: Reports: No Symptoms Skin: Reports: No Symptoms Neurological: Reports: No Symptoms Psychiatric: Reports: No Symptoms - Patient Data Vitals - Most Recent: Last Vital Signs Temp 96.7 F 09/25/17 09:24 Pulse 65 09/25/17 07:40 Resp 18 09/25/17 07:40 BP 134/68 09/25/17 07:40 Pulse Ox 97 09/25/17 07:40 Weight - Most Recent: 110 lb 6 oz I&O - Last 24 Hours: Intake & Output 09/24/17 09/25/17 09/25/17 22:59 06:59 14:59 Intake Total 445 1632 660 Output Total 850 Balance 445 782 660 Sean Results Last 24 Hours: Microbiology 09/23/17 19:40 Aerobic Blood Culture - Preliminary Blood - Venous - Lab Draw NO GROWTH AFTER 1 DAY Anaerobic Blood Culture - Preliminary NO GROWTH AFTER 1 DAY 09/23/17 19:35 Aerobic Blood Culture - Preliminary Blood - Venous NO GROWTH AFTER 1 DAY Anaerobic Blood Culture - Preliminary NO GROWTH AFTER 1 DAY Med Orders - Current: Current Medications Hydrocodone Bitart/Acetaminophen ([place] 325-5 Mg) 1 tab PO Q8H PRN PRN Reason: Pain Al Hydroxide/Mg Hydroxide (Mag-Al Plus) 30 ml PO Q4H PRN PRN Reason: Dyspepsia Albuterol (Proventil Hfa) 0 gm INH Q4HR PRN PRN Reason: Dyspnea Albuterol/Ipratropium (Duoneb 3.0-0.5 Mg/3 Ml) 3 ml INH Q4HRRT [facility] Bisacodyl (Dulcolax) 10 mg RECTAL DAILY PRN PRN Reason: Constipation Budesonide (Pulmicort) 0.5 mg NEB BID [facility] Last Admin: 09/25/17 09:23 Dose: 0.5 mg Docusate Sodium (Colace) 100 mg PO DAILY PRN PRN Reason: Constipation Famotidine (Pepcid) 20 mg PO BID [facility] Last Admin: 09/25/17 09:27 Dose: 20 mg Gabapentin (Neurontin) 600 mg PO TID [facility] Last Admin: 09/25/17 09:22 Dose: 600 mg Heparin Sodium (Porcine) (Heparin Sodium) 5,000 units SUBCUT Q12H [facility] Last Admin: 09/24/17 22:08 Dose: 5,000 units Azithromycin 500 mg/ Sodium (Chloride) 250 mls @ 250 mls/hr IV Q24H [facility] Last Infusion: 09/24/17 23:10 Dose: Infused Sodium Chloride (Normal Saline) 1,000 mls @ 75 mls/hr IV ASDIRECTED [facility] Last Admin: 09/24/17 20:48 Dose: 75 mls/hr Magnesium Hydroxide (Milk Of Magnesia) 30 ml PO BID PRN PRN Reason: Constipation Methylprednisolone Sodium Succinate (Solu-Medrol) 60 mg IVPUSH Q8H [facility] Last Admin: 09/25/17 06:14 Dose: 60 mg Nicotine (Habitrol) 14 mg TRDERM DAILY [facility] Last Admin: 09/25/17 09:23 Dose: 14 mg Oseltamivir Phosphate (Tamiflu) 30 mg PO DAILY [facility] Last Admin: 09/25/17 09:27 Dose: 30 mg Pantoprazole Sodium (Protonix) 40 mg PO DAILY [facility] Last Admin: 09/25/17 09:27 Dose: 40 mg Estrogens,Conjugated 0.9 Mg Tab Pt's Own Med 0 each PO DAILY [facility] Sertraline HCl (Zoloft) 150 mg PO DAILY [facility] Last Admin: 09/25/17 09:26 Dose: 150 mg Sodium Chloride (Saline Flush) 10 ml FLUSH ASDIRECTED PRN PRN Reason: Keep Vein Open Last Admin: 09/25/17 06:12 Dose: 10 ml Tiotropium [place] (Spiriva Handihaler) 18 mcg INH DAILY [facility] Last Admin: 09/25/17 09:33 Dose: 18 mcg Discontinued Medications Acetaminophen (Tylenol) 650 mg PO NOW ONE Stop: 09/23/17 20:34 Last Admin: 09/23/17 20:43 Dose: 650 mg Acetaminophen (Tylenol) 650 mg PO Q6H PRN PRN Reason: Pain Last Admin: 09/24/17 13:48 Dose: 650 mg Albuterol/Ipratropium (Duoneb 3.0-0.5 Mg/3 Ml) 3 ml NEB ONETIME ONE Stop: 09/23/17 19:11 Last Admin: 09/23/17 19:27 Dose: 3 ml Albuterol/Ipratropium (Duoneb 3.0-0.5 Mg/3 Ml) 3 ml INH QID PRN PRN Reason: Shortness of Breath Last Admin: 09/25/17 09:39 Dose: 3 ml Estrogens Conjugated (Premarin) 0.9 mg PO DAILY [facility] Last Admin: 09/24/17 09:32 Dose: Not Given Ibuprofen (Motrin) 0 mg PO TID PRN PRN Reason: Pain Ibuprofen (Motrin) 400 mg PO TID PRN PRN Reason: Pain Last Admin: 09/25/17 09:24 Dose: 400 mg Methylprednisolone Sodium Succinate (Solu-Medrol) 125 mg IVPUSH ONETIME ONE Stop: 09/23/17 20:57 Last Admin: 09/23/17 21:02 Dose: 125 mg Morphine Sulfate (Morphine) 2 mg IVPUSH ONETIME ONE Stop: 09/23/17 20:48 Last Admin: 09/23/17 20:51 Dose: 2 mg Tramadol HCl (Ultram) 50 mg PO Q8H PRN PRN Reason: Pain - Exam Quality Assessment: Supplemental Oxygen, DVT Prophylaxis General: Alert, Oriented HEENT: Pupils Equal, Pupils Reactive, EOMI, Mucous Membr. Moist/[place] Neck: Supple Lungs: Wheezing Cardiovascular: Regular Rate GI/Abdominal Exam: Normal Bowel Sounds, Soft, Non-Tender, No Organomegaly, No Distention, No Abnormal Bruit, No Mass, Pelvis Stable (Female) Exam: Normal External Exam, Normal Speculum Exam, Normal Bimanual Exam Back Exam: Normal Inspection, Full Range of Motion Extremities: Normal Inspection, Normal Range of Motion, Non-Tender, No Pedal Edema, Normal Capillary Refill Skin: Warm, Dry, Intact Wound/Incisions: Other Neurological: No New Focal Deficit Psy/Mental Status: Alert, Normal Affect, Normal Mood - Problem List & Annotations (1) Acute bronchitis with COPD SNOMED Code(s): 916680074118026 Code(s): J44.0 - CHRONIC OBSTRUCTIVE PULMON DISEASE W ACUTE LOWER RESP INFCT Status: Acute Priority: High Current Visit: No (2) COPD (chronic obstructive pulmonary disease) SNOMED Code(s): 80657047 Code(s): J44.9 - CHRONIC OBSTRUCTIVE PULMONARY DISEASE, UNSPECIFIED Status : Acute Current Visit: No Qualifiers: COPD type: unspecified COPD Qualified Code(s): J44.9 - Chronic obstructive pulmonary disease, unspecified (3) Depression SNOMED Code(s): 75634354 Code(s): F32.9 - MAJOR DEPRESSIVE DISORDER, SINGLE EPISODE, UNSPECIFIED Status: Acute Current Visit: No (4) Exacerbation of asthma SNOMED Code(s): 956436769 Code(s): J45.901 - UNSPECIFIED ASTHMA WITH (ACUTE) EXACERBATION Status: Acute Current Visit: No (5) Influenza SNOMED Code(s): 2586435 Code(s): J11.1 - FLU DUE TO UNIDENTIFIED INFLUENZA VIRUS W OTH RESP MANIFEST Status: Acute Current Visit: Yes - Problem List Review Problem List Initiated/Reviewed/Updated: Yes - My Orders Last 24 Hours: My Active Orders 09/24/17 09:00 Budesonide [Pulmicort] 0.5 mg NEB BID Famotidine [Pepcid] 20 mg PO BID Gabapentin [Neurontin] 600 mg PO TID Nicotine [Habitrol] 14 mg TRDERM DAILY Pantoprazole [ProTONIX] 40 mg PO DAILY Sertraline [Zoloft] 150 mg PO DAILY Tiotropium [Spiriva HandiHaler] 18 mcg INH DAILY 09/24/17 10:15 Patient's Own Medication [Ptom] 0 each PO DAILY 09/25/17 09:35 Acetaminophen/HYDROcodone [[place] 325-5 MG] 1 tab PO Q8H PRN 09/25/17 11:00 Albuterol/Ipratropium [DuoNeb 3.0-0.5 MG/3 ML] 3 ml INH Q4HRRT - Plan Plan:: Assessment/Plan #Acute hypoxic respiratory failure -This is due to Influenza B vs COPD exacerbation/Asthma exacerbation -Improved -She is now back to her baseline of 2L oxygen via [place] #Influenza B -Continue Tamiflu -Droplet precautions #COPD/Asthma exacerbation -Improving -Duo-Nebs q4hr -IV methylprednisone 60 mg q8h -IV azithromycin -Monitor respiratory status closely #Pleurisy -Hydrocodone/actaminophen prn #Likely sepsis -Resolved #Continuous tobacco abuse -Advised to quit #Depression -Continue home medication #Regular Diet #Full code
[2017-09-25] MEDS: ESTROGENS CONJUGATED 0.9 MG PO SCH (10:25)
[2017-09-25] MEDS: Heparin Sodium 5,000 Units/ML Vial SUBCUT SCH ×2 (10:43→22:08)
[2017-09-25] MEDS: Acetaminophen/HYDROcodone 325-5 MG Tab PO PRN ×2 (10:52→19:39)
[2017-09-25 11:00] LABS: CHLORIDE,CL 106 mmol/L (101-111); SODIUM,NA 139 mmol/L (135-145)
[2017-09-25] MEDS: Sodium Chloride 0.9% 1,000 ML IV SCH (11:15)
--- NOTE | 2017-09-25 11:30 | CR ---
CLINICAL HISTORY: 62-year-old female smoker with shortness of breath demonstrated on recent CT scan 20 September 2017 to have COPD. INTERPRETATION: Abnormal. Extensive pleural parenchymal scarring with particular severe involvement right upper and lingular, l eft upper lobe unchanged when this AP film compared to comparable AP exams of 11 February 2017 and 2015. No new signs of heart failure, lung mass or focal lobar pneumonia. No pneumothorax.
[2017-09-25] MEDS: Albuterol/Ipratropium 3.0-0.5 MG/3 ML Neb Soln INH SCH ×4 (11:37→22:22)
--- NOTE | 2017-09-25 13:29 | EKG ---
09/23/2017 - STEVEN MALIN - TIME: 7:27 p.m. As per my reading, EKG shows junctional tachycardia. [facility] /[id number]
[2017-09-25] MEDS ORDERED: Ibuprofen 400 MG Tab PO PRN (17:51)
[2017-09-25] MEDS: Azithromycin 500 MG in Sodium Chloride 0.9% 250 ML IV SCH (22:20)
[2017-09-26] MEDS: Sodium Chloride 0.9% 1,000 ML IV SCH (01:34)
[2017-09-26] MEDS: Albuterol/Ipratropium 3.0-0.5 MG/3 ML Neb Soln INH SCH ×6 (03:04→22:17)
[2017-09-26] MEDS: Acetaminophen/HYDROcodone 325-5 MG Tab PO PRN ×2 (03:38→16:48)
[2017-09-26] MEDS: methylPREDNISolone Sodium Succinate 40 MG/1 ML SDV IVPUSH SCH ×3 (05:57→22:16)
[2017-09-26] MEDS: Budesonide 0.5 MG/2 ML Neb Susp NEB SCH ×3 (07:28→22:10)
[2017-09-26] MEDS: Sertraline 50 MG Tab PO SCH (09:00)
[2017-09-26] MEDS: Oseltamivir 30 MG Cap PO SCH (09:01)
[2017-09-26] MEDS: Pantoprazole 40 MG Tab.CR PO SCH (09:01)
[2017-09-26] MEDS: Nicotine 14 MG/24 Hr Patch TRDERM SCH (09:01)
[2017-09-26] MEDS: Gabapentin 300 MG Cap PO SCH ×3 (09:01→22:09)
[2017-09-26] MEDS: Famotidine 20 MG Tab PO SCH ×2 (09:01→22:09)
[2017-09-26] MEDS: Tiotropium Inhaler 18 MCG Inhalation Powder Cap Kit of 5 INH SCH (09:02)
[2017-09-26] MEDS: ESTROGENS CONJUGATED 0.9 MG PO SCH (09:03)
[2017-09-26] MEDS: Heparin Sodium 5,000 Units/ML Vial SUBCUT SCH ×2 (10:34→22:10)
--- NOTE | 2017-09-26 10:56 | PCM.PN ---
- General Info Date of Service: 09/26/17 Subjective Update: Patient is 62 y/o female with PMH of continuous tobacco abuse, COPD/Asthma on home oxygen 2L, Depression. She presented to ER with SOB and cough x 1 day. She was found to have Influenza B and subsequently admitted for COPD/Asthma exacerbation due to influenza B. This morning she says she still feels generally weak. Likely malaise from the flu infection She indicates SOB is better. She denies fever or chills. She still have scattered expiratory wheeze on exam, bilaterally. Discharge planning meeting attended, planned for possible discharge to basic care tomorrow. Functional Status: Reports: Incentive Spirometry - Review of Systems Pulmonary: Reports: Shortness of Breath - Patient Data Vitals - Most Recent: Last Vital Signs Temp 36.7 C 09/26/17 07:57 Pulse 93 09/26/17 07:57 Resp 16 09/26/17 07:57 BP 136/80 09/26/17 07:57 Pulse Ox 95 09/26/17 07:57 Weight - Most Recent: 50.065 kg I&O - Last 24 Hours: Intake & Output 09/25/17 09/26/17 09/26/17 22:59 06:59 14:59 Intake Total 915 1955 266 Output Total 1850 700 Balance 915 105 -434 Lab Results Last 24 Hours: Laboratory Results - last 24 hr 09/25/17 Range/Units 10:30 Sodium 139 (135-145) mmol/L Potassium 3.3 L (3.6-5.0) mmol/L Chloride 106 (101-111) mmol/L Carbon Dioxide 23.0 (21.0-31.0) mmol/L Anion Gap 13.3 BUN 15 (7-18) mg/dL Creatinine 0.6 (0.6-1.3) mg/dL Est Cr Clr Drug Dosing 68.93 mL/min Estimated GFR (MDRD) > 60 Glucose 235 H (74-105) mg/dL Calcium 8.8 (8.4-10.2) mg/dl Sean Results Last 24 Hours: Microbiology 09/23/17 19:40 Aerobic Blood Culture - Preliminary Blood - Venous - Lab Draw NO GROWTH AFTER 2 DAYS Anaerobic Blood Culture - Preliminary NO GROWTH AFTER 2 DAYS 09/23/17 19:35 Aerobic Blood Culture - Preliminary Blood - Venous NO GROWTH AFTER 2 DAYS Anaerobic Blood Culture - Preliminary NO GROWTH AFTER 2 DAYS Med Orders - Current: Current Medications Hydrocodone Bitart/Acetaminophen ([place] 325-5 Mg) 1 tab PO Q8H PRN PRN Reason: Pain Last Admin: 09/26/17 03:38 Dose: 1 tab Al Hydroxide/Mg Hydroxide (Mag-Al Plus) 30 ml PO Q4H PRN PRN Reason: Dyspepsia Albuterol (Proventil Hfa) 0 gm INH Q4HR PRN PRN Reason: Dyspnea Albuterol/Ipratropium (Duoneb 3.0-0.5 Mg/3 Ml) 3 ml INH Q4HRRT [facility] Last Admin: 09/26/17 07:26 Dose: 3 ml Bisacodyl (Dulcolax) 10 mg RECTAL DAILY PRN PRN Reason: Constipation Budesonide (Pulmicort) 0.5 mg NEB BID [facility] Last Admin: 09/26/17 09:05 Dose: Not Given Docusate Sodium (Colace) 100 mg PO DAILY PRN PRN Reason: Constipation Famotidine (Pepcid) 20 mg PO BID [facility] Last Admin: 09/26/17 09:01 Dose: 20 mg Gabapentin (Neurontin) 600 mg PO TID [facility] Last Admin: 09/26/17 09:01 Dose: 600 mg Heparin Sodium (Porcine) (Heparin Sodium) 5,000 units SUBCUT Q12H [facility] Last Admin: 09/26/17 10:34 Dose: 5,000 units Azithromycin 500 mg/ Sodium (Chloride) 250 mls @ 250 mls/hr IV Q24H [facility] Last Infusion: 09/25/17 23:25 Dose: Infused Ibuprofen (Motrin) 400 mg PO TID PRN PRN Reason: Pain (moderate 4-6) Magnesium Hydroxide (Milk Of Magnesia) 30 ml PO BID PRN PRN Reason: Constipation Methylprednisolone Sodium Succinate (Solu-Medrol) 60 mg IVPUSH Q8H [facility] Last Admin: 09/26/17 05:57 Dose: 60 mg Nicotine (Habitrol) 14 mg TRDERM DAILY [facility] Last Admin: 09/26/17 09:01 Dose: 14 mg Oseltamivir Phosphate (Tamiflu) 30 mg PO DAILY [facility] Last Admin: 09/26/17 09:01 Dose: 30 mg Pantoprazole Sodium (Protonix) 40 mg PO DAILY [facility] Last Admin: 09/26/17 09:01 Dose: 40 mg Estrogens,Conjugated 0.9 Mg Tab Pt's Own Med 0 each PO DAILY [facility] Last Admin: 09/26/17 09:03 Dose: 1 each Sertraline HCl (Zoloft) 150 mg PO DAILY [facility] Last Admin: 09/26/17 09:00 Dose: 150 mg Sodium Chloride (Saline Flush) 10 ml FLUSH ASDIRECTED PRN PRN Reason: Keep Vein Open Last Admin: 09/25/17 06:12 Dose: 10 ml Tiotropium [place] (Spiriva Handihaler) 18 mcg INH DAILY [facility] Last Admin: 09/26/17 09:02 Dose: 18 mcg Discontinued Medications Acetaminophen (Tylenol) 650 mg PO NOW ONE Stop: 09/23/17 20:34 Last Admin: 09/23/17 20:43 Dose: 650 mg Acetaminophen (Tylenol) 650 mg PO Q6H PRN PRN Reason: Pain Last Admin: 09/24/17 13:48 Dose: 650 mg Albuterol/Ipratropium (Duoneb 3.0-0.5 Mg/3 Ml) 3 ml NEB ONETIME ONE Stop: 09/23/17 19:11 Last Admin: 09/23/17 19:27 Dose: 3 ml Albuterol/Ipratropium (Duoneb 3.0-0.5 Mg/3 Ml) 3 ml INH QID PRN PRN Reason: Shortness of Breath Last Admin: 09/25/17 09:39 Dose: 3 ml Estrogens Conjugated (Premarin) 0.9 mg PO DAILY [facility] Last Admin: 09/24/17 09:32 Dose: Not Given Sodium Chloride (Normal Saline) 1,000 mls @ 75 mls/hr IV ASDIRECTED [facility] Last Admin: 09/26/17 01:34 Dose: 75 mls/hr Ibuprofen (Motrin) 0 mg PO TID PRN PRN Reason: Pain Ibuprofen (Motrin) 400 mg PO TID PRN PRN Reason: Pain Last Admin: 09/25/17 09:24 Dose: 400 mg Methylprednisolone Sodium Succinate (Solu-Medrol) 125 mg IVPUSH ONETIME ONE Stop: 09/23/17 20:57 Last Admin: 09/23/17 21:02 Dose: 125 mg Morphine Sulfate (Morphine) 2 mg IVPUSH ONETIME ONE Stop: 09/23/17 20:48 Last Admin: 09/23/17 20:51 Dose: 2 mg Tramadol HCl (Ultram) 50 mg PO Q8H PRN PRN Reason: Pain - Exam General: Alert, Oriented HEENT: Pupils Equal Neck: Supple Lungs: Clear to Auscultation, Wheezing Cardiovascular: Regular Rate, Regular Rhythm GI/Abdominal Exam: Normal Bowel Sounds, Soft, Non-Tender Back Exam: Normal Inspection, Full Range of Motion Extremities: Normal Inspection, Normal Range of Motion, Non-Tender - Problem List Review Problem List Initiated/Reviewed/Updated: Yes - My Orders Last 24 Hours: My Active Orders 09/26/17 10:28 BASIC METABOLIC PANEL,BMP [CHEM] Routine CBC WITH AUTO DIFF [HEME] Routine MAGNESIUM [CHEM] Routine - Plan Plan:: Assessment/Plan #Acute hypoxic respiratory failure -This is due to Influenza B vs COPD exacerbation/Asthma exacerbation -Improved -She is now back to her baseline of 2L oxygen via [place] #Influenza B -Continue Tamiflu, end date is tomorrow -Droplet precautions #COPD/Asthma exacerbation -Improving -Duo-Nebs q4hr -IV methylprednisone 60 mg q8h -IV azithromycin -Monitor respiratory status closely #Pleurisy -Hydrocodone/actaminophen prn #Likely sepsis -Resolved #Continuous tobacco abuse -Advised to quit #Depression -Continue home medication #Regular Diet #Full code
[2017-09-26 11:41] LABS: CHLORIDE,CL 103 mmol/L (101-111); SODIUM,NA 138 mmol/L (135-145)
[2017-09-26] MEDS ORDERED: Potassium Chloride 10 MEQ Tab.ER PO ONE (13:06)
[2017-09-26] MEDS: Azithromycin 500 MG in Sodium Chloride 0.9% 250 ML IV SCH (22:21)
[2017-09-27] MEDS: Acetaminophen/HYDROcodone 325-5 MG Tab PO PRN ×2 (01:05→09:16)
[2017-09-27] MEDS: Albuterol/Ipratropium 3.0-0.5 MG/3 ML Neb Soln INH SCH ×3 (03:35→11:29)
[2017-09-27] MEDS: methylPREDNISolone Sodium Succinate 40 MG/1 ML SDV IVPUSH SCH (05:45)
[2017-09-27 08:29] VITALS: BP 147/79
[2017-09-27] MEDS: Budesonide 0.5 MG/2 ML Neb Susp NEB SCH (08:37)
[2017-09-27] MEDS: Nicotine 14 MG/24 Hr Patch TRDERM SCH (09:11)
[2017-09-27] MEDS: Gabapentin 300 MG Cap PO SCH (09:13)
[2017-09-27] MEDS: Famotidine 20 MG Tab PO SCH (09:13)
[2017-09-27] MEDS: Pantoprazole 40 MG Tab.CR PO SCH (09:13)
[2017-09-27] MEDS: Oseltamivir 30 MG Cap PO SCH (09:14)
[2017-09-27] MEDS: Sertraline 50 MG Tab PO SCH (09:14)
[2017-09-27] MEDS: Tiotropium Inhaler 18 MCG Inhalation Powder Cap Kit of 5 INH SCH (09:15)
[2017-09-27] MEDS: ESTROGENS CONJUGATED 0.9 MG PO SCH (09:15)
[2017-09-27] MEDS: Sodium Chloride 0.9% 10 ML Syringe FLUSH PRN (09:19)
--- NOTE | 2017-09-27 10:49 | DISCH ---
DATE OF SERVICE: 09/27/2017 FINAL DIAGNOSES: 1. Acute bronchitis. 2. Chronic obstructive pulmonary disease exacerbation. 3. Influenza B. 4. Depression. 5. Hypoxemia. BRIEF HISTORY OF PRESENT ILLNESS AND LAB WORKUP: Please see H and P. HOSPITAL COURSE: The patient was admitted to General Medicine Floor. She was started on IV Solu-Medrol and IV azithromycin and was also started on Tamiflu. She had a slow improvement, otherwise hospital course was uncomplicated, and she was subsequently discharged to [facility], and she was continued on her oxygen and oral prednisone for the next 1 week and then she is to follow up with her primary care physician Dr. Montemayor in 1 week. CONDITION ON DISCHARGE: Improved. [facility] /[id number]
[2017-09-27] MEDS: Heparin Sodium 5,000 Units/ML Vial SUBCUT SCH (10:56)
--- NOTE | 2017-09-27 11:18 | PN ---
DATE: 09/27/2017 SUBJECTIVE: The patient is feeling better this morning and she is going to [facility] this morning. She still complained of some cough and some shortness of breath, but she is done with her 5 day course of her Tamiflu for influenza B. Otherwise, no chest pain, orthopnea, PND, abdominal pain, or any other complaints. OBJECTIVE: Vital Signs: Blood pressure is 147/79, pulse of 73, respiration of 20, saturation is 95% on 3 L per nasal cannula. Heart: Regular rate and rhythm. Normal S1 and S2. No gallops. No rubs. Lungs: Diminished breath sounds on both bases, still with very mild expiratory wheeze but no crackles. Abdomen: Soft, nontender. Bowel sounds positive. Extremities: Negative for any significant pedal edema. No calf tenderness. MEDICATIONS: Reviewed. PLAN: We will discontinue Solu-Medrol and switch this to oral prednisone and we will resume her home medication and we will make arrangements for transfer to [facility]. We will also continue with her oxygen. [facility] /[id number]
--- NOTE | 2017-09-27 14:22 | DISCH ---
DOS: 09/27/2017 ADDENDUM: Prescription for nebulizer and bronchodilators given to the patient as she will need this for lifetime because of her advanced COPD. [facility] /[id number]
== END 2017-09-27 10:26 | DRG 871 ==
LOC: DL.ED 18:28 → DL.MS 21:03 → UNDOADMIN 21:03 → DL.MS 22:01
PROVIDERS: ADMIT Student in an Organized Health Care Education/Training Program; ATTEND Student in an Organized Health Care Education/Training Program
DX: A41.9 Sepsis, unspecified organism (principal); R06.03 Acute respiratory distress; R06.02 Shortness of breath; R51 Headache; R11.0 Nausea; R07.9 Chest pain, unspecified; R50.9 Fever, unspecified; J96.01 Acute respiratory failure with hypoxia; J44.0 Chronic obstructive pulmonary disease with (acute) lower respiratory infection; J45.901 Unspecified asthma with (acute) exacerbation; J44.1 Chronic obstructive pulmonary disease with (acute) exacerbation; J10.1 Influenza due to other identified influenza virus with other respiratory manifestations; J20.9 Acute bronchitis, unspecified; Z87.891 Personal history of nicotine dependence; H54.7 Unspecified visual loss; K21.9 Gastro-esophageal reflux disease without esophagitis; M19.90 Unspecified osteoarthritis, unspecified site; G25.81 Restless legs syndrome; F32.9 Major depressive disorder, single episode, unspecified; F17.200 Nicotine dependence, unspecified, uncomplicated; Z90.49 Acquired absence of other specified parts of digestive tract; Z88.6 Allergy status to analgesic agent; Z86.11 Personal history of tuberculosis; Z88.8 Allergy status to other drugs, medicaments and biological substances; Z99.81 Dependence on supplemental oxygen; Z87.442 Personal history of urinary calculi; Z90.710 Acquired absence of both cervix and uterus; Z79.899 Other long term (current) drug therapy
CPT/HCPCS: 36415; 71045; 80053; 81001; 83605; 83880; 84484; 85025; 87040 ×2; 87804 ×2; 93005; 93010; 94640; 96374; 96375; 99285; A9270; J2270; J2930; J7050; 80048; 83735; 85027; J0456; J1644; J2920; J3475; J7030

== ENCOUNTER 2017-11-24 08:33 | Inpatient (IN) | payer MEDICARE, MEDICAID ==
--- NOTE | 2017-11-24 08:54 | EDM.PDOC ---
ED HPI GENERAL MEDICAL PROBLEM - General Chief Complaint: Respiratory Problem Stated Complaint: by ambulance Time Seen by Provider: 11/24/17 08:54 Source of Information: Reports: Patient, EMS, Old Records, RN, RN Notes Reviewed History Limitations: Reports: No Limitations - History of Present Illness INITIAL COMMENTS - FREE TEXT/NARRATIVE: Arrives from home by ambulance with c/o progressively worsening shortness of breath over the past several days. Pt has not improved with use of her home nebulizer tx's like usual. She home supplemental oxygen dependent. Pt states she has been hot, but unsure if she's had a fever or not. Reports poor appetite. Denies any acute pain. 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 Treatments, Oxygen Middle Chest Pain Score (Numeric/FACES): 6 - Related Data Allergies Allergy/AdvReac Type Severity Reaction Status Date / Time codeine Allergy Abdominal Verified 09/24/17 10:00 Cramps tramadol HCl [From Ultram] Allergy Vomiting Verified 09/24/17 10:00 aspirin Allergy Abdominal Uncoded 09/23/17 20:30 Pain Home Meds: Home Meds Albuterol [Proair HFA] 2 puff INH Q4HR PRN 09/27/13 [History] Estrogens, Conjugated [Premarin] 1 tab PO DAILY 09/27/13 [History] Sertraline [Zoloft] 150 mg PO DAILY 09/27/13 [History] Albuterol/Ipratropium [DuoNeb 3.0-0.5 MG/3 ML] 1 ampule INH QID PRN 02/20/14 [ History] Pantoprazole [ProTONIX] 40 mg PO DAILY 10/01/14 [History] Gabapentin [Neurontin] 600 mg PO TID 11/01/14 [History] Budesonide [Pulmicort] 0.5 mg NEB BID 01/20/17 [History] Nicotine [Habitrol] 14 mg TRDERM DAILY 30 Days #30 patch 09/27/17 [Rx] Acetaminophen 3 tab PO QID PRN 10/07/17 [History] Formoterol Fumarate [Perforomist] 1 vial INH BID 10/07/17 [History] Ibuprofen 400 mg PO ASDIRECTED PRN 10/08/17 [History] Past Medical History - Past Health History Medical/Surgical History: Denies Medical/Surgical History HEENT History: Reports: Impaired Vision, Other (See Below) Other HEENT History: near sided Cardiovascular History: Reports: None Other Cardiovascular History: has a stress test this coming Respiratory History: Reports: Bronchitis, Recurrent, COPD, SOB, TB, Other (See Below) Other Respiratory History: TB when pt. was a small child. 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: Reports: Other (See Below) Other OB/BYN History: nvd two children/ hysterectomy Musculoskeletal History: Reports: Arthritis, Other (See Below) Other Musculoskeletal History: arthritis , restless leg syndrome Neurological History: Reports: None Psychiatric History: Reports: Depression Endocrine/Metabolic History: Reports: None Hematologic History: Reports: None Immunologic History: Reports: None Oncologic (Cancer) History: Reports: None Dermatologic History: Reports: None - Infectious Disease History Infectious Disease History: Reports: Chicken Pox, Mumps, TB - Past Surgical History Respiratory Surgical History: Reports: None GI Surgical History: Reports: Appendectomy, Cholecystectomy Female Surgical History: Reports: Hysterectomy Musculoskeletal Surgical History: Reports: None Social & Family History - Family History Family Medical History: Noncontributory HEENT: Reports: None Cardiac: Reports: None Respiratory: Reports: None GI: Reports: None : Reports: None OBGYN: Reports: None - Tobacco Use Smoking Status *Q: Former Smoker Tobacco Use Within Last Twelve Months: Cigarettes - Caffeine Use Caffeine Use: Reports: Coffee Other Caffeine Use: 3 cups - Living Situation & Occupation Living situation: Reports: , with Family Occupation: Retired ED ROS GENERAL - Review of Systems Review Of Systems: ROS reveals no pertinent complaints other than HPI. ED EXAM, GENERAL - Physical Exam Exam: See Below Exam Limited By: No Limitations General Appearance: Alert, Anxious, Mild Distress, Other (chronically ill, but non-toxic appearing) Eye Exam: Bilateral Eye: Normal Inspection Ears: Hearing Grossly Normal Nose: Normal Inspection, Normal Mucosa, No Blood Throat/Mouth: Normal Oropharynx, Normal Voice, No Airway Compromise Head: Atraumatic, Normocephalic Neck: Normal Inspection, Supple, Non-Tender, Full Range of Motion Respiratory/Chest: No Accessory Muscle Use, Chest Non-Tender, Decreased Breath Sounds, Crackles, Wheezing, Prolonged Expiration. No: Rales, Rhonchi, Stridor Cardiovascular: Regular Rate, Rhythm, No Edema GI/Abdominal: Normal Bowel Sounds, Soft, Non-Tender, No Distention Back Exam: Normal Inspection Extremities: Normal Inspection, Non-Tender, No Pedal Edema Neurological: Alert, Oriented, No Motor/Sensory Deficits, Other (generalized weakness) Psychiatric: Anxious Skin Exam: Warm, Dry, Intact, Normal Color, No Rash Course - Vital Signs Last Recorded V/S: Last Vital Signs Temp 36.3 C 11/24/17 08:41 Pulse 74 11/24/17 09:49 Resp 20 11/24/17 08:41 BP 124/67 11/24/17 08:41 Pulse Ox 88 L 11/24/17 08:41 - Orders/Labs/Meds Orders: Active Orders 24 hr Category Date Time Status Peripheral IV Care [RC] . DIRECTED Care 11/24/17 08:55 Active RT Aerosol Therapy [RC] ASDIRECTED Care 11/24/17 08:55 Active CULTURE BLOOD [BC] Stat Lab 11/24/17 09:10 Received CULTURE BLOOD [BC] Stat Lab 11/24/17 09:20 Received UA W/MICROSCOPIC [URIN] Stat Lab 11/24/17 08:54 Ordered Sodium Chloride 0.9% [Saline Flush] Med 11/24/17 08:54 Active 10 ml FLUSH ASDIRECTED PRN Blood Culture x2 Reflex Set [OM.PC] Stat Oth 11/24/17 08:54 Ordered Peripheral IV Insertion Adult [OM.PC] Stat Oth 11/24/17 08:54 Ordered Medication Orders Sodium Chloride (Saline Flush) 10 ml FLUSH ASDIRECTED PRN PRN Reason: Keep Vein Open Labs: Laboratory Tests 11/24/17 11/24/17 11/24/17 Range/Units 09:10 09:10 09:10 WBC 8.5 (5.0-10.0) 10^3/uL RBC 5.02 (4.2-5.4) 10^6/uL Hgb 12.9 (12.0-16.0) g/dL Hct 39.6 (37.0-47.0) % MCV 78.9 L (80-100) fL MCH 25.7 L (27.0-34.0) pg MCHC 32.6 L (33.0-35.0) g/dL Plt Count 296 D (150-450) 10^3/uL Neut % (Auto) 47.8 (42.2-75.2) % Lymph % (Auto) 37.8 (20.5-50.1) % [place] % (Auto) 10.0 H (2-8) % Eos % (Auto) 4.2 H (1.0-3.0) % Baso % (Auto) 0.2 (0.0-1.0) % Sodium 139 (135-145) mmol/L Potassium 3.4 L (3.6-5.0) mmol/L Chloride 104 (101-111) mmol/L Carbon Dioxide 27.0 (21.0-31.0) mmol/L Anion Gap 11.4 BUN 10 (7-18) mg/dL Creatinine 0.6 (0.6-1.3) mg/dL Est Cr Clr Drug Dosing 68.93 mL/min Estimated GFR (MDRD) > 60 BUN/Creatinine Ratio 16.66 Glucose 79 (74-105) mg/dL Lactic Acid 0.8 (0.5-2.2) mmol/L Calcium 9.2 (8.4-10.2) mg/dl Total Bilirubin 0.7 (0.2-1.0) mg/dL AST 19 (10-42) IU/L ALT 14 (10-60) IU/L Alkaline Phosphatase 97 (42-121) IU/L B-Natriuretic Peptide 25 (0-100) pg/ml Total Protein 7.2 (6.7-8.2) g/dl Albumin 3.8 (3.2-5.5) g/dl Globulin 3.4 Albumin/Globulin Ratio 1.12 Meds: Medications Generic Name Dose Route Start Last Admin Trade Name Freq PRN Reason Stop Dose Admin Sodium Chloride 10 ml 11/24/17 08:54 Saline Flush FLUSH ASDIRECTED PRN Keep Vein Open Discontinued Medications Generic Name Dose Route Start Last Admin Trade Name Freq PRN Reason Stop Dose Admin Albuterol/Ipratropium 3 ml 11/24/17 08:55 11/24/17 09:48 Duoneb 3.0-0.5 Mg/3 Ml NEB 11/24/17 08:56 3 ml ONETIME ONE Administration Methylprednisolone Sodium Succinate 125 mg 11/24/17 08:55 11/24/17 09:56 Solu-Medrol IVPUSH 11/24/17 08:56 125 mg ONETIME ONE Administration - Radiology Interpretation Free Text/Narrative:: Chest x-ray: Negative chest x-ray for acute cardiopulmonary process. Unchanged hyperexpanded lung barrett/centrilobular COPD with scarring. See rad report. Departure - Departure Time of Disposition: 10:24 (admitted to Dr. Cantrell) Disposition: Admitted As Inpatient 65 Condition: Serious Clinical Impression: Acute exacerbation of chronic obstructive pulmonary disease (COPD), Hypoxia - Discharge Information Forms: ED Department Discharge - My Orders Last 24 Hours: My Active Orders 11/24/17 08:54 UA W/MICROSCOPIC [URIN] Stat Sodium Chloride 0.9% [Saline Flush] 10 ml FLUSH ASDIRECTED PRN Blood Culture x2 Reflex Set [OM.PC] Stat Peripheral IV Insertion Adult [OM.PC] Stat 11/24/17 08:55 Peripheral IV Care [RC] . DIRECTED RT Aerosol Therapy [RC] ASDIRECTED 11/24/17 09:10 CULTURE BLOOD [BC] Stat 11/24/17 09:20 CULTURE BLOOD [BC] Stat - Assessment/Plan Last 24 Hours: My Active Orders 11/24/17 08:54 UA W/MICROSCOPIC [URIN] Stat Sodium Chloride 0.9% [Saline Flush] 10 ml FLUSH ASDIRECTED PRN Blood Culture x2 Reflex Set [OM.PC] Stat Peripheral IV Insertion Adult [OM.PC] Stat 11/24/17 08:55 Peripheral IV Care [RC] . DIRECTED RT Aerosol Therapy [RC] ASDIRECTED 11/24/17 09:10 CULTURE BLOOD [BC] Stat 11/24/17 09:20 CULTURE BLOOD [BC] Stat
[2017-11-24] MEDS ORDERED: Albuterol/Ipratropium 3.0-0.5 MG/3 ML Neb Soln NEB ONE (08:55)
[2017-11-24] MEDS ORDERED: methylPREDNISolone Sodium Succinate 125 MG/2 ML SDV IVPUSH ONE (08:55)
[2017-11-24 09:47] LABS: ANION GAP 11.4; CHLORIDE,CL 104 mmol/L (101-111); SODIUM,NA 139 mmol/L (135-145)
[2017-11-24] MEDS: Sodium Chloride 0.9% 10 ML Syringe FLUSH PRN ×2 (10:40→14:37)
[2017-11-24] MEDS ORDERED: Docusate Sodium 100 MG Cap PO PRN (11:15)
[2017-11-24] MEDS ORDERED: Promethazine 25 MG Tab PO PRN (11:15)
[2017-11-24] MEDS ORDERED: Insulin Aspart 100 Units/ML 3 ML Pen SUBCUT SCH (11:15)
[2017-11-24] MEDS ORDERED: 50% Dextrose in Water 50 ML Syringe IVPUSH PRN (11:15)
[2017-11-24] MEDS ORDERED: Ondansetron 4 MG/2 ML SDV IVPUSH PRN (11:15)
[2017-11-24] MEDS ORDERED: Ondansetron 4 MG Tab.DIS PO PRN (11:15)
[2017-11-24] MEDS ORDERED: Magnesium Hydroxide 400 MG/5 ML Susp 30 ML Cup PO PRN (11:15)
[2017-11-24] MEDS ORDERED: Potassium Chloride 10 MEQ in Premix Bag 1 BAG IV ONE (11:33)
--- NOTE | 2017-11-24 11:47 | PCM.HP ---
H&P History of Present Illness - General Date of Service: 11/24/17 Admit Problem/Dx: Admission Diagnosis/Problem Admission Diagnosis/Problem COPD, Severe chronic obstructive pulmonary disease Source of Information: Patient, EMS Notes Reviewed, Family History Limitations: Reports: No Limitations, Other (weak and tired) - History of Present Illness Initial Comments - Free Text/Narative: Waqar Thompson is 62 y/o F with PMH of COPD on home oxygen, continuous tobacco use, ho was brought to the ER via EMS on account of increasing SOB, low energy an loss of appetite. History from sister by bedside and patient. According to the sister by bedside patient moved in to stay with on the 11/15/17. Patient was noted to be having increasing SOB with cough. She lives in the basement and get SOB climbing the stairs. SOB is associated with severe wheezing. Patient reports cough productive of greenish sputum. No hemoptysis. She denies fever but notes chills. this morning her SOB was worse and was associated with severe wheezing. she did not get any relieve with he r nebs so EMS was activated. On arrival patient's saturation was 83% on on RA. She was put on oxygen and saturation increased to 91%. Patient continue to smoke. Her sister also reports increasing low energy and poor appetite. The whole yesterday patient was on bed. She denies chest pain, palpitation, othopnea, PND, leg swelling. She denies nausea, vomiting, diarrhea or constipation. No skin rash. The sister is concern about her living situation and wants placement for her until she is ADL independent. Onset of Symptoms: Reports: Gradual Duration of Symptoms: Reports: Day(s):, Getting Worse Location: Reports: Chest, Generalized Severity: Severe Improves with: Reports: Rest Worsens with: Reports: Immobilization, Movement Context: Reports: Activity/Exercise Associated Symptoms: Reports: Cough, cough w sputum, Fever/Chills, Loss of Appetite, Malaise, Shortness of Breath, Weakness Middle Chest Pain Score (Numeric/FACES): 6 - Related Data Allergies/Adverse Reactions: Allergies Allergy/AdvReac Type Severity Reaction Status Date / Time codeine Allergy Abdominal Verified 09/24/17 10:00 Cramps tramadol HCl [From Ultram] Allergy Vomiting Verified 09/24/17 10:00 aspirin Allergy Abdominal Uncoded 09/23/17 20:30 Pain Home Medications: Home Meds Albuterol [Proair HFA] 2 puff INH Q4HR PRN 09/27/13 [History] Estrogens, Conjugated [Premarin] 1 tab PO DAILY 09/27/13 [History] Sertraline [Zoloft] 150 mg PO DAILY 09/27/13 [History] Albuterol/Ipratropium [DuoNeb 3.0-0.5 MG/3 ML] 1 ampule INH QID PRN 02/20/14 [ History] Pantoprazole [ProTONIX] 40 mg PO DAILY 10/01/14 [History] Gabapentin [Neurontin] 600 mg PO TID 11/01/14 [History] Budesonide [Pulmicort] 0.5 mg NEB BID 01/20/17 [History] Nicotine [Habitrol] 14 mg TRDERM DAILY 30 Days #30 patch 09/27/17 [Rx] Acetaminophen 3 tab PO QID PRN 10/07/17 [History] Formoterol Fumarate [Perforomist] 1 vial INH BID 10/07/17 [History] Ibuprofen 400 mg PO ASDIRECTED PRN 10/08/17 [History] Past Medical History - Past Health History Medical/Surgical History: Denies Medical/Surgical History HEENT History: Reports: Impaired Vision, Other (See Below) Other HEENT History: near sided Cardiovascular History: Reports: None Other Cardiovascular History: has a stress test this coming Respiratory History: Reports: Bronchitis, Recurrent, COPD, SOB, TB, Other (See Below) Other Respiratory History: TB when pt. was a small child. Emphysema by pt account Gastrointestinal History: Reports: GERD Other Gastrointestinal History: N/A Genitourinary History: Reports: Renal Calculus, Other (See Below) Other Genitourinary History: kidney stones [employer] History: Reports: Other (See Below) Other OB/BYN History: nvd two children/ hysterectomy Musculoskeletal History: Reports: Arthritis, Other (See Below) Other Musculoskeletal History: arthritis , restless leg syndrome Neurological History: Reports: None Psychiatric History: Reports: Depression Endocrine/Metabolic History: Reports: None Hematologic History: Reports: None Immunologic History: Reports: None Oncologic (Cancer) History: Reports: None Dermatologic History: Reports: None - Infectious Disease History Infectious Disease History: Reports: Chicken Pox, Mumps, TB - Past Surgical History Respiratory Surgical History: Reports: None GI Surgical History: Reports: Appendectomy, Cholecystectomy Female Surgical History: Reports: Hysterectomy Musculoskeletal Surgical History: Reports: None Social & Family History - Family History Family Medical History: Noncontributory HEENT: Reports: None Cardiac: Reports: None Respiratory: Reports: None GI: Reports: None : Reports: None OBGYN: Reports: None - Tobacco Use Smoking Status *Q: Current Every Day Smoker Years of Tobacco use: 50 Packs/Tins Daily: 0.5 - Caffeine Use Caffeine Use: Reports: Coffee Other Caffeine Use: 3 cups - Recreational Drug Use Recreational Drug Use: No - Living Situation & Occupation Living situation: Reports: , with Family Occupation: Retired H&P Review of Systems - Review of Systems: Review Of Systems: See Below General: Reports: Chills, Malaise, Weakness, Fatigue, Decreased Appetite HEENT: Reports: Rhinitis, Sinus Congestion Pulmonary: Reports: Shortness of Breath, Wheezing, Cough, Sputum Cardiovascular: Reports: Dyspnea on Exertion Gastrointestinal: Reports: Anorexia, Decreased Appetite Genitourinary: Reports: No Symptoms Musculoskeletal: Reports: No Symptoms Skin: Reports: No Symptoms Psychiatric: Reports: No Symptoms Neurological: Reports: No Symptoms Hematologic/Lymphatic: Reports: No Symptoms Immunologic: Reports: No Symptoms Exam - Exam Exam: See Below - Vital Signs Vital Signs: Last Vital Signs Temp 97.6 F 11/24/17 10:58 Pulse 81 11/24/17 10:58 Resp 20 11/24/17 10:58 BP 123/56 L 11/24/17 10:58 Pulse Ox 92 L 11/24/17 10:58 Weight: 111 lb 12.8 oz - Exam Quality Assessment: Supplemental Oxygen, DVT Prophylaxis General: Alert, Oriented, Cooperative, Mild Distress HEENT: PERRLA, Hearing Intact, Mucosa Moist & [place], Nares Patent, Normal Nasal Septum, Posterior Pharynx Clear, Conjunctiva Clear, EOMI, EACs Clear, TMs Clear Neck: Supple, Trachea Midline, 2 Lungs: Wheezing Cardiovascular: Regular Rate GI/Abdominal Exam: Normal Bowel Sounds, Soft, Non-Tender, No Organomegaly, No Distention, No Abnormal Bruit, No Mass, Pelvis Stable (Female) Exam: Normal External Exam, Normal Speculum Exam, Normal Bimanual Exam Rectal (Female) Exam: Deferred Back Exam: Normal Inspection Extremities: Normal Inspection Skin: Warm, Dry, Intact Neurological: Cranial Nerves Intact, Reflexes Equal Bilateral Neuro Extensive - Mental Status: Alert, Oriented x3, Normal Mood/Affect, Normal Cognition - Patient Data Lab Results Last 24 hrs: Laboratory Results - last 24 hr 11/24/17 11/24/17 11/24/17 Range/Units 09:10 09:10 09:10 WBC 8.5 (5.0-10.0) 10^3/uL RBC 5.02 (4.2-5.4) 10^6/uL Hgb 12.9 (12.0-16.0) g/dL Hct 39.6 (37.0-47.0) % MCV 78.9 L (80-100) fL MCH 25.7 L (27.0-34.0) pg MCHC 32.6 L (33.0-35.0) g/dL Plt Count 296 D (150-450) 10^3/uL Neut % (Auto) 47.8 (42.2-75.2) % Lymph % (Auto) 37.8 (20.5-50.1) % [place] % (Auto) 10.0 H (2-8) % Eos % (Auto) 4.2 H (1.0-3.0) % Baso % (Auto) 0.2 (0.0-1.0) % Sodium 139 (135-145) mmol/L Potassium 3.4 L (3.6-5.0) mmol/L Chloride 104 (101-111) mmol/L Carbon Dioxide 27.0 (21.0-31.0) mmol/L Anion Gap 11.4 BUN 10 (7-18) mg/dL Creatinine 0.6 (0.6-1.3) mg/dL Est Cr Clr Drug Dosing 68.93 mL/min Estimated GFR (MDRD) > 60 BUN/Creatinine Ratio 16.66 Glucose 79 (74-105) mg/dL Lactic Acid 0.8 (0.5-2.2) mmol/L Calcium 9.2 (8.4-10.2) mg/dl Total Bilirubin 0.7 (0.2-1.0) mg/dL AST 19 (10-42) IU/L ALT 14 (10-60) IU/L Alkaline Phosphatase 97 (42-121) IU/L B-Natriuretic Peptide 25 (0-100) pg/ml Total Protein 7.2 (6.7-8.2) g/dl Albumin 3.8 (3.2-5.5) g/dl Globulin 3.4 Albumin/Globulin Ratio 1.12 Result Diagrams: 11/24/17 09:10 11/24/17 09:10 - Problem List (1) Poor appetite SNOMED Code(s): 68690482 ICD Code: R63.0 - ANOREXIA Status: Acute Current Visit: Yes (2) Acute exacerbation of chronic obstructive pulmonary disease (COPD) SNOMED Code(s): 713738723 ICD Code: J44.1 - CHRONIC OBSTRUCTIVE PULMONARY DISEASE W (ACUTE) EXACERBATION Status: Acute Current Visit: No (3) Hypoxia SNOMED Code(s): 473669509 ICD Code: R09.02 - HYPOXEMIA Status: Acute Current Visit: No (4) Weakness generalized SNOMED Code(s): 00160838 ICD Code: R53.1 - WEAKNESS Status: Acute Current Visit: Yes (5) Weakness generalized SNOMED Code(s): 74704334 ICD Code: R53.1 - WEAKNESS Status: Acute Current Visit: Yes (6) Anorexia SNOMED Code(s): 10866750 ICD Code: R63.0 - ANOREXIA Status: Acute Current Visit: Yes (7) Anorexia SNOMED Code(s): 52222924 ICD Code: R63.0 - ANOREXIA Status: Acute Current Visit: Yes Problem List Initiated/Reviewed/Updated: Yes Orders Last 24hrs: Active Orders 24 hr Category Date Time Status Patient Status [ADT] Routine ADT 11/24/17 11:15 Ordered Blood Glucose Check, Bedside [RC] TIDMEALS Care 11/24/17 11:15 Ordered Communication Order [RC] Per Unit Routine Care 11/24/17 11:29 Ordered Communication Order [RC] Per Unit Routine Care 11/24/17 11:29 Ordered Diabetes Education [RC] Click to Edit Care 11/24/17 11:20 Ordered Oxygen Therapy [RC] PRN Care 11/24/17 11:15 Ordered Peripheral IV Care [RC] . DIRECTED Care 11/24/17 08:55 Active Pulse Oximetry [RC] PRN Care 11/24/17 11:18 Ordered RT Aerosol Therapy [RC] ASDIRECTED Care 11/24/17 08:55 Active RT Aerosol Therapy [RC] ASDIRECTED Care 11/24/17 11:22 Ordered Up With Assistance [RC] ASDIRECTED Care 11/24/17 11:15 Ordered VTE/DVT Education [RC] PER UNIT ROUTINE Care 11/24/17 11:15 Ordered Vital Signs [RC] Q4H Care 11/24/17 11:15 Ordered Consult to Contact Lens Cutter [CONS] Routine Cons 11/24/17 11:15 Ordered Consult to Rayon Winder [CONS] Routine Cons 11/24/17 11:15 Ordered OT Evaluation and Treatment [CONS] Routine Cons 11/24/17 11:15 Ordered PT Evaluation and Treatment [CONS] Routine Cons 11/24/17 11:15 Ordered Respiratory Care Assess and Treatment [CONS] Routine Cons 11/24/17 11:15 Ordered Regular Diet [DIET] Diet 11/24/17 Lunch Ordered BASIC METABOLIC PANEL,BMP [CHEM] DAILY Lab 11/25/17 05:00 Ordered BASIC METABOLIC PANEL,BMP [CHEM] DAILY Lab 11/26/17 05:00 Ordered BLOOD GAS ARTERIAL [BG] Stat Lab 11/24/17 11:15 Ordered CBC WITH AUTO DIFF [HEME] DAILY Lab 11/25/17 05:00 Ordered CBC WITH AUTO DIFF [HEME] DAILY Lab 11/26/17 05:00 Ordered CULTURE BLOOD [BC] Stat Lab 11/24/17 09:10 Received CULTURE BLOOD [BC] Stat Lab 11/24/17 09:20 Received UA W/MICROSCOPIC [URIN] Stat Lab 11/24/17 08:54 Ordered Acetaminophen [Tylenol] Med 11/24/17 11:15 Ordered 650 mg PO Q4H PRN Albuterol/Ipratropium [DuoNeb 3.0-0.5 MG/3 ML] Med 11/24/17 11:15 Ordered 3 ml NEB Q4H Dextrose 50% in Water Med 11/24/17 11:15 Ordered 50 ml IVPUSH ONETIME PRN Docusate Sodium [Colace] Med 11/24/17 11:15 Ordered 100 mg PO BID PRN Heparin Sodium Med 11/24/17 11:15 Ordered 5,000 units SUBCUT Q12H Insulin Aspart [NovoLOG] Med 11/24/17 11:15 Ordered See Protocol SUBCUT ASDIRECTED Magnesium Hydroxide [Milk of Magnesia] Med 11/24/17 11:15 Ordered 30 ml PO Q12H PRN Nicotine [Habitrol] Med 11/24/17 11:30 Ordered 14 mg TRDERM DAILY Ondansetron [Zofran ODT] Med 11/24/17 11:15 Ordered 8 mg PO Q4H PRN Ondansetron [Zofran] Med 11/24/17 11:15 Ordered 4 mg IVPUSH Q6H PRN Potassium Chloride [KCl 10 MEQ in Water 100 ML] 10 meq Med 11/24/17 11:33 Ordered Premix Bag 1 bag IV ONETIME Promethazine [Phenergan] Med 11/24/17 11:15 Ordered 25 mg PO Q6H PRN Sodium Chloride 0.9% [Saline Flush] Med 11/24/17 08:54 Active 10 ml FLUSH ASDIRECTED PRN methylPREDNISolone Sod Succ [Solu-MEDROL] Med 11/24/17 11:30 Ordered 60 mg IVPUSH Q8H Blood Culture x2 Reflex Set [OM.PC] Stat Ot 11/24/17 08:54 Ordered Glucose Management Sub Q Reflex [OM.PC] TIDMEALS Ot 11/24/17 11:30 Ordered Glucose Management Sub Q Reflex [OM.PC] TIDMEALS Ot 11/24/17 17:30 Ordered Peripheral IV Insertion Adult [OM.PC] Stat Ot 11/24/17 08:54 Ordered Resuscitation Status Routine Resus Stat 11/24/17 11:15 Ordered Medication Orders Acetaminophen (Tylenol) 650 mg PO Q4H PRN PRN Reason: Pain (Mild 1-3)/fever Albuterol/Ipratropium (Duoneb 3.0-0.5 Mg/3 Ml) 3 ml NEB Q4H [facility] Dextrose/Water (Dextrose 50% In Water) 50 ml IVPUSH ONETIME PRN PRN Reason: Hypoglycemia Docusate Sodium (Colace) 100 mg PO BID PRN PRN Reason: Constipation Heparin Sodium (Porcine) (Heparin Sodium) 5,000 units SUBCUT Q12H [facility] Insulin Aspart (Novolog) 0 unit SUBCUT ASDIRECTED [facility]; Protocol Magnesium Hydroxide (Milk Of Magnesia) 30 ml PO Q12H PRN PRN Reason: Constipation Methylprednisolone Sodium Succinate (Solu-Medrol) 60 mg IVPUSH Q8H [facility] Nicotine (Habitrol) 14 mg TRDERM DAILY [facility] Ondansetron HCl (Zofran Odt) 8 mg PO Q4H PRN PRN Reason: nausea, able to take PO Ondansetron HCl (Zofran) 4 mg IVPUSH Q6H PRN PRN Reason: Nausea/Vomiting Promethazine HCl (Phenergan) 25 mg PO Q6H PRN PRN Reason: nausea, able to take PO Sodium Chloride (Saline Flush) 10 ml FLUSH ASDIRECTED PRN PRN Reason: Keep Vein Open Last Admin: 11/24/17 10:40 Dose: 10 ml Assessment/Plan Comment:: 1. Acute on chronic respiratory failure with hypoxia due to COPD exacerbation patient has COPD on home oxygen 2L via [place]. She presented with increasing SOB requiring additional oxygen Saturation was 83% at home when EMS arrived will admit at this time Duo-nebs q4h solumedrol 60 mg q8h Azithromycin 500 mg IV daily continue supplemental oxygen and wean off as tolerated RT access and treat Patient again educated on the dangers of continue tobacco use and strongly advised to quit. 2. Generalized weakness due to low energy patient has poor apatite will encourage adequate nutrition and dietary supplement nutritional consult PT/OT 3. Continue tobacco use patient advise to quit Nicotine patch 4. Regular diet 5.full code 6. Desposition: Social work for placement
[2017-11-24] MEDS ORDERED: Albuterol/Ipratropium 3.0-0.5 MG/3 ML Neb Soln NEB SCH (12:00)
[2017-11-24 12:15] LABS: BASE EXCESS ARTERIAL -1 mmol/L ((-2)-(+3)); BICARBONATE,ARTERIAL 25.1 mmol/L (22-26); O2 DELIVERY DEVICE NASAL CANNULA; O2 SATURATION ARTERIAL 94 % (95-100); PCO2 ARTERIAL 49 mmHg (35-45); PO2 ARTERIAL 79 mmHg (70-100)
[2017-11-24 12:18] LABS: ALLEN TEST pos; O2 FLOW RATE 2
[2017-11-24] MEDS: Nicotine 14 MG/24 Hr Patch TRDERM SCH (12:22)
[2017-11-24] MEDS: Heparin Sodium 5,000 Units/ML Vial SUBCUT SCH (12:25)
[2017-11-24] MEDS: Azithromycin 500 MG in Sodium Chloride 0.9% 250 ML IV SCH (13:24)
[2017-11-24] MEDS: Acetaminophen 325 MG Tab PO PRN ×2 (13:59→21:32)
[2017-11-24] MEDS: Albuterol/Ipratropium 3.0-0.5 MG/3 ML Neb Soln NEB SCH ×3 (13:59→21:33)
[2017-11-24] MEDS: methylPREDNISolone Sodium Succinate 40 MG/1 ML SDV IVPUSH SCH (18:14)
[2017-11-24] MEDS: Ibuprofen 400 MG Tab PO PRN (18:14)
[2017-11-24] MEDS ORDERED: Sertraline 50 MG Tab PO SCH (21:00)
[2017-11-24] MEDS: Gabapentin 300 MG Cap PO SCH (21:31)
[2017-11-25] MEDS: Ibuprofen 400 MG Tab PO PRN ×3 (00:19→19:57)
[2017-11-25] MEDS: Heparin Sodium 5,000 Units/ML Vial SUBCUT SCH ×3 (00:20→21:11)
[2017-11-25] MEDS: Acetaminophen 325 MG Tab PO PRN ×4 (02:03→22:42)
[2017-11-25] MEDS: methylPREDNISolone Sodium Succinate 40 MG/1 ML SDV IVPUSH SCH ×3 (02:04→18:16)
[2017-11-25] MEDS: Albuterol/Ipratropium 3.0-0.5 MG/3 ML Neb Soln NEB SCH ×6 (02:05→21:12)
[2017-11-25] MEDS ORDERED: Morphine 2 MG/ML Syringe IVPUSH ONE (04:07)
[2017-11-25] MEDS ORDERED: Pantoprazole 40 MG in Sodium Chloride 0.9% 100 ML IV ONE (04:09)
[2017-11-25] MEDS ORDERED: Lactulose Soln 10 GM/15 ML 30 ML UD Cup PO PRN (04:10)
[2017-11-25] MEDS ORDERED: Iopamidol 612 MG/ML 75 ML Bottle IVPUSH ONE (04:19)
[2017-11-25] MEDS ORDERED: Pantoprazole 40 MG Vial ONE (04:27)
[2017-11-25] MEDS ORDERED: Pantoprazole 40 MG Vial IVPUSH ONE (04:30)
[2017-11-25 06:59] LABS: ANION GAP 9.9; CHLORIDE,CL 105 mmol/L (101-111); SODIUM,NA 135 mmol/L (135-145)
[2017-11-25] MEDS: Pantoprazole 40 MG Tab.CR PO SCH (07:08)
[2017-11-25] MEDS ORDERED: Ibuprofen 200 MG Tab PO PRN (07:45)
[2017-11-25] MEDS ORDERED: Acetaminophen 325 MG Tab PO PRN (07:45)
[2017-11-25] MEDS ORDERED: Albuterol 6.7 GM Inhaler INH PRN (07:45)
--- NOTE | 2017-11-25 07:56 | PCM.PN ---
- General Info Date of Service: 11/25/17 Admission Dx/Problem (Free Text): Admission Diagnosis/Problem Admission Diagnosis/Problem COPD, hypoxic respiratory failure due to chronic obstructive pulmonary disease Subjective Update: Waqar Thompson is 62 y/o F with PMH of COPD on home oxygen, continuous tobacco use, who was brought to the ER via EMS on account of increasing SOB, low energy and loss of appetite. She was admitted for acute on chronic respiratory failure due to COPD exacerbation. Seen on round this morning. Patient is feeling better. She is sitting up in chair and saturating at 92% on RA. Overnight patient c/o left flank pain that as 8/10 in severity, radiating to the groin. It had no aggravating factors and got relived with IV morphine. CT abdomen was negative or any acute finding. This morning she said the pain has resolved. She denies nausea, vomiting, fever , chills, dysuria, frequency. Of note patient has h/o kidney stone which was removd and she has since been having this pain on and off. Functional Status: Reports: Pain Controlled - Review of Systems General: Reports: Malaise HEENT: Reports: No Symptoms Pulmonary: Reports: Cough Cardiovascular: Reports: No Symptoms Gastrointestinal: Reports: Abdominal Pain Genitourinary: Reports: No Symptoms Musculoskeletal: Reports: No Symptoms Skin: Reports: No Symptoms Neurological: Reports: No Symptoms Psychiatric: Reports: No Symptoms - Patient Data Vitals - Most Recent: Last Vital Signs Temp 98.0 F 11/25/17 00:24 Pulse 99 11/25/17 06:00 Resp 18 11/25/17 00:24 BP 116/62 11/25/17 00:24 Pulse Ox 98 11/25/17 06:00 Weight - Most Recent: 113 lb I&O - Last 24 Hours: Intake & Output 11/24/17 11/25/17 11/25/17 22:59 06:59 14:59 Intake Total 400 Output Total 800 Balance 400 -800 Lab Results Last 24 Hours: Laboratory Results - last 24 hr 11/24/17 11/24/17 11/24/17 Range/Units 09:10 09:10 09:10 WBC 8.5 (5.0-10.0) 10^3/uL RBC 5.02 (4.2-5.4) 10^6/uL Hgb 12.9 (12.0-16.0) g/dL Hct 39.6 (37.0-47.0) % MCV 78.9 L (80-100) fL MCH 25.7 L (27.0-34.0) pg MCHC 32.6 L (33.0-35.0) g/dL Plt Count 296 D (150-450) 10^3/uL Neut % (Auto) 47.8 (42.2-75.2) % Lymph % (Auto) 37.8 (20.5-50.1) % [place] % (Auto) 10.0 H (2-8) % Eos % (Auto) 4.2 H (1.0-3.0) % Baso % (Auto) 0.2 (0.0-1.0) % ABG pH (7.35-7.45) ABG pCO2 (35-45) mmHg ABG pO2 (70-100) mmHg ABG HCO3 (22-26) mmol/L ABG O2 Saturation (95-100) % ABG Base Excess ((-2)-(+3)) mmol/L Eder Test O2 Delivery Device Oxygen Flow Rate Sodium 139 (135-145) mmol/L Potassium 3.4 L (3.6-5.0) mmol/L Chloride 104 (101-111) mmol/L Carbon Dioxide 27.0 (21.0-31.0) mmol/L Anion Gap 11.4 BUN 10 (7-18) mg/dL Creatinine 0.6 (0.6-1.3) mg/dL Est Cr Clr Drug Dosing 68.93 mL/min Estimated GFR (MDRD) > 60 BUN/Creatinine Ratio 16.66 Glucose 79 (74-105) mg/dL Lactic Acid 0.8 (0.5-2.2) mmol/L Calcium 9.2 (8.4-10.2) mg/dl Total Bilirubin 0.7 (0.2-1.0) mg/dL AST 19 (10-42) IU/L ALT 14 (10-60) IU/L Alkaline Phosphatase 97 (42-121) IU/L B-Natriuretic Peptide 25 (0-100) pg/ml Total Protein 7.2 (6.7-8.2) g/dl Albumin 3.8 (3.2-5.5) g/dl Globulin 3.4 Albumin/Globulin Ratio 1.12 Amylase (28-100) U/L Lipase (22-51) U/L Urine Color (YELLOW) Urine Appearance (CLEAR) Urine pH (5.0-9.0) Ur Specific [place] (1.005-1.030) Urine Protein (NEGATIVE) Urine Glucose (UA) (NEGATIVE) Urine Ketones (NEGATIVE) Urine Occult Blood (NEGATIVE) Urine Nitrite (NEGATIVE) Urine Bilirubin (NEGATIVE) Urine Urobilinogen (0.2-1.0) mg/dL Ur Leukocyte Esterase (NEGATIVE) Urine RBC /HPF Urine WBC (0-5/HPF) /HPF Ur Epithelial Cells /HPF Urine Bacteria (0-FEW/HPF) /HPF Urine Mucus /LPF 11/24/17 11/24/17 11/25/17 Range/Units 12:10 13:54 06:19 WBC 7.6 (5.0-10.0) 10^3/uL RBC 4.51 (4.2-5.4) 10^6/uL Hgb 11.5 L (12.0-16.0) g/dL Hct 34.9 L (37.0-47.0) % MCV 77.4 L (80-100) fL MCH 25.5 L (27.0-34.0) pg MCHC 33.0 (33.0-35.0) g/dL Plt Count 298 (150-450) 10^3/uL Neut % (Auto) 90.1 H (42.2-75.2) % Lymph % (Auto) 9.0 L (20.5-50.1) % [place] % (Auto) 0.9 L (2-8) % Eos % (Auto) 0.0 L (1.0-3.0) % Baso % (Auto) 0.0 (0.0-1.0) % ABG pH 7.33 L (7.35-7.45) ABG pCO2 49 H (35-45) mmHg ABG pO2 79 (70-100) mmHg ABG HCO3 25.1 (22-26) mmol/L ABG O2 Saturation 94 L (95-100) % ABG Base Excess -1 ((-2)-(+3)) mmol/L Eder Test pos O2 Delivery Device Nasal cannula Oxygen Flow Rate 2 Sodium (135-145) mmol/L Potassium (3.6-5.0) mmol/L Chloride (101-111) mmol/L Carbon Dioxide (21.0-31.0) mmol/L Anion Gap BUN (7-18) mg/dL Creatinine (0.6-1.3) mg/dL Est Cr Clr Drug Dosing mL/min Estimated GFR (MDRD) BUN/Creatinine Ratio Glucose (74-105) mg/dL Lactic Acid (0.5-2.2) mmol/L Calcium (8.4-10.2) mg/dl Total Bilirubin (0.2-1.0) mg/dL AST (10-42) IU/L ALT (10-60) IU/L Alkaline Phosphatase (42-121) IU/L B-Natriuretic Peptide (0-100) pg/ml Total Protein (6.7-8.2) g/dl Albumin (3.2-5.5) g/dl Globulin Albumin/Globulin Ratio Amylase (28-100) U/L Lipase (22-51) U/L Urine Color Straw (YELLOW) Urine Appearance Slightly cloudy (CLEAR) Urine pH 6.0 (5.0-9.0) Ur Specific [place] >= 1.030 (1.005-1.030) Urine Protein Trace H (NEGATIVE) Urine Glucose (UA) Negative (NEGATIVE) Urine Ketones 40 H (NEGATIVE) Urine Occult Blood Negative (NEGATIVE) Urine Nitrite Negative (NEGATIVE) Urine Bilirubin Small H (NEGATIVE) Urine Urobilinogen 0.2 (0.2-1.0) mg/dL Ur Leukocyte Esterase Negative (NEGATIVE) Urine RBC Not seen /HPF Urine WBC 0-5 (0-5/HPF) /HPF Ur Epithelial Cells Many H /HPF Urine Bacteria Few (0-FEW/HPF) /HPF Urine Mucus Moderate H /LPF 11/25/17 11/25/17 Range/Units 06:19 06:19 WBC (5.0-10.0) 10^3/uL RBC (4.2-5.4) 10^6/uL Hgb (12.0-16.0) g/dL Hct (37.0-47.0) % MCV (80-100) fL MCH (27.0-34.0) pg MCHC (33.0-35.0) g/dL Plt Count (150-450) 10^3/uL Neut % (Auto) (42.2-75.2) % Lymph % (Auto) (20.5-50.1) % [place] % (Auto) (2-8) % Eos % (Auto) (1.0-3.0) % Baso % (Auto) (0.0-1.0) % ABG pH (7.35-7.45) ABG pCO2 (35-45) mmHg ABG pO2 (70-100) mmHg ABG HCO3 (22-26) mmol/L ABG O2 Saturation (95-100) % ABG Base Excess ((-2)-(+3)) mmol/L Eder Test O2 Delivery Device Oxygen Flow Rate Sodium 135 (135-145) mmol/L Potassium 3.9 (3.6-5.0) mmol/L Chloride 105 (101-111) mmol/L Carbon Dioxide 24.0 (21.0-31.0) mmol/L Anion Gap 9.9 BUN 17 (7-18) mg/dL Creatinine 0.5 L (0.6-1.3) mg/dL Est Cr Clr Drug Dosing 82.72 mL/min Estimated GFR (MDRD) > 60 BUN/Creatinine Ratio Glucose 154 H (74-105) mg/dL Lactic Acid (0.5-2.2) mmol/L Calcium 8.8 (8.4-10.2) mg/dl Total Bilirubin (0.2-1.0) mg/dL AST (10-42) IU/L ALT (10-60) IU/L Alkaline Phosphatase (42-121) IU/L B-Natriuretic Peptide (0-100) pg/ml Total Protein (6.7-8.2) g/dl Albumin (3.2-5.5) g/dl Globulin Albumin/Globulin Ratio Amylase 42 (28-100) U/L Lipase 21 L (22-51) U/L Urine Color (YELLOW) Urine Appearance (CLEAR) Urine pH (5.0-9.0) Ur Specific [place] (1.005-1.030) Urine Protein (NEGATIVE) Urine Glucose (UA) (NEGATIVE) Urine Ketones (NEGATIVE) Urine Occult Blood (NEGATIVE) Urine Nitrite (NEGATIVE) Urine Bilirubin (NEGATIVE) Urine Urobilinogen (0.2-1.0) mg/dL Ur Leukocyte Esterase (NEGATIVE) Urine RBC /HPF Urine WBC (0-5/HPF) /HPF Ur Epithelial Cells /HPF Urine Bacteria (0-FEW/HPF) /HPF Urine Mucus /LPF Med Orders - Current: Current Medications Acetaminophen (Tylenol) 650 mg PO Q4H PRN PRN Reason: Pain (Mild 1-3)/fever Last Admin: 11/25/17 02:03 Dose: 650 mg Albuterol (Proventil Hfa) gm INH Q4HR PRN PRN Reason: Dyspnea Albuterol/Ipratropium (Duoneb 3.0-0.5 Mg/3 Ml) 3 ml NEB Q4H [facility] Last Admin: 11/25/17 05:42 Dose: 3 ml Budesonide (Pulmicort) 0.5 mg NEB BID [facility] Docusate Sodium (Colace) 100 mg PO BID PRN PRN Reason: Constipation Gabapentin (Neurontin) 600 mg PO TID [facility] Last Admin: 11/24/17 21:31 Dose: 600 mg Heparin Sodium (Porcine) (Heparin Sodium) 5,000 units SUBCUT Q12H [facility] Last Admin: 11/25/17 00:20 Dose: 5,000 units Azithromycin 500 mg/ Sodium (Chloride) 250 mls @ 250 mls/hr IV Q24H [facility] Last Admin: 11/24/17 13:24 Dose: 250 mls/hr Ibuprofen (Motrin) 400 mg PO BID PRN PRN Reason: Pain Last Admin: 11/25/17 00:19 Dose: 400 mg Lactulose (Cephulac) 10 gm PO TID PRN PRN Reason: Constipation Magnesium Hydroxide (Milk Of Magnesia) 30 ml PO Q12H PRN PRN Reason: Constipation Methylprednisolone Sodium Succinate (Solu-Medrol) 60 mg IVPUSH Q8H [facility] Last Admin: 11/25/17 02:04 Dose: 60 mg Nicotine (Habitrol) 14 mg TRDERM DAILY [facility] Last Admin: 11/24/17 12:22 Dose: 14 mg Non-Formulary Medication (Estrogens, Conjugated [Premarin]) 1 tab PO DAILY [facility] Non-Formulary Medication (Formoterol Fumarate [Perforomist]) 1 vial INH BID [facility] Ondansetron HCl (Zofran Odt) 8 mg PO Q4H PRN PRN Reason: nausea, able to take PO Ondansetron HCl (Zofran) 4 mg IVPUSH Q6H PRN PRN Reason: Nausea/Vomiting Pantoprazole Sodium (Protonix) 40 mg PO ACBREAKFAST [facility] Last Admin: 11/25/17 07:08 Dose: Not Given Pantoprazole Sodium (Protonix) 40 mg PO DAILY [facility] Promethazine HCl (Phenergan) 25 mg PO Q6H PRN PRN Reason: nausea, able to take PO Sertraline HCl (Zoloft) 150 mg PO BEDTIME [facility] Last Admin: 11/24/17 21:32 Dose: 150 mg Sertraline HCl (Zoloft) 150 mg PO DAILY [facility] Sodium Chloride (Saline Flush) 10 ml FLUSH ASDIRECTED PRN PRN Reason: Keep Vein Open Last Admin: 11/24/17 14:37 Dose: 10 ml Discontinued Medications Acetaminophen (Tylenol) mg PO QID PRN PRN Reason: Pain Albuterol/Ipratropium (Duoneb 3.0-0.5 Mg/3 Ml) 3 ml NEB ONETIME ONE Stop: 11/24/17 08:56 Last Admin: 11/24/17 09:48 Dose: 3 ml Albuterol/Ipratropium (Duoneb 3.0-0.5 Mg/3 Ml) 3 ml NEB Q4H [facility] Dextrose/Water (Dextrose 50% In Water) 50 ml IVPUSH ONETIME PRN PRN Reason: Hypoglycemia Potassium Chloride 10 meq/ (Premix) 100 mls @ 100 mls/hr IV ONETIME ONE Stop: 11/24/17 12:32 Last Admin: 11/24/17 12:12 Dose: 100 mls/hr Ibuprofen (Motrin) 400 mg PO ASDIRECTED PRN PRN Reason: Pain Insulin Aspart (Novolog) 0 unit SUBCUT ASDIRECTED [facility]; Protocol Iopamidol (Isovue-300 (61%)) 75 ml IVPUSH ONETIME ONE Stop: 11/25/17 04:20 Last Admin: 11/25/17 05:11 Dose: 75 ml Methylprednisolone Sodium Succinate (Solu-Medrol) 125 mg IVPUSH ONETIME ONE Stop: 11/24/17 08:56 Last Admin: 11/24/17 09:56 Dose: 125 mg Morphine Sulfate (Morphine) 2 mg IVPUSH ONETIME ONE Stop: 11/25/17 04:08 Last Admin: 11/25/17 04:29 Dose: 2 mg Non-Formulary Medication (Gabapentin) 600 mg PO TID [facility] Pantoprazole Sodium (Protonix Iv) 40 mg IVPUSH ONETIME ONE Stop: 11/25/17 04:31 Last Admin: 11/25/17 04:37 Dose: 40 mg Pantoprazole Sodium (Protonix Iv) Confirm Administered Dose 40 mg .ROUTE .STK -MED ONE Stop: 11/25/17 04:28 Last Admin: 11/25/17 04:34 Dose: Not Given Senna/Docusate Sodium (Senna Plus) 1 tab PO BID PRN PRN Reason: Constipation - Exam Quality Assessment: Supplemental Oxygen, DVT Prophylaxis General: Alert, Oriented HEENT: Pupils Equal, Pupils Reactive, EOMI, Mucous Membr. Moist/[place] Neck: Supple Lungs: Clear to Auscultation, Normal Respiratory Effort Cardiovascular: Regular Rate, Regular Rhythm GI/Abdominal Exam: Normal Bowel Sounds, Soft, Non-Tender, No Organomegaly, No Distention, No Abnormal Bruit, No Mass, Pelvis Stable (Female) Exam: Normal External Exam Back Exam: Normal Inspection, Full Range of Motion Extremities: Normal Inspection, Normal Range of Motion, Non-Tender, No Pedal Edema, Normal Capillary Refill Skin: Warm, Dry, Intact Wound/Incisions: Healing Well Neurological: No New Focal Deficit Psy/Mental Status: Alert, Normal Affect, Normal Mood - Problem List & Annotations (1) Poor appetite SNOMED Code(s): 86545377 Code(s): R63.0 - ANOREXIA Status: Acute Current Visit: Yes (2) Acute exacerbation of chronic obstructive pulmonary disease (COPD) SNOMED Code(s): 544049438 Code(s): J44.1 - CHRONIC OBSTRUCTIVE PULMONARY DISEASE W (ACUTE) EXACERBATION Status: Acute Current Visit: No (3) Hypoxia SNOMED Code(s): 656400994 Code(s): R09.02 - HYPOXEMIA Status: Acute Current Visit: No (4) Weakness generalized SNOMED Code(s): 98250660 Code(s): R53.1 - WEAKNESS Status: Acute Current Visit: Yes (5) Weakness generalized SNOMED Code(s): 02075222 Code(s): R53.1 - WEAKNESS Status: Acute Current Visit: Yes (6) Anorexia SNOMED Code(s): 75180311 Code(s): R63.0 - ANOREXIA Status: Acute Current Visit: Yes (7) Anorexia SNOMED Code(s): 29307954 Code(s): R63.0 - ANOREXIA Status: Acute Current Visit: Yes (8) Left flank pain, chronic SNOMED Code(s): 755852728 Code(s): R10.9 - UNSPECIFIED ABDOMINAL PAIN; G89.29 - OTHER CHRONIC PAIN Status: Acute Current Visit: Yes - Problem List Review Problem List Initiated/Reviewed/Updated: Yes - My Orders Last 24 Hours: My Active Orders 11/24/17 11:15 Patient Status [ADT] Routine Blood Glucose Check, Bedside [RC] TIDMEALS Oxygen Therapy [RC] PRN Up With Assistance [RC] ASDIRECTED VTE/DVT Education [RC] Vital Signs [RC] 15,19,23,03,07,11 Consult to Cloth Calender [CONS] Routine Consult to Care Process Manager [CONS] Routine OT Evaluation and Treatment [CONS] Routine PT Evaluation and Treatment [CONS] Routine Respiratory Care Assess and Treatment [CONS] Routine Acetaminophen [Tylenol] 650 mg PO Q4H PRN Docusate Sodium [Colace] 100 mg PO BID PRN Magnesium Hydroxide [Milk of Magnesia] 30 ml PO Q12H PRN Ondansetron [Zofran ODT] 8 mg PO Q4H PRN Ondansetron [Zofran] 4 mg IVPUSH Q6H PRN Promethazine [Phenergan] 25 mg PO Q6H PRN Resuscitation Status Routine 11/24/17 11:18 Pulse Oximetry [RC] PRN 11/24/17 11:20 Diabetes Education [RC] Click to Edit 11/24/17 11:22 RT Aerosol Therapy [RC] 14,18,22,02,06,10 11/24/17 11:30 Nicotine [Habitrol] 14 mg TRDERM DAILY 11/24/17 12:00 Heparin Sodium 5,000 units SUBCUT Q12H 11/24/17 13:00 Azithromycin [Zithromax] 500 mg Sodium Chloride 0.9% [Normal Saline] 250 ml IV Q24H 11/24/17 14:00 Albuterol/Ipratropium [DuoNeb 3.0-0.5 MG/3 ML] 3 ml NEB Q4H 11/24/17 17:23 Ibuprofen [Motrin] 400 mg PO BID PRN 11/24/17 18:00 methylPREDNISolone Sod Succ [Solu-MEDROL] 60 mg IVPUSH Q8H 11/24/17 21:00 Gabapentin [Neurontin] 600 mg PO TID Sertraline [Zoloft] 150 mg PO BEDTIME 11/24/17 Lunch Regular Diet [DIET] 11/25/17 04:10 Lactulose [Cephulac] 10 gm PO TID PRN 11/25/17 06:00 Pantoprazole [ProTONIX] 40 mg PO ACBREAKFAST 11/25/17 07:45 Albuterol [Proventil HFA] 2 puff INH Q4HR PRN 11/25/17 09:00 Budesonide [Pulmicort] 0.5 mg NEB BID Estrogens, Conjugated [Premarin] 1 tab PO DAILY Formoterol Fumarate [Perforomist] 1 vial INH BID Pantoprazole [ProTONIX] 40 mg PO DAILY Sertraline [Zoloft] 150 mg PO DAILY 11/26/17 05:00 BASIC METABOLIC PANEL,BMP [CHEM] DAILY CBC WITH AUTO DIFF [HEME] DAILY - Plan Plan:: 1. Acute on chronic respiratory failure with hypoxia due to COPD exacerbation Improved. PAtient on RA this AM. Continue Duo-nebs q4h solumedrol 60 mg q8h Azithromycin 500 mg IV daily RT access and treat Inspiratory spirometry and flutter valve 2. Generalized weakness due to low energy patient has poor apatite will encourage adequate nutrition and dietary supplement nutritional consult PT/OT 3. Chronic left flank pain CT abdomen was negative Tylenol prn 3. Continue tobacco use patient advise to quit Nicotine patch 4. Regular diet 5.full code 6. Desposition: Social work for placement
[2017-11-25] MEDS ORDERED: Non-Formulary Medication 1 Each (Gabapentin 600 MG) PO SCH (09:00)
[2017-11-25] MEDS ORDERED: FORMOTEROL FUMARATE INH SCH (09:00)
[2017-11-25] MEDS ORDERED: Pantoprazole 40 MG Tab.CR PO SCH (09:00)
[2017-11-25] MEDS ORDERED: ESTROGENS CONJUGATED 0.9 MG PO SCH (09:00)
[2017-11-25] MEDS: Nicotine 14 MG/24 Hr Patch TRDERM SCH ×2 (09:20→15:55)
[2017-11-25] MEDS: Sertraline 50 MG Tab PO SCH (09:21)
[2017-11-25] MEDS: Gabapentin 300 MG Cap PO SCH ×3 (09:21→21:12)
[2017-11-25] MEDS: Budesonide 0.5 MG/2 ML Neb Susp NEB SCH ×2 (09:23→21:12)
[2017-11-25] MEDS: Azithromycin 500 MG in Sodium Chloride 0.9% 250 ML IV SCH (12:56)
[2017-11-25] MEDS: Sodium Chloride 0.9% 10 ML Syringe FLUSH PRN (18:17)
[2017-11-26] MEDS: Albuterol/Ipratropium 3.0-0.5 MG/3 ML Neb Soln NEB SCH ×6 (02:27→21:07)
[2017-11-26] MEDS: methylPREDNISolone Sodium Succinate 40 MG/1 ML SDV IVPUSH SCH ×3 (02:27→21:09)
[2017-11-26] MEDS: Acetaminophen 325 MG Tab PO PRN ×5 (02:27→22:09)
[2017-11-26] MEDS: Pantoprazole 40 MG Tab.CR PO SCH (06:12)
[2017-11-26 06:46] LABS: ANION GAP 10.4; CHLORIDE,CL 106 mmol/L (101-111); SODIUM,NA 138 mmol/L (135-145)
[2017-11-26] MEDS: Nicotine 14 MG/24 Hr Patch TRDERM SCH (08:53)
[2017-11-26] MEDS: Sertraline 50 MG Tab PO SCH (08:53)
[2017-11-26] MEDS: Gabapentin 300 MG Cap PO SCH ×3 (08:53→21:06)
[2017-11-26] MEDS: Heparin Sodium 5,000 Units/ML Vial SUBCUT SCH ×2 (09:03→21:22)
[2017-11-26] MEDS: Budesonide 0.5 MG/2 ML Neb Susp NEB SCH ×2 (09:57→20:42)
--- NOTE | 2017-11-26 12:34 | PCM.PN ---
- General Info Date of Service: 11/26/17 Admission Dx/Problem (Free Text): Admission Diagnosis/Problem Admission Diagnosis/Problem COPD, hypoxic respiratory failure due to chronic obstructive pulmonary disease Subjective Update: Waqar Thompson is 62 y/o F with PMH of COPD on home oxygen, continuous tobacco use, who was brought to the ER via EMS on account of increasing SOB, low energy and loss of appetite. She was admitted for acute on chronic respiratory failure due to COPD exacerbation. Seen on round this morning. Patient is feeling better. No new complaints. Functional Status: Reports: Pain Controlled - Review of Systems General: Reports: No Symptoms HEENT: Reports: No Symptoms Pulmonary: Reports: No Symptoms Cardiovascular: Reports: No Symptoms Gastrointestinal: Reports: No Symptoms Genitourinary: Reports: No Symptoms Musculoskeletal: Reports: No Symptoms Skin: Reports: No Symptoms Neurological: Reports: No Symptoms Psychiatric: Reports: No Symptoms - Patient Data Vitals - Most Recent: Last Vital Signs Temp 97.7 F 11/26/17 11:36 Pulse 86 11/26/17 11:36 Resp 20 11/26/17 11:36 BP 147/70 H 11/26/17 11:36 Pulse Ox 96 11/26/17 11:36 Weight - Most Recent: 113 lb 6.4 oz I&O - Last 24 Hours: Intake & Output 11/25/17 11/26/17 11/26/17 22:59 06:59 14:59 Intake Total 400 600 360 Output Total 1000 Balance 400 -400 360 Lab Results Last 24 Hours: Laboratory Results - last 24 hr 11/26/17 11/26/17 Range/Units 06:15 06:15 WBC 15.5 H (5.0-10.0) 10^3/uL RBC 4.36 (4.2-5.4) 10^6/uL Hgb 11.0 L (12.0-16.0) g/dL Hct 34.3 L (37.0-47.0) % MCV 78.7 L (80-100) fL MCH 25.2 L (27.0-34.0) pg MCHC 32.1 L (33.0-35.0) g/dL Plt Count 293 (150-450) 10^3/uL Neut % (Auto) 93.0 H (42.2-75.2) % Lymph % (Auto) 4.6 L (20.5-50.1) % [place] % (Auto) 2.3 (2-8) % Eos % (Auto) 0.0 L (1.0-3.0) % Baso % (Auto) 0.1 (0.0-1.0) % Sodium 138 (135-145) mmol/L Potassium 4.4 (3.6-5.0) mmol/L Chloride 106 (101-111) mmol/L Carbon Dioxide 26.0 (21.0-31.0) mmol/L Anion Gap 10.4 BUN 23 H (7-18) mg/dL Creatinine 0.5 L (0.6-1.3) mg/dL Est Cr Clr Drug Dosing 82.72 mL/min Estimated GFR (MDRD) > 60 Glucose 140 H (74-105) mg/dL Calcium 8.9 (8.4-10.2) mg/dl Sean Results Last 24 Hours: Microbiology 11/24/17 09:20 Aerobic Blood Culture - Preliminary Blood - Venous - Lab Draw NO GROWTH AFTER 2 DAYS Anaerobic Blood Culture - Preliminary NO GROWTH AFTER 2 DAYS 11/24/17 09:10 Aerobic Blood Culture - Preliminary Blood - Venous NO GROWTH AFTER 2 DAYS Anaerobic Blood Culture - Preliminary NO GROWTH AFTER 2 DAYS Med Orders - Current: Current Medications Acetaminophen (Tylenol) 650 mg PO Q4H PRN PRN Reason: Pain (Mild 1-3)/fever Last Admin: 11/26/17 10:36 Dose: 650 mg Albuterol (Proventil Hfa) 0 gm INH Q4HR PRN PRN Reason: Dyspnea Albuterol/Ipratropium (Duoneb 3.0-0.5 Mg/3 Ml) 3 ml NEB Q4H [facility] Last Admin: 11/26/17 09:57 Dose: 3 ml Budesonide (Pulmicort) 0.5 mg NEB BID [facility] Last Admin: 11/26/17 09:57 Dose: 0.5 mg Docusate Sodium (Colace) 100 mg PO BID PRN PRN Reason: Constipation Gabapentin (Neurontin) 600 mg PO TID [facility] Last Admin: 11/26/17 08:53 Dose: 600 mg Heparin Sodium (Porcine) (Heparin Sodium) 5,000 units SUBCUT Q12H [facility] Last Admin: 11/26/17 09:03 Dose: 5,000 units Azithromycin 500 mg/ Sodium (Chloride) 250 mls @ 250 mls/hr IV Q24H [facility] Last Admin: 11/25/17 12:56 Dose: 250 mls/hr Lactulose (Cephulac) 10 gm PO TID PRN PRN Reason: Constipation Magnesium Hydroxide (Milk Of Magnesia) 30 ml PO Q12H PRN PRN Reason: Constipation Methylprednisolone Sodium Succinate (Solu-Medrol) 40 mg IVPUSH Q12H [facility] Last Admin: 11/26/17 09:02 Dose: 40 mg Nicotine (Habitrol) 14 mg TRDERM DAILY [facility] Last Admin: 11/26/17 08:53 Dose: 14 mg Estrogens, Conjugated [Premarin ] 0.9mg Tab 1 tab PO DAILY [facility] Ondansetron HCl (Zofran Odt) 8 mg PO Q4H PRN PRN Reason: nausea, able to take PO Ondansetron HCl (Zofran) 4 mg IVPUSH Q6H PRN PRN Reason: Nausea/Vomiting Pantoprazole Sodium (Protonix) 40 mg PO ACBREAKFAST [facility] Last Admin: 11/26/17 06:12 Dose: 40 mg Promethazine HCl (Phenergan) 25 mg PO Q6H PRN PRN Reason: nausea, able to take PO Sertraline HCl (Zoloft) 150 mg PO DAILY [facility] Last Admin: 11/26/17 08:53 Dose: 150 mg Sodium Chloride (Saline Flush) 10 ml FLUSH ASDIRECTED PRN PRN Reason: Keep Vein Open Last Admin: 11/25/17 18:17 Dose: 10 ml Discontinued Medications Acetaminophen (Tylenol) mg PO QID PRN PRN Reason: Pain Albuterol/Ipratropium (Duoneb 3.0-0.5 Mg/3 Ml) 3 ml NEB ONETIME ONE Stop: 11/24/17 08:56 Last Admin: 11/24/17 09:48 Dose: 3 ml Albuterol/Ipratropium (Duoneb 3.0-0.5 Mg/3 Ml) 3 ml NEB Q4H [facility] Dextrose/Water (Dextrose 50% In Water) 50 ml IVPUSH ONETIME PRN PRN Reason: Hypoglycemia Heparin Sodium (Porcine) (Heparin Sodium) 5,000 units SUBCUT Q12H [facility] Last Admin: 11/25/17 12:56 Dose: 5,000 units Potassium Chloride 10 meq/ (Premix) 100 mls @ 100 mls/hr IV ONETIME ONE Stop: 11/24/17 12:32 Last Admin: 11/24/17 12:12 Dose: 100 mls/hr Ibuprofen (Motrin) 400 mg PO BID PRN PRN Reason: Pain Last Admin: 11/25/17 19:57 Dose: 400 mg Ibuprofen (Motrin) 400 mg PO ASDIRECTED PRN PRN Reason: Pain Insulin Aspart (Novolog) 0 unit SUBCUT ASDIRECTED [facility]; Protocol Iopamidol (Isovue-300 (61%)) 75 ml IVPUSH ONETIME ONE Stop: 11/25/17 04:20 Last Admin: 11/25/17 05:11 Dose: 75 ml Methylprednisolone Sodium Succinate (Solu-Medrol) 125 mg IVPUSH ONETIME ONE Stop: 11/24/17 08:56 Last Admin: 11/24/17 09:56 Dose: 125 mg Methylprednisolone Sodium Succinate (Solu-Medrol) 60 mg IVPUSH Q8H [facility] Last Admin: 11/26/17 02:27 Dose: 60 mg Morphine Sulfate (Morphine) 2 mg IVPUSH ONETIME ONE Stop: 11/25/17 04:08 Last Admin: 11/25/17 04:29 Dose: 2 mg Non-Formulary Medication (Formoterol Fumarate [Perforomist]) 1 vial INH BID [facility] Non-Formulary Medication (Gabapentin) 600 mg PO TID [facility] Pantoprazole Sodium (Protonix Iv) 40 mg IVPUSH ONETIME ONE Stop: 11/25/17 04:31 Last Admin: 11/25/17 04:37 Dose: 40 mg Pantoprazole Sodium (Protonix Iv) Confirm Administered Dose 40 mg .ROUTE .STK -MED ONE Stop: 11/25/17 04:28 Last Admin: 11/25/17 04:34 Dose: Not Given Senna/Docusate Sodium (Senna Plus) 1 tab PO BID PRN PRN Reason: Constipation Sertraline HCl (Zoloft) 150 mg PO BEDTIME [facility] Last Admin: 11/24/17 21:32 Dose: 150 mg - Exam General: Alert, Oriented HEENT: Pupils Equal, Pupils Reactive, EOMI, Mucous Membr. Moist/[place] Neck: Supple Lungs: Clear to Auscultation, Normal Respiratory Effort Cardiovascular: Regular Rate, Regular Rhythm GI/Abdominal Exam: Normal Bowel Sounds, Soft, Non-Tender, No Organomegaly, No Distention, No Abnormal Bruit, No Mass, Pelvis Stable (Female) Exam: Normal External Exam, Normal Speculum Exam, Normal Bimanual Exam Back Exam: Normal Inspection, Full Range of Motion Extremities: Normal Inspection, Normal Range of Motion, Non-Tender, No Pedal Edema, Normal Capillary Refill Skin: Warm, Dry, Intact Wound/Incisions: Healing Well Neurological: No New Focal Deficit Psy/Mental Status: Alert, Normal Affect, Normal Mood - Problem List & Annotations (1) Poor appetite SNOMED Code(s): 23670857 Code(s): R63.0 - ANOREXIA Status: Acute Current Visit: Yes (2) Acute exacerbation of chronic obstructive pulmonary disease (COPD) SNOMED Code(s): 063301857 Code(s): J44.1 - CHRONIC OBSTRUCTIVE PULMONARY DISEASE W (ACUTE) EXACERBATION Status: Acute Current Visit: No (3) Hypoxia SNOMED Code(s): 529835258 Code(s): R09.02 - HYPOXEMIA Status: Acute Current Visit: No (4) Weakness generalized SNOMED Code(s): 35485155 Code(s): R53.1 - WEAKNESS Status: Acute Current Visit: Yes (5) Weakness generalized SNOMED Code(s): 85342452 Code(s): R53.1 - WEAKNESS Status: Acute Current Visit: Yes (6) Anorexia SNOMED Code(s): 00223869 Code(s): R63.0 - ANOREXIA Status: Acute Current Visit: Yes (7) Anorexia SNOMED Code(s): 54485619 Code(s): R63.0 - ANOREXIA Status: Acute Current Visit: Yes (8) Left flank pain, chronic SNOMED Code(s): 379148301 Code(s): R10.9 - UNSPECIFIED ABDOMINAL PAIN; G89.29 - OTHER CHRONIC PAIN Status: Acute Current Visit: Yes (9) Leukocytosis SNOMED Code(s): 925125030, 505803902 Code(s): D72.829 - ELEVATED WHITE BLOOD CELL COUNT, UNSPECIFIED Status: Acute Current Visit: Yes - Problem List Review Problem List Initiated/Reviewed/Updated: Yes - My Orders Last 24 Hours: My Active Orders 11/25/17 15:07 Dietary Supplements [RC] DAILY 11/25/17 21:00 Dietary Supplements [RC] BEDTIME 11/25/17 22:00 Heparin Sodium 5,000 units SUBCUT Q12H 11/26/17 10:00 methylPREDNISolone Sod Succ [Solu-MEDROL] 40 mg IVPUSH Q12H - Plan Plan:: 1. Acute on chronic respiratory failure with hypoxia due to COPD exacerbation Improved. Patient now on RA Continue Duo-nebs q4h solumedrol 40 mg q12h Azithromycin 500 mg IV daily RT access and treat Inspiratory spirometry and flutter valve 2. Leukocytosis This is likely due to steroids. Patient has no fever or chills will taper off solumedrol 2. Generalized weakness due to low energy patient has poor apatite will encourage adequate nutrition and dietary supplement nutritional consult PT/OT 3. Chronic left flank pain CT abdomen was negative Tylenol prn 3. Continue tobacco use patient advise to quit Nicotine patch 4. Regular diet 5.full code 6. Desposition: Social work for placement
[2017-11-26] MEDS: Azithromycin 500 MG in Sodium Chloride 0.9% 250 ML IV SCH (13:37)
[2017-11-26] MEDS: Sodium Chloride 0.9% 10 ML Syringe FLUSH PRN ×2 (21:09→21:17)
[2017-11-27] MEDS: Albuterol/Ipratropium 3.0-0.5 MG/3 ML Neb Soln NEB SCH ×3 (01:40→10:16)
[2017-11-27] MEDS: Acetaminophen 325 MG Tab PO PRN ×2 (02:09→08:09)
[2017-11-27] MEDS: Pantoprazole 40 MG Tab.CR PO SCH (05:51)
[2017-11-27 07:32] VITALS: BP 116/64
[2017-11-27] MEDS: Nicotine 14 MG/24 Hr Patch TRDERM SCH (08:05)
[2017-11-27] MEDS: Gabapentin 300 MG Cap PO SCH (08:07)
[2017-11-27] MEDS: Sertraline 50 MG Tab PO SCH (08:08)
[2017-11-27] MEDS: Budesonide 0.5 MG/2 ML Neb Susp NEB SCH (09:00)
[2017-11-27] MEDS: Heparin Sodium 5,000 Units/ML Vial SUBCUT SCH (10:16)
[2017-11-27] MEDS: methylPREDNISolone Sodium Succinate 40 MG/1 ML SDV IVPUSH SCH (10:17)
--- NOTE | 2017-11-27 10:21 | PCM.DCSUM1 ---
Discharge Summary - Hospital Course Free Text/Narrative:: Waqar Thompson is 62 y/o F with PMH of COPD on home oxygen, continuous tobacco use, who was brought to the ER via EMS on account of increasing SOB, low energy and loss of appetite. She was admitted for acute on chronic respiratory failure due to COPD exacerbation. Seen on round this morning. Patient is doing well with no new complaints. She endorsed feeling better. She was managed with nebulizers and IV solumedrol with significant improvement in symptoms. She is being discharge to basic care facility. She is strongly advised on the dangers of continue tobacco use and she expressed understanding. She will follow with her PCP in 5 days. Patient was noted to have leukocytosis which was thought to be due to steroids. Wbc is trending down. Diagnosis: Stroke: No - Discharge Data Discharge Date: 11/27/17 Discharge Disposition: Home, Self-Care 01 Condition: Stable - Discharge Diagnosis/Problem(s) (1) Poor appetite SNOMED Code(s): 24996629 ICD Code: R63.0 - ANOREXIA Status: Acute Current Visit: Yes (2) Acute exacerbation of chronic obstructive pulmonary disease (COPD) SNOMED Code(s): 476421499 ICD Code: J44.1 - CHRONIC OBSTRUCTIVE PULMONARY DISEASE W (ACUTE) EXACERBATION Status: Acute Current Visit: No (3) Hypoxia SNOMED Code(s): 097559161 ICD Code: R09.02 - HYPOXEMIA Status: Acute Current Visit: Yes (4) Weakness generalized SNOMED Code(s): 53906714 ICD Code: R53.1 - WEAKNESS Status: Acute Current Visit: Yes (5) Weakness generalized SNOMED Code(s): 61469925 ICD Code: R53.1 - WEAKNESS Status: Acute Current Visit: Yes (6) Anorexia SNOMED Code(s): 80501065 ICD Code: R63.0 - ANOREXIA Status: Acute Current Visit: Yes (7) Anorexia SNOMED Code(s): 57731706 ICD Code: R63.0 - ANOREXIA Status: Acute Current Visit: Yes (8) Left flank pain, chronic SNOMED Code(s): 612833721 ICD Code: R10.9 - UNSPECIFIED ABDOMINAL PAIN; G89.29 - OTHER CHRONIC PAIN Status: Acute Priority: High Current Visit: Yes (9) Leukocytosis SNOMED Code(s): 227664193, 510755577 ICD Code: D72.829 - ELEVATED WHITE BLOOD CELL COUNT, UNSPECIFIED Status: Acute Current Visit: Yes Qualifiers: Leukocytosis type: unspecified Qualified Code(s): D72.829 - Elevated white blood cell count, unspecified - Patient Summary/Data Consults: Consultations 11/24/17 11:15 Consult to Retort Or Condenser Press Operator [CONS] Routine Consult to Ship Propeller Finisher [CONS] Routine OT Evaluation and Treatment [CONS] Routine PT Evaluation and Treatment [CONS] Routine Respiratory Care Assess and Treatment [CONS] Routine - Patient Instructions Diet: Heart Healthy Diet Fluid Restriction: 2000 mL Activity: As Tolerated Showering/Bathing: May Shower Notify Provider of: Fever, Increased Pain, Swelling and Redness, Nausea and/or Vomiting - Discharge Plan Prescriptions/Med Rec: Azithromycin [Zithromax] 250 mg PO DAILY 4 Days #4 tab predniSONE [Prednisone] 20 mg PO DAILY 5 Days #10 tablet Home Medications: Home Meds Albuterol [Proair HFA] 2 puff INH Q4HR PRN 09/27/13 [History] Estrogens, Conjugated [Premarin] 1 tab PO DAILY 09/27/13 [History] Sertraline [Zoloft] 150 mg PO DAILY 09/27/13 [History] Albuterol/Ipratropium [DuoNeb 3.0-0.5 MG/3 ML] 1 ampule INH QID PRN 02/20/14 [ History] Pantoprazole [ProTONIX] 40 mg PO DAILY 10/01/14 [History] Gabapentin [Neurontin] 600 mg PO TID 11/01/14 [History] Budesonide [Pulmicort] 0.5 mg NEB BID 01/20/17 [History] Nicotine [Habitrol] 14 mg TRDERM DAILY 30 Days #30 patch 09/27/17 [Rx] Acetaminophen 3 tab PO QID PRN 10/07/17 [History] Formoterol Fumarate [Perforomist] 1 vial INH BID 10/07/17 [History] Ibuprofen 400 mg PO ASDIRECTED PRN 10/08/17 [History] Azithromycin [Zithromax] 250 mg PO DAILY 4 Days #4 tab 11/27/17 [Rx] predniSONE [Prednisone] 20 mg PO DAILY 5 Days #10 tablet 11/27/17 [Rx] Patient Handouts: Chronic Obstructive Pulmonary Disease Exacerbation, Easy-to- Read, Steps to Quit Smoking, [id number], Azithromycin tablets, Prednisone tablets Referrals: PCP,None [Primary Care Provider] - - Discharge Summary/Plan Comment DC Time >30 min.: Yes - General Info Admission Dx/Problem (Free Text: Admission Diagnosis/Problem Admission Diagnosis/Problem COPD, hypoxic respiratory failure due to chronic obstructive pulmonary disease Subjective Update: Waqar Thompson is 62 y/o F with PMH of COPD on home oxygen, continuous tobacco use, who was brought to the ER via EMS on account of increasing SOB, low energy and loss of appetite. She was admitted for acute on chronic respiratory failure due to COPD exacerbation. Seen on round this morning. Patient is feeling better. No new complaints. Functional Status: Reports: Pain Controlled - Review of Systems General: Reports: No Symptoms HEENT: Reports: No Symptoms Pulmonary: Reports: No Symptoms Cardiovascular: Reports: No Symptoms Gastrointestinal: Reports: No Symptoms Genitourinary: Reports: No Symptoms Musculoskeletal: Reports: No Symptoms Skin: Reports: No Symptoms Neurological: Reports: No Symptoms Psychiatric: Reports: No Symptoms - Patient Data Vitals - Most Recent: Last Vital Signs Temp 97.3 F 11/27/17 07:00 Pulse 79 11/27/17 07:00 Resp 18 11/27/17 07:00 BP 116/64 11/27/17 07:00 Pulse Ox 97 11/27/17 07:00 Weight - Most Recent: 115 lb 6.4 oz I&O - Last 24 hours: Intake & Output 11/26/17 11/27/17 11/27/17 22:59 06:59 14:59 Intake Total 360 873 440 Output Total 1300 Balance 360 -427 440 Lab Results - Last 24 hrs: Laboratory Results - last 24 hr 11/27/17 Range/Units 09:53 WBC 14.8 H (5.0-10.0) 10^3/uL RBC 4.50 (4.2-5.4) 10^6/uL Hgb 11.5 L (12.0-16.0) g/dL Hct 35.5 L (37.0-47.0) % MCV 78.9 L (80-100) fL MCH 25.6 L (27.0-34.0) pg MCHC 32.4 L (33.0-35.0) g/dL Plt Count 272 (150-450) 10^3/uL Neut % (Auto) 74.9 (42.2-75.2) % Lymph % (Auto) 17.7 L (20.5-50.1) % [place] % (Auto) 7.2 (2-8) % Eos % (Auto) 0.1 L (1.0-3.0) % Baso % (Auto) 0.1 (0.0-1.0) % BRENDA Results - Last 24 hrs: Microbiology 11/24/17 09:20 Aerobic Blood Culture - Preliminary Blood - Venous - Lab Draw NO GROWTH AFTER 3 DAYS Anaerobic Blood Culture - Preliminary NO GROWTH AFTER 3 DAYS 11/24/17 09:10 Aerobic Blood Culture - Preliminary Blood - Venous NO GROWTH AFTER 3 DAYS Anaerobic Blood Culture - Preliminary NO GROWTH AFTER 3 DAYS Med Orders - Current: Current Medications Acetaminophen (Tylenol) 650 mg PO Q4H PRN PRN Reason: Pain (Mild 1-3)/fever Last Admin: 11/27/17 08:09 Dose: 650 mg Albuterol (Proventil Hfa) 0 gm INH Q4HR PRN PRN Reason: Dyspnea Albuterol/Ipratropium (Duoneb 3.0-0.5 Mg/3 Ml) 3 ml NEB Q4H [facility] Last Admin: 11/27/17 05:52 Dose: 3 ml Budesonide (Pulmicort) 0.5 mg NEB BID [facility] Last Admin: 11/26/17 20:42 Dose: 0.5 mg Docusate Sodium (Colace) 100 mg PO BID PRN PRN Reason: Constipation Gabapentin (Neurontin) 600 mg PO TID [facility] Last Admin: 11/27/17 08:07 Dose: 600 mg Heparin Sodium (Porcine) (Heparin Sodium) 5,000 units SUBCUT Q12H [facility] Last Admin: 11/26/17 21:22 Dose: 5,000 units Azithromycin 500 mg/ Sodium (Chloride) 250 mls @ 250 mls/hr IV Q24H [facility] Last Infusion: 11/26/17 14:45 Dose: Infused Lactulose (Cephulac) 10 gm PO TID PRN PRN Reason: Constipation Magnesium Hydroxide (Milk Of Magnesia) 30 ml PO Q12H PRN PRN Reason: Constipation Methylprednisolone Sodium Succinate (Solu-Medrol) 40 mg IVPUSH Q12H [facility] Last Admin: 11/26/17 21:09 Dose: 40 mg Nicotine (Habitrol) 14 mg TRDERM DAILY [facility] Last Admin: 11/27/17 08:05 Dose: 14 mg Estrogens, Conjugated [Premarin ] 0.9mg Tab 1 tab PO DAILY [facility] Ondansetron HCl (Zofran Odt) 8 mg PO Q4H PRN PRN Reason: nausea, able to take PO Last Admin: 11/26/17 14:21 Dose: 8 mg Ondansetron HCl (Zofran) 4 mg IVPUSH Q6H PRN PRN Reason: Nausea/Vomiting Pantoprazole Sodium (Protonix) 40 mg PO ACBREAKFAST [facility] Last Admin: 11/27/17 05:51 Dose: 40 mg Promethazine HCl (Phenergan) 25 mg PO Q6H PRN PRN Reason: nausea, able to take PO Sertraline HCl (Zoloft) 150 mg PO DAILY [facility] Last Admin: 11/27/17 08:08 Dose: 150 mg Sodium Chloride (Saline Flush) 10 ml FLUSH ASDIRECTED PRN PRN Reason: Keep Vein Open Last Admin: 11/26/17 21:17 Dose: 10 ml Discontinued Medications Acetaminophen (Tylenol) mg PO QID PRN PRN Reason: Pain Albuterol/Ipratropium (Duoneb 3.0-0.5 Mg/3 Ml) 3 ml NEB ONETIME ONE Stop: 11/24/17 08:56 Last Admin: 11/24/17 09:48 Dose: 3 ml Albuterol/Ipratropium (Duoneb 3.0-0.5 Mg/3 Ml) 3 ml NEB Q4H [facility] Dextrose/Water (Dextrose 50% In Water) 50 ml IVPUSH ONETIME PRN PRN Reason: Hypoglycemia Heparin Sodium (Porcine) (Heparin Sodium) 5,000 units SUBCUT Q12H [facility] Last Admin: 11/25/17 12:56 Dose: 5,000 units Potassium Chloride 10 meq/ (Premix) 100 mls @ 100 mls/hr IV ONETIME ONE Stop: 11/24/17 12:32 Last Admin: 11/24/17 12:12 Dose: 100 mls/hr Ibuprofen (Motrin) 400 mg PO BID PRN PRN Reason: Pain Last Admin: 11/25/17 19:57 Dose: 400 mg Ibuprofen (Motrin) 400 mg PO ASDIRECTED PRN PRN Reason: Pain Insulin Aspart (Novolog) 0 unit SUBCUT ASDIRECTED [facility]; Protocol Iopamidol (Isovue-300 (61%)) 75 ml IVPUSH ONETIME ONE Stop: 11/25/17 04:20 Last Admin: 11/25/17 05:11 Dose: 75 ml Methylprednisolone Sodium Succinate (Solu-Medrol) 125 mg IVPUSH ONETIME ONE Stop: 11/24/17 08:56 Last Admin: 11/24/17 09:56 Dose: 125 mg Methylprednisolone Sodium Succinate (Solu-Medrol) 60 mg IVPUSH Q8H [facility] Last Admin: 11/26/17 02:27 Dose: 60 mg Morphine Sulfate (Morphine) 2 mg IVPUSH ONETIME ONE Stop: 11/25/17 04:08 Last Admin: 11/25/17 04:29 Dose: 2 mg Non-Formulary Medication (Formoterol Fumarate [Perforomist]) 1 vial INH BID [facility] Non-Formulary Medication (Gabapentin) 600 mg PO TID [facility] Pantoprazole Sodium (Protonix Iv) 40 mg IVPUSH ONETIME ONE Stop: 11/25/17 04:31 Last Admin: 11/25/17 04:37 Dose: 40 mg Pantoprazole Sodium (Protonix Iv) Confirm Administered Dose 40 mg .ROUTE .STK -MED ONE Stop: 11/25/17 04:28 Last Admin: 11/25/17 04:34 Dose: Not Given Senna/Docusate Sodium (Senna Plus) 1 tab PO BID PRN PRN Reason: Constipation Sertraline HCl (Zoloft) 150 mg PO BEDTIME [facility] Last Admin: 11/24/17 21:32 Dose: 150 mg
== END 2017-11-27 10:30 | disposition home or self-care (01) | DRG 190 ==
LOC: DL.ED 08:33 → UNDOADMIN 10:36 → DL.MS 10:36
PROVIDERS: ADMIT Student in an Organized Health Care Education/Training Program; ATTEND Student in an Organized Health Care Education/Training Program
DX: J44.1 Chronic obstructive pulmonary disease with (acute) exacerbation (principal); R09.02 Hypoxemia; H54.7 Unspecified visual loss; J96.21 Acute and chronic respiratory failure with hypoxia; K21.9 Gastro-esophageal reflux disease without esophagitis; G25.81 Restless legs syndrome; F32.9 Major depressive disorder, single episode, unspecified; F17.210 Nicotine dependence, cigarettes, uncomplicated; R63.0 Anorexia; R10.9 Unspecified abdominal pain; D72.829 Elevated white blood cell count, unspecified; Z87.891 Personal history of nicotine dependence; T38.0X5A Adverse effect of glucocorticoids and synthetic analogues, initial encounter; M19.90 Unspecified osteoarthritis, unspecified site; Z99.81 Dependence on supplemental oxygen; Z88.8 Allergy status to other drugs, medicaments and biological substances; Z88.6 Allergy status to analgesic agent; Z79.899 Other long term (current) drug therapy; Z79.890 Hormone replacement therapy; Z87.442 Personal history of urinary calculi
CPT/HCPCS: 36415; 71045; 80053; 83605; 83880; 85025; 87040 ×2; 96372; 99284; 99285; J2930; J7050; 36600; 74177; 80048; 81001; 82150; 82803; 83690; 94640; 97162-GP; 97165-GO; A9270-GY; C9113; J0456; J1644; J2270; J2920; J3480; Q9967

== ENCOUNTER 2019-06-17 17:13 | Inpatient (IN) | payer MEDICARE, MEDICAID ==
[2019-06-17] MEDS ORDERED: Aspirin 81 MG Tab.Chew PO ONE (19:18)
[2019-06-17] MEDS ORDERED: Sodium Chloride 0.9% 1,000 ML IV ONE (19:18)
[2019-06-17] MEDS ORDERED: Nitroglycerin 0.4 MG Tab.SL SL PRN (19:18)
[2019-06-17] MEDS: Morphine 2 MG/ML Syringe IVPUSH PRN ×2 (19:33→22:28)
[2019-06-17] MEDS ORDERED: Levofloxacin/Dextrose 5%-Water 500 MG in Premix Bag 1 BAG IV ONE (19:42)
[2019-06-17 19:54] LABS: ANION GAP 16.7; CHLORIDE,CL 100 mmol/L (101-111); SODIUM,NA 137 mmol/L (135-145)
[2019-06-17] MEDS ORDERED: Ondansetron 4 MG/2 ML SDV IVPUSH PRN (21:06)
[2019-06-17] MEDS ORDERED: Albuterol 0.083% 2.5 MG/3 ML Neb Soln NEB PRN (21:06)
[2019-06-17] MEDS ORDERED: Acetaminophen 325 MG Tab PO PRN (21:06)
[2019-06-17] MEDS ORDERED: Sodium Chloride 0.9% 1,000 ML IV SCH (21:15)
--- NOTE | 2019-06-17 21:24 | PCM.HP ---
H&P History of Present Illness - General Date of Service: 06/17/19 Admit Problem/Dx: Admission Diagnosis/Problem Admission Diagnosis/Problem Sepsis due to pneumonia Source of Information: Patient - History of Present Illness Initial Comments - Free Text/Narative: Is a 64-year-old female with medical history of COPD, chronic hypoxemic respiratory failure, gastroesophageal reflux disease. The patient presented to the emergency room with complaint of shortness of breath and cough which started 2 days ago. The cough was mild but has worsened over time. It is productive of brownish sputum. No hemoptysis. She has had associated fever mostly low grade. Also has increased wheezing. Denies nausea vomiting or change in bowel habit. Patient presented to the emergency room and was noted to be tachycardic. She was also found to have a white cell count of 22,000. She was a smoker up until 2 months ago when she quit. She is normally on 2 L/m of oxygen at home. Chest Pain Score (Numeric/FACES): 8 - Related Data Allergies/Adverse Reactions: Allergies Allergy/AdvReac Type Severity Reaction Status Date / Time tramadol HCl [From Ultram] Allergy Vomiting Verified 01/21/19 19:05 aspirin Allergy Abdominal Uncoded 01/21/19 19:05 Pain Home Medications: Home Meds Albuterol [Proair HFA] 2 puff INH Q4HR PRN 09/27/13 [History] Sertraline [Zoloft] 150 mg PO DAILY 09/27/13 [History] Albuterol/Ipratropium [DuoNeb 3.0-0.5 MG/3 ML] 3 ml INH Q6HR PRN 02/20/14 [ History] Pantoprazole [ProTONIX] 40 mg PO DAILY 10/01/14 [History] Gabapentin [Neurontin] 600 mg PO TID 11/01/14 [History] Budesonide [Pulmicort] 0.5 mg NEB BID 01/20/17 [History] Nicotine [Habitrol] 14 mg TRDERM DAILY 30 Days #30 patch 09/27/17 [Rx] Acetaminophen 650 mg PO QID PRN 10/07/17 [History] Ibuprofen 400 mg PO TID PRN 10/08/17 [History] Diltiazem [Cardizem CD] 120 mg PO DAILY 03/26/18 [History] Isosorbide Mononitrate [Imdur] 30 mg PO DAILY 03/26/18 [History] Tiotropium [Spiriva Handihaler] 18 mcg INH DAILY 06/08/18 [History] Codeine/Promethazine [Phenergan with Codeine] 5 ml PO Q4HR PRN 06/10/18 [History ] Ascorbic Acid [Vitamin C] 250 mg PO DAILY 01/21/19 [History] Benzonatate [Tessalon Perle] 100 mg PO TID PRN 01/21/19 [History] Estradiol [Estrace] 1 mg PO DAILY 01/21/19 [History] Ferrous Gluconate 324 mg PO DAILY 01/21/19 [History] Formoterol Fumarate [Perforomist] 20 mcg IH BID 01/21/19 [History] Ketotifen Fumarate [Alaway] 1 drop OP BID 01/21/19 [History] Polyethylene Glycol 3350 [MiraLAX] 17 gm PO DAILY 01/21/19 [History] Ranitidine HCl 150 mg PO BID 01/21/19 [History] Albuterol/Ipratropium [DuoNeb 3.0-0.5 MG/3 ML] 3 ml NEB TID 30 Days #90 neb 06/04 [Rx] levoFLOXacin [Levaquin] 500 mg PO Q24H 5 Days #5 tablet 01/26/19 [Rx] predniSONE [Prednisone] 1 mg PO DAILY 5 Days #5 tablet 01/26/19 [Rx] predniSONE [Prednisone] 5 mg PO DAILY 5 Days #5 tablet 01/26/19 [Rx] predniSONE [Prednisone] 10 mg PO DAILY 5 Days #5 tablet 01/26/19 [Rx] predniSONE [Prednisone] 20 mg PO DAILY 5 Days #5 tablet 01/26/19 [Rx] Past Medical History - Past Health History Medical/Surgical History: Denies Medical/Surgical History HEENT History: Reports: Impaired Vision, Other (See Below) Other HEENT History: near sided Cardiovascular History: Reports: None Other Cardiovascular History: has a stress test this coming Respiratory History: Reports: Bronchitis, Recurrent, COPD, SOB, TB, Other (See Below) Other Respiratory History: TB when pt. was a small child. 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 HAND History: Reports: , Other (See Below) Other OB/BYN History: nvd two children/ hysterectomy Musculoskeletal History: Reports: Arthritis, Other (See Below) Other Musculoskeletal History: arthritis , restless leg syndrome Neurological History: Reports: None Psychiatric History: Reports: Depression Endocrine/Metabolic History: Reports: None Hematologic History: Reports: None Immunologic History: Reports: None Oncologic (Cancer) History: Reports: None Dermatologic History: Reports: None - Infectious Disease History Infectious Disease History: Reports: Chicken Pox, Mumps, TB - Past Surgical History Head Surgeries/Procedures: Reports: None Respiratory Surgical History: Reports: None GI Surgical History: Reports: Appendectomy, Cholecystectomy Female Surgical History: Reports: Hysterectomy Musculoskeletal Surgical History: Reports: None Social & Family History - Family History Family Medical History: Noncontributory HEENT: Reports: None Cardiac: Reports: None Respiratory: Reports: None GI: Reports: None : Reports: None OBGYN: Reports: None - Tobacco Use Smoking Status *Q: Former Smoker Years of Tobacco use: 51 Packs/Tins Daily: 1 Used Tobacco, but Quit: Yes Month/Year Tobacco Last Used: 02/2019 Second Hand Smoke Exposure: No - Caffeine Use Caffeine Use: Reports: Coffee Other Caffeine Use: 3 cups - Recreational Drug Use Recreational Drug Use: No - Living Situation & Occupation Living situation: Reports: , with Family Occupation: Retired H&P Review of Systems - Review of Systems: Review Of Systems: See Below General: Reports: Fever, Chills Pulmonary: Reports: Shortness of Breath, Cough Cardiovascular: Reports: Dyspnea on Exertion Gastrointestinal: Reports: No Symptoms Genitourinary: Reports: No Symptoms Musculoskeletal: Reports: No Symptoms Psychiatric: Reports: No Symptoms Exam - Exam Exam: See Below - Vital Signs Vital Signs: Last Vital Signs Temp 37.5 C 06/17/19 18:47 Pulse 130 H 06/17/19 18:47 Resp 24 H 06/17/19 18:47 BP 132/66 06/17/19 19:36 Pulse Ox 93 L 06/17/19 18:47 Weight: 57.062 kg - Exam General: Alert, Oriented, Cooperative Neck: Supple Lungs: Decreased Breath Sounds, Rhonchi Cardiovascular: Tachycardia GI/Abdominal Exam: Normal Bowel Sounds, Soft, Non-Tender, No Organomegaly, No Distention, No Abnormal Bruit, No Mass, Pelvis Stable Extremities: Normal Range of Motion, Normal Capillary Refill Skin: Warm, Dry Psychiatric: Alert, Normal Mood, Anxious - Patient Data Lab Results Last 24 hrs: Laboratory Results - last 24 hr 06/17/19 06/17/19 06/17/19 Range/Units 19:18 19:26 19:26 WBC 22.4 H (5.0-10.0) 10^3/uL RBC 4.76 (4.2-5.4) 10^6/uL Hgb 13.5 (12.0-16.0) g/dL Hct 40.4 (37.0-47.0) % MCV 84.9 D (80-100) fL MCH 28.4 (27.0-34.0) pg MCHC 33.4 (33.0-35.0) g/dL Plt Count 246 (150-450) 10^3/uL Neut % (Auto) 81.7 H (42.2-75.2) % Lymph % (Auto) 11.2 L (20.5-50.1) % [place] % (Auto) 6.7 (2-8) % Eos % (Auto) 0.4 L (1.0-3.0) % Baso % (Auto) 0.0 (0.0-1.0) % Add Manual Diff Yes Neutrophils % (Manual) 81 H (42-75) % Band Neutrophils % 2 % Lymphocytes % (Manual) 13 L (20-50) % Monocytes % (Manual) 4 (2-8) % PT (9.0-12.0) SEC INR (0.9-1.2) D-Dimer, Quantitative (0-400) ng/mL Sodium 137 (135-145) mmol/L Potassium 3.7 (3.6-5.0) mmol/L Chloride 100 L (101-111) mmol/L Carbon Dioxide 24.0 D (21.0-31.0) mmol/L Anion Gap 16.7 BUN 12 (7-18) mg/dL Creatinine 0.7 (0.6-1.3) mg/dL Est Cr Clr Drug Dosing 57.55 mL/min Estimated GFR (MDRD) > 60 BUN/Creatinine Ratio 17.14 Glucose 105 (74-105) mg/dL Lactic Acid (0.5-2.2) mmol/L Calcium 9.0 (8.4-10.2) mg/dl Magnesium 1.7 L (1.8-2.5) mg/dL Total Bilirubin 0.4 (0.2-1.0) mg/dL AST 19 (10-42) IU/L ALT 13 (10-60) IU/L Alkaline Phosphatase 78 (42-121) IU/L Troponin I < 0.02 (0.00-0.02) ng/ml B-Natriuretic Peptide 19 (0-100) pg/ml Total Protein 7.5 (6.7-8.2) g/dl Albumin 4.1 (3.2-5.5) g/dl Globulin 3.4 Albumin/Globulin Ratio 1.21 Amylase (28-100) U/L Lipase (22-51) U/L 06/17/19 06/17/19 06/17/19 Range/Units 19:26 19:57 19:57 WBC (5.0-10.0) 10^3/uL RBC (4.2-5.4) 10^6/uL Hgb (12.0-16.0) g/dL Hct (37.0-47.0) % MCV (80-100) fL MCH (27.0-34.0) pg MCHC (33.0-35.0) g/dL Plt Count (150-450) 10^3/uL Neut % (Auto) (42.2-75.2) % Lymph % (Auto) (20.5-50.1) % [place] % (Auto) (2-8) % Eos % (Auto) (1.0-3.0) % Baso % (Auto) (0.0-1.0) % Add Manual Diff Neutrophils % (Manual) (42-75) % Band Neutrophils % % Lymphocytes % (Manual) (20-50) % Monocytes % (Manual) (2-8) % PT 9.8 (9.0-12.0) SEC INR 1.0 (0.9-1.2) D-Dimer, Quantitative 389 (0-400) ng/mL Sodium (135-145) mmol/L Potassium (3.6-5.0) mmol/L Chloride (101-111) mmol/L Carbon Dioxide (21.0-31.0) mmol/L Anion Gap BUN (7-18) mg/dL Creatinine (0.6-1.3) mg/dL Est Cr Clr Drug Dosing mL/min Estimated GFR (MDRD) BUN/Creatinine Ratio Glucose (74-105) mg/dL Lactic Acid 1.3 (0.5-2.2) mmol/L Calcium (8.4-10.2) mg/dl Magnesium (1.8-2.5) mg/dL Total Bilirubin (0.2-1.0) mg/dL AST (10-42) IU/L ALT (10-60) IU/L Alkaline Phosphatase (42-121) IU/L Troponin I (0.00-0.02) ng/ml B-Natriuretic Peptide (0-100) pg/ml Total Protein (6.7-8.2) g/dl Albumin (3.2-5.5) g/dl Globulin Albumin/Globulin Ratio Amylase 51 (28-100) U/L Lipase 22 (22-51) U/L Result Diagrams: 06/17/19 19:26 06/17/19 19:26 Sean Results Last 24 hrs: Microbiology 06/17/19 18:44 Influenza Type A Antigen Screen - Final Nasal Aspirate, Left NEGATIVE INFLUENZA A VIRUS AG REFERENCE RANGE: NEGATIVE Influenza Type B Antigen Screen - Final NEGATIVE INFLUENZA B VIRUS AG REFERENCE RANGE: NEGATIVE Problem List Initiated/Reviewed/Updated: Yes Orders Last 24hrs: Active Orders 24 hr Category Date Time Status Admission Diagnosis [ADT] Stat ADT 06/17/19 21:05 Ordered Admission Status [Patient Status] [ADT] Routine ADT 06/17/19 21:05 Active Patient Status [ADT] Routine ADT 06/17/19 21:06 Ordered Cardiac Monitoring [RC] . DIRECTED Care 06/17/19 19:19 Active EKG 12 Lead [EKG Documentation Completion] [RC] URGENT Care 06/17/19 19:02 Active Intake and Output [RC] QSHIFT Care 06/17/19 21:07 Ordered Oxygen Therapy [RC] PRN Care 06/17/19 21:06 Ordered RT Aerosol Therapy [RC] ASDIRECTED Care 06/17/19 21:08 Ordered Up ad Thi [RC] ASDIRECTED Care 06/17/19 21:06 Ordered VTE/DVT Education [RC] PER UNIT ROUTINE Care 06/17/19 21:06 Ordered Vital Signs [RC] Q4H Care 06/17/19 21:06 Ordered Respiratory Care Assess and Treatment [CONS] Routine Cons 06/17/19 21:06 Ordered Regular Diet [DIET] Diet 06/17/19 Dinner Ordered Chest 1V Frontal [CR] Urgent Exams 06/17/19 19:00 Taken CBC W/O DIFF,HEMOGRAM [HEME] AM Lab 06/18/19 05:11 Ordered CKMB [CHEM] Stat Lab 06/17/19 19:57 Received CULTURE BLOOD [BC] Stat Lab 06/17/19 19:17 Received CULTURE SPUTUM + SMEAR [RM] Stat Lab 06/17/19 21:06 Ordered MAGNESIUM [CHEM] Routine Lab 06/18/19 07:00 Ordered Acetaminophen [Tylenol] Med 06/17/19 21:06 Ordered 650 mg PO Q4H PRN Albuterol [Proventil Neb Soln] Med 06/17/19 21:06 Ordered 2.5 mg NEB Q2H PRN Albuterol/Ipratropium [DuoNeb 3.0-0.5 MG/3 ML] Med 06/17/19 21:15 Ordered 3 ml NEB Q4H Budesonide [Pulmicort] Med 06/18/19 09:00 Ordered 0.5 mg NEB BID Diltiazem [Cardizem CD] Med 06/18/19 09:00 Ordered 120 mg PO DAILY Doxycycline [Vibramycin] 100 mg Med 06/17/19 21:15 Ordered Sodium Chloride 0.9% [Normal Saline] 100 ml IV Q12H Enoxaparin [Lovenox] Med 06/18/19 09:00 Ordered 40 mg SUBCUT DAILY Gabapentin Med 06/18/19 09:00 Ordered 600 mg PO TID Isosorbide Mononitrate [Imdur] Med 06/18/19 09:00 Ordered 30 mg PO DAILY Morphine Med 06/17/19 19:18 Active 2 mg IVPUSH Q10M PRN Morphine Med 06/17/19 21:06 Ordered 2 mg IVPUSH Q2H PRN Nitroglycerin [Nitrostat] Med 06/17/19 19:18 Active 0.4 mg SL Q5M PRN Ondansetron [Zofran] Med 06/17/19 21:06 Ordered 4 mg IVPUSH Q6H PRN Pantoprazole [ProTONIX] Med 06/18/19 09:00 Ordered 40 mg PO DAILY Sertraline [Zoloft] Med 06/18/19 09:00 Ordered 150 mg PO DAILY Sodium Chloride 0.9% @ 125 MLS/HR (1000ml) Med 06/17/19 21:15 Ordered Sodium Chloride 0.9% [Normal Saline] 1,000 ml IV ASDIRECTED Sodium Chloride 0.9% [Normal Saline] 1,000 ml Med 06/17/19 19:18 Active IV .BOLUS cefTRIAXone [Rocephin] 1 gm Med 06/17/19 21:15 Ordered Sodium Chloride 0.9% [Normal Saline] 50 ml IV Q24H methylPREDNISolone Sod Succ [Solu-MEDROL] Med 06/17/19 21:15 Ordered 40 mg IVPUSH Q6H Resuscitation Status Routine Resus Stat 06/17/19 21:06 Ordered Medication Orders Acetaminophen (Tylenol) 650 mg PO Q4H PRN PRN Reason: Pain (Mild 1-3)/fever Albuterol (Proventil Neb Soln) 2.5 mg NEB Q2H PRN PRN Reason: shortness of breath/wheezing Albuterol/Ipratropium (Duoneb 3.0-0.5 Mg/3 Ml) 3 ml NEB Q4H [facility] Budesonide (Pulmicort) 0.5 mg NEB BID [facility] Diltiazem HCl (Cardizem Cd) 120 mg PO DAILY [facility] Enoxaparin Sodium (Lovenox) 40 mg SUBCUT DAILY [facility] Sodium Chloride (Normal Saline) 1,000 mls @ 50 mls/hr IV .BOLUS ONE Stop: 06/18/19 15:17 Last Admin: 06/17/19 19:32 Dose: 50 mls/hr Sodium Chloride (Normal Saline) 1,000 mls @ 125 mls/hr IV ASDIRECTED [facility] Ceftriaxone Sodium 1 gm/ (Sodium Chloride) 50 mls @ 50 mls/hr IV Q24H [facility] Doxycycline Hyclate 100 mg/ (Sodium Chloride) 100 mls @ 100 mls/hr IV Q12H [facility] Isosorbide Mononitrate (Imdur) 30 mg PO DAILY [facility] Methylprednisolone Sodium Succinate (Solu-Medrol) 40 mg IVPUSH Q6H [facility] Morphine Sulfate (Morphine) 2 mg IVPUSH Q10M PRN PRN Reason: Chest Pain Stop: 06/18/19 19:19 Last Admin: 06/17/19 19:33 Dose: 2 mg Morphine Sulfate (Morphine) 2 mg IVPUSH Q2H PRN PRN Reason: Pain (severe 7-10) Nitroglycerin (Nitrostat) 0.4 mg SL Q5M PRN PRN Reason: Chest Pain Stop: 06/18/19 19:19 Last Admin: 06/17/19 19:36 Dose: 0.4 mg Non-Formulary Medication (Gabapentin) 600 mg PO TID [facility] Ondansetron HCl (Zofran) 4 mg IVPUSH Q6H PRN PRN Reason: Nausea/Vomiting Pantoprazole Sodium (Protonix) 40 mg PO DAILY [facility] Sertraline HCl (Zoloft) 150 mg PO DAILY [facility] Assessment/Plan Comment:: #. Sepsis The patient presented tachycardic and short of breath Was found to have white cell count 22,000 This is secondary to pneumonia #. Pneumonia Likely community-acquired There is question of cavitation Raises concern about staphylococcal pneumonia #. COPD exacerbation Likely triggered by pneumonia #. Hypomagnesemia Serum magnesium is 1.7 #. Chronic hypoxemic respiratory failure Patient is on 2 L/m of oxygen Plan: Admit patient to medical floor Intravenous ceftriaxone Intravenous doxycycline Send sputum for Gram stain and cultures I will add vancomycin to patient antibiotic regimen We'll consider obtain a CT scan of the chest if no improvement in the next 24 hours Intravenous fluid Nebulized bronchodilators, DuoNeb and albuterol Start intravenous Solu Medrol 40 mg every 8 hours.
[2019-06-17] MEDS ORDERED: Doxycycline 100 MG in Sodium Chloride 0.9% 100 ML IV SCH (22:00)
[2019-06-17] MEDS: methylPREDNISolone Sodium Succinate 40 MG/1 ML SDV IVPUSH SCH (22:28)
[2019-06-17] MEDS: cefTRIAXone 1 GM in Sodium Chloride 0.9% 50 ML IV SCH (22:28)
[2019-06-17] MEDS: Albuterol/Ipratropium 3.0-0.5 MG/3 ML Neb Soln NEB SCH (23:29)
[2019-06-18] MEDS: Doxycycline 100 MG in Sodium Chloride 0.9% 100 ML IV SCH ×2 (00:04→11:39)
[2019-06-18] MEDS: Albuterol/Ipratropium 3.0-0.5 MG/3 ML Neb Soln NEB SCH ×7 (00:23→22:56)
[2019-06-18] MEDS: Morphine 2 MG/ML Syringe IVPUSH PRN ×7 (00:43→21:47)
[2019-06-18] MEDS: methylPREDNISolone Sodium Succinate 40 MG/1 ML SDV IVPUSH SCH ×4 (03:11→21:37)
[2019-06-18] MEDS: Pantoprazole 40 MG Tab.CR PO SCH (05:17)
[2019-06-18] MEDS: Diltiazem 120 MG Cap.CD PO SCH (08:08)
[2019-06-18] MEDS: Isosorbide Mononitrate 30 MG Tab.ER PO SCH (08:09)
[2019-06-18] MEDS: Sertraline 50 MG Tab PO SCH (08:09)
[2019-06-18] MEDS: Enoxaparin 40 MG/0.4 ML Syringe SUBCUT SCH (08:09)
[2019-06-18] MEDS: Gabapentin 300 MG Cap PO SCH ×2 (08:09→21:36)
[2019-06-18] MEDS ORDERED: Non-Formulary Medication 1 Each (Gabapentin 600 MG) PO SCH (09:00)
[2019-06-18] MEDS ORDERED: Budesonide 0.5 MG/2 ML Neb Susp NEB SCH (09:00)
[2019-06-18] MEDS ORDERED: Iopamidol 612 MG/ML 100 ML Bottle IVPUSH ONE (09:52)
--- NOTE | 2019-06-18 10:50 | PCM.PN ---
- General Info Date of Service: 06/18/19 Subjective Update: Patient continues to have cough. Continues to have shortness of breath. Intensity is better today compared to yesterday. Still having low-grade fever. Continue to require supplemental oxygen. - Review of Systems General: Reports: Weakness, Malaise HEENT: Reports: No Symptoms Pulmonary: Reports: Shortness of Breath, Cough Cardiovascular: Reports: Dyspnea on Exertion Gastrointestinal: Reports: No Symptoms Genitourinary: Reports: No Symptoms - Patient Data Vitals - Most Recent: Last Vital Signs Temp 36.5 C 06/18/19 07:38 Pulse 103 H 06/18/19 08:08 Resp 20 06/18/19 07:38 BP 116/53 L 06/18/19 08:09 Pulse Ox 96 06/18/19 07:38 Weight - Most Recent: 57.062 kg I&O - Last 24 Hours: Intake & Output 06/17/19 06/18/19 06/18/19 22:59 06:59 14:59 Intake Total 1340 360 Output Total 100 900 Balance -100 440 360 Lab Results Last 24 Hours: Laboratory Results - last 24 hr 06/17/19 06/17/19 06/17/19 Range/Units 19:18 19:26 19:26 WBC 22.4 H (5.0-10.0) 10^3/uL RBC 4.76 (4.2-5.4) 10^6/uL Hgb 13.5 (12.0-16.0) g/dL Hct 40.4 (37.0-47.0) % MCV 84.9 D (80-100) fL MCH 28.4 (27.0-34.0) pg MCHC 33.4 (33.0-35.0) g/dL Plt Count 246 (150-450) 10^3/uL Neut % (Auto) 81.7 H (42.2-75.2) % Lymph % (Auto) 11.2 L (20.5-50.1) % [place] % (Auto) 6.7 (2-8) % Eos % (Auto) 0.4 L (1.0-3.0) % Baso % (Auto) 0.0 (0.0-1.0) % Add Manual Diff Yes Neutrophils % (Manual) 81 H (42-75) % Band Neutrophils % 2 % Lymphocytes % (Manual) 13 L (20-50) % Monocytes % (Manual) 4 (2-8) % PT (9.0-12.0) SEC INR (0.9-1.2) D-Dimer, Quantitative (0-400) ng/mL Sodium 137 (135-145) mmol/L Potassium 3.7 (3.6-5.0) mmol/L Chloride 100 L (101-111) mmol/L Carbon Dioxide 24.0 D (21.0-31.0) mmol/L Anion Gap 16.7 BUN 12 (7-18) mg/dL Creatinine 0.7 (0.6-1.3) mg/dL Est Cr Clr Drug Dosing 57.55 mL/min Estimated GFR (MDRD) > 60 BUN/Creatinine Ratio 17.14 Glucose 105 (74-105) mg/dL Lactic Acid (0.5-2.2) mmol/L Calcium 9.0 (8.4-10.2) mg/dl Magnesium 1.7 L (1.8-2.5) mg/dL Total Bilirubin 0.4 (0.2-1.0) mg/dL AST 19 (10-42) IU/L ALT 13 (10-60) IU/L Alkaline Phosphatase 78 (42-121) IU/L CK-MB (CK-2) (0.4-4.7) ng/mL Troponin I < 0.02 (0.00-0.02) ng/ml B-Natriuretic Peptide 19 (0-100) pg/ml Total Protein 7.5 (6.7-8.2) g/dl Albumin 4.1 (3.2-5.5) g/dl Globulin 3.4 Albumin/Globulin Ratio 1.21 Amylase (28-100) U/L Lipase (22-51) U/L 06/17/19 06/17/19 06/17/19 Range/Units 19:26 19:57 19:57 WBC (5.0-10.0) 10^3/uL RBC (4.2-5.4) 10^6/uL Hgb (12.0-16.0) g/dL Hct (37.0-47.0) % MCV (80-100) fL MCH (27.0-34.0) pg MCHC (33.0-35.0) g/dL Plt Count (150-450) 10^3/uL Neut % (Auto) (42.2-75.2) % Lymph % (Auto) (20.5-50.1) % [place] % (Auto) (2-8) % Eos % (Auto) (1.0-3.0) % Baso % (Auto) (0.0-1.0) % Add Manual Diff Neutrophils % (Manual) (42-75) % Band Neutrophils % % Lymphocytes % (Manual) (20-50) % Monocytes % (Manual) (2-8) % PT (9.0-12.0) SEC INR (0.9-1.2) D-Dimer, Quantitative (0-400) ng/mL Sodium (135-145) mmol/L Potassium (3.6-5.0) mmol/L Chloride (101-111) mmol/L Carbon Dioxide (21.0-31.0) mmol/L Anion Gap BUN (7-18) mg/dL Creatinine (0.6-1.3) mg/dL Est Cr Clr Drug Dosing mL/min Estimated GFR (MDRD) BUN/Creatinine Ratio Glucose (74-105) mg/dL Lactic Acid 1.3 (0.5-2.2) mmol/L Calcium (8.4-10.2) mg/dl Magnesium (1.8-2.5) mg/dL Total Bilirubin (0.2-1.0) mg/dL AST (10-42) IU/L ALT (10-60) IU/L Alkaline Phosphatase (42-121) IU/L CK-MB (CK-2) 0.70 (0.4-4.7) ng/mL Troponin I (0.00-0.02) ng/ml B-Natriuretic Peptide (0-100) pg/ml Total Protein (6.7-8.2) g/dl Albumin (3.2-5.5) g/dl Globulin Albumin/Globulin Ratio Amylase 51 (28-100) U/L Lipase 22 (22-51) U/L 06/17/19 06/18/19 06/18/19 Range/Units 19:57 06:30 06:30 WBC 16.8 H (5.0-10.0) 10^3/uL RBC 4.31 (4.2-5.4) 10^6/uL Hgb 12.2 (12.0-16.0) g/dL Hct 37.0 (37.0-47.0) % MCV 85.8 (80-100) fL MCH 28.3 (27.0-34.0) pg MCHC 33.0 (33.0-35.0) g/dL Plt Count 243 (150-450) 10^3/uL Neut % (Auto) (42.2-75.2) % Lymph % (Auto) (20.5-50.1) % [place] % (Auto) (2-8) % Eos % (Auto) (1.0-3.0) % Baso % (Auto) (0.0-1.0) % Add Manual Diff Neutrophils % (Manual) (42-75) % Band Neutrophils % % Lymphocytes % (Manual) (20-50) % Monocytes % (Manual) (2-8) % PT 9.8 (9.0-12.0) SEC INR 1.0 (0.9-1.2) D-Dimer, Quantitative 389 (0-400) ng/mL Sodium (135-145) mmol/L Potassium (3.6-5.0) mmol/L Chloride (101-111) mmol/L Carbon Dioxide (21.0-31.0) mmol/L Anion Gap BUN (7-18) mg/dL Creatinine (0.6-1.3) mg/dL Est Cr Clr Drug Dosing mL/min Estimated GFR (MDRD) BUN/Creatinine Ratio Glucose (74-105) mg/dL Lactic Acid (0.5-2.2) mmol/L Calcium (8.4-10.2) mg/dl Magnesium 1.6 L (1.8-2.5) mg/dL Total Bilirubin (0.2-1.0) mg/dL AST (10-42) IU/L ALT (10-60) IU/L Alkaline Phosphatase (42-121) IU/L CK-MB (CK-2) (0.4-4.7) ng/mL Troponin I (0.00-0.02) ng/ml B-Natriuretic Peptide (0-100) pg/ml Total Protein (6.7-8.2) g/dl Albumin (3.2-5.5) g/dl Globulin Albumin/Globulin Ratio Amylase (28-100) U/L Lipase (22-51) U/L Sean Results Last 24 Hours: Microbiology 06/18/19 03:21 Gram Stain - Final Sputum - Expectorated 06/17/19 18:44 Influenza Type A Antigen Screen - Final Nasal Aspirate, Left NEGATIVE INFLUENZA A VIRUS AG REFERENCE RANGE: NEGATIVE Influenza Type B Antigen Screen - Final NEGATIVE INFLUENZA B VIRUS AG REFERENCE RANGE: NEGATIVE Med Orders - Current: Current Medications Acetaminophen (Tylenol) 650 mg PO Q4H PRN PRN Reason: Pain (Mild 1-3)/fever Albuterol (Proventil Neb Soln) 2.5 mg NEB Q2H PRN PRN Reason: shortness of breath/wheezing Albuterol/Ipratropium (Duoneb 3.0-0.5 Mg/3 Ml) 3 ml NEB Q4H [facility] Last Admin: 06/18/19 05:11 Dose: 3 ml Budesonide (Pulmicort) 0.5 mg NEB BID [facility] Diltiazem HCl (Cardizem Cd) 120 mg PO DAILY [facility] Last Admin: 06/18/19 08:08 Dose: 120 mg Enoxaparin Sodium (Lovenox) 40 mg SUBCUT DAILY [facility] Last Admin: 06/18/19 08:09 Dose: 40 mg Gabapentin (Neurontin) 600 mg PO BID [facility] Last Admin: 06/18/19 08:09 Dose: 600 mg Sodium Chloride (Normal Saline) 1,000 mls @ 50 mls/hr IV .BOLUS ONE Stop: 06/18/19 15:17 Last Infusion: 06/18/19 08:10 Dose: 125 mls/hr Sodium Chloride (Normal Saline) 1,000 mls @ 125 mls/hr IV ASDIRECTED [facility] Last Admin: 06/18/19 09:16 Dose: 125 mls/hr Ceftriaxone Sodium 1 gm/ (Sodium Chloride) 50 mls @ 50 mls/hr IV Q24H [facility] Last Admin: 06/17/19 22:28 Dose: 50 mls/hr Vancomycin HCl 1 gm/ Premix 200 mls @ 133.333 mls/hr IV Q24H [facility] Last Admin: 06/18/19 00:44 Dose: 133.333 mls/hr Doxycycline Hyclate 100 mg/ (Sodium Chloride) 100 mls @ 100 mls/hr IV Q12H [facility] Last Admin: 06/18/19 00:04 Dose: Not Given Isosorbide Mononitrate (Imdur) 30 mg PO DAILY [facility] Last Admin: 06/18/19 08:09 Dose: 30 mg Magnesium Oxide (Magnesium Oxide) 250 mg PO BIDM [facility] Methylprednisolone Sodium Succinate (Solu-Medrol) 40 mg IVPUSH Q6H [facility] Last Admin: 06/18/19 08:10 Dose: 40 mg Morphine Sulfate (Morphine) 2 mg IVPUSH Q10M PRN PRN Reason: Chest Pain Stop: 06/18/19 19:19 Last Admin: 06/17/19 22:28 Dose: 2 mg Morphine Sulfate (Morphine) 2 mg IVPUSH Q2H PRN PRN Reason: Pain (severe 7-10) Last Admin: 06/18/19 10:34 Dose: 2 mg Nitroglycerin (Nitrostat) 0.4 mg SL Q5M PRN PRN Reason: Chest Pain Stop: 06/18/19 19:19 Last Admin: 06/17/19 19:36 Dose: 0.4 mg Ondansetron HCl (Zofran) 4 mg IVPUSH Q6H PRN PRN Reason: Nausea/Vomiting Pantoprazole Sodium (Protonix) 40 mg PO ACBREAKFAST [facility] Last Admin: 06/18/19 05:17 Dose: 40 mg Sertraline HCl (Zoloft) 150 mg PO DAILY [facility] Last Admin: 06/18/19 08:09 Dose: 150 mg Vancomycin HCl (Pharmacy To Dose - Vancomycin) 1 dose .XX ASDIRECTED [facility] Discontinued Medications Aspirin (Aspirin) 324 mg PO ONETIME ONE Stop: 06/17/19 19:19 Last Admin: 06/17/19 19:36 Dose: 324 mg Levofloxacin/Dextrose 500 mg/ (Premix) 100 mls @ 100 mls/hr IV ONETIME ONE Stop: 06/17/19 20:41 Last Admin: 06/17/19 20:09 Dose: 100 mls/hr Doxycycline Hyclate 100 mg/ (Sodium Chloride) 100 mls @ 100 mls/hr IV Q12H [facility] Last Admin: 06/17/19 23:36 Dose: 100 mls/hr Iopamidol (Isovue-300 (61%)) 100 ml IVPUSH ONETIME ONE Stop: 06/18/19 09:53 Non-Formulary Medication (Gabapentin) 600 mg PO TID [facility] - Exam Quality Assessment: Supplemental Oxygen General: Alert, Oriented, Cooperative HEENT: Pupils Equal, Pupils Reactive, EOMI, Mucous Membr. Moist/[place] Neck: Supple Lungs: Decreased Breath Sounds, Crackles, Rhonchi Cardiovascular: Regular Rate, Regular Rhythm GI/Abdominal Exam: Normal Bowel Sounds, Soft, Non-Tender, No Organomegaly, No Distention, No Abnormal Bruit, No Mass, Pelvis Stable Extremities: Pedal Edema Sepsis Event Note - Evaluation Sepsis Screening Result: Sepsis Risk - Focused Exam Vital Signs: Vital Signs Temp Pulse Pulse Resp BP BP BP 06/18/19 08:09 116/53 L 06/18/19 08:08 103 H 116/53 L 06/18/19 07:38 36.5 C 103 H 20 116/53 L 06/18/19 05:14 93 06/18/19 05:00 36.1 C 93 20 122/60 06/18/19 00:50 37.2 C 106 H 20 108/51 L Pulse Ox Pulse Ox 06/18/19 08:09 06/18/19 08:08 06/18/19 07:38 96 06/18/19 05:14 94 L 06/18/19 05:00 94 L 06/18/19 00:50 95 Date Exam was Performed: 06/18/19 Time Exam was Performed: 10:47 - Problem List Review Problem List Initiated/Reviewed/Updated: Yes - My Orders Last 24 Hours: My Active Orders 06/17/19 21:00 cefTRIAXone [Rocephin] 1 gm Sodium Chloride 0.9% [Normal Saline] 50 ml IV Q24H methylPREDNISolone Sod Succ [Solu-MEDROL] 40 mg IVPUSH Q6H 06/17/19 21:06 Patient Status [ADT] Routine Oxygen Therapy [RC] PRN Up ad Thi [RC] ASDIRECTED VTE/DVT Education [RC] Vital Signs [RC] Q4H Respiratory Care Assess and Treatment [CONS] Routine Acetaminophen [Tylenol] 650 mg PO Q4H PRN Albuterol [Proventil Neb Soln] 2.5 mg NEB Q2H PRN Morphine 2 mg IVPUSH Q2H PRN Ondansetron [Zofran] 4 mg IVPUSH Q6H PRN Resuscitation Status Routine 06/17/19 21:07 Intake and Output [RC] QSHIFT 06/17/19 21:08 RT Aerosol Therapy [RC] 0115,[id number] 06/17/19 21:15 Albuterol/Ipratropium [DuoNeb 3.0-0.5 MG/3 ML] 3 ml NEB Q4H Sodium Chloride 0.9% [Normal Saline] 1,000 ml IV ASDIRECTED 06/17/19 Dinner Regular Diet [DIET] 06/18/19 00:00 Doxycycline [Vibramycin] 100 mg Sodium Chloride 0.9% [Normal Saline] 100 ml IV Q12H 06/18/19 01:00 Vancomycin/Water for INJ (PEG) [Vancomycin 1 GM/200 ML Premix] 1 gm Premix Bag 1 bag IV Q24H 06/18/19 03:21 CULTURE SPUTUM + SMEAR [RM] Stat 06/18/19 06:00 Pantoprazole [ProTONIX] 40 mg PO ACBREAKFAST 06/18/19 09:00 Budesonide [Pulmicort] 0.5 mg NEB BID Diltiazem [Cardizem CD] 120 mg PO DAILY Enoxaparin [Lovenox] 40 mg SUBCUT DAILY Gabapentin [Neurontin] 600 mg PO BID Isosorbide Mononitrate [Imdur] 30 mg PO DAILY Sertraline [Zoloft] 150 mg PO DAILY 06/18/19 09:45 Chest w Cont [CT] Routine 06/18/19 12:00 Magnesium Oxide 250 mg PO BIDM 06/19/19 05:00 BASIC METABOLIC PANEL,BMP [CHEM] Routine CBC W/O DIFF,HEMOGRAM [HEME] Routine - Plan Plan:: #. Sepsis The patient presented tachycardic and short of breath Was found to have white cell count 22,000 This is secondary to pneumonia #. Pneumonia Likely community-acquired There is question of cavitation Raises concern about staphylococcal pneumonia #. COPD exacerbation Likely triggered by pneumonia #. Hypomagnesemia Serum magnesium is 1.6 #. Chronic hypoxemic respiratory failure Patient is on 2 L/m of oxygen Plan: Obtain CT scan of the chest Replace magnesium deficit and start patient on magnesium oxide Obtain repeat complete blood count Obtain repeat basic metabolic panel
[2019-06-18] MEDS: Acetaminophen/oxyCODONE 325-5 MG Tab PO PRN ×2 (11:40→18:30)
[2019-06-18] MEDS: Budesonide 0.5 MG/2 ML Neb Susp NEB SCH (18:30)
[2019-06-18] MEDS: ALPRAZolam 0.25 MG Tab PO PRN (18:30)
[2019-06-18] MEDS: cefTRIAXone 1 GM in Sodium Chloride 0.9% 50 ML IV SCH (21:37)
[2019-06-19] MEDS: Doxycycline 100 MG in Sodium Chloride 0.9% 100 ML IV SCH ×2 (00:59→13:01)
[2019-06-19] MEDS: Acetaminophen/oxyCODONE 325-5 MG Tab PO PRN ×4 (01:09→22:16)
[2019-06-19] MEDS: methylPREDNISolone Sodium Succinate 40 MG/1 ML SDV IVPUSH SCH ×2 (02:22→08:37)
[2019-06-19] MEDS: Albuterol/Ipratropium 3.0-0.5 MG/3 ML Neb Soln NEB SCH ×6 (02:28→22:18)
[2019-06-19] MEDS: Pantoprazole 40 MG Tab.CR PO SCH (05:31)
[2019-06-19 06:58] LABS: ANION GAP 14.1; CHLORIDE,CL 105 mmol/L (101-111); SODIUM,NA 139 mmol/L (135-145)
[2019-06-19] MEDS: Budesonide 0.5 MG/2 ML Neb Susp NEB SCH ×2 (07:25→22:20)
[2019-06-19] MEDS: Diltiazem 120 MG Cap.CD PO SCH (08:35)
[2019-06-19] MEDS: Enoxaparin 40 MG/0.4 ML Syringe SUBCUT SCH (08:35)
[2019-06-19] MEDS: Sertraline 50 MG Tab PO SCH (08:36)
[2019-06-19] MEDS: Gabapentin 300 MG Cap PO SCH ×2 (08:36→20:32)
[2019-06-19] MEDS: Isosorbide Mononitrate 30 MG Tab.ER PO SCH (08:36)
[2019-06-19] MEDS: Morphine 2 MG/ML Syringe IVPUSH PRN ×2 (09:45→20:30)
--- NOTE | 2019-06-19 11:22 | PCM.PN ---
- General Info Date of Service: 06/19/19 Subjective Update: Patient continues to have some shortness of breath Still complains of right-sided chest pain especially when she coughs No fever overnight. Wheezing less - Review of Systems General: Reports: Weakness, Malaise HEENT: Reports: No Symptoms Pulmonary: Reports: Shortness of Breath - Patient Data Vitals - Most Recent: Last Vital Signs Temp 36.6 C 06/19/19 08:00 Pulse 100 06/19/19 08:35 Resp 20 06/19/19 08:00 BP 117/66 06/19/19 08:36 Pulse Ox 96 06/19/19 08:00 Weight - Most Recent: 57.062 kg I&O - Last 24 Hours: Intake & Output 06/18/19 06/19/19 06/19/19 22:59 06:59 14:59 Intake Total 400 510 540 Output Total 1400 1400 900 Balance -1000 -300 -360 Lab Results Last 24 Hours: Laboratory Results - last 24 hr 06/19/19 06/19/19 Range/Units 05:35 05:35 WBC 19.4 H (5.0-10.0) 10^3/uL RBC 3.82 L (4.2-5.4) 10^6/uL Hgb 10.8 L (12.0-16.0) g/dL Hct 33.1 L (37.0-47.0) % MCV 86.6 (80-100) fL MCH 28.3 (27.0-34.0) pg MCHC 32.6 L (33.0-35.0) g/dL Plt Count 243 (150-450) 10^3/uL Sodium 139 (135-145) mmol/L Potassium 3.1 L (3.6-5.0) mmol/L Chloride 105 (101-111) mmol/L Carbon Dioxide 23.0 (21.0-31.0) mmol/L Anion Gap 14.1 BUN 18 (7-18) mg/dL Creatinine 0.5 L (0.6-1.3) mg/dL Est Cr Clr Drug Dosing 80.57 mL/min Estimated GFR (MDRD) > 60 Glucose 150 H (74-105) mg/dL Calcium 8.6 (8.4-10.2) mg/dl Sean Results Last 24 Hours: Microbiology 06/17/19 19:17 Aerobic Blood Culture - Preliminary Blood NO GROWTH AFTER 1 DAY Anaerobic Blood Culture - Preliminary NO GROWTH AFTER 1 DAY 06/18/19 03:21 Gram Stain - Final Sputum - Expectorated Med Orders - Current: Current Medications Acetaminophen (Tylenol) 650 mg PO Q4H PRN PRN Reason: Pain (Mild 1-3)/fever Albuterol (Proventil Neb Soln) 2.5 mg NEB Q2H PRN PRN Reason: shortness of breath/wheezing Albuterol/Ipratropium (Duoneb 3.0-0.5 Mg/3 Ml) 3 ml NEB Q4HRRT [facility] Last Admin: 06/19/19 07:25 Dose: 3 ml Alprazolam (Xanax) 0.25 mg PO TID PRN PRN Reason: Anxiety Last Admin: 06/18/19 18:30 Dose: 0.25 mg Budesonide (Pulmicort) 0.5 mg NEB BIDRT [facility] Last Admin: 06/19/19 07:25 Dose: 0.5 mg Diltiazem HCl (Cardizem Cd) 120 mg PO DAILY [facility] Last Admin: 06/19/19 08:35 Dose: 120 mg Enoxaparin Sodium (Lovenox) 40 mg SUBCUT DAILY [facility] Last Admin: 06/19/19 08:35 Dose: 40 mg Gabapentin (Neurontin) 600 mg PO BID [facility] Last Admin: 06/19/19 08:36 Dose: 600 mg Ceftriaxone Sodium 1 gm/ (Sodium Chloride) 50 mls @ 50 mls/hr IV Q24H [facility] Last Admin: 06/18/19 21:37 Dose: 50 mls/hr Doxycycline Hyclate 100 mg/ (Sodium Chloride) 100 mls @ 100 mls/hr IV Q12H [facility] Last Admin: 06/19/19 00:59 Dose: 100 mls/hr Isosorbide Mononitrate (Imdur) 30 mg PO DAILY [facility] Last Admin: 06/19/19 08:36 Dose: 30 mg Magnesium Oxide (Magnesium Oxide) 250 mg PO BIDM [facility] Last Admin: 06/19/19 08:35 Dose: 250 mg Morphine Sulfate (Morphine) 2 mg IVPUSH Q6H PRN PRN Reason: Pain (severe 7-10) Last Admin: 06/19/19 09:45 Dose: 2 mg Oxycodone/Acetaminophen (Percocet 325-5 Mg) 1 tab PO Q6H PRN PRN Reason: Chest Pain Last Admin: 06/19/19 08:36 Dose: 1 tab Pantoprazole Sodium (Protonix) 40 mg PO ACBREAKFAST [facility] Last Admin: 06/19/19 05:31 Dose: 40 mg Prednisone (Prednisone) 40 mg PO WITHBREAKFAST [facility] Sertraline HCl (Zoloft) 150 mg PO DAILY [facility] Last Admin: 06/19/19 08:36 Dose: 150 mg Sodium Chloride (Saline Flush) 10 ml FLUSH ASDIRECTED PRN PRN Reason: Keep Vein Open Vancomycin HCl (Pharmacy To Dose - Vancomycin) 1 dose .XX ASDIRECTED [facility] Discontinued Medications Albuterol/Ipratropium (Duoneb 3.0-0.5 Mg/3 Ml) 3 ml NEB Q4H [facility] Last Admin: 06/18/19 11:54 Dose: Not Given Aspirin (Aspirin) 324 mg PO ONETIME ONE Stop: 06/17/19 19:19 Last Admin: 06/17/19 19:36 Dose: 324 mg Budesonide (Pulmicort) 0.5 mg NEB BID [facility] Last Admin: 06/18/19 11:54 Dose: Not Given Sodium Chloride (Normal Saline) 1,000 mls @ 50 mls/hr IV .BOLUS ONE Stop: 06/18/19 15:17 Last Infusion: 06/18/19 08:10 Dose: 125 mls/hr Levofloxacin/Dextrose 500 mg/ (Premix) 100 mls @ 100 mls/hr IV ONETIME ONE Stop: 06/17/19 20:41 Last Admin: 06/17/19 20:09 Dose: 100 mls/hr Sodium Chloride (Normal Saline) 1,000 mls @ 125 mls/hr IV ASDIRECTED [facility] Last Admin: 06/18/19 09:16 Dose: 125 mls/hr Doxycycline Hyclate 100 mg/ (Sodium Chloride) 100 mls @ 100 mls/hr IV Q12H [facility] Last Admin: 06/17/19 23:36 Dose: 100 mls/hr Vancomycin HCl 1 gm/ Premix 200 mls @ 133.333 mls/hr IV Q24H [facility] Last Infusion: 06/19/19 05:32 Dose: Infused Iopamidol (Isovue-300 (61%)) 100 ml IVPUSH ONETIME ONE Stop: 06/18/19 09:53 Last Admin: 06/18/19 11:08 Dose: 75 ml Methylprednisolone Sodium Succinate (Solu-Medrol) 40 mg IVPUSH Q6H [facility] Last Admin: 06/19/19 08:37 Dose: 40 mg Morphine Sulfate (Morphine) 2 mg IVPUSH Q10M PRN PRN Reason: Chest Pain Stop: 06/18/19 19:19 Last Admin: 06/17/19 22:28 Dose: 2 mg Morphine Sulfate (Morphine) 2 mg IVPUSH Q2H PRN PRN Reason: Pain (severe 7-10) Last Admin: 06/18/19 10:34 Dose: 2 mg Nitroglycerin (Nitrostat) 0.4 mg SL Q5M PRN PRN Reason: Chest Pain Stop: 06/18/19 19:19 Last Admin: 06/17/19 19:36 Dose: 0.4 mg Non-Formulary Medication (Gabapentin) 600 mg PO TID [facility] Ondansetron HCl (Zofran) 4 mg IVPUSH Q6H PRN PRN Reason: Nausea/Vomiting - Exam Quality Assessment: Supplemental Oxygen General: Alert, Oriented, Cooperative HEENT: Pupils Equal, Pupils Reactive, EOMI, Mucous Membr. Moist/[place] Neck: Supple Lungs: Decreased Breath Sounds, Rhonchi Cardiovascular: Regular Rate, Regular Rhythm Extremities: Normal Inspection Sepsis Event Note - Evaluation Sepsis Screening Result: Sepsis Risk - Focused Exam Vital Signs: Vital Signs Temp Pulse Pulse Resp BP BP Pulse Ox 06/19/19 08:36 117/66 06/19/19 08:35 100 117/66 06/19/19 08:00 36.6 C 100 20 117/66 96 06/19/19 07:25 96 06/19/19 05:15 98 06/19/19 04:00 36.9 C 108 H 18 123/68 96 06/19/19 01:15 98 06/19/19 00:00 36.8 C 105 H 18 104/57 L 98 Date Exam was Performed: 06/19/19 Time Exam was Performed: 11:19 - Problem List Review Problem List Initiated/Reviewed/Updated: Yes - My Orders Last 24 Hours: My Active Orders 06/18/19 10:55 Flutter Valve Therapy [RT Chest Physiotherapy] [RC] ASDIRECTED Incentive Breathing [RT Incentive Spirometry] [RC] Q2HWA 06/18/19 10:56 Acetaminophen/oxyCODONE [Percocet 325-5 MG] 1 tab PO Q6H PRN Morphine 2 mg IVPUSH Q6H PRN 06/18/19 11:21 Sodium Chloride 0.9% [Saline Flush] 10 ml FLUSH ASDIRECTED PRN Convert IV to Saline Lock [OM.PC] Routine 06/18/19 12:00 Magnesium Oxide 250 mg PO BIDM 06/18/19 15:00 Albuterol/Ipratropium [DuoNeb 3.0-0.5 MG/3 ML] 3 ml NEB Q4HRRT 06/18/19 18:00 Budesonide [Pulmicort] 0.5 mg NEB BIDRT 06/18/19 18:02 ALPRAZolam [Xanax] 0.25 mg PO TID PRN 06/20/19 05:11 CBC W/O DIFF,HEMOGRAM [HEME] AM 06/20/19 08:00 predniSONE 40 mg PO WITHBREAKFAST - Plan Plan:: #. Sepsis The patient presented tachycardic and short of breath Was found to have white cell count 22,000 This is secondary to pneumonia #. Pneumonia Likely community-acquired There is question of cavitation CT scan did not show any significant cavitation #. COPD exacerbation Likely triggered by pneumonia #. Hypomagnesemia Replaced #. Chronic hypoxemic respiratory failure Patient is on 2 L/m of oxygen Plan: Obtain repeat complete blood count Discontinue Solu Medrol Start patient on prednisone 40 mg daily Discontinue morphine. Continue Percocet Keep patient on doxycycline and Rocephin.
[2019-06-19] MEDS: ALPRAZolam 0.25 MG Tab PO PRN (18:19)
[2019-06-19] MEDS: Sodium Chloride 0.9% 10 ML Syringe FLUSH PRN ×2 (20:32→21:45)
[2019-06-19] MEDS: cefTRIAXone 1 GM in Sodium Chloride 0.9% 50 ML IV SCH (20:43)
[2019-06-20] MEDS: Sodium Chloride 0.9% 10 ML Syringe FLUSH PRN ×5 (00:05→23:42)
[2019-06-20] MEDS: Doxycycline 100 MG in Sodium Chloride 0.9% 100 ML IV SCH ×3 (00:06→23:42)
[2019-06-20] MEDS: Albuterol/Ipratropium 3.0-0.5 MG/3 ML Neb Soln NEB SCH ×6 (02:16→22:32)
[2019-06-20] MEDS: Morphine 2 MG/ML Syringe IVPUSH PRN ×2 (02:34→11:57)
[2019-06-20] MEDS: Pantoprazole 40 MG Tab.CR PO SCH (05:58)
[2019-06-20] MEDS: Budesonide 0.5 MG/2 ML Neb Susp NEB SCH ×2 (07:15→17:52)
[2019-06-20] MEDS: Acetaminophen/oxyCODONE 325-5 MG Tab PO PRN ×3 (07:48→20:02)
[2019-06-20] MEDS: predniSONE 20 MG Tab PO SCH (07:49)
[2019-06-20] MEDS: Sertraline 50 MG Tab PO SCH (08:46)
[2019-06-20] MEDS: Gabapentin 300 MG Cap PO SCH ×2 (08:47→20:02)
[2019-06-20] MEDS: Diltiazem 120 MG Cap.CD PO SCH (08:47)
[2019-06-20] MEDS: Enoxaparin 40 MG/0.4 ML Syringe SUBCUT SCH (08:48)
[2019-06-20] MEDS: Isosorbide Mononitrate 30 MG Tab.ER PO SCH (08:48)
--- NOTE | 2019-06-20 10:08 | PCM.PN ---
- General Info Date of Service: 06/20/19 Subjective Update: Patient has no new complaint today Continues to have some shortness of breath. She feels like she is almost at her baseline. Continues to cough. The cough is occasionally productive. No fever documented. Still on supplemental oxygen. However how white cell count has come up to 20,000. - Patient Data Vitals - Most Recent: Last Vital Signs Temp 36.6 C 06/20/19 08:04 Pulse 95 06/20/19 08:47 Resp 20 06/20/19 08:04 BP 128/67 06/20/19 08:48 Pulse Ox 95 06/20/19 08:04 Weight - Most Recent: 57.062 kg I&O - Last 24 Hours: Intake & Output 06/19/19 06/20/19 06/20/19 22:59 06:59 14:59 Intake Total 910 90 Output Total 1200 400 Balance -290 -310 Lab Results Last 24 Hours: Laboratory Results - last 24 hr 06/20/19 Range/Units 05:55 WBC 20.8 H (5.0-10.0) 10^3/uL RBC 3.85 L (4.2-5.4) 10^6/uL Hgb 10.9 L (12.0-16.0) g/dL Hct 33.5 L (37.0-47.0) % MCV 87.0 (80-100) fL MCH 28.3 (27.0-34.0) pg MCHC 32.5 L (33.0-35.0) g/dL Plt Count 263 (150-450) 10^3/uL Sean Results Last 24 Hours: Microbiology 06/18/19 03:21 Gram Stain - Final Sputum - Expectorated Sputum Culture - Preliminary [facility] 2 DAYS 06/17/19 19:17 Aerobic Blood Culture - Preliminary Blood NO GROWTH AFTER 2 DAYS Anaerobic Blood Culture - Preliminary NO GROWTH AFTER 2 DAYS Med Orders - Current: Current Medications Acetaminophen (Tylenol) 650 mg PO Q4H PRN PRN Reason: Pain (Mild 1-3)/fever Albuterol (Proventil Neb Soln) 2.5 mg NEB Q2H PRN PRN Reason: shortness of breath/wheezing Albuterol/Ipratropium (Duoneb 3.0-0.5 Mg/3 Ml) 3 ml NEB Q4HRRT [facility] Last Admin: 06/20/19 07:14 Dose: 3 ml Alprazolam (Xanax) 0.25 mg PO TID PRN PRN Reason: Anxiety Last Admin: 06/19/19 18:19 Dose: 0.25 mg Budesonide (Pulmicort) 0.5 mg NEB BIDRT [facility] Last Admin: 06/20/19 07:15 Dose: 0.5 mg Diltiazem HCl (Cardizem Cd) 120 mg PO DAILY [facility] Last Admin: 06/20/19 08:47 Dose: 120 mg Enoxaparin Sodium (Lovenox) 40 mg SUBCUT DAILY [facility] Last Admin: 06/20/19 08:48 Dose: 40 mg Gabapentin (Neurontin) 600 mg PO BID [facility] Last Admin: 06/20/19 08:47 Dose: 600 mg Ceftriaxone Sodium 1 gm/ (Sodium Chloride) 50 mls @ 50 mls/hr IV Q24H [facility] Last Admin: 06/19/19 20:43 Dose: 50 mls/hr Doxycycline Hyclate 100 mg/ (Sodium Chloride) 100 mls @ 100 mls/hr IV Q12H [facility] Last Admin: 06/20/19 00:06 Dose: 100 mls/hr Isosorbide Mononitrate (Imdur) 30 mg PO DAILY [facility] Last Admin: 06/20/19 08:48 Dose: 30 mg Magnesium Oxide (Magnesium Oxide) 250 mg PO BIDM [facility] Last Admin: 06/20/19 07:48 Dose: 250 mg Morphine Sulfate (Morphine) 2 mg IVPUSH Q6H PRN PRN Reason: Pain (severe 7-10) Last Admin: 06/20/19 02:34 Dose: 2 mg Oxycodone/Acetaminophen (Percocet 325-5 Mg) 1 tab PO Q6H PRN PRN Reason: Chest Pain Last Admin: 06/20/19 07:48 Dose: 1 tab Pantoprazole Sodium (Protonix) 40 mg PO ACBREAKFAST [facility] Last Admin: 06/20/19 05:58 Dose: 40 mg Prednisone (Prednisone) 40 mg PO WITHBREAKFAST [facility] Last Admin: 06/20/19 07:49 Dose: 40 mg Sertraline HCl (Zoloft) 150 mg PO DAILY [facility] Last Admin: 06/20/19 08:46 Dose: 150 mg Sodium Chloride (Saline Flush) 10 ml FLUSH ASDIRECTED PRN PRN Reason: Keep Vein Open Last Admin: 06/20/19 07:54 Dose: 10 ml Vancomycin HCl (Pharmacy To Dose - Vancomycin) 1 dose .XX ASDIRECTED [facility] Discontinued Medications Albuterol/Ipratropium (Duoneb 3.0-0.5 Mg/3 Ml) 3 ml NEB Q4H [facility] Last Admin: 06/18/19 11:54 Dose: Not Given Aspirin (Aspirin) 324 mg PO ONETIME ONE Stop: 06/17/19 19:19 Last Admin: 06/17/19 19:36 Dose: 324 mg Budesonide (Pulmicort) 0.5 mg NEB BID [facility] Last Admin: 06/18/19 11:54 Dose: Not Given Sodium Chloride (Normal Saline) 1,000 mls @ 50 mls/hr IV .BOLUS ONE Stop: 06/18/19 15:17 Last Infusion: 06/18/19 08:10 Dose: 125 mls/hr Levofloxacin/Dextrose 500 mg/ (Premix) 100 mls @ 100 mls/hr IV ONETIME ONE Stop: 06/17/19 20:41 Last Admin: 06/17/19 20:09 Dose: 100 mls/hr Sodium Chloride (Normal Saline) 1,000 mls @ 125 mls/hr IV ASDIRECTED [facility] Last Admin: 06/18/19 09:16 Dose: 125 mls/hr Doxycycline Hyclate 100 mg/ (Sodium Chloride) 100 mls @ 100 mls/hr IV Q12H [facility] Last Admin: 06/17/19 23:36 Dose: 100 mls/hr Vancomycin HCl 1 gm/ Premix 200 mls @ 133.333 mls/hr IV Q24H [facility] Last Infusion: 06/19/19 05:32 Dose: Infused Iopamidol (Isovue-300 (61%)) 100 ml IVPUSH ONETIME ONE Stop: 06/18/19 09:53 Last Admin: 06/18/19 11:08 Dose: 75 ml Methylprednisolone Sodium Succinate (Solu-Medrol) 40 mg IVPUSH Q6H [facility] Last Admin: 06/19/19 08:37 Dose: 40 mg Morphine Sulfate (Morphine) 2 mg IVPUSH Q10M PRN PRN Reason: Chest Pain Stop: 06/18/19 19:19 Last Admin: 06/17/19 22:28 Dose: 2 mg Morphine Sulfate (Morphine) 2 mg IVPUSH Q2H PRN PRN Reason: Pain (severe 7-10) Last Admin: 06/18/19 10:34 Dose: 2 mg Nitroglycerin (Nitrostat) 0.4 mg SL Q5M PRN PRN Reason: Chest Pain Stop: 06/18/19 19:19 Last Admin: 06/17/19 19:36 Dose: 0.4 mg Non-Formulary Medication (Gabapentin) 600 mg PO TID [facility] Ondansetron HCl (Zofran) 4 mg IVPUSH Q6H PRN PRN Reason: Nausea/Vomiting - Exam Quality Assessment: Supplemental Oxygen General: Alert, Oriented, Cooperative, No Acute Distress Neck: Supple Lungs: Rhonchi, Wheezing GI/Abdominal Exam: Normal Bowel Sounds, Soft, Non-Tender, No Organomegaly, No Distention, No Abnormal Bruit, No Mass, Pelvis Stable Extremities: Normal Inspection, Normal Range of Motion, Non-Tender, No Pedal Edema, Normal Capillary Refill Sepsis Event Note - Evaluation Sepsis Screening Result: Sepsis Risk - Focused Exam Vital Signs: Vital Signs Temp Pulse Pulse Resp BP BP Pulse Ox 06/20/19 08:48 128/67 06/20/19 08:47 95 128/67 06/20/19 08:04 36.6 C 95 20 128/67 95 06/20/19 03:15 37.0 C 85 20 127/73 97 06/20/19 03:00 85 06/20/19 00:00 36.8 C 92 20 133/71 97 06/19/19 23:00 92 Pulse Ox 06/20/19 08:48 06/20/19 08:47 06/20/19 08:04 06/20/19 03:15 06/20/19 03:00 97 06/20/19 00:00 06/19/19 23:00 97 Date Exam was Performed: 06/20/19 Time Exam was Performed: 10:05 - Problem List Review Problem List Initiated/Reviewed/Updated: Yes - My Orders Last 24 Hours: My Active Orders 06/20/19 08:00 predniSONE 40 mg PO WITHBREAKFAST 06/21/19 05:11 BASIC METABOLIC PANEL,BMP [CHEM] AM CBC W/O DIFF,HEMOGRAM [HEME] AM 06/21/19 06:00 B-TYPE NATRIURETIC PEPTIDE,BNP [CHEM] Routine MAGNESIUM [CHEM] Routine - Plan Plan:: #. Sepsis The patient presented tachycardic and short of breath Was found to have white cell count 22,000 This is secondary to pneumonia #. Pneumonia Likely community-acquired CT scan did not show any significant cavitation as suggested by chest x-ray #. COPD exacerbation Likely triggered by pneumonia #. Hypomagnesemia Replaced #. Chronic hypoxemic respiratory failure Patient is on 2 L/m of oxygen Plan: Obtain repeat serum magnesium White cell count is still elevated at 20,000 I will proceed to obtain a repeat complete blood count The elevated white cell count may be as a result of steroid therapy Obtain repeat basic metabolic panel Wean off oxygen as tolerated
[2019-06-20] MEDS: cefTRIAXone 1 GM in Sodium Chloride 0.9% 50 ML IV SCH (20:04)
[2019-06-21] MEDS: Acetaminophen/oxyCODONE 325-5 MG Tab PO PRN ×6 (00:03→20:52)
[2019-06-21] MEDS: ALPRAZolam 0.25 MG Tab PO PRN ×2 (02:03→20:52)
[2019-06-21] MEDS: Albuterol/Ipratropium 3.0-0.5 MG/3 ML Neb Soln NEB SCH ×6 (04:39→23:42)
[2019-06-21] MEDS: Pantoprazole 40 MG Tab.CR PO SCH (06:31)
[2019-06-21 07:01] LABS: ANION GAP 14.9; CHLORIDE,CL 99 mmol/L (101-111); SODIUM,NA 139 mmol/L (135-145)
[2019-06-21] MEDS: Budesonide 0.5 MG/2 ML Neb Susp NEB SCH ×2 (07:22→18:09)
[2019-06-21] MEDS ORDERED: Furosemide 20 MG/2 ML VIAL IVPUSH ONE (08:15)
[2019-06-21] MEDS: Sertraline 50 MG Tab PO SCH (08:47)
[2019-06-21] MEDS: Diltiazem 120 MG Cap.CD PO SCH (08:47)
[2019-06-21] MEDS: Gabapentin 300 MG Cap PO SCH ×2 (08:47→20:52)
[2019-06-21] MEDS: predniSONE 20 MG Tab PO SCH (08:48)
[2019-06-21] MEDS: Isosorbide Mononitrate 30 MG Tab.ER PO SCH (08:48)
[2019-06-21] MEDS: Enoxaparin 40 MG/0.4 ML Syringe SUBCUT SCH (08:49)
--- NOTE | 2019-06-21 08:59 | PCM.PN ---
- General Info Date of Service: 06/21/19 Subjective Update: Patient offers no new complaint today. Still has mild cough. Complains of right-sided pain when she coughs No fever No nausea and no vomiting Continues to require supplemental oxygen - Review of Systems General: Reports: Weakness, Malaise Pulmonary: Reports: Shortness of Breath, Pleuritic Chest Pain, Cough Cardiovascular: Reports: No Symptoms Gastrointestinal: Reports: No Symptoms - Patient Data Vitals - Most Recent: Last Vital Signs Temp 36.8 C 06/21/19 08:13 Pulse 91 06/21/19 08:47 Resp 20 06/21/19 08:13 BP 131/75 06/21/19 08:48 Pulse Ox 95 06/21/19 08:13 Weight - Most Recent: 57.062 kg I&O - Last 24 Hours: Intake & Output 06/20/19 06/21/19 06/21/19 22:59 06:59 14:59 Intake Total 510 300 Output Total 1500 1200 Balance -990 -900 Lab Results Last 24 Hours: Laboratory Results - last 24 hr 06/21/19 06/21/19 06/21/19 Range/Units 06:25 06:25 06:25 WBC 14.9 H (5.0-10.0) 10^3/uL RBC 4.20 (4.2-5.4) 10^6/uL Hgb 11.7 L (12.0-16.0) g/dL Hct 36.1 L (37.0-47.0) % MCV 86.0 (80-100) fL MCH 27.9 (27.0-34.0) pg MCHC 32.4 L (33.0-35.0) g/dL Plt Count 268 (150-450) 10^3/uL Sodium 139 (135-145) mmol/L Potassium 3.9 (3.6-5.0) mmol/L Chloride 99 L (101-111) mmol/L Carbon Dioxide 29.0 (21.0-31.0) mmol/L Anion Gap 14.9 BUN 21 H (7-18) mg/dL Creatinine 0.6 (0.6-1.3) mg/dL Est Cr Clr Drug Dosing 67.14 mL/min Estimated GFR (MDRD) > 60 Glucose 93 (74-105) mg/dL Calcium 9.2 (8.4-10.2) mg/dl Magnesium 2.1 (1.8-2.5) mg/dL B-Natriuretic Peptide 182 H (0-100) pg/ml Sean Results Last 24 Hours: Microbiology 06/18/19 03:21 Gram Stain - Final Sputum - Expectorated Sputum Culture - Preliminary 06/17/19 19:17 Aerobic Blood Culture - Preliminary Blood NO GROWTH AFTER 3 DAYS Anaerobic Blood Culture - Preliminary NO GROWTH AFTER 3 DAYS Med Orders - Current: Current Medications Acetaminophen (Tylenol) 650 mg PO Q4H PRN PRN Reason: Pain (Mild 1-3)/fever Albuterol (Proventil Neb Soln) 2.5 mg NEB Q2H PRN PRN Reason: shortness of breath/wheezing Albuterol/Ipratropium (Duoneb 3.0-0.5 Mg/3 Ml) 3 ml NEB Q4HRRT [facility] Last Admin: 06/21/19 07:22 Dose: 3 ml Alprazolam (Xanax) 0.25 mg PO TID PRN PRN Reason: Anxiety Last Admin: 06/21/19 02:03 Dose: 0.25 mg Budesonide (Pulmicort) 0.5 mg NEB BIDRT [facility] Last Admin: 06/21/19 07:22 Dose: 0.5 mg Diltiazem HCl (Cardizem Cd) 120 mg PO DAILY [facility] Last Admin: 06/21/19 08:47 Dose: 120 mg Enoxaparin Sodium (Lovenox) 40 mg SUBCUT DAILY [facility] Last Admin: 06/21/19 08:49 Dose: 40 mg Gabapentin (Neurontin) 600 mg PO BID [facility] Last Admin: 06/21/19 08:47 Dose: 600 mg Ceftriaxone Sodium 1 gm/ (Sodium Chloride) 50 mls @ 50 mls/hr IV Q24H [facility] Last Admin: 06/20/19 20:04 Dose: 50 mls/hr Doxycycline Hyclate 100 mg/ (Sodium Chloride) 100 mls @ 100 mls/hr IV Q12H [facility] Last Admin: 06/20/19 23:42 Dose: 100 mls/hr Isosorbide Mononitrate (Imdur) 30 mg PO DAILY [facility] Last Admin: 06/21/19 08:48 Dose: 30 mg Magnesium Oxide (Magnesium Oxide) 250 mg PO BIDM [facility] Last Admin: 06/21/19 08:48 Dose: 250 mg Oxycodone/Acetaminophen (Percocet 325-5 Mg) 1 tab PO Q4H PRN PRN Reason: Chest Pain Last Admin: 06/21/19 08:49 Dose: 1 tab Pantoprazole Sodium (Protonix) 40 mg PO ACBREAKFAST [facility] Last Admin: 06/21/19 06:31 Dose: 40 mg Polyethylene Glycol (Miralax) 17 gm PO DAILY [facility] Prednisone (Prednisone) 40 mg PO WITHBREAKFAST [facility] Last Admin: 06/21/19 08:48 Dose: 40 mg Sertraline HCl (Zoloft) 150 mg PO DAILY [facility] Last Admin: 06/21/19 08:47 Dose: 150 mg Sodium Chloride (Saline Flush) 10 ml FLUSH ASDIRECTED PRN PRN Reason: Keep Vein Open Last Admin: 06/20/19 23:42 Dose: 10 ml Discontinued Medications Albuterol/Ipratropium (Duoneb 3.0-0.5 Mg/3 Ml) 3 ml NEB Q4H [facility] Last Admin: 06/18/19 11:54 Dose: Not Given Aspirin (Aspirin) 324 mg PO ONETIME ONE Stop: 06/17/19 19:19 Last Admin: 06/17/19 19:36 Dose: 324 mg Budesonide (Pulmicort) 0.5 mg NEB BID [facility] Last Admin: 06/18/19 11:54 Dose: Not Given Furosemide (Lasix) 20 mg IVPUSH ONETIME ONE Stop: 06/21/19 08:16 Last Admin: 06/21/19 08:50 Dose: 20 mg Sodium Chloride (Normal Saline) 1,000 mls @ 50 mls/hr IV .BOLUS ONE Stop: 06/18/19 15:17 Last Infusion: 06/18/19 08:10 Dose: 125 mls/hr Levofloxacin/Dextrose 500 mg/ (Premix) 100 mls @ 100 mls/hr IV ONETIME ONE Stop: 06/17/19 20:41 Last Admin: 06/17/19 20:09 Dose: 100 mls/hr Sodium Chloride (Normal Saline) 1,000 mls @ 125 mls/hr IV ASDIRECTED [facility] Last Admin: 06/18/19 09:16 Dose: 125 mls/hr Doxycycline Hyclate 100 mg/ (Sodium Chloride) 100 mls @ 100 mls/hr IV Q12H [facility] Last Admin: 06/17/19 23:36 Dose: 100 mls/hr Vancomycin HCl 1 gm/ Premix 200 mls @ 133.333 mls/hr IV Q24H [facility] Last Infusion: 06/19/19 05:32 Dose: Infused Iopamidol (Isovue-300 (61%)) 100 ml IVPUSH ONETIME ONE Stop: 06/18/19 09:53 Last Admin: 06/18/19 11:08 Dose: 75 ml Methylprednisolone Sodium Succinate (Solu-Medrol) 40 mg IVPUSH Q6H [facility] Last Admin: 06/19/19 08:37 Dose: 40 mg Morphine Sulfate (Morphine) 2 mg IVPUSH Q10M PRN PRN Reason: Chest Pain Stop: 06/18/19 19:19 Last Admin: 06/17/19 22:28 Dose: 2 mg Morphine Sulfate (Morphine) 2 mg IVPUSH Q2H PRN PRN Reason: Pain (severe 7-10) Last Admin: 06/18/19 10:34 Dose: 2 mg Morphine Sulfate (Morphine) 2 mg IVPUSH Q6H PRN PRN Reason: Pain (severe 7-10) Last Admin: 06/20/19 11:57 Dose: 2 mg Nitroglycerin (Nitrostat) 0.4 mg SL Q5M PRN PRN Reason: Chest Pain Stop: 06/18/19 19:19 Last Admin: 06/17/19 19:36 Dose: 0.4 mg Non-Formulary Medication (Gabapentin) 600 mg PO TID [facility] Ondansetron HCl (Zofran) 4 mg IVPUSH Q6H PRN PRN Reason: Nausea/Vomiting Oxycodone/Acetaminophen (Percocet 325-5 Mg) 1 tab PO Q6H PRN PRN Reason: Chest Pain Last Admin: 06/20/19 14:47 Dose: 1 tab Vancomycin HCl (Pharmacy To Dose - Vancomycin) 1 dose .XX ASDIRECTED [facility] - Exam General: Alert, Oriented, Cooperative Neck: Supple Lungs: Decreased Breath Sounds, Rhonchi Cardiovascular: Regular Rate, Regular Rhythm GI/Abdominal Exam: Normal Bowel Sounds, Soft, Non-Tender, No Organomegaly, No Distention, No Abnormal Bruit, No Mass, Pelvis Stable Sepsis Event Note - Evaluation Sepsis Screening Result: Sepsis Risk - Focused Exam Vital Signs: Vital Signs Temp Pulse Pulse Resp BP BP BP 06/21/19 08:48 131/75 06/21/19 08:47 91 131/75 06/21/19 08:13 36.8 C 91 20 131/75 06/21/19 07:23 88 06/21/19 03:24 36.9 C 100 20 152/81 H 06/21/19 00:00 37.0 C 95 20 143/84 H 06/20/19 23:00 95 Pulse Ox Pulse Ox 06/21/19 08:48 06/21/19 08:47 06/21/19 08:13 95 06/21/19 07:23 06/21/19 03:24 96 06/21/19 00:00 98 06/20/19 23:00 98 Date Exam was Performed: 06/21/19 Time Exam was Performed: 08:56 - Problem List Review Problem List Initiated/Reviewed/Updated: Yes - My Orders Last 24 Hours: My Active Orders 06/20/19 08:00 predniSONE 40 mg PO WITHBREAKFAST 06/20/19 19:33 Acetaminophen/oxyCODONE [Percocet 325-5 MG] 1 tab PO Q4H PRN 06/21/19 09:00 Polyethylene Glycol 3350 [MiraLAX] 17 gm PO DAILY 06/22/19 06:00 CBC W/O DIFF,HEMOGRAM [HEME] Routine - Plan Plan:: #. Sepsis The patient presented with tachycardic and short of breath Was found to have white cell count 22,000-now down to 14,000 This is secondary to pneumonia #. Pneumonia Likely community-acquired CT scan did not show any significant cavitation as suggested by chest x-ray #. COPD exacerbation Likely triggered by pneumonia #. Hypomagnesemia Replaced #. Chronic hypoxemic respiratory failure Patient is on 2 L/m of oxygen Plan: Discontinued morphine Percocet every 4 hours for pain control Sputum for Gram stain and cultures Nebulization with bronchodilators Obtain repeat complete blood count
[2019-06-21] MEDS: Polyethylene Glycol 3350 Powder 17 GM Packet PO SCH (09:03)
[2019-06-21] MEDS ORDERED: hydrOXYzine HCl 25 MG Tab PO PRN (09:11)
[2019-06-21] MEDS: Doxycycline 100 MG in Sodium Chloride 0.9% 100 ML IV SCH ×2 (13:20→23:42)
[2019-06-21] MEDS: Sodium Chloride 0.9% 10 ML Syringe FLUSH PRN ×3 (13:21→23:43)
[2019-06-21] MEDS: cefTRIAXone 1 GM in Sodium Chloride 0.9% 50 ML IV SCH (20:56)
[2019-06-22] MEDS: Acetaminophen/oxyCODONE 325-5 MG Tab PO PRN ×3 (00:56→13:07)
[2019-06-22] MEDS: Albuterol/Ipratropium 3.0-0.5 MG/3 ML Neb Soln NEB SCH ×3 (03:08→11:19)
[2019-06-22] MEDS: Pantoprazole 40 MG Tab.CR PO SCH (05:50)
[2019-06-22] MEDS: Budesonide 0.5 MG/2 ML Neb Susp NEB SCH (07:34)
[2019-06-22] MEDS: ALPRAZolam 0.25 MG Tab PO PRN (08:36)
[2019-06-22] MEDS: predniSONE 20 MG Tab PO SCH (08:36)
[2019-06-22] MEDS: Isosorbide Mononitrate 30 MG Tab.ER PO SCH (08:37)
[2019-06-22] MEDS: Sertraline 50 MG Tab PO SCH (08:37)
[2019-06-22] MEDS: Gabapentin 300 MG Cap PO SCH (08:38)
[2019-06-22] MEDS: Diltiazem 120 MG Cap.CD PO SCH (08:38)
[2019-06-22] MEDS: Enoxaparin 40 MG/0.4 ML Syringe SUBCUT SCH (08:38)
[2019-06-22] MEDS: Polyethylene Glycol 3350 Powder 17 GM Packet PO SCH (08:39)
--- NOTE | 2019-06-22 10:37 | PCM.DCSUM1 ---
Discharge Summary - Hospital Course Free Text/Narrative:: The patient presented with cough, shortness of breath, and fever. She was found to be septic secondary to pneumonia. Patient was started on intravenous antibiotics as well as aggressive nebulization because of COPD exacerbation. She has improved. Patient to be discharged on oral antibiotics and has been advised to follow up with primary care provider in one week. #. Sepsis The patient presented with tachycardic and short of breath Was found to have white cell count 22,000-now down to 14,000 This is secondary to pneumonia #. Pneumonia Likely [id number] perihilar CT scan did not show any significant cavitation as suggested by chest x-ray #. COPD exacerbation Likely triggered by pneumonia #. Hypomagnesemia Replaced #. Chronic hypoxemic respiratory failure Patient is on 2 L/m of oxygen - Discharge Data Discharge Date: 06/22/19 Discharge Disposition: Home, Self-Care 01 Condition: Stable - Referral to Home Health [facility] Physician: [facility] - Patient Summary/Data Consults: Consultations 06/17/19 21:06 Respiratory Care Assess and Treatment [CONS] Routine - Patient Instructions Diet: Usual Diet as Tolerated Activity: As Tolerated Showering/Bathing: May Shower Notify Provider of: Fever, Swelling and Redness, Nausea and/or Vomiting - Discharge Plan Prescriptions/Med Rec: Cefdinir [Omnicef] 300 mg PO BID #14 cap Doxycycline [Vibramycin] 100 mg PO BID #14 cap Home Medications: Home Meds Albuterol [Proair HFA] 2 puff INH Q4HR PRN 09/27/13 [History] Sertraline [Zoloft] 150 mg PO DAILY 09/27/13 [History] Albuterol/Ipratropium [DuoNeb 3.0-0.5 MG/3 ML] 3 ml INH Q6HR PRN 02/20/14 [ History] Pantoprazole [ProTONIX] 40 mg PO DAILY 10/01/14 [History] Gabapentin [Neurontin] 600 mg PO TID 11/01/14 [History] Budesonide [Pulmicort] 0.5 mg NEB BID 01/20/17 [History] Acetaminophen 650 mg PO QID PRN 10/07/17 [History] Ibuprofen 400 mg PO TID PRN 10/08/17 [History] Diltiazem [Cardizem CD] 120 mg PO DAILY 03/26/18 [History] Isosorbide Mononitrate [Imdur] 30 mg PO DAILY 03/26/18 [History] Tiotropium [Spiriva Handihaler] 18 mcg INH DAILY 06/08/18 [History] Codeine/Promethazine [Phenergan with Codeine] 5 ml PO Q4HR PRN 06/10/18 [History ] Ascorbic Acid [Vitamin C] 250 mg PO DAILY 01/21/19 [History] Benzonatate [Tessalon Perle] 100 mg PO TID PRN 01/21/19 [History] Estradiol [Estrace] 1 mg PO DAILY 01/21/19 [History] Ferrous Gluconate 324 mg PO DAILY 01/21/19 [History] Formoterol Fumarate [Perforomist] 20 mcg IH BID 01/21/19 [History] Ketotifen Fumarate [Alaway] 1 drop OP BID 01/21/19 [History] Polyethylene Glycol 3350 [MiraLAX] 17 gm PO DAILY 01/21/19 [History] Ranitidine HCl 150 mg PO BID 01/21/19 [History] ALPRAZolam [Xanax] 0.25 mg PO TID PRN 06/17/19 [History] Roflumilast [Daliresp] 500 mcg PO DAILY 06/17/19 [History] Rosuvastatin [Crestor] 10 mg PO BEDTIME 06/17/19 [History] Cefdinir [Omnicef] 300 mg PO BID #14 cap 06/22/19 [Rx] Doxycycline [Vibramycin] 100 mg PO BID #14 cap 06/22/19 [Rx] Referrals: [facility] [Ordering Only Provider] - - Discharge Summary/Plan Comment DC Time >30 min.: No - Patient Data Vitals - Most Recent: Last Vital Signs Temp 36.9 C 06/22/19 07:42 Pulse 84 06/22/19 08:38 Resp 20 06/22/19 07:42 BP 158/76 H 06/22/19 08:38 Pulse Ox 93 L 06/22/19 07:42 Weight - Most Recent: 57.062 kg I&O - Last 24 hours: Intake & Output 06/21/19 06/22/19 06/22/19 22:59 06:59 14:59 Intake Total 260 500 Balance 260 500 Lab Results - Last 24 hrs: Laboratory Results - last 24 hr 06/22/19 Range/Units 07:08 WBC 13.8 H (5.0-10.0) 10^3/uL RBC 4.26 (4.2-5.4) 10^6/uL Hgb 12.1 (12.0-16.0) g/dL Hct 36.6 L (37.0-47.0) % MCV 85.9 (80-100) fL MCH 28.4 (27.0-34.0) pg MCHC 33.1 (33.0-35.0) g/dL Plt Count 267 (150-450) 10^3/uL BRENDA Results - Last 24 hrs: Microbiology 06/17/19 19:17 Aerobic Blood Culture - Preliminary Blood NO GROWTH AFTER 4 DAYS Anaerobic Blood Culture - Preliminary NO GROWTH AFTER 4 DAYS 06/18/19 03:21 Gram Stain - Final Sputum - Expectorated Sputum Culture - Preliminary Med Orders - Current: Current Medications Acetaminophen (Tylenol) 650 mg PO Q4H PRN PRN Reason: Pain (Mild 1-3)/fever Albuterol (Proventil Neb Soln) 2.5 mg NEB Q2H PRN PRN Reason: shortness of breath/wheezing Albuterol/Ipratropium (Duoneb 3.0-0.5 Mg/3 Ml) 3 ml NEB Q4HRRT [facility] Last Admin: 06/22/19 07:34 Dose: 3 ml Alprazolam (Xanax) 0.25 mg PO TID PRN PRN Reason: Anxiety Last Admin: 06/22/19 08:36 Dose: 0.25 mg Budesonide (Pulmicort) 0.5 mg NEB BIDRT [facility] Last Admin: 06/22/19 07:34 Dose: 0.5 mg Diltiazem HCl (Cardizem Cd) 120 mg PO DAILY [facility] Last Admin: 06/22/19 08:38 Dose: 120 mg Enoxaparin Sodium (Lovenox) 40 mg SUBCUT DAILY [facility] Last Admin: 06/22/19 08:38 Dose: 40 mg Gabapentin (Neurontin) 600 mg PO BID [facility] Last Admin: 06/22/19 08:38 Dose: 600 mg Hydroxyzine HCl (Atarax) 25 mg PO Q8H PRN PRN Reason: itching Ceftriaxone Sodium 1 gm/ (Sodium Chloride) 50 mls @ 50 mls/hr IV Q24H [facility] Last Admin: 06/21/19 20:56 Dose: 50 mls/hr Doxycycline Hyclate 100 mg/ (Sodium Chloride) 100 mls @ 100 mls/hr IV ONETIME ONE Stop: 06/22/19 11:59 Last Admin: 06/22/19 10:31 Dose: 100 mls/hr Isosorbide Mononitrate (Imdur) 30 mg PO DAILY [facility] Last Admin: 06/22/19 08:37 Dose: 30 mg Magnesium Oxide (Magnesium Oxide) 250 mg PO BIDM [facility] Last Admin: 06/22/19 08:36 Dose: 250 mg Oxycodone/Acetaminophen (Percocet 325-5 Mg) 1 tab PO Q4H PRN PRN Reason: Chest Pain Last Admin: 06/22/19 05:50 Dose: 1 tab Pantoprazole Sodium (Protonix) 40 mg PO ACBREAKFAST [facility] Last Admin: 06/22/19 05:50 Dose: 40 mg Polyethylene Glycol (Miralax) 17 gm PO DAILY [facility] Last Admin: 06/22/19 08:39 Dose: 17 gm Prednisone (Prednisone) 40 mg PO WITHBREAKFAST [facility] Last Admin: 06/22/19 08:36 Dose: 40 mg Sertraline HCl (Zoloft) 150 mg PO DAILY [facility] Last Admin: 06/22/19 08:37 Dose: 150 mg Sodium Chloride (Saline Flush) 10 ml FLUSH ASDIRECTED PRN PRN Reason: Keep Vein Open Last Admin: 06/21/19 23:43 Dose: 10 ml Discontinued Medications Albuterol/Ipratropium (Duoneb 3.0-0.5 Mg/3 Ml) 3 ml NEB Q4H [facility] Last Admin: 06/18/19 11:54 Dose: Not Given Aspirin (Aspirin) 324 mg PO ONETIME ONE Stop: 06/17/19 19:19 Last Admin: 06/17/19 19:36 Dose: 324 mg Budesonide (Pulmicort) 0.5 mg NEB BID [facility] Last Admin: 06/18/19 11:54 Dose: Not Given Furosemide (Lasix) 20 mg IVPUSH ONETIME ONE Stop: 06/21/19 08:16 Last Admin: 06/21/19 08:50 Dose: 20 mg Sodium Chloride (Normal Saline) 1,000 mls @ 50 mls/hr IV .BOLUS ONE Stop: 06/18/19 15:17 Last Infusion: 06/18/19 08:10 Dose: 125 mls/hr Levofloxacin/Dextrose 500 mg/ (Premix) 100 mls @ 100 mls/hr IV ONETIME ONE Stop: 06/17/19 20:41 Last Admin: 06/17/19 20:09 Dose: 100 mls/hr Sodium Chloride (Normal Saline) 1,000 mls @ 125 mls/hr IV ASDIRECTED [facility] Last Admin: 06/18/19 09:16 Dose: 125 mls/hr Doxycycline Hyclate 100 mg/ (Sodium Chloride) 100 mls @ 100 mls/hr IV Q12H [facility] Last Admin: 06/17/19 23:36 Dose: 100 mls/hr Vancomycin HCl 1 gm/ Premix 200 mls @ 133.333 mls/hr IV Q24H [facility] Last Infusion: 06/19/19 05:32 Dose: Infused Doxycycline Hyclate 100 mg/ (Sodium Chloride) 100 mls @ 100 mls/hr IV Q12H [facility] Last Admin: 06/21/19 23:42 Dose: 100 mls/hr Iopamidol (Isovue-300 (61%)) 100 ml IVPUSH ONETIME ONE Stop: 06/18/19 09:53 Last Admin: 06/18/19 11:08 Dose: 75 ml Methylprednisolone Sodium Succinate (Solu-Medrol) 40 mg IVPUSH Q6H [facility] Last Admin: 06/19/19 08:37 Dose: 40 mg Morphine Sulfate (Morphine) 2 mg IVPUSH Q10M PRN PRN Reason: Chest Pain Stop: 06/18/19 19:19 Last Admin: 06/17/19 22:28 Dose: 2 mg Morphine Sulfate (Morphine) 2 mg IVPUSH Q2H PRN PRN Reason: Pain (severe 7-10) Last Admin: 06/18/19 10:34 Dose: 2 mg Morphine Sulfate (Morphine) 2 mg IVPUSH Q6H PRN PRN Reason: Pain (severe 7-10) Last Admin: 06/20/19 11:57 Dose: 2 mg Nitroglycerin (Nitrostat) 0.4 mg SL Q5M PRN PRN Reason: Chest Pain Stop: 06/18/19 19:19 Last Admin: 06/17/19 19:36 Dose: 0.4 mg Non-Formulary Medication (Gabapentin) 600 mg PO TID [facility] Ondansetron HCl (Zofran) 4 mg IVPUSH Q6H PRN PRN Reason: Nausea/Vomiting Oxycodone/Acetaminophen (Percocet 325-5 Mg) 1 tab PO Q6H PRN PRN Reason: Chest Pain Last Admin: 06/20/19 14:47 Dose: 1 tab Vancomycin HCl (Pharmacy To Dose - Vancomycin) 1 dose .XX ASDIRECTED [facility] - Exam Quality Assessment: Reports: Supplemental Oxygen General: Reports: Alert, Oriented, Cooperative HEENT: Reports: Pupils Equal, Pupils Reactive, EOMI, Mucous Membr. Moist/[place] Neck: Reports: Supple Lungs: Reports: Normal Respiratory Effort, Decreased Breath Sounds Cardiovascular: Reports: Regular Rate, Regular Rhythm
[2019-06-22] MEDS ORDERED: Doxycycline 100 MG in Sodium Chloride 0.9% 100 ML IV ONE (11:00)
[2019-06-22 13:06] VITALS: BP 149/74; PULSE 83
--- NOTE | 2019-06-25 16:27 | EDM.PDOC ---
ED HPI GENERAL MEDICAL PROBLEM - General Chief Complaint: Respiratory Problem Stated Complaint: LUNG PROBLEMS Time Seen by Provider: 06/17/19 19:00 Source of Information: Reports: Patient History Limitations: Reports: No Limitations - History of Present Illness INITIAL COMMENTS - FREE TEXT/NARRATIVE: ED with c/o productive cough, fever x 2 days, brownish sputum, Hx COPD, No nausea, vomiting or diarrhea Treatments TRAVEL ASSISTANT: Reports: Acetaminophen Other Treatments TRAVEL ASSISTANT: Tylenol PM taken today. Chest Pain Score (Numeric/FACES): 8 - Related Data Allergies Allergy/AdvReac Type Severity Reaction Status Date / Time tramadol HCl [From Ultram] Allergy Vomiting Verified 01/21/19 19:05 aspirin Allergy Abdominal Uncoded 01/21/19 19:05 Pain Home Meds: Home Meds Albuterol [Proair HFA] 2 puff INH Q4HR PRN 09/27/13 [History] Sertraline [Zoloft] 150 mg PO DAILY 09/27/13 [History] Albuterol/Ipratropium [DuoNeb 3.0-0.5 MG/3 ML] 3 ml INH Q6HR PRN 02/20/14 [ History] Pantoprazole [ProTONIX] 40 mg PO DAILY 10/01/14 [History] Gabapentin [Neurontin] 600 mg PO TID 11/01/14 [History] Budesonide [Pulmicort] 0.5 mg NEB BID 01/20/17 [History] Acetaminophen 650 mg PO QID PRN 10/07/17 [History] Ibuprofen 400 mg PO TID PRN 10/08/17 [History] Diltiazem [Cardizem CD] 120 mg PO DAILY 03/26/18 [History] Isosorbide Mononitrate [Imdur] 30 mg PO DAILY 03/26/18 [History] Tiotropium [Spiriva Handihaler] 18 mcg INH DAILY 06/08/18 [History] Codeine/Promethazine [Phenergan with Codeine] 5 ml PO Q4HR PRN 06/10/18 [History ] Ascorbic Acid [Vitamin C] 250 mg PO DAILY 01/21/19 [History] Benzonatate [Tessalon Perle] 100 mg PO TID PRN 01/21/19 [History] Estradiol [Estrace] 1 mg PO DAILY 01/21/19 [History] Ferrous Gluconate 324 mg PO DAILY 01/21/19 [History] Formoterol Fumarate [Perforomist] 20 mcg IH BID 01/21/19 [History] Ketotifen Fumarate [Alaway] 1 drop OP BID 01/21/19 [History] Polyethylene Glycol 3350 [MiraLAX] 17 gm PO DAILY 01/21/19 [History] Ranitidine HCl 150 mg PO BID 01/21/19 [History] ALPRAZolam [Xanax] 0.25 mg PO TID PRN 06/17/19 [History] Roflumilast [Daliresp] 500 mcg PO DAILY 06/17/19 [History] Rosuvastatin [Crestor] 10 mg PO BEDTIME 06/17/19 [History] Cefdinir [Omnicef] 300 mg PO BID #14 cap 06/22/19 [Rx] Doxycycline [Vibramycin] 100 mg PO BID #14 cap 06/22/19 [Rx] Past Medical History - Past Health History Medical/Surgical History: Denies Medical/Surgical History HEENT History: Reports: Impaired Vision, Other (See Below) Other HEENT History: near sided Cardiovascular History: Reports: None Other Cardiovascular History: has a stress test this coming Respiratory History: Reports: Bronchitis, Recurrent, COPD, SOB, TB, Other (See Below) Other Respiratory History: TB when pt. was a small child. Emphysema by pt account Gastrointestinal History: Reports: GERD Other Gastrointestinal History: N/A Genitourinary History: Reports: Renal Calculus, Other (See Below) Other Genitourinary History: kidney stones ASSISTANT OPERATIONS MANAGER History: Reports: , Other (See Below) Other ASSISTANT OPERATIONS MANAGER History: nvd two children/ hysterectomy Musculoskeletal History: Reports: Arthritis, Other (See Below) Other Musculoskeletal History: arthritis , restless leg syndrome Neurological History: Reports: None Psychiatric History: Reports: Depression Endocrine/Metabolic History: Reports: None Hematologic History: Reports: None Immunologic History: Reports: None Oncologic (Cancer) History: Reports: None Dermatologic History: Reports: None - Infectious Disease History Infectious Disease History: Reports: Chicken Pox, Mumps, TB - Past Surgical History Head Surgeries/Procedures: Reports: None Respiratory Surgical History: Reports: None GI Surgical History: Reports: Appendectomy, Cholecystectomy Female Surgical History: Reports: Hysterectomy Musculoskeletal Surgical History: Reports: None Social & Family History - Family History Family Medical History: Noncontributory HEENT: Reports: None Cardiac: Reports: None Respiratory: Reports: None GI: Reports: None : Reports: None OBGYN: Reports: None - Tobacco Use Smoking Status *Q: Former Smoker Years of Tobacco use: 51 Packs/Tins Daily: 1 Used Tobacco, but Quit: Yes Month/Year Tobacco Last Used: 02/2019 Second Hand Smoke Exposure: No - Caffeine Use Caffeine Use: Reports: Coffee Other Caffeine Use: 3 cups - Recreational Drug Use Recreational Drug Use: No - Living Situation & Occupation Living situation: Reports: , with Family Occupation: Retired ED ROS GENERAL - Review of Systems Review Of Systems: Comprehensive ROS is negative, except as noted in HPI. ED EXAM, GENERAL - Physical Exam Exam: See Below Exam Limited By: No Limitations General Appearance: Alert, Mild Distress Eye Exam: Bilateral Eye: EOMI Ears: Normal External Exam Nose: Normal Inspection Throat/Mouth: Normal Inspection Head: Atraumatic, Normocephalic Neck: Normal Inspection Respiratory/Chest: No Respiratory Distress, Decreased Breath Sounds, Crackles, Rhonchi Cardiovascular: Regular Rate, Rhythm, No Edema, Tachycardia GI/Abdominal: Normal Bowel Sounds, Soft, Non-Tender, No Organomegaly, No Distention, No Abnormal Bruit, No Mass, Pelvis Stable Back Exam: Full Range of Motion Extremities: Normal Inspection, Normal Range of Motion, Non-Tender, No Pedal Edema, Normal Capillary Refill Neurological: Alert, Oriented, Normal Cognition Psychiatric: Normal Affect Skin Exam: Warm, Dry, Intact, Normal Color Course - Vital Signs Last Recorded V/S: Last Vital Signs Temp 98.6 F 06/22/19 12:00 Pulse 83 06/22/19 12:00 Resp 20 06/22/19 12:00 BP 149/74 H 06/22/19 12:00 Pulse Ox 94 L 06/22/19 12:00 - Orders/Labs/Meds Labs: Laboratory Tests 06/17/19 06/17/19 06/17/19 Range/Units 19:18 19:26 19:26 WBC 22.4 H (5.0-10.0) 10^3/uL RBC 4.76 (4.2-5.4) 10^6/uL Hgb 13.5 (12.0-16.0) g/dL Hct 40.4 (37.0-47.0) % MCV 84.9 D (80-100) fL MCH 28.4 (27.0-34.0) pg MCHC 33.4 (33.0-35.0) g/dL Plt Count 246 (150-450) 10^3/uL Neut % (Auto) 81.7 H (42.2-75.2) % Lymph % (Auto) 11.2 L (20.5-50.1) % [place] % (Auto) 6.7 (2-8) % Eos % (Auto) 0.4 L (1.0-3.0) % Baso % (Auto) 0.0 (0.0-1.0) % Add Manual Diff Yes Neutrophils % (Manual) 81 H (42-75) % Band Neutrophils % 2 % Lymphocytes % (Manual) 13 L (20-50) % Monocytes % (Manual) 4 (2-8) % PT (9.0-12.0) SEC INR (0.9-1.2) D-Dimer, Quantitative (0-400) ng/mL Sodium 137 (135-145) mmol/L Potassium 3.7 (3.6-5.0) mmol/L Chloride 100 L (101-111) mmol/L Carbon Dioxide 24.0 D (21.0-31.0) mmol/L Anion Gap 16.7 BUN 12 (7-18) mg/dL Creatinine 0.7 (0.6-1.3) mg/dL Est Cr Clr Drug Dosing 57.55 mL/min Estimated GFR (MDRD) > 60 BUN/Creatinine Ratio 17.14 Glucose 105 (74-105) mg/dL Lactic Acid (0.5-2.2) mmol/L Calcium 9.0 (8.4-10.2) mg/dl Magnesium 1.7 L (1.8-2.5) mg/dL Total Bilirubin 0.4 (0.2-1.0) mg/dL AST 19 (10-42) IU/L ALT 13 (10-60) IU/L Alkaline Phosphatase 78 (42-121) IU/L CK-MB (CK-2) (0.4-4.7) ng/mL Troponin I < 0.02 (0.00-0.02) ng/ml B-Natriuretic Peptide 19 (0-100) pg/ml Total Protein 7.5 (6.7-8.2) g/dl Albumin 4.1 (3.2-5.5) g/dl Globulin 3.4 Albumin/Globulin Ratio 1.21 Amylase (28-100) U/L Lipase (22-51) U/L 06/17/19 06/17/19 06/17/19 Range/Units 19:26 19:57 19:57 WBC (5.0-10.0) 10^3/uL RBC (4.2-5.4) 10^6/uL Hgb (12.0-16.0) g/dL Hct (37.0-47.0) % MCV (80-100) fL MCH (27.0-34.0) pg MCHC (33.0-35.0) g/dL Plt Count (150-450) 10^3/uL Neut % (Auto) (42.2-75.2) % Lymph % (Auto) (20.5-50.1) % [place] % (Auto) (2-8) % Eos % (Auto) (1.0-3.0) % Baso % (Auto) (0.0-1.0) % Add Manual Diff Neutrophils % (Manual) (42-75) % Band Neutrophils % % Lymphocytes % (Manual) (20-50) % Monocytes % (Manual) (2-8) % PT (9.0-12.0) SEC INR (0.9-1.2) D-Dimer, Quantitative (0-400) ng/mL Sodium (135-145) mmol/L Potassium (3.6-5.0) mmol/L Chloride (101-111) mmol/L Carbon Dioxide (21.0-31.0) mmol/L Anion Gap BUN (7-18) mg/dL Creatinine (0.6-1.3) mg/dL Est Cr Clr Drug Dosing mL/min Estimated GFR (MDRD) BUN/Creatinine Ratio Glucose (74-105) mg/dL Lactic Acid 1.3 (0.5-2.2) mmol/L Calcium (8.4-10.2) mg/dl Magnesium (1.8-2.5) mg/dL Total Bilirubin (0.2-1.0) mg/dL AST (10-42) IU/L ALT (10-60) IU/L Alkaline Phosphatase (42-121) IU/L CK-MB (CK-2) 0.70 (0.4-4.7) ng/mL Troponin I (0.00-0.02) ng/ml B-Natriuretic Peptide (0-100) pg/ml Total Protein (6.7-8.2) g/dl Albumin (3.2-5.5) g/dl Globulin Albumin/Globulin Ratio Amylase 51 (28-100) U/L Lipase 22 (22-51) U/L 06/17/19 Range/Units 19:57 WBC (5.0-10.0) 10^3/uL RBC (4.2-5.4) 10^6/uL Hgb (12.0-16.0) g/dL Hct (37.0-47.0) % MCV (80-100) fL MCH (27.0-34.0) pg MCHC (33.0-35.0) g/dL Plt Count (150-450) 10^3/uL Neut % (Auto) (42.2-75.2) % Lymph % (Auto) (20.5-50.1) % [place] % (Auto) (2-8) % Eos % (Auto) (1.0-3.0) % Baso % (Auto) (0.0-1.0) % Add Manual Diff Neutrophils % (Manual) (42-75) % Band Neutrophils % % Lymphocytes % (Manual) (20-50) % Monocytes % (Manual) (2-8) % PT 9.8 (9.0-12.0) SEC INR 1.0 (0.9-1.2) D-Dimer, Quantitative 389 (0-400) ng/mL Sodium (135-145) mmol/L Potassium (3.6-5.0) mmol/L Chloride (101-111) mmol/L Carbon Dioxide (21.0-31.0) mmol/L Anion Gap BUN (7-18) mg/dL Creatinine (0.6-1.3) mg/dL Est Cr Clr Drug Dosing mL/min Estimated GFR (MDRD) BUN/Creatinine Ratio Glucose (74-105) mg/dL Lactic Acid (0.5-2.2) mmol/L Calcium (8.4-10.2) mg/dl Magnesium (1.8-2.5) mg/dL Total Bilirubin (0.2-1.0) mg/dL AST (10-42) IU/L ALT (10-60) IU/L Alkaline Phosphatase (42-121) IU/L CK-MB (CK-2) (0.4-4.7) ng/mL Troponin I (0.00-0.02) ng/ml B-Natriuretic Peptide (0-100) pg/ml Total Protein (6.7-8.2) g/dl Albumin (3.2-5.5) g/dl Globulin Albumin/Globulin Ratio Amylase (28-100) U/L Lipase (22-51) U/L Meds: Medications Discontinued Medications Generic Name Dose Route Start Last Admin Trade Name Freq PRN Reason Stop Dose Admin Acetaminophen 650 mg 06/17/19 21:06 Tylenol PO Q4H PRN Pain (Mild 1-3)/fever Albuterol 2.5 mg 06/17/19 21:06 Proventil Neb Soln NEB Q2H PRN shortness of breath/wheezing Albuterol/Ipratropium 3 ml 06/17/19 21:15 06/18/19 11:54 Duoneb 3.0-0.5 Mg/3 Ml NEB Not Given Q4H [facility] Albuterol/Ipratropium 3 ml 06/18/19 15:00 06/22/19 11:19 Duoneb 3.0-0.5 Mg/3 Ml NEB 3 ml Q4HRRT [facility] Administration Alprazolam 0.25 mg 06/18/19 18:02 06/22/19 08:36 Xanax PO 0.25 mg TID PRN Administration Anxiety Aspirin 324 mg 06/17/19 19:18 06/17/19 19:36 Aspirin PO 06/17/19 19:19 324 mg ONETIME ONE Administration Budesonide 0.5 mg 06/18/19 09:00 06/18/19 11:54 Pulmicort NEB Not Given BID [facility] Budesonide 0.5 mg 06/18/19 18:00 06/22/19 07:34 Pulmicort NEB 0.5 mg BIDRT [facility] Administration Diltiazem HCl 120 mg 06/18/19 09:00 06/22/19 08:38 Cardizem Cd PO 120 mg DAILY [facility] Administration Enoxaparin Sodium 40 mg 06/18/19 09:00 06/22/19 08:38 Lovenox SUBCUT 40 mg DAILY [facility] Administration Furosemide 20 mg 06/21/19 08:15 06/21/19 08:50 Lasix IVPUSH 06/21/19 08:16 20 mg ONETIME ONE Administration Gabapentin 600 mg 06/18/19 09:00 06/22/19 08:38 Neurontin PO 600 mg BID [facility] Administration Hydroxyzine HCl 25 mg 06/21/19 09:11 Atarax PO Q8H PRN itching Sodium Chloride 1,000 mls @ 50 mls/hr 06/17/19 19:18 06/18/19 08:10 Normal Saline IV 06/18/19 15:17 125 mls/hr .BOLUS ONE Infusion Levofloxacin/Dextrose 500 mg/ 100 mls @ 100 mls/hr 06/17/19 19:42 06/17/19 20 :09 Premix IV 06/17/19 20:41 100 mls/hr ONETIME ONE Administration Sodium Chloride 1,000 mls @ 125 mls/hr 06/17/19 21:15 06/18/19 09:16 Normal Saline IV 125 mls/hr ASDIRECTED [facility] Administration Ceftriaxone Sodium 1 gm/ 50 mls @ 50 mls/hr 06/17/19 21:00 06/21/19 20:56 Sodium Chloride IV 50 mls/hr Q24H [facility] Administration Doxycycline Hyclate 100 mg/ 100 mls @ 100 mls/hr 06/17/19 22:00 06/17/19 23: 36 Sodium Chloride IV 100 mls/hr Q12H [facility] Administration Vancomycin HCl 1 gm/ Premix 200 mls @ 133.333 mls/hr 06/18/19 01:00 06/19/19 05:32 IV Infused Q24H [facility] Infusion Doxycycline Hyclate 100 mg/ 100 mls @ 100 mls/hr 06/18/19 00:00 06/21/19 23: 42 Sodium Chloride IV 100 mls/hr Q12H [facility] Administration Doxycycline Hyclate 100 mg/ 100 mls @ 100 mls/hr 06/22/19 11:00 06/22/19 10: 31 Sodium Chloride IV 06/22/19 11:59 100 mls/hr ONETIME ONE Administration Iopamidol 100 ml 06/18/19 09:52 06/18/19 11:08 Isovue-300 (61%) IVPUSH 06/18/19 09:53 75 ml ONETIME ONE Administration Isosorbide Mononitrate 30 mg 06/18/19 09:00 06/22/19 08:37 Imdur PO 30 mg DAILY [facility] Administration Magnesium Oxide 250 mg 06/18/19 12:00 06/22/19 08:36 Magnesium Oxide PO 250 mg BIDM [facility] Administration Methylprednisolone Sodium Succinate 40 mg 06/17/19 21:00 06/19/19 08:37 Solu-Medrol IVPUSH 40 mg Q6H [facility] Administration Morphine Sulfate 2 mg 06/17/19 19:18 06/17/19 22:28 Morphine IVPUSH 06/18/19 19:19 2 mg Q10M PRN Administration Chest Pain Morphine Sulfate 2 mg 06/17/19 21:06 06/18/19 10:34 Morphine IVPUSH 2 mg Q2H PRN Administration Pain (severe 7-10) Morphine Sulfate 2 mg 06/18/19 10:56 06/20/19 11:57 Morphine IVPUSH 2 mg Q6H PRN Administration Pain (severe 7-10) Nitroglycerin 0.4 mg 06/17/19 19:18 06/17/19 19:36 Nitrostat SL 06/18/19 19:19 0.4 mg Q5M PRN Administration Chest Pain Non-Formulary Medication 600 mg 06/18/19 09:00 Gabapentin PO TID [facility] Ondansetron HCl 4 mg 06/17/19 21:06 Zofran IVPUSH Q6H PRN Nausea/Vomiting Oxycodone/Acetaminophen 1 tab 06/18/19 10:56 06/20/19 14:47 Percocet 325-5 Mg PO 1 tab Q6H PRN Administration Chest Pain Oxycodone/Acetaminophen 1 tab 06/20/19 19:33 06/22/19 13:07 Percocet 325-5 Mg PO 1 tab Q4H PRN Administration Chest Pain Pantoprazole Sodium 40 mg 06/18/19 06:00 06/22/19 05:50 Protonix PO 40 mg ACBREAKFAST [facility] Administration Polyethylene Glycol 17 gm 06/21/19 09:00 06/22/19 08:39 Miralax PO 17 gm DAILY [facility] Administration Prednisone 40 mg 06/20/19 08:00 06/22/19 08:36 Prednisone PO 40 mg WITHBREAKFAST [facility] Administration Sertraline HCl 150 mg 06/18/19 09:00 06/22/19 08:37 Zoloft PO 150 mg DAILY [facility] Administration Sodium Chloride 10 ml 06/18/19 11:21 06/21/19 23:43 Saline Flush FLUSH 10 ml ASDIRECTED PRN Administration Keep Vein Open Vancomycin HCl 1 dose 06/18/19 03:15 Pharmacy To Dose - Vancomycin .XX ASDIRECTED [facility]IZABETH - Re-Assessments/Exams Free Text/Narrative Re-Assessment/Exam: TC Dr Lynnette BARNEY Hospitalist, accepting patient for admission. Departure - Departure Time of Disposition: 13:30 Disposition: Admitted As Inpatient 65 Condition: Good Clinical Impression: Acute exacerbation of chronic obstructive pulmonary disease (COPD) Pneumonia Qualifiers: Pneumonia type: due to unspecified organism Laterality: unspecified laterality Lung location: unspecified part of lung Qualified Code(s): J18.9 - Pneumonia, unspecified organism - Discharge Information Sepsis Event Note - Evaluation Sepsis Screening Result: No Definite Risk
== END 2019-06-22 13:30 | disposition home or self-care (01) | DRG 871 ==
LOC: DL.ED 17:13 → DL.MS 21:05
PROVIDERS: ADMIT Hospitalist; ATTEND Hospitalist
DX: R05 Cough (principal); R06.02 Shortness of breath; A41.9 Sepsis, unspecified organism; J18.9 Pneumonia, unspecified organism; J44.0 Chronic obstructive pulmonary disease with (acute) lower respiratory infection; J96.11 Chronic respiratory failure with hypoxia; J44.1 Chronic obstructive pulmonary disease with (acute) exacerbation; E83.42 Hypomagnesemia; F32.9 Major depressive disorder, single episode, unspecified; K21.9 Gastro-esophageal reflux disease without esophagitis; G25.81 Restless legs syndrome; Z88.5 Allergy status to narcotic agent; Z88.6 Allergy status to analgesic agent; Z79.52 Long term (current) use of systemic steroids; Z79.899 Other long term (current) drug therapy; Z90.49 Acquired absence of other specified parts of digestive tract; Z87.891 Personal history of nicotine dependence; Z87.442 Personal history of urinary calculi; Z90.710 Acquired absence of both cervix and uterus
CPT/HCPCS: 36415; 71045; 80053; 82150; 82553; 83605; 83690; 83735; 83880; 84484; 85025; 85379; 85610; 87040; 87804 ×2; 93005; A9270 ×2; J1956; J2270; J7050; 71260; 80048; 85027; 87070; 87205; 94640; J0696; J1650; J1940; J2920; J3370; J3490; J7030; J7620-GY; Q9967

== ENCOUNTER 2019-08-05 07:28 | Day surgery (SDC) | payer MEDICARE, MEDICAID ==
[~2019-08-05 07:28] MED LIST: Tropicamide 1% Ophth Soln 15 ML Bottle EYELF ONE
[2019-08-05] MEDS ORDERED: Midazolam 1 MG/ML 2 ML SDV IV ONE (07:29)
[2019-08-05] MEDS ORDERED: Dexamethasone 4 MG/ML SDV IV ONE (07:29)
[2019-08-05] MEDS ORDERED: Acetaminophen 325 MG Tab PO PRN (07:30)
[2019-08-05] MEDS ORDERED: Phenylephrine 10% Ophth Soln 5 ML Bot EYELF ONE ×2 (07:30→08:54)
[2019-08-05] MEDS ORDERED: Proparacaine 0.5% Ophth Soln 15 ML Bottle EYELF ONE (07:30)
[2019-08-05] MEDS ORDERED: Timolol Maleate 0.5% Ophth Soln 5 ML Bottle EYELF ONE (07:30)
[2019-08-05] MEDS ORDERED: Ondansetron 4 MG/2 ML SDV IVPUSH PRN (07:30)
[2019-08-05] MEDS ORDERED: Povidone-Iodine 5% Sterile Ophth Soln 30 ML Bottle EYELF ONE ×2 (07:30→08:53)
[2019-08-05] MEDS ORDERED: Moxifloxacin 0.5% Ophth Soln 3 ML Bottle EYELF ONE (07:30)
[2019-08-05] MEDS ORDERED: Cataract Ophth Solution EYELF ONE (07:30)
[2019-08-05] MEDS ORDERED: Phenylephrine 10% Ophth Soln 5 ML Bot EYELF PRN (07:30)
[2019-08-05] MEDS ORDERED: Sodium Chloride 0.9% 10 ML Syringe FLUSH PRN (07:30)
[2019-08-05] MEDS ORDERED: Tetracaine HCl/PF 0.5% 4 ML Bottle EYELF ONE (08:53)
[2019-08-05] MEDS ORDERED: Lidocaine 1% 30 ML SDV ONE (08:54)
[2019-08-05] MEDS ORDERED: Apraclonidine 0.5% Ophth Soln 5 ML Bot EYELF ONE (08:54)
[2019-08-05] MEDS ORDERED: Diclofenac Sodium 0.1% Ophth Soln 5 ML Bottle EYELF ONE (08:54)
[2019-08-05] MEDS ORDERED: Chondroitin Sulfate/Hyaluronate Sodium Ophth Inj 0.75 ML Syringe EYELF ONE (08:55)
[2019-08-05] MEDS ORDERED: Vancomycin 500 MG SDV EYELF ONE (08:56)
[2019-08-05] MEDS ORDERED: Balanced Salt Solution Ophth Irrig 500 ML Bottle IOCULAR ONE (08:56)
[2019-08-05 09:52] VITALS: BP 106/55; PULSE 68
--- NOTE | 2019-08-05 14:42 | OR ---
DATE: 08/05/2019 PREOPERATIVE DIAGNOSIS: Visually significant mixed cataract, left eye. POSTOPERATIVE DIAGNOSIS: Visually significant mixed cataract, left eye. PROCEDURE: Extracapsular cataract extraction with intraocular lens implant, left eye. ANESTHESIA: Topical/local MAC. COMPLICATIONS: None. INDICATION: The patient was seen in the clinic with complaints of blurred vision. Examination revealed visually significant mixed cataract. Examination also revealed pseudoexfoliation. I explained the options. I offered cataract surgery, and I explained risks including, but not limited to, infection, retinal detachment, loss of vision, need for additional surgery, lens/implant dislocation, and risks associated with anesthesia. We discussed implant options. She has requested a monofocal implant. She is comfortable wearing spectacle correction following the surgery if necessary. OPERATIVE DESCRIPTION: After informed consent was obtained and the risks, benefits, and alternatives were explained, the patient was brought to the operative suite and topical anesthesia was administered. The patient was then prepped and draped in the sterile fashion and attention was placed on the left eye. A sterile lid speculum was placed into the left eye to allow operative exposure. A full-thickness paracentesis was made in the temporal portion of the operative eye. Preservative-free lidocaine 0.1 mL was injected into the anterior chamber followed by viscoelastic. A full-thickness corneal incision was then made into the anterior chamber. A bent needle cystotome was used to create a small naresh in the anterior capsule. The capsulorrhexis forceps was then used to create a 360-degree curvilinear capsulorrhexis. The nucleus was then removed using a phacoemulsification handpiece and the remaining cortical material was then removed with irrigation and aspiration handpiece. Following removal of the cortical material, the capsular bag was then inspected and noted to be free of any holes or tears. Viscoelastic was then injected into the capsular bag and the intraocular lens was inserted into the capsular bag. The viscoelastic material was then removed from both the anterior and posterior chambers and from behind the IOL. The lens and capsular bag were then reinspected. The IOL was well centered and the capsular bag intact. The wound and paracentesis sites were inspected and hydrated with balanced saline solution. Both were found to be self- sealing. The intraocular pressure was assessed digitally and found to be within normal range. A good red reflex was noted at the completion of the procedure. No complications occurred during the operation. At the completion of the procedure, Polo Antonioaren, and Iopidine drops were placed into the operative eye. A sterile eye shield was placed over the operative eye and the patient was transported to the postoperative recovery area having tolerated the procedure well. Postoperative instructions were given along with a postoperative appointment. The patient was advised to call with any questions or concerns. [facility] /[id number]
== END 2019-08-05 10:05 | disposition home or self-care (01) ==
LOC: DL.SDS 07:28
PROVIDERS: ATTEND Ophthalmology
DX: H26.8 Other specified cataract (principal); I10 Essential (primary) hypertension; J44.9 Chronic obstructive pulmonary disease, unspecified; K21.9 Gastro-esophageal reflux disease without esophagitis; I25.10 Atherosclerotic heart disease of native coronary artery without angina pectoris; E78.5 Hyperlipidemia, unspecified; M47.819 Spondylosis without myelopathy or radiculopathy, site unspecified; F17.210 Nicotine dependence, cigarettes, uncomplicated; Z88.6 Allergy status to analgesic agent; Z88.5 Allergy status to narcotic agent; Z79.899 Other long term (current) drug therapy
CPT/HCPCS: 00142; J1100; J2001; J2250; J3370; V2632

== ENCOUNTER 2019-08-12 07:29 | Day surgery (SDC) | payer MEDICARE, MEDICAID ==
[~2019-08-12 07:29] MED LIST changes: -Tropicamide 1% Ophth Soln 15 ML Bottle EYELF ONE; +Tropicamide 1% Ophth Soln 15 ML Bottle EYERT ONE
[2019-08-12] MEDS ORDERED: Sodium Chloride 0.9% 10 ML Syringe IV ONE (07:30)
[2019-08-12] MEDS ORDERED: Proparacaine 0.5% Ophth Soln 15 ML Bottle EYERT ONE (07:30)
[2019-08-12] MEDS ORDERED: Phenylephrine 10% Ophth Soln 5 ML Bot EYERT PRN (07:30)
[2019-08-12] MEDS ORDERED: Phenylephrine 10% Ophth Soln 5 ML Bot EYERT ONE ×2 (07:30→08:39)
[2019-08-12] MEDS ORDERED: Dexamethasone 4 MG/ML SDV IV ONE (07:30)
[2019-08-12] MEDS ORDERED: Sodium Chloride 0.9% 10 ML Syringe FLUSH PRN (07:30)
[2019-08-12] MEDS ORDERED: Cataract Ophth Solution EYERT ONE (07:30)
[2019-08-12] MEDS ORDERED: Midazolam 1 MG/ML 2 ML SDV IV ONE (07:30)
[2019-08-12] MEDS ORDERED: Ondansetron 4 MG/2 ML SDV IVPUSH PRN (07:30)
[2019-08-12] MEDS ORDERED: Povidone-Iodine 5% Sterile Ophth Soln 30 ML Bottle EYERT ONE ×2 (07:30→08:38)
[2019-08-12] MEDS ORDERED: Moxifloxacin 0.5% Ophth Soln 3 ML Bottle EYERT ONE (07:30)
[2019-08-12] MEDS ORDERED: Acetaminophen 325 MG Tab PO PRN (07:30)
[2019-08-12] MEDS ORDERED: Timolol Maleate 0.5% Ophth Soln 5 ML Bottle EYERT ONE (07:30)
[2019-08-12] MEDS ORDERED: Tetracaine HCl/PF 0.5% 4 ML Bottle EYERT ONE (08:37)
[2019-08-12] MEDS ORDERED: Apraclonidine 0.5% Ophth Soln 5 ML Bot EYERT ONE (08:38)
[2019-08-12] MEDS ORDERED: Lidocaine 1% 30 ML SDV ONE (08:38)
[2019-08-12] MEDS ORDERED: Diclofenac Sodium 0.1% Ophth Soln 5 ML Bottle EYERT ONE (08:39)
[2019-08-12] MEDS ORDERED: Vancomycin 500 MG SDV EYERT ONE (08:40)
[2019-08-12] MEDS ORDERED: Chondroitin Sulfate/Hyaluronate Sodium Ophth Inj 0.75 ML Syringe EYERT ONE (08:41)
[2019-08-12] MEDS ORDERED: Balanced Salt Solution Ophth Irrig 500 ML Bottle IOCULAR ONE (08:42)
[2019-08-12 13:52] VITALS: BP 106/62; PULSE 76
--- NOTE | 2019-08-13 08:44 | OR ---
DATE: 08/12/2019 PREOPERATIVE DIAGNOSIS: Visually significant mixed cataract, right eye. POSTOPERATIVE DIAGNOSIS: Visually significant mixed cataract, right eye. PROCEDURE: Extracapsular cataract extraction with intraocular lens implant, right eye. ANESTHESIA: Topical/local MAC. COMPLICATIONS: None. INDICATION: The patient was seen in the clinic with complaints of blurred vision. The examination revealed visually significant cataract. She is symptomatic and requested cataract surgery. I explained options, I offered surgery, and I explained risks preoperatively including the potential for infection, retinal detachment, loss of vision, need for additional surgery, and risks associated with anesthesia, amongst others. She has pre-existing pseudoexfoliation, and I explained the potential for lens or implant dislocation at the time of or following surgery. She is symptomatic, voiced an understanding with respect to risks, and wished to proceed. She requested a monofocal implant. OPERATIVE DESCRIPTION: After informed consent was obtained and the risks, benefits, and alternatives were explained, the patient was brought to the operative suite and topical anesthesia was administered. The patient was then prepped and draped in the sterile fashion and attention was placed on the right eye. A sterile lid speculum was placed into the right eye to allow operative exposure. A full-thickness paracentesis was made in the temporal portion of the operative eye. Preservative-free lidocaine 0.1 mL was injected into the anterior chamber followed by viscoelastic. A full-thickness corneal incision was then made into the anterior chamber. A bent needle cystotome was used to create a small naresh in the anterior capsule. The capsulorrhexis forceps was then used to create a 360-degree curvilinear capsulorrhexis. The nucleus was then removed using a phacoemulsification handpiece and the remaining cortical material was then removed with irrigation and aspiration handpiece. Following removal of the cortical material, the capsular bag was then inspected and noted to be free of any holes or tears. Viscoelastic was then injected into the capsular bag and the intraocular lens was inserted into the capsular bag. The viscoelastic material was then removed from both the anterior and posterior chambers and from behind the IOL. The lens and capsular bag were then reinspected. The IOL was well centered and the capsular bag intact. The wound and paracentesis sites were inspected and hydrated with balanced saline solution. Both were found to be self- sealing. The intraocular pressure was assessed digitally and found to be within normal range. A good red reflex was noted at the completion of the procedure. No complications occurred during the operation. At the completion of the procedure, Maxitrol, Voltaren, and Iopidine drops were placed into the operative eye. A sterile eye shield was placed over the operative eye and the patient was transported to the postoperative recovery area having tolerated the procedure well. Postoperative instructions were given along with a postoperative appointment. The patient was advised to call with any questions or concerns. [facility] /[id number]
== END 2019-08-12 10:30 | disposition home or self-care (01) ==
LOC: DL.SDS 07:29
PROVIDERS: ATTEND Ophthalmology
DX: H25.811 Combined forms of age-related cataract, right eye (principal); H61.23 Impacted cerumen, bilateral; M25.512 Pain in left shoulder; I10 Essential (primary) hypertension; J44.9 Chronic obstructive pulmonary disease, unspecified; E78.5 Hyperlipidemia, unspecified; I25.10 Atherosclerotic heart disease of native coronary artery without angina pectoris; Z87.891 Personal history of nicotine dependence; Z98.42 Cataract extraction status, left eye; Z79.899 Other long term (current) drug therapy
CPT/HCPCS: 00142; 66984; J1100; J2001; J2250; J3370; V2632

== ENCOUNTER 2019-09-02 19:50 | Emergency (ER) | payer MEDICARE, MEDICAID ==
--- NOTE | 2019-09-02 20:27 | EDM.PDOC ---
ED HPI GENERAL MEDICAL PROBLEM - General Chief Complaint: Respiratory Problem Stated Complaint: AMBULANCE Time Seen by Provider: 09/02/19 20:15 Source of Information: Reports: Patient History Limitations: Reports: No Limitations - History of Present Illness INITIAL COMMENTS - FREE TEXT/NARRATIVE: This 64 yo female patient was brought to the ED by [facility] due to increased shortness of breath, a cough and fever. The patient reports her symptoms started 2 days ago, but have gotten worse today. The patient was seen in the clinic today, had a chest x-ray and a flu swab. The patient was advised that everything was fine and she was discharged. The patient has a history of COPD with emphysema. The patient reports she did not have a fever while at the clinic , but developed the fever while at home. The patient has not had any known contact with sick or ill patients. Onset Date: 09/01/19 Duration: Constant, Getting Worse Location: Reports: Generalized Quality: Reports: Other Severity: Moderate Improves with: Reports: None Worsens with: Reports: None Context: Reports: Other Associated Symptoms: Reports: Cough, Fever/Chills - Related Data Allergies Allergy/AdvReac Type Severity Reaction Status Date / Time codeine Allergy Cannot Verified 09/02/19 20:21 Remember hydrocodone Allergy Cannot Verified 09/02/19 20:21 Remember tramadol Allergy Nausea and Verified 09/02/19 20:21 Vomiting aspirin Allergy Abdominal Uncoded 09/02/19 20:21 Pain Home Meds: Home Meds Albuterol [Proair HFA] 2 puff INH Q4HR PRN 09/27/13 [History] Sertraline [Zoloft] 150 mg PO DAILY 09/27/13 [History] Albuterol/Ipratropium [DuoNeb 3.0-0.5 MG/3 ML] 3 ml INH Q6HR PRN 02/20/14 [ History] Pantoprazole [ProTONIX] 40 mg PO DAILY 10/01/14 [History] Gabapentin [Neurontin] 600 mg PO TID 11/01/14 [History] Budesonide [Pulmicort] 0.5 mg NEB BID 01/20/17 [History] Acetaminophen 650 mg PO QID PRN 10/07/17 [History] Ibuprofen 400 mg PO TID PRN 10/08/17 [History] Diltiazem [Cardizem CD] 120 mg PO DAILY 10/10/18 [History] Isosorbide Mononitrate [Imdur] 30 mg PO DAILY 03/26/18 [History] Tiotropium [Spiriva Handihaler] 18 mcg INH DAILY 06/08/18 [History] Codeine/Promethazine [Phenergan with Codeine] 5 ml PO Q4HR PRN 06/10/18 [History ] Ascorbic Acid [Vitamin C] 250 mg PO DAILY 01/21/19 [History] Benzonatate [Tessalon Perle] 100 mg PO TID PRN 01/21/19 [History] Estradiol [Estrace] 1 mg PO DAILY 01/21/19 [History] Ferrous Gluconate 324 mg PO DAILY 01/21/19 [History] Formoterol Fumarate [Perforomist] 20 mcg IH TID 01/21/19 [History] Ketotifen Fumarate [Alaway] 1 drop OP BID 01/21/19 [History] Ranitidine HCl 150 mg PO BID 01/21/19 [History] polyethylene glycoL 3350 [MiraLAX] 17 gm PO DAILY 01/21/19 [History] ALPRAZolam [Xanax] 0.25 mg PO TID PRN 06/17/19 [History] Roflumilast [Daliresp] 500 mcg PO DAILY 06/17/19 [History] Rosuvastatin [Crestor] 10 mg PO BEDTIME 06/17/19 [History] ALPRAZolam [Xanax] 0.25 mg PO ASDIRECTED PRN 08/04/19 [History] Azithromycin 250 mg PO ASDIRECTED 08/04/19 [History] Past Medical History - Past Health History Medical/Surgical History: Denies Medical/Surgical History HEENT History: Reports: Cataract, Impaired Vision, Other (See Below) Other HEENT History: near sided Cardiovascular History: Reports: None Other Cardiovascular History: has a stress test this coming Respiratory History: Reports: Bronchitis, Recurrent, COPD, SOB, TB, Other (See Below) Other Respiratory History: TB when pt. was a small child. 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 Musculoskeletal History: Reports: Arthritis, Other (See Below) Other Musculoskeletal History: arthritis , restless leg syndrome Neurological History: Reports: None Psychiatric History: Reports: Depression Endocrine/Metabolic History: Reports: None Hematologic History: Reports: None Immunologic History: Reports: None Oncologic (Cancer) History: Reports: None Dermatologic History: Reports: None - Infectious Disease History Infectious Disease History: Reports: Chicken Pox, Mumps, TB - Past Surgical History Head Surgeries/Procedures: Reports: None HEENT Surgical History: Reports: Cataract Surgery Cardiovascular Surgical History: Reports: None Respiratory Surgical History: Reports: None GI Surgical History: Reports: Appendectomy, Cholecystectomy, Other (See Below) Other GI Surgeries/Procedures: lysis of adhesion Female Surgical History: Reports: Hysterectomy Musculoskeletal Surgical History: Reports: None Social & Family History - Family History Family Medical History: Noncontributory HEENT: Reports: None Cardiac: Reports: None Respiratory: Reports: None GI: Reports: None : Reports: None OBGYN: Reports: None - Tobacco Use Smoking Status *Q: Former Smoker Used Tobacco, but Quit: Yes Month/Year Tobacco Last Used: years - Caffeine Use Caffeine Use: Reports: Coffee Other Caffeine Use: 3 cups - Recreational Drug Use Recreational Drug Use: No - Living Situation & Occupation Living situation: Reports: , with Family Occupation: Retired ED ROS GENERAL - Review of Systems Review Of Systems: Comprehensive ROS is negative, except as noted in HPI. ED EXAM, GENERAL - Physical Exam Exam: See Below Exam Limited By: No Limitations General Appearance: Alert, WD/WN, Moderate Distress Eye Exam: Bilateral Eye: EOMI, Normal Inspection, PERRL Ears: Normal External Exam, Normal Canal, Hearing Grossly Normal, Normal TMs Nose: Normal Inspection, Normal Mucosa, No Blood Throat/Mouth: Normal Inspection, Normal Lips, Normal Teeth, Normal Gums, Normal Oropharynx, Normal Voice, No Airway Compromise Head: Atraumatic, Normocephalic Neck: Normal Inspection, Supple, Non-Tender, Full Range of Motion Respiratory/Chest: Decreased Breath Sounds (throughout), Rhonchi (faint lower lobes with minimal effort) Cardiovascular: No Edema, No Gallop, No JVD, No Murmur, No Rub, Tachycardia GI/Abdominal: Normal Bowel Sounds, Soft, Non-Tender, No Organomegaly, No Distention, No Abnormal Bruit, No Mass (Female) Exam: Deferred Rectal (Female) Exam: Deferred Back Exam: Normal Inspection, Full Range of Motion, NT Extremities: Normal Inspection, Normal Range of Motion, Non-Tender, Normal Capillary Refill, No Pedal Edema Neurological: Alert, Oriented, CN II-XII Intact, Normal Cognition, Normal Gait, Normal Reflexes, No Motor/Sensory Deficits Psychiatric: Normal Affect, Normal Mood Skin Exam: Warm, Dry, Intact, Normal Color, No Rash Lymphatic: No Adenopathy Course - Orders/Labs/Meds Orders: Active Orders 24 hr Category Date Time Status EKG Documentation Completion [RC] URGENT Care 09/02/19 19:54 Ordered Chest 1V Frontal [CR] Urgent Exams 09/02/19 19:54 Ordered B-TYPE NATRIURETIC PEPTIDE,BNP [CHEM] Stat Lab 09/02/19 19:54 Ordered CBC WITH AUTO DIFF [HEME] Urgent Lab 09/02/19 19:54 Ordered COMPREHENSIVE METABOLIC PN,CMP [CHEM] Urgent Lab 09/02/19 19:54 Ordered CULTURE BLOOD [BC] Stat Lab 09/02/19 19:54 Ordered LACTIC ACID [CHEM] Stat Lab 09/02/19 19:54 Ordered TROPONIN I [CHEM] Urgent Lab 09/02/19 19:54 Ordered - Re-Assessments/Exams Free Text/Narrative Re-Assessment/Exam: 09/02/19 21:01 PROCEDURE INFORMATION: Exam: XR Chest, 1 View Exam date and time: 09/02/2019 8:23 PM Age: 64 years old Clinical indication: Shortness of breath and other: Tachycsrdia, copd TECHNIQUE: Imaging protocol: XR of the chest Views: 1 view. COMPARISON: No relevant prior studies available. FINDINGS: Lungs: There is hyperinflation bilaterally consistent with underlying COPD. Some areas of bilateral lung scarring are noted. There are no areas of acute infiltrate or edema. No suspicious nodules or focal lung lesions. Pleural space: Unremarkable. No pleural effusion. No pneumothorax. Heart/Mediastinum: Unremarkable. No cardiomegaly. Bones/joints: Unremarkable. IMPRESSION: 1. No acute lung infiltrates or consolidation. 2. Hyperinflation consistent with COPD. 3. Right apical chronic appearing scarring. 4. Right mid lung field and left lower lung field minor linear atelectasis versus scar. Thank you for allowing us to participate in the care of your patient. Dictated and Authenticated by: Robby Sawant MD 09/02/2019 8:41 PM Central Time ([place] & [place]) Departure - Departure Time of Disposition: 21:05 Disposition: Home, Self-Care 01 Condition: Fair Clinical Impression: COPD exacerbation, Bronchitis - Discharge Information *PRESCRIPTION DRUG MONITORING PROGRAM REVIEWED*: Not Applicable *COPY OF PRESCRIPTION DRUG MONITORING REPORT IN PATIENT TOMMY: Not Applicable Instructions: Chronic Obstructive Pulmonary Disease Exacerbation, [id number] , Acute Bronchitis, Adult, [id number] Care Plan Goals: The patient was advised of the examination, lab and x-ray results during the visit. The patient was given an IV dose of Rocephin while in the ED. The patient was discharged with a script for Azithromycin (250 mg) #6 to take 2 by mouth on day 1 and 1 by mouth on days 2-5. The patient was encouraged to continue with her current medications as prescribed. If the patient has any additional symptoms or concerns, the patient should either return to the emergency department or visit her primary care facility. - My Orders Last 24 Hours: My Active Orders 09/02/19 19:54 EKG Documentation Completion [RC] URGENT Chest 1V Frontal [CR] Urgent B-TYPE NATRIURETIC PEPTIDE,BNP [CHEM] Stat CBC WITH AUTO DIFF [HEME] Urgent COMPREHENSIVE METABOLIC PN,CMP [CHEM] Urgent CULTURE BLOOD [BC] Stat LACTIC ACID [CHEM] Stat TROPONIN I [CHEM] Urgent - Assessment/Plan Last 24 Hours: My Active Orders 09/02/19 19:54 EKG Documentation Completion [RC] URGENT Chest 1V Frontal [CR] Urgent B-TYPE NATRIURETIC PEPTIDE,BNP [CHEM] Stat CBC WITH AUTO DIFF [HEME] Urgent COMPREHENSIVE METABOLIC PN,CMP [CHEM] Urgent CULTURE BLOOD [BC] Stat LACTIC ACID [CHEM] Stat TROPONIN I [CHEM] Urgent
[2019-09-02 20:48] LABS: ANION GAP 15.6 mEq/L (7-13); CHLORIDE,CL 100 mmol/L (98-107); SODIUM,NA 139 mmol/L (136-145)
[2019-09-02] MEDS ORDERED: cefTRIAXone 1 GM in Sodium Chloride 0.9% 50 ML IV ONE (20:59)
[2019-09-02 21:09] VITALS: BP 157/85; PULSE 119
== END 2019-09-02 21:52 | disposition home or self-care (01) ==
LOC: DL.ED 19:50
DX: J44.1 Chronic obstructive pulmonary disease with (acute) exacerbation (principal); K21.9 Gastro-esophageal reflux disease without esophagitis; M19.90 Unspecified osteoarthritis, unspecified site; F32.9 Major depressive disorder, single episode, unspecified; Z87.891 Personal history of nicotine dependence; Z88.5 Allergy status to narcotic agent; Z88.8 Allergy status to other drugs, medicaments and biological substances; Z79.899 Other long term (current) drug therapy
CPT/HCPCS: 36415; 71045; 80053; 83605; 83880; 84484; 85025; 87040; 93005; 96365; 99285-25; J0696; J7050

== ENCOUNTER 2020-04-02 00:10 | Emergency (ER) | payer MEDICARE, MEDICAID ==
[2020-04-02 00:23] VITALS: BP 139/66; PULSE 90
--- NOTE | 2020-04-02 00:23 | EDM.PDOC ---
ED HPI GENERAL MEDICAL PROBLEM - General Chief Complaint: Respiratory Problem Stated Complaint: AMBULANCE Time Seen by Provider: 04/02/20 00:21 Source of Information: Reports: Patient History Limitations: Reports: No Limitations - History of Present Illness INITIAL COMMENTS - FREE TEXT/NARRATIVE: been coughing up alot and started coughin g up blood tonight. denies CP/SOB. Mid-Anterior Chest Pain Score (Numeric/FACES): 5 - Related Data Allergies Allergy/AdvReac Type Severity Reaction Status Date / Time codeine Allergy Cannot Verified 04/02/20 00:25 Remember hydrocodone Allergy Cannot Verified 04/02/20 00:25 Remember tramadol Allergy Nausea and Verified 04/02/20 00:25 Vomiting aspirin Allergy Abdominal Uncoded 04/02/20 00:25 Pain Home Meds: Home Meds Albuterol [Proair HFA] 2 puff INH Q4HR PRN 09/27/13 [History] Sertraline [Zoloft] 150 mg PO DAILY 09/27/13 [History] Albuterol/Ipratropium [DuoNeb 3.0-0.5 MG/3 ML] 3 ml INH Q6HR PRN 02/20/14 [History] Pantoprazole [ProTONIX] 40 mg PO DAILY 10/01/14 [History] Gabapentin [Neurontin] 600 mg PO TID 11/01/14 [History] Budesonide [Pulmicort] 0.5 mg NEB BID 01/20/17 [History] Acetaminophen 650 mg PO QID PRN 10/07/17 [History] Ibuprofen 400 mg PO TID PRN 10/08/17 [History] Diltiazem [Cardizem CD] 120 mg PO DAILY 03/26/18 [History] Isosorbide Mononitrate [Imdur] 30 mg PO DAILY 03/26/18 [History] Tiotropium [Spiriva Handihaler] 18 mcg INH DAILY 06/08/18 [History] Codeine/Promethazine [Phenergan with Codeine] 5 ml PO Q4HR PRN 06/10/18 [History] Ascorbic Acid [Vitamin C] 250 mg PO DAILY 01/21/19 [History] Benzonatate [Tessalon Perle] 100 mg PO TID PRN 01/21/19 [History] Ferrous Gluconate 324 mg PO DAILY 01/21/19 [History] Formoterol Fumarate [Perforomist] 20 mcg IH TID 01/21/19 [History] Ketotifen Fumarate [Alaway] 1 drop OP BID 01/21/19 [History] Ranitidine HCl 150 mg PO BID 01/21/19 [History] estradioL [Estrace] 1 mg PO DAILY 01/21/19 [History] polyethylene glycoL 3350 [MiraLAX] 17 gm PO DAILY 01/21/19 [History] ALPRAZolam [Xanax] 0.25 mg PO TID PRN 06/17/19 [History] Roflumilast [Daliresp] 500 mcg PO DAILY 06/17/19 [History] Rosuvastatin [Crestor] 10 mg PO BEDTIME 06/17/19 [History] ALPRAZolam [Xanax] 0.25 mg PO ASDIRECTED PRN 08/04/19 [History] Azithromycin 250 mg PO ASDIRECTED 08/04/19 [History] Past Medical History - Past Health History Medical/Surgical History: Denies Medical/Surgical History HEENT History: Reports: Cataract, Impaired Vision, Other (See Below) Other HEENT History: near sided Cardiovascular History: Reports: None Other Cardiovascular History: has a stress test this coming Respiratory History: Reports: Bronchitis, Recurrent, COPD, SOB, TB, Other (See Below) Other Respiratory History: TB when pt. was a small child. 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 Musculoskeletal History: Reports: Arthritis, Other (See Below) Other Musculoskeletal History: arthritis , restless leg syndrome Neurological History: Reports: None Psychiatric History: Reports: Depression Endocrine/Metabolic History: Reports: None Hematologic History: Reports: None Immunologic History: Reports: None Oncologic (Cancer) History: Reports: None Dermatologic History: Reports: None - Infectious Disease History Infectious Disease History: Reports: Chicken Pox, Mumps, TB - Past Surgical History Head Surgeries/Procedures: Reports: None HEENT Surgical History: Reports: Cataract Surgery Cardiovascular Surgical History: Reports: None Respiratory Surgical History: Reports: None GI Surgical History: Reports: Appendectomy, Cholecystectomy, Other (See Below) Other GI Surgeries/Procedures: lysis of adhesion Female Surgical History: Reports: Hysterectomy Musculoskeletal Surgical History: Reports: None Social & Family History - Family History Family Medical History: Noncontributory HEENT: Reports: None Cardiac: Reports: None Respiratory: Reports: None GI: Reports: None : Reports: None OBGYN: Reports: None - Tobacco Use Tobacco Use Status *Q: Current Every Day Tobacco User Years of Tobacco use: 52 Packs/Tins Daily: 0.3 Second Hand Smoke Exposure: Yes - Caffeine Use Caffeine Use: Reports: Coffee Other Caffeine Use: 3 cups - Recreational Drug Use Recreational Drug Use: No - Living Situation & Occupation Living situation: Reports: , with Family Occupation: Retired ED ROS GENERAL - Review of Systems Review Of Systems: Comprehensive ROS is negative, except as noted in HPI. ED EXAM, GENERAL - Physical Exam Exam: See Below Exam Limited By: No Limitations General Appearance: Alert, WD/WN, Mild Distress, Other (discomfort) Ears: Hearing Grossly Normal Throat/Mouth: Normal Inspection, Normal Voice, No Airway Compromise, Other (no blood noted) Head: Atraumatic Neck: Non-Tender, Full Range of Motion Respiratory/Chest: No Accessory Muscle Use, Rhonchi, Wheezing Cardiovascular: Regular Rate, Rhythm GI/Abdominal: Soft, Non-Tender (Female) Exam: Deferred Rectal (Female) Exam: Deferred Neurological: Alert, Oriented, Normal Cognition, No Motor/Sensory Deficits Psychiatric: Flat Affect Skin Exam: Warm, Dry, Normal Color Lymphatic: No Adenopathy Course - Vital Signs Last Recorded V/S: Last Vital Signs Temp 36.4 C 04/02/20 00:10 Pulse 90 04/02/20 00:10 Resp 20 04/02/20 00:10 BP 139/66 04/02/20 00:10 Pulse Ox 98 04/02/20 00:10 - Orders/Labs/Meds Orders: Active Orders 24 hr Category Date Time Status Acetaminophen [TylenoL] Med 04/02/20 02:20 Once 325 mg PO NOW ONE predniSONE Med 04/02/20 02:20 Once 20 mg PO ONETIME ONE Medication Orders Acetaminophen (Tylenol) 325 mg PO NOW ONE Stop: 04/02/20 02:21 Prednisone (Prednisone) 20 mg PO ONETIME ONE Stop: 04/02/20 02:21 Labs: Laboratory Tests 04/02/20 04/02/20 04/02/20 Range/Units 00:30 00:30 00:30 WBC 9.1 (5.0-10.0) 10^3/uL RBC 4.52 (4.2-5.4) 10^6/uL Hgb 12.8 (12.0-16.0) g/dL Hct 40.0 (37.0-47.0) % MCV 88.5 (80-100) fL MCH 28.3 (27.0-34.0) pg MCHC 32.0 L (33.0-35.0) g/dL Plt Count 241 (150-450) 10^3/uL Neut % (Auto) 54.9 (42.2-75.2) % Lymph % (Auto) 32.6 (20.5-50.1) % [place] % (Auto) 8.2 H (2-8) % Eos % (Auto) 4.2 H (1.0-3.0) % Baso % (Auto) 0.1 (0.0-1.0) % D-Dimer, Quantitative 260 (0-400) ng/mL Sodium 145 (136-145) mmol/L Potassium 3.8 (3.5-5.1) mmol/L Chloride 104 (98-107) mmol/L Carbon Dioxide 38 H D (21-32) mmol/L Anion Gap 6.8 L (7-13) mEq/L BUN 13 (7-18) mg/dL Creatinine 0.60 (0.55-1.02) mg/dL Est Cr Clr Drug Dosing 67.14 mL/min Estimated GFR (MDRD) > 60 BUN/Creatinine Ratio 21.7 (No establ ref range) Glucose 93 (74-99) mg/dL Calcium 8.9 (8.5-10.1) mg/dL Total Bilirubin 0.1 L (0.2-1.0) mg/dL AST 16 (15-37) U/L ALT 19 (14-59) U/L Alkaline Phosphatase 139 H (46-116) U/L Total Protein 7.5 (6.4-8.2) g/dL Albumin 3.5 (3.4-5.0) g/dL Globulin 4.0 Albumin/Globulin Ratio 0.9 Meds: Medications Generic Name Dose Route Start Last Admin Trade Name Khang PRN Reason Stop Dose Admin Acetaminophen 325 mg 04/02/20 02:20 Tylenol PO 04/02/20 02:21 NOW ONE Prednisone 20 mg 04/02/20 02:20 Prednisone PO 04/02/20 02:21 ONETIME ONE - Re-Assessments/Exams Free Text/Narrative Re-Assessment/Exam: 04/02/20 02:21 results discussed with pt who had no further episode of cough but would like something for her chest soreness from all the coughing she has been doing past few days. Departure - Departure Time of Disposition: 02:22 Disposition: Home, Self-Care 01 Condition: Fair Clinical Impression: COLD, Chronic obstructive lung disease, Pleuritic chest pain - Discharge Information Instructions: Chronic Obstructive Pulmonary Disease Exacerbation, [id number] Forms: ED Department Discharge Additional Instructions: 1) don't sleep flat at night 2) continue home meds 3) drink lots of liquids 4) follow up at clinic rx given; medrol celeste Sepsis Event Note (ED) - Focused Exam Vital Signs: Vital Signs Temp Pulse Resp BP Pulse Ox 04/02/20 00:10 36.4 C 90 20 139/66 98 - My Orders Last 24 Hours: My Active Orders 04/02/20 02:20 Acetaminophen [TylenoL] 325 mg PO NOW ONE predniSONE 20 mg PO ONETIME ONE - Assessment/Plan Last 24 Hours: My Active Orders 04/02/20 02:20 Acetaminophen [TylenoL] 325 mg PO NOW ONE predniSONE 20 mg PO ONETIME ONE
[2020-04-02 00:59] LABS: ANION GAP 6.8 mEq/L (7-13); CHLORIDE,CL 104 mmol/L (98-107); SODIUM,NA 145 mmol/L (136-145)
--- NOTE | 2020-04-02 02:04 | CR ---
PROCEDURE INFORMATION: Exam: XR Chest, 1 View Exam date and time: 04/02/2020 1:36 AM Age: 64 years old Clinical indication: Cough; Additional info: Cough copd TECHNIQUE: Imaging protocol: XR of the chest Views: 1 view. COMPARISON: CR Chest 1V Frontal 09/02/2019 8:23 PM FINDINGS: Lungs: There are mildly prominent bronchovascular markings present compatible with COPD. Strandy opacities are seen in the lung bases, left than right likely representing atelectasis. Pleural space: Unremarkable. No pleural effusion. No pneumothorax. Heart/Mediastinum: Unremarkable. No cardiomegaly. Bones/joints: Unremarkable. IMPRESSION: 1. Prominent bronchovascular markings compatible with COPD. 2. Strandy opacities in lung bases most probably represents atelectasis.
[2020-04-02] MEDS ORDERED: Acetaminophen 325 MG Tab PO ONE (02:20)
[2020-04-02] MEDS ORDERED: predniSONE 20 MG Tab PO ONE (02:20)
== END 2020-04-02 02:55 | disposition home or self-care (01) ==
LOC: DL.ED 00:10
DX: J44.9 Chronic obstructive pulmonary disease, unspecified (principal); J00 Acute nasopharyngitis [common cold]; R09.1 Pleurisy; F32.9 Major depressive disorder, single episode, unspecified; M19.90 Unspecified osteoarthritis, unspecified site; K21.9 Gastro-esophageal reflux disease without esophagitis; F17.210 Nicotine dependence, cigarettes, uncomplicated; Z79.899 Other long term (current) drug therapy; Z88.5 Allergy status to narcotic agent; Z88.6 Allergy status to analgesic agent
CPT/HCPCS: 36415; 71045; 80053; 85025; 85379; 99285; A9270; J7512

== ENCOUNTER 2021-06-21 09:24 | Emergency (ER) | payer MEDICARE, MEDICAID ==
--- NOTE | 2021-06-21 09:29 | EDM.PDOC ---
ED HPI GENERAL MEDICAL PROBLEM - General Chief Complaint: Respiratory Problem Stated Complaint: Respiratory distress Time Seen by Provider: 06/21/21 09:28 Source of Information: Reports: Patient, EMS, Old Records, RN, RN Notes Reviewed History Limitations: Reports: Respiratory Distress - History of Present Illness INITIAL COMMENTS - FREE TEXT/NARRATIVE: Pt arrives from the [facility] by ambulance with report of difficulty breathing. Unknown onset. Pt is a home supplemental oxygen dependent pt with history of advanced/severe COPD. EMS reports the pt continues to smoke c igarettes. Reportedly the pt was found by staff to be lethargic with altered mental status and struggling to breath this morning. EMS reports pt had oxygen saturations in the 70's upon their initial assessment. Pt received a DunNeb tx by EMS prior to arrival. On arrival to the ER the pt was lethargic, confused, hypoxic at 83% on 5L/NC, afebrile, audible wet rhonchi, labored breathing. Deep suction by RT produced a fairly large return of thick yellow purulent mucus. Documents accompanying the pt confirm the pt is a full code. I asked the pt if she was willing to be intubated and she responded, "yes". I placed an 18g IV in the left EJ and performed RSI with succinylcholine 1mg/kg IVP, etomidate 20mg IVP, and versed 2mg IVP. Pt was intubated on first attempt with direct visualization of the cords using a MAC-3 blade and 7.5F ET tube to 22cm at the lip. ET tube placement confirmed by +CO2 detector, auscultation, and chest x- ray. Sedation maintained by titratable versed drip. Post intubation and tube suction the oxygen saturation improved to 96-98%. BP remained with systolic in 117 to 126 range. Sepsis work up and sepsis treatment protocol initiated with wt based dosing of vancomycin IV, and zosyn IV, IVF bolus of 30ml/kg, and addition of solu-medrol 125mg IVP. COVID/Influenza/RSV quad-pack swab and blood cultures x2 obtained. 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 Treatments, Oxygen - Related Data Allergies Allergy/AdvReac Type Severity Reaction Status Date / Time codeine Allergy Cannot Verified 04/02/20 00:25 Remember hydrocodone Allergy Cannot Verified 04/02/20 00:25 Remember tramadol Allergy Nausea and Verified 04/02/20 00:25 Vomiting aspirin Allergy Abdominal Uncoded 04/02/20 00:25 Pain Home Meds: Home Meds Albuterol [Proair HFA] 2 puff INH Q4HR PRN 09/27/13 [History] Sertraline [Zoloft] 150 mg PO DAILY 09/27/13 [History] Albuterol/Ipratropium [DuoNeb 3.0-0.5 MG/3 ML] 3 ml INH Q6HR PRN 02/20/14 [History] Gabapentin [Neurontin] 600 mg PO TID 11/01/14 [History] Acetaminophen 650 mg PO QID PRN 10/07/17 [History] Ibuprofen 400 mg PO TID PRN 10/08/17 [History] Isosorbide Mononitrate [Imdur] 45 mg PO DAILY 03/26/18 [History] Tiotropium [Spiriva Handihaler] 18 mcg INH DAILY 06/08/18 [History] Ascorbic Acid [Vitamin C] 250 mg PO DAILY 01/21/19 [History] Ferrous Gluconate 324 mg PO DAILY 01/21/19 [History] Formoterol Fumarate [Perforomist] 20 mcg IH BID 01/21/19 [History] Ranitidine HCl 150 mg PO BID 01/21/19 [History] estradioL [Estrace] 1 mg PO DAILY 01/21/19 [History] polyethylene glycoL 3350 [MiraLAX] 17 gm PO DAILY 01/21/19 [History] ALPRAZolam [Xanax] 0.25 mg PO TID PRN 06/17/19 [History] Roflumilast [Daliresp] 500 mcg PO DAILY 06/17/19 [History] Rosuvastatin [Crestor] 10 mg PO BEDTIME 06/17/19 [History] ALPRAZolam [Xanax] 0.25 mg PO ASDIRECTED PRN 08/04/19 [History] Azithromycin 250 mg PO ASDIRECTED 08/04/19 [History] Famotidine 20 mg PO BID 06/21/21 [History] dilTIAZem HCL [Cartia Xt] 120 mg PO DAILY 06/21/21 [History] hydrOXYzine HCL [Atarax] 10 mg PO TID PRN 06/21/21 [History] Past Medical History - Past Health History Medical/Surgical History: Denies Medical/Surgical History HEENT History: Reports: Cataract, Impaired Vision, Other (See Below) Other HEENT History: near sided Cardiovascular History: Reports: None Other Cardiovascular History: has a stress test this coming Respiratory History: Reports: Bronchitis, Recurrent, COPD, SOB, TB, Other (See Below) Other Respiratory History: TB when pt. was a small child. Emphysema by pt account Gastrointestinal History: Reports: GERD Other Gastrointestinal History: N/A Genitourinary History: Reports: Renal Calculus, Other (See Below) Other Genitourinary History: kidney stones PULLER OVER History: Reports: , Other (See Below) Other PULLER OVER History: nvd two children/ hysterectomy Musculoskeletal History: Reports: Arthritis, Other (See Below) Other Musculoskeletal History: arthritis , restless leg syndrome Neurological History: Reports: None Psychiatric History: Reports: Depression Endocrine/Metabolic History: Reports: None Hematologic History: Reports: None Immunologic History: Reports: None Oncologic (Cancer) History: Reports: None Dermatologic History: Reports: None - Infectious Disease History Infectious Disease History: Reports: Chicken Pox, Mumps, TB - Past Surgical History Head Surgeries/Procedures: Reports: None HEENT Surgical History: Reports: Cataract Surgery Cardiovascular Surgical History: Reports: None Respiratory Surgical History: Reports: None GI Surgical History: Reports: Appendectomy, Cholecystectomy, Other (See Below) Other GI Surgeries/Procedures: lysis of adhesion Female Surgical History: Reports: Hysterectomy Musculoskeletal Surgical History: Reports: None Social & Family History - Family History Family Medical History: No Pertinent Family History HEENT: Reports: None Cardiac: Reports: None Respiratory: Reports: None GI: Reports: None : Reports: None OBGYN: Reports: None - Tobacco Use Tobacco Use Status *Q: Current Every Day Tobacco User Tobacco Use Within Last Twelve Months: Cigarettes - Caffeine Use Caffeine Use: Reports: Coffee Other Caffeine Use: 3 cups - Living Situation & Occupation Living situation: Reports: , Other (Basic/independent care at the [facility]) Occupation: Retired ED ROS GENERAL - Review of Systems Review Of Systems: Unable To Obtain Reason Not Obtained: intubated ED EXAM, GENERAL - Physical Exam Exam: See Below Exam Limited By: Respiratory Distress General Appearance: Lethargic, Moderate Distress (respiratory), Thin, Other (Chronically ill appearing) Eye Exam: Bilateral Eye: Normal Inspection Nose: Normal Inspection, Normal Mucosa, No Blood Throat/Mouth: Other (Dried mucus sectretions dried at lips, very dry oral mucosa. Copious this yellow-creamy mucus in the oropharynx) Head: Atraumatic, Normocephalic Neck: Normal Inspection Respiratory/Chest: Respiratory Distress, Decreased Breath Sounds, Crackles (wet), Rhonchi, Wheezing, Accessory Muscle Use Cardiovascular: Regular Rate, Rhythm, No Edema, Tachycardia GI/Abdominal: Soft, Non-Tender, Other (Hypoactive bowel sounds) Extremities: Normal Inspection, No Pedal Edema. No: Increased Warmth, Mottled, Redness Neurological: Inattentive, Confused, Disoriented, Other (No obvious motor deficits) Skin Exam: Warm, Dry, Pallor ED RESPIRATORY PROCEDURES - Endotracheal Intubation Time of Intubation: 10:30 ET Intubation Indication: Respiratory Failure, Airway Protection Preparation: Suction, Balloon Tested, BVM Set Up, Difficult Airway Equip Airway Assessment: Profuse Secretions Pre-Oxygenation: Assisted with BVM, 100% FiO2 Anesthesia Meds: Etomidate, Midazolam, Succinylcholine Placement: Orotracheal, Cuffed, Uncomplicated Placement Cords Visualized: Yes ETT Size In mm: 7.5 Number of Attempts: 1 Confirmed By: CO2 Indicator, Bilateral Breath Sounds, Chest Xray Tube Secured By: By RT Endotracheal Intubation Comment: Tube secured at 22cm at the lip. #1 Interpretation EKG Date: 06/21/21 Time: 11:14 Rhythm: Other (Sinus tach) Rate (Beats/Min): 143 [place]: Normal P-Wave: Present QRS: Normal ST-T: Normal QT: Prolonged Comparison: Change From Previous EKG (Prev. SR not tachy) Course - Vital Signs Last Recorded V/S: Last Vital Signs Temp 98.1 F 06/21/21 14:48 Pulse 131 H 06/21/21 16:44 Resp 24 H 06/21/21 16:44 BP 96/73 06/21/21 16:44 Pulse Ox 97 06/21/21 16:44 - Orders/Labs/Meds Orders: Active Orders 24 hr Category Date Time Status Blood Glucose Check, Bedside [] ONETIME Care 06/21/21 09:34 Active Blood Glucose Check, Bedside [] ONETIME Care 06/21/21 14:25 Active Insert Estrella Catheter [Insert Urinary Catheter] [OM.PC] Care 06/21/21 09:39 Ordered Stat Peripheral IV Care [RC] . DIRECTED Care 06/21/21 09:36 Active RT Aerosol Therapy [RC] ASDIRECTED Care 06/21/21 09:36 Active RT Aerosol Therapy [RC] ASDIRECTED Care 06/21/21 14:24 Active Urinary Catheter Assessment [RC] ASDIRECTED Care 06/21/21 09:39 Active Ventilator Assessment, ED [RT Ventilator ED, Adult] [RC Care 06/21/21 10:47 Active ] ASDIRECTED CULTURE BLOOD [BC] Stat Lab 06/21/21 10:45 Results CULTURE BLOOD [BC] Stat Lab 06/21/21 10:45 Results CULTURE SPUTUM + SMEAR [] Stat Lab 06/21/21 13:42 Results Midazolam [Versed 5 MG/ML] 50 mg Med 06/21/21 10:00 Active Sodium Chloride 0.9% [Normal Saline] 40 ml IV ASDIRECTED Norepinephrine [Levophed] 4 mg Med 06/21/21 14:30 Active Dextrose 5% in Water 246 ml IV TITRATE Sodium Chloride 0.9% [Normal Saline] 1,000 ml Med 06/21/21 13:30 Active IV ASDIRECTED Sodium Chloride 0.9% [Normal Saline] 1,710 ml Med 06/21/21 10:15 Active IV ASDIRECTED Sodium Chloride 0.9% [Normal Saline] 1,710 ml Med 06/21/21 12:00 Active IV ASDIRECTED Sodium Chloride 0.9% [Saline Flush] Med 06/21/21 09:34 Active 10 ml FLUSH ASDIRECTED PRN Blood Culture x2 Reflex Set [OM.PC] Stat Oth 06/21/21 09:34 Ordered NG [Nasogastric Orogastric Tube Insertion] [OM.PC] Oth 06/21/21 10:10 Ordered Routine Peripheral IV Insertion Adult [OM.PC] Stat Oth 06/21/21 09:36 Ordered RT Suction Nasopharyngeal [RESPCARE] Stat Oth 06/21/21 09:34 Ordered Medication Orders Midazolam HCl 50 mg/ Sodium (Chloride) 50 mls @ 2 mls/hr IV ASDIRECTED [facility]; Protocol Last Admin: 06/21/21 10:27 Dose: 2 mg/hr, 2 mls/hr Documented by: LEAH Sodium Chloride (Normal Saline) 1,710 mls @ 999 mls/hr IV ASDIRECTED ELIZABETH Last Admin: 06/21/21 10:28 Dose: 999 mls/hr Documented by: LEAH Sodium Chloride (Normal Saline) 1,710 mls @ 999 mls/hr IV ASDIRECTED ELIZABETH Last Admin: 06/21/21 12:10 Dose: 999 mls/hr Documented by: STELLA Sodium Chloride (Normal Saline) 1,000 mls @ 100 mls/hr IV ASDIRECTED ELIZABETH Last Admin: 06/21/21 15:14 Dose: 100 mls/hr Documented by: STELLA Norepinephrine Bitartrate 4 mg (/ Dextrose/Water) 250 mls @ 15 mls/hr IV TITRATE ELIZABETH; Protocol Last Titration: 06/21/21 15:43 Dose: 4 mcg/min, 15 mls/hr Documented by: Admin: 06/21/21 14:34 Dose: 4 mcg/min, 15 mls/hr Documented by: STELLA Sodium Chloride (Sodium Chloride 0.9% 10 Ml Syringe) 10 ml FLUSH ASDIRECTED PRN PRN Reason: Keep Vein Open Last Admin: 06/21/21 10:30 Dose: 10 ml Documented by: LEAH Labs: Laboratory Tests 06/21/21 06/21/21 06/21/21 Range/Units 09:40 10:45 10:45 WBC 4.0 L (5.0-10.0) 10^3/uL RBC 4.78 (4.2-5.4) 10^6/uL Hgb 13.6 (12.0-16.0) g/dL Hct 43.8 (37.0-47.0) % MCV 91.6 D (80-100) fL MCH 28.5 (27.0-34.0) pg MCHC 31.1 L (33.0-35.0) g/dL Plt Count 249 (150-450) 10^3/uL Neut % (Auto) 68.1 (42.2-75.2) % Lymph % (Auto) 17.1 L (20.5-50.1) % [place] % (Auto) 14.6 H (2-8) % Eos % (Auto) 0.0 L (1.0-3.0) % Baso % (Auto) 0.2 (0.0-1.0) % ABG pH (7.35-7.45) ABG pCO2 (35-45) mmHg ABG pO2 (70-100) mmHg ABG HCO3 (22-26) mmol/L ABG O2 Saturation (95-100) % ABG Base Excess ((-2)-(+3)) mmol/L Eder Test VBG pH (7.31-7.41) VBG pCO2 (41-51) mmHg VBG pO2 (35-42) mmHg VBG HCO3 (19-25) mmol/l VBG O2 Saturation (60-80) % VBG Base Excess ((-2)-(+3)) mmol/l O2 Delivery Device Oxygen Flow Rate Sodium 147 H (136-145) mmol/L Potassium 3.9 (3.5-5.1) mmol/L Chloride 109 H (98-107) mmol/L Carbon Dioxide 28 (21-32) mmol/L Anion Gap 13.9 H (7-13) mEq/L BUN 17 (7-18) mg/dL Creatinine 1.11 H (0.55-1.02) mg/dL Est Cr Clr Drug Dosing 35.33 mL/min Estimated GFR (MDRD) 49 BUN/Creatinine Ratio 15.3 (No establ ref range) Glucose 126 H (70-99) mg/dL POC Glucose (70-99) mg/dL Lactic Acid (0.4-2.0) mmol/L Calcium 8.7 (8.5-10.1) mg/dL Total Bilirubin 0.3 (0.2-1.0) mg/dL AST 24 (15-37) U/L ALT 15 (14-59) U/L Alkaline Phosphatase 91 (46-116) U/L Troponin I High Sens 16 (<=51) pg/mL B-Natriuretic Peptide 87 (0-100) pg/ml Total Protein 6.2 L (6.4-8.2) g/dL Albumin 2.9 L (3.4-5.0) g/dL Globulin 3.3 Albumin/Globulin Ratio 0.88 Urine Color (YELLOW) Urine Appearance (CLEAR) Urine pH (5.0-9.0) Ur Specific [place] (1.005-1.030) Urine Protein (NEGATIVE) Urine Glucose (UA) (NEGATIVE) Urine Ketones (NEGATIVE) Urine Occult Blood (NEGATIVE) Urine Nitrite (NEGATIVE) Urine Bilirubin (NEGATIVE) Urine Urobilinogen (0.2-1.0) mg/dL Ur Leukocyte Esterase (NEGATIVE) U Hyaline Cast (Auto) Urine RBC (0-5) /HPF Urine WBC (0-5/HPF) /HPF Ur Epithelial Cells (NOT SEEN) /HPF Calcium Oxalate Crystal (NOT SEEN) /HPF Amorphous Sediment (NOT SEEN) /HPF Urine Bacteria (0-FEW/HPF) /HPF Urine Mucus (NOT SEEN) /LPF Urine Opiates Screen (NEGATIVE) Ur Oxycodone Screen (NEGATIVE) Urine Methadone Screen (NEGATIVE) Ur Barbiturates Screen (NEGATIVE) U Tricyclic Antidepress (NEGATIVE) Ur Phencyclidine Scrn (NEGATIVE) Ur Amphetamine Screen (NEGATIVE) U Methamphetamines Scrn (NEGATIVE) Urine MDMA Screen (NEGATIVE) U Benzodiazepines Scrn (NEGATIVE) Urine Cocaine Screen (NEGATIVE) U Marijuana (THC) Screen (NEGATIVE) Influenza Type A RNA Negative (NEGATIVE) RSV RNA (INAAT) Negative (NEGATIVE) Influenza Type B RNA Negative (NEGATIVE) SARS-CoV-2 RNA (NISA) Negative (NEGATIVE) 06/21/21 06/21/21 06/21/21 Range/Units 10:45 10:45 10:55 WBC (5.0-10.0) 10^3/uL RBC (4.2-5.4) 10^6/uL Hgb (12.0-16.0) g/dL Hct (37.0-47.0) % MCV (80-100) fL MCH (27.0-34.0) pg MCHC (33.0-35.0) g/dL Plt Count (150-450) 10^3/uL Neut % (Auto) (42.2-75.2) % Lymph % (Auto) (20.5-50.1) % [place] % (Auto) (2-8) % Eos % (Auto) (1.0-3.0) % Baso % (Auto) (0.0-1.0) % ABG pH 7.17 L* (7.35-7.45) ABG pCO2 77 H* (35-45) mmHg ABG pO2 51 L (70-100) mmHg ABG HCO3 26.7 H (22-26) mmol/L ABG O2 Saturation 84 L (95-100) % ABG Base Excess -4 L ((-2)-(+3)) mmol/L Eder Test ok VBG pH 7.17 L* (7.31-7.41) VBG pCO2 77 H* (41-51) mmHg VBG pO2 51 H (35-42) mmHg VBG HCO3 27 H (19-25) mmol/l VBG O2 Saturation 84 H (60-80) % VBG Base Excess -4 L ((-2)-(+3)) mmol/l O2 Delivery Device Nasal cannula Nasal cannula Oxygen Flow Rate 0 0 Sodium (136-145) mmol/L Potassium (3.5-5.1) mmol/L Chloride (98-107) mmol/L Carbon Dioxide (21-32) mmol/L Anion Gap (7-13) mEq/L BUN (7-18) mg/dL Creatinine (0.55-1.02) mg/dL Est Cr Clr Drug Dosing mL/min Estimated GFR (MDRD) BUN/Creatinine Ratio (No establ ref range) Glucose (70-99) mg/dL POC Glucose (70-99) mg/dL Lactic Acid 2.6 H* (0.4-2.0) mmol/L Calcium (8.5-10.1) mg/dL Total Bilirubin (0.2-1.0) mg/dL AST (15-37) U/L ALT (14-59) U/L Alkaline Phosphatase (46-116) U/L Troponin I High Sens (<=51) pg/mL B-Natriuretic Peptide (0-100) pg/ml Total Protein (6.4-8.2) g/dL Albumin (3.4-5.0) g/dL Globulin Albumin/Globulin Ratio Urine Color (YELLOW) Urine Appearance (CLEAR) Urine pH (5.0-9.0) Ur Specific [place] (1.005-1.030) Urine Protein (NEGATIVE) Urine Glucose (UA) (NEGATIVE) Urine Ketones (NEGATIVE) Urine Occult Blood (NEGATIVE) Urine Nitrite (NEGATIVE) Urine Bilirubin (NEGATIVE) Urine Urobilinogen (0.2-1.0) mg/dL Ur Leukocyte Esterase (NEGATIVE) U Hyaline Cast (Auto) Urine RBC (0-5) /HPF Urine WBC (0-5/HPF) /HPF Ur Epithelial Cells (NOT SEEN) /HPF Calcium Oxalate Crystal (NOT SEEN) /HPF Amorphous Sediment (NOT SEEN) /HPF Urine Bacteria (0-FEW/HPF) /HPF Urine Mucus (NOT SEEN) /LPF Urine Opiates Screen (NEGATIVE) Ur Oxycodone Screen (NEGATIVE) Urine Methadone Screen (NEGATIVE) Ur Barbiturates Screen (NEGATIVE) U Tricyclic Antidepress (NEGATIVE) Ur Phencyclidine Scrn (NEGATIVE) Ur Amphetamine Screen (NEGATIVE) U Methamphetamines Scrn (NEGATIVE) Urine MDMA Screen (NEGATIVE) U Benzodiazepines Scrn (NEGATIVE) Urine Cocaine Screen (NEGATIVE) U Marijuana (THC) Screen (NEGATIVE) Influenza Type A RNA (NEGATIVE) RSV RNA (INAAT) (NEGATIVE) Influenza Type B RNA (NEGATIVE) SARS-CoV-2 RNA (NISA) (NEGATIVE) 06/21/21 06/21/21 06/21/21 Range/Units 12:11 12:11 14:36 WBC (5.0-10.0) 10^3/uL RBC (4.2-5.4) 10^6/uL Hgb (12.0-16.0) g/dL Hct (37.0-47.0) % MCV (80-100) fL MCH (27.0-34.0) pg MCHC (33.0-35.0) g/dL Plt Count (150-450) 10^3/uL Neut % (Auto) (42.2-75.2) % Lymph % (Auto) (20.5-50.1) % [place] % (Auto) (2-8) % Eos % (Auto) (1.0-3.0) % Baso % (Auto) (0.0-1.0) % ABG pH (7.35-7.45) ABG pCO2 (35-45) mmHg ABG pO2 (70-100) mmHg ABG HCO3 (22-26) mmol/L ABG O2 Saturation (95-100) % ABG Base Excess ((-2)-(+3)) mmol/L Eder Test VBG pH (7.31-7.41) VBG pCO2 (41-51) mmHg VBG pO2 (35-42) mmHg VBG HCO3 (19-25) mmol/l VBG O2 Saturation (60-80) % VBG Base Excess ((-2)-(+3)) mmol/l O2 Delivery Device Oxygen Flow Rate Sodium (136-145) mmol/L Potassium (3.5-5.1) mmol/L Chloride (98-107) mmol/L Carbon Dioxide (21-32) mmol/L Anion Gap (7-13) mEq/L BUN (7-18) mg/dL Creatinine (0.55-1.02) mg/dL Est Cr Clr Drug Dosing mL/min Estimated GFR (MDRD) BUN/Creatinine Ratio (No establ ref range) Glucose (70-99) mg/dL POC Glucose (70-99) mg/dL Lactic Acid 2.9 H* (0.4-2.0) mmol/L Calcium (8.5-10.1) mg/dL Total Bilirubin (0.2-1.0) mg/dL AST (15-37) U/L ALT (14-59) U/L Alkaline Phosphatase (46-116) U/L Troponin I High Sens (<=51) pg/mL B-Natriuretic Peptide (0-100) pg/ml Total Protein (6.4-8.2) g/dL Albumin (3.4-5.0) g/dL Globulin Albumin/Globulin Ratio Urine Color Dark yellow (YELLOW) Urine Appearance Clear (CLEAR) Urine pH 5.0 (5.0-9.0) Ur Specific [place] >= 1.030 (1.005-1.030) Urine Protein 30 H (NEGATIVE) Urine Glucose (UA) Negative (NEGATIVE) Urine Ketones Negative (NEGATIVE) Urine Occult Blood Small H (NEGATIVE) Urine Nitrite Negative (NEGATIVE) Urine Bilirubin Negative (NEGATIVE) Urine Urobilinogen 0.2 (0.2-1.0) mg/dL Ur Leukocyte Esterase Negative (NEGATIVE) U Hyaline Cast (Auto) Moderate Urine RBC 0-5 (0-5) /HPF Urine WBC 10-20 H (0-5/HPF) /HPF Ur Epithelial Cells Moderate H (NOT SEEN) /HPF Calcium Oxalate Crystal Few H (NOT SEEN) /HPF Amorphous Sediment Few (NOT SEEN) /HPF Urine Bacteria Few (0-FEW/HPF) /HPF Urine Mucus Moderate H (NOT SEEN) /LPF Urine Opiates Screen Negative (NEGATIVE) Ur Oxycodone Screen Negative (NEGATIVE) Urine Methadone Screen Positive H (NEGATIVE) Ur Barbiturates Screen Negative (NEGATIVE) U Tricyclic Antidepress Negative (NEGATIVE) Ur Phencyclidine Scrn Negative (NEGATIVE) Ur Amphetamine Screen Negative (NEGATIVE) U Methamphetamines Scrn Negative (NEGATIVE) Urine MDMA Screen Negative (NEGATIVE) U Benzodiazepines Scrn Positive H (NEGATIVE) Urine Cocaine Screen Negative (NEGATIVE) U Marijuana (THC) Screen Negative (NEGATIVE) Influenza Type A RNA (NEGATIVE) RSV RNA (INAAT) (NEGATIVE) Influenza Type B RNA (NEGATIVE) SARS-CoV-2 RNA (NISA) (NEGATIVE) 06/21/21 06/21/21 Range/Units 14:52 15:35 WBC (5.0-10.0) 10^3/uL RBC (4.2-5.4) 10^6/uL Hgb (12.0-16.0) g/dL Hct (37.0-47.0) % MCV (80-100) fL MCH (27.0-34.0) pg MCHC (33.0-35.0) g/dL Plt Count (150-450) 10^3/uL Neut % (Auto) (42.2-75.2) % Lymph % (Auto) (20.5-50.1) % [place] % (Auto) (2-8) % Eos % (Auto) (1.0-3.0) % Baso % (Auto) (0.0-1.0) % ABG pH 7.38 (7.35-7.45) ABG pCO2 44 (35-45) mmHg ABG pO2 148 H (70-100) mmHg ABG HCO3 25.5 (22-26) mmol/L ABG O2 Saturation 100 (95-100) % ABG Base Excess 1 ((-2)-(+3)) mmol/L Eder Test ok VBG pH (7.31-7.41) VBG pCO2 (41-51) mmHg VBG pO2 (35-42) mmHg VBG HCO3 (19-25) mmol/l VBG O2 Saturation (60-80) % VBG Base Excess ((-2)-(+3)) mmol/l O2 Delivery Device T-piece Oxygen Flow Rate 0 Sodium (136-145) mmol/L Potassium (3.5-5.1) mmol/L Chloride (98-107) mmol/L Carbon Dioxide (21-32) mmol/L Anion Gap (7-13) mEq/L BUN (7-18) mg/dL Creatinine (0.55-1.02) mg/dL Est Cr Clr Drug Dosing mL/min Estimated GFR (MDRD) BUN/Creatinine Ratio (No establ ref range) Glucose (70-99) mg/dL POC Glucose 141 H (70-99) mg/dL Lactic Acid (0.4-2.0) mmol/L Calcium (8.5-10.1) mg/dL Total Bilirubin (0.2-1.0) mg/dL AST (15-37) U/L ALT (14-59) U/L Alkaline Phosphatase (46-116) U/L Troponin I High Sens (<=51) pg/mL B-Natriuretic Peptide (0-100) pg/ml Total Protein (6.4-8.2) g/dL Albumin (3.4-5.0) g/dL Globulin Albumin/Globulin Ratio Urine Color (YELLOW) Urine Appearance (CLEAR) Urine pH (5.0-9.0) Ur Specific [place] (1.005-1.030) Urine Protein (NEGATIVE) Urine Glucose (UA) (NEGATIVE) Urine Ketones (NEGATIVE) Urine Occult Blood (NEGATIVE) Urine Nitrite (NEGATIVE) Urine Bilirubin (NEGATIVE) Urine Urobilinogen (0.2-1.0) mg/dL Ur Leukocyte Esterase (NEGATIVE) U Hyaline Cast (Auto) Urine RBC (0-5) /HPF Urine WBC (0-5/HPF) /HPF Ur Epithelial Cells (NOT SEEN) /HPF Calcium Oxalate Crystal (NOT SEEN) /HPF Amorphous Sediment (NOT SEEN) /HPF Urine Bacteria (0-FEW/HPF) /HPF Urine Mucus (NOT SEEN) /LPF Urine Opiates Screen (NEGATIVE) Ur Oxycodone Screen (NEGATIVE) Urine Methadone Screen (NEGATIVE) Ur Barbiturates Screen (NEGATIVE) U Tricyclic Antidepress (NEGATIVE) Ur Phencyclidine Scrn (NEGATIVE) Ur Amphetamine Screen (NEGATIVE) U Methamphetamines Scrn (NEGATIVE) Urine MDMA Screen (NEGATIVE) U Benzodiazepines Scrn (NEGATIVE) Urine Cocaine Screen (NEGATIVE) U Marijuana (THC) Screen (NEGATIVE) Influenza Type A RNA (NEGATIVE) RSV RNA (INAAT) (NEGATIVE) Influenza Type B RNA (NEGATIVE) SARS-CoV-2 RNA (NISA) (NEGATIVE) Meds: Medications Generic Name Dose Route Start Last Admin Trade Name Freq PRN Reason Stop Dose Admin Midazolam HCl 50 mg/ Sodium 50 mls @ 2 mls/hr 06/21/21 10:00 06/21/21 10:27 Chloride IV 2 mg/hr ASDIRECTED ELIZABETH 2 mls/hr Administration Protocol 2 MG/HR Sodium Chloride 1,710 mls @ 999 mls/hr 06/21/21 10:15 06/21/21 10:28 Normal Saline IV 999 mls/hr ASDIRECTED ELIZABETH Administration Sodium Chloride 1,710 mls @ 999 mls/hr 06/21/21 12:00 06/21/21 12:10 Normal Saline IV 999 mls/hr ASDIRECTED ELIZABETH Administration Sodium Chloride 1,000 mls @ 100 mls/hr 06/21/21 13:30 06/21/21 15:14 Normal Saline IV 100 mls/hr ASDIRECTED ELIZABETH Administration Norepinephrine Bitartrate 4 mg 250 mls @ 15 mls/hr 06/21/21 14:30 06/21/21 15:43 / Dextrose/Water IV 4 mcg/min TITRATE ELIZABETH 15 mls/hr Titration Protocol 4 MCG/MIN Sodium Chloride 10 ml 06/21/21 09:34 06/21/21 10:30 Sodium Chloride 0.9% 10 Ml Syringe FLUSH 10 ml ASDIRECTED PRN Administration Keep Vein Open Discontinued Medications Generic Name Dose Route Start Last Admin Trade Name Khang BEAUCHAMPN Reason Stop Dose Admin Albuterol 2.5 mg 06/21/21 14:24 06/21/21 14:26 Albuterol 0.083% 2.5 Mg/3 Ml Neb Soln NEB 06/21/21 14:25 2.5 mg ONETIME ONE Administration Albuterol Confirm 06/21/21 14:25 06/21/21 14:25 Albuterol 0.083% 2.5 Mg/3 Ml Neb Soln Administered 06/21/21 14:26 Not Given Dose 5 mg .ROUTE .STK-MED ONE Albuterol/Ipratropium 3 ml 06/21/21 09:36 06/21/21 10:40 Albuterol/Ipratropium 3.0-0.5 Mg/3 Ml Neb Soln NEB 06/21/21 09:37 3 ml ONETIME ONE Administration Etomidate 6 mg 06/21/21 13:04 06/21/21 10:20 Etomidate 2 Mg/Ml 20 Ml Sdv 0.1 mg/kg (6 mg) 06/21/21 13:05 6 mg IVPUSH Administration ONETIME ONE Piperacillin Sod/Tazobactam 100 mls @ 200 mls/hr 06/21/21 09:58 06/21/21 10:55 Sod 3.375 gm/ Sodium Chloride IV 06/21/21 10:27 200 mls/hr ONETIME ONE Administration Vancomycin HCl 1 gm/ Sodium 250 mls @ 167 mls/hr 06/21/21 10:00 06/21/21 1 1:27 Chloride IV 06/21/21 11:29 167 mls/hr ONETIME ONE Administration Sodium Chloride 1,000 mls @ 999 mls/hr 06/21/21 14:16 06/21/21 15:14 Normal Saline IV 06/21/21 15:16 999 mls/hr .BOLUS ONE Administration Methylprednisolone Sodium Succinate 125 mg 06/21/21 09:36 06/21/21 10:30 Methylprednisolone Sodium Succinate 125 Mg/2 Ml Sdv IVPUSH 06/21/21 09:37 125 mg ONETIME ONE Administration Midazolam HCl 2 mg 06/21/21 09:52 06/21/21 10:52 Midazolam 1 Mg/Ml 2 Ml Sdv IVPUSH 06/21/21 09:53 2 mg ONETIME ONE Administration Succinylcholine Chloride 0.3 mg 06/21/21 10:05 06/21/21 13:07 Succinylcholine 200 Mg/10 Ml Mdv IV 06/21/21 10:06 Not Given ONETIME ONE Succinylcholine Chloride 20 mg 06/21/21 10:20 06/21/21 13:08 Succinylcholine 200 Mg/10 Ml Mdv IV 06/21/21 10:21 20 mg ONETIME ONE Administration - Radiology Interpretation Free Text/Narrative:: XR Chest: ET Tube just above the jose (pulled back 2cm). Patch coarse lung markings suspicious for aspiration and/or poss. fluid overload/pulm. edema. Chronic COPD changes. See radiologist's report. - Re-Assessments/Exams Free Text/Narrative Re-Assessment/Exam: 06/21/21 11:00 tutor coordinator, Donnie Grier RN has initiated transfer of the pt and found that there are currently no ICU beds available anywhere in the state. [facility] has placed the pt on a transfer list and is anticipating discharges and expect to be able to accept the pt as a transfer sometime this afternoon. The pt will be held in ER with 1:1 nursing until transfer can be arranged this afternoon. If transfer is delayed significantly we will admit the pt here until a transfer can be arranged. Dr. Dalton was consulted, and has no further recommendations at this time. 06/21/21 15:10 Dr. Yosvany Tamez accepts the pt as a direct admit via airlift transfer to [facility]. 06/21/21 17:56 Transfer of this pt. was severely delayed due to the bed availability crisis in the region, and limited availability of air ambulances at this time. Departure - Departure Time of Disposition: 17:52 (transfer to Dr. Delmer Tamez at [facility] via fixed wing air ambulance) Disposition: DC/Tfer to [facility] 02 Condition: Serious, Critical Clinical Impression: Acute exacerbation of chronic obstructive pulmonary disease (COPD), Sepsis due to pneumonia, Tobacco dependence due to cigarettes Respiratory failure with hypoxia Qualifiers: Chronicity: acute on chronic Qualified Code(s): J96.21 - Acute and chronic respiratory failure with hypoxia - Discharge Information *PRESCRIPTION DRUG MONITORING PROGRAM REVIEWED*: No *COPY OF PRESCRIPTION DRUG MONITORING REPORT IN PATIENT TOMMY: No Forms: ED Department Discharge, Interfacility Transfer [facility] Sepsis Event Note (ED) - Focused Exam Vital Signs: Vital Signs Temp Pulse Resp BP Pulse Ox 06/21/21 16:44 131 H 24 H 96/73 97 06/21/21 16:29 133 H 24 H 96/68 97 06/21/21 16:25 132 H 24 H 102/74 97 06/21/21 15:59 134 H 24 H 103/72 97 06/21/21 15:39 135 H 24 H 111/81 98 06/21/21 14:48 98.1 F 132 H 24 H 111/82 97 06/21/21 14:30 98.1 F 128 H 24 H 88/72 L 96 06/21/21 09:34 98.5 F 130 H 16 90 L - My Orders Last 24 Hours: My Active Orders 06/21/21 09:34 Blood Glucose Check, Bedside [RC] ONETIME Sodium Chloride 0.9% [Saline Flush] 10 ml FLUSH ASDIRECTED PRN Blood Culture x2 Reflex Set [OM.PC] Stat RT Suction Nasopharyngeal [RESPCARE] Stat 06/21/21 09:36 Peripheral IV Care [RC] . DIRECTED RT Aerosol Therapy [RC] ASDIRECTED Peripheral IV Insertion Adult [OM.PC] Stat 06/21/21 09:39 Insert Estrella Catheter [Insert Urinary Catheter] [OM.PC] Stat Urinary Catheter Assessment [RC] ASDIRECTED 06/21/21 10:00 Midazolam [Versed 5 MG/ML] 50 mg Sodium Chloride 0.9% [Normal Saline] 40 ml IV ASDIRECTED 06/21/21 10:10 NG [Nasogastric Orogastric Tube Insertion] [OM.PC] Routine 06/21/21 10:15 Sodium Chloride 0.9% [Normal Saline] 1,710 ml IV ASDIRECTED 06/21/21 10:45 CULTURE BLOOD [BC] Stat CULTURE BLOOD [BC] Stat 06/21/21 10:47 Ventilator Assessment, ED [RT Ventilator ED, Adult] [RC] ASDIRECTED 06/21/21 12:00 Sodium Chloride 0.9% [Normal Saline] 1,710 ml IV ASDIRECTED 06/21/21 13:30 Sodium Chloride 0.9% [Normal Saline] 1,000 ml IV ASDIRECTED 06/21/21 13:42 CULTURE SPUTUM + SMEAR [RM] Stat 06/21/21 14:24 RT Aerosol Therapy [RC] ASDIRECTED 06/21/21 14:25 Blood Glucose Check, Bedside [RC] ONETIME 06/21/21 14:30 Norepinephrine [Levophed] 4 mg Dextrose 5% in Water 246 ml IV TITRATE - Assessment/Plan Last 24 Hours: My Active Orders 06/21/21 09:34 Blood Glucose Check, Bedside [RC] ONETIME Sodium Chloride 0.9% [Saline Flush] 10 ml FLUSH ASDIRECTED PRN Blood Culture x2 Reflex Set [OM.PC] Stat RT Suction Nasopharyngeal [RESPCARE] Stat 06/21/21 09:36 Peripheral IV Care [RC] . DIRECTED RT Aerosol Therapy [RC] ASDIRECTED Peripheral IV Insertion Adult [OM.PC] Stat 06/21/21 09:39 Insert Estrella Catheter [Insert Urinary Catheter] [OM.PC] Stat Urinary Catheter Assessment [RC] ASDIRECTED 06/21/21 10:00 Midazolam [Versed 5 MG/ML] 50 mg Sodium Chloride 0.9% [Normal Saline] 40 ml IV ASDIRECTED 06/21/21 10:10 NG [Nasogastric Orogastric Tube Insertion] [OM.PC] Routine 06/21/21 10:15 Sodium Chloride 0.9% [Normal Saline] 1,710 ml IV ASDIRECTED 06/21/21 10:45 CULTURE BLOOD [BC] Stat CULTURE BLOOD [BC] Stat 06/21/21 10:47 Ventilator Assessment, ED [RT Ventilator ED, Adult] [RC] ASDIRECTED 06/21/21 12:00 Sodium Chloride 0.9% [Normal Saline] 1,710 ml IV ASDIRECTED 06/21/21 13:30 Sodium Chloride 0.9% [Normal Saline] 1,000 ml IV ASDIRECTED 06/21/21 13:42 CULTURE SPUTUM + SMEAR [RM] Stat 06/21/21 14:24 RT Aerosol Therapy [RC] ASDIRECTED 06/21/21 14:25 Blood Glucose Check, Bedside [RC] ONETIME 06/21/21 14:30 Norepinephrine [Levophed] 4 mg Dextrose 5% in Water 246 ml IV TITRATE
[2021-06-21] MEDS ORDERED: Sodium Chloride 0.9% 10 ML Syringe FLUSH PRN (09:34)
[2021-06-21] MEDS ORDERED: methylPREDNISolone Sodium Succinate 125 MG/2 ML SDV IVPUSH ONE (09:36)
[2021-06-21] MEDS ORDERED: Albuterol/Ipratropium 3.0-0.5 MG/3 ML Neb Soln NEB ONE (09:36)
[2021-06-21] MEDS ORDERED: Piperacillin/Tazobactam 3.375 GM in Sodium Chloride 0.9% 100 ML IV ONE (09:58)
[2021-06-21] MEDS ORDERED: Midazolam 50 MG in Sodium Chloride 0.9% 40 ML IV SCH (10:00)
[2021-06-21] MEDS ORDERED: Succinylcholine 200 MG/10 ML MDV IV ONE ×2 (10:05→10:20)
[2021-06-21] MEDS: Midazolam 1 MG/ML 2 ML SDV IVPUSH ONE ×2 (10:28→10:52)
[2021-06-21 11:22] LABS: O2 DELIVERY DEVICE NASAL CANNULA
[2021-06-21 11:28] LABS: CORONAVIRUS COVID-19 NAA NEGATIVE (NEGATIVE); RESPIRATORY SYNCYTIAL VIR NAA NEGATIVE (NEGATIVE)
[2021-06-21 11:34] LABS: ANION GAP 13.9 mEq/L (7-13)
--- NOTE | 2021-06-21 12:51 | CR ---
EXAMINATION: Chest 1V Frontal SEX: Female AGE: 66 years CLINICAL HISTORY: 66-year-old female with inspiratory distress (wet rhonchi). Hx COPD. Comparison CXR 02 April 2020. INTERPRETATION: Abnormal. 1. *New consolidation azygous and lateral segments RUL since comparison film 02 April 2020. 2. Generalized increased pulmonary vascular congestion and additional patchy right mid lung and lingular consolidation (aspiration?). 3. Cardiac silhouette remains normal size anatomic configuration. External property assessment monitor leads. 4. Note: Endotracheal tube tip located distally near the bronchial bifurcation ("pulled back" by ER provider) at jose. 5. No lung mass, hilar lymphadenopathy, air bronchograms, or dependent pleural effusion. 6. No pneumothorax or subcutaneous emphysema.
[2021-06-21 12:56] LABS: PH,VENOUS 7.17 (7.31-7.41)
[2021-06-21 12:57] LABS: BASE EXCESS VENOUS -4 mmol/l ((-2)-(+3)); BICARBONATE,VENOUS 27 mmol/l (19-25); O2 FLOW RATE 0; O2 SATURATION VENOUS 84 % (60-80); PCO2 VENOUS 77 mmHg (41-51); PO2 VENOUS 51 mmHg (35-42)
[2021-06-21] MEDS ORDERED: Etomidate 2 MG/ML 20 ML SDV IVPUSH ONE (13:04)
[2021-06-21 13:18] LABS: MDMA (ECSTASY), URINE NEGATIVE (NEGATIVE); METHADONE,URINE POSITIVE (NEGATIVE); METHAMPHETAMINES,URINE NEGATIVE (NEGATIVE)
[2021-06-21 13:19] LABS: AMPHETAMINES,URINE NEGATIVE (NEGATIVE); BARBITURATES,URINE NEGATIVE (NEGATIVE); BENZODIAZEPINE,URINE POSITIVE (NEGATIVE); OPIATES,URINE NEGATIVE (NEGATIVE); OXYCODONE,URINE NEGATIVE (NEGATIVE); PHENCYCLIDINE,URINE NEGATIVE (NEGATIVE); TCA,URINE NEGATIVE (NEGATIVE)
[2021-06-21] MEDS ORDERED: Sodium Chloride 0.9% 1,000 ML IV SCH (13:30)
[2021-06-21] MEDS: Sodium Chloride 0.9% 1,000 ML IV ONE ×2 (14:21→15:14)
[2021-06-21] MEDS ORDERED: Albuterol 0.083% 2.5 MG/3 ML Neb Soln NEB ONE (14:24)
[2021-06-21] MEDS ORDERED: Albuterol 0.083% 2.5 MG/3 ML Neb Soln ONE (14:25)
[2021-06-21] MEDS ORDERED: Norepinephrine 4 MG in Dextrose 5% in Water 246 ML IV SCH ×2 (14:30)
[2021-06-21 16:05] LABS: BASE EXCESS ARTERIAL 1 mmol/L ((-2)-(+3)); BICARBONATE,ARTERIAL 25.5 mmol/L (22-26); O2 DELIVERY DEVICE T-PIECE; O2 SATURATION ARTERIAL 100 % (95-100)
[2021-06-21 16:45] VITALS: BP 96/73; PULSE 131
[2021-06-21 16:45] LABS: O2 FLOW RATE 0; PCO2 ARTERIAL 44 mmHg (35-45); PO2 ARTERIAL 148 mmHg (70-100)
== END 2021-06-21 18:08 ==
LOC: DL.ED 09:24
DX: A41.9 Sepsis, unspecified organism (principal); J18.9 Pneumonia, unspecified organism; J96.21 Acute and chronic respiratory failure with hypoxia; J44.1 Chronic obstructive pulmonary disease with (acute) exacerbation; F17.210 Nicotine dependence, cigarettes, uncomplicated; R00.0 Tachycardia, unspecified; K21.9 Gastro-esophageal reflux disease without esophagitis; M19.90 Unspecified osteoarthritis, unspecified site; Z88.5 Allergy status to narcotic agent; Z88.8 Allergy status to other drugs, medicaments and biological substances; Z79.899 Other long term (current) drug therapy; Z20.822 Contact with and (suspected) exposure to COVID-19
CPT/HCPCS: 0241U; 31500; 36415; 36600; 51702; 71045; 80053; 80305; 81001; 82803; 82947; 83605; 83880; 84484; 85025; 87040; 87070; 87205; 93005; 94640; 96365; 96366; 96367; 96375; 99285; J0330; J2250; J2543; J2930; J3370; J3490; J7030; J7050; J7060; J7613-GY; J7620-GY

== ENCOUNTER 2021-12-28 11:05 | Inpatient (IN) | payer MEDICARE, MEDICAID ==
[2021-12-28 11:58] LABS: CHLORIDE,CL 99 mmol/L (98-107); SODIUM,NA 147 mmol/L (136-145)
[2021-12-28 12:10] LABS: ANION GAP 8.7 mEq/L (7-13)
[2021-12-28 12:11] LABS: CORONAVIRUS COVID-19 NAA NEGATIVE (NEGATIVE)
[2021-12-28 12:17] LABS: ESTIMATED GFR 99 mL/min (>=60)
[2021-12-28 12:50] LABS: O2 DELIVERY DEVICE NASAL CANNULA
[2021-12-28 12:54] LABS: O2 SATURATION ARTERIAL 96 % (95-100); PCO2 ARTERIAL 79 mmHg (35-45); PO2 ARTERIAL 78 mmHg (70-100)
[2021-12-28 12:55] LABS: ALLEN TEST PERFORMED; BASE EXCESS ARTERIAL 13 mmol/L ((-2)-(+3)); BICARBONATE,ARTERIAL 41.2 mmol/L (22-26)
[2021-12-28] MEDS ORDERED: Albuterol 0.083% 2.5 MG/3 ML Neb Soln NEB PRN (13:59)
[2021-12-28] MEDS ORDERED: Promethazine 25 MG/ML SDV IM PRN (13:59)
[2021-12-28] MEDS ORDERED: Albuterol 6.7 GM Inhaler INH PRN (14:19)
[2021-12-28] MEDS ORDERED: hydrALAZINE 20 MG/ML SDV IVPUSH PRN (14:28)
[2021-12-28] MEDS: Sodium Chloride 0.45% 1,000 ML IV SCH (16:22)
[2021-12-28] MEDS: Azithromycin 500 MG in Sodium Chloride 0.9% 250 ML IV SCH (16:26)
[2021-12-28] MEDS: oxyCODONE 5 MG Tab PO PRN ×2 (16:28→20:48)
[2021-12-28] MEDS: methylPREDNISolone Sodium Succinate 40 MG/1 ML SDV IVPUSH SCH (16:30)
[2021-12-28] MEDS: Nicotine 7 MG/24 Hr Patch TRDERM SCH (16:35)
[2021-12-28] MEDS: Albuterol/Ipratropium 3.0-0.5 MG/3 ML Neb Soln NEB PRN (18:27)
[2021-12-28] MEDS: Budesonide 0.5 MG/2 ML Neb Susp NEB SCH (18:27)
[2021-12-28] MEDS: Diltiazem 120 MG Cap.CD PO SCH (19:31)
[2021-12-28] MEDS: Isosorbide Mononitrate 30 MG Tab.ER PO SCH (19:32)
[2021-12-28] MEDS: Gabapentin 300 MG Cap PO SCH (20:48)
[2021-12-28] MEDS: ALPRAZolam 0.25 MG Tab PO SCH (20:49)
[2021-12-28] MEDS: Rosuvastatin 10 MG Tab PO SCH (20:49)
[2021-12-29] MEDS: oxyCODONE 5 MG Tab PO PRN ×2 (01:16→05:25)
[2021-12-29] MEDS: Sodium Chloride 0.45% 1,000 ML IV SCH ×2 (07:02→23:16)
[2021-12-29 07:35] LABS: HEMOGLOBIN A1C 5.8 % (<5.7)
[2021-12-29 07:39] LABS: ANION GAP 7.9 mEq/L (7-13)
[2021-12-29] MEDS: Budesonide 0.5 MG/2 ML Neb Susp NEB SCH ×2 (07:41→18:09)
[2021-12-29] MEDS: Polyethylene Glycol 3350 Powder 17 GM Packet PO SCH (09:10)
[2021-12-29] MEDS: Isosorbide Mononitrate 30 MG Tab.ER PO SCH (09:10)
[2021-12-29] MEDS: ALPRAZolam 0.25 MG Tab PO SCH ×2 (09:10→21:44)
[2021-12-29] MEDS: Ferrous Sulfate 325 MG Tab PO SCH (09:11)
[2021-12-29] MEDS: Gabapentin 300 MG Cap PO SCH ×3 (09:11→21:43)
[2021-12-29] MEDS: Diltiazem 120 MG Cap.CD PO SCH (09:11)
[2021-12-29] MEDS: Sertraline 50 MG Tab PO SCH (09:12)
[2021-12-29] MEDS: methylPREDNISolone Sodium Succinate 40 MG/1 ML SDV IVPUSH SCH ×2 (09:13→21:42)
[2021-12-29] MEDS: Enoxaparin 40 MG/0.4 ML Syringe SUBCUT SCH (09:17)
[2021-12-29] MEDS: Nicotine 7 MG/24 Hr Patch TRDERM SCH (09:18)
[2021-12-29] MEDS: Azithromycin 500 MG in Sodium Chloride 0.9% 250 ML IV SCH (09:19)
[2021-12-29] MEDS ORDERED: Barium Sulfate w/v 2.1% Oral Susp 450 ML Bottle PO ONE ×2 (09:26→10:30)
[2021-12-29] MEDS: Acetaminophen/oxyCODONE 325-5 MG Tab PO PRN ×3 (10:13→23:17)
[2021-12-29 10:33] LABS: O2 DELIVERY DEVICE NASAL CANNULA
[2021-12-29 10:35] LABS: BASE EXCESS ARTERIAL 9 mmol/L ((-2)-(+3)); BICARBONATE,ARTERIAL 35.9 mmol/L (22-26); O2 FLOW RATE 3; O2 SATURATION ARTERIAL 97 % (95-100); PCO2 ARTERIAL 64 mmHg (35-45); PO2 ARTERIAL 74 mmHg (70-100)
[2021-12-29 10:36] LABS: ALLEN TEST PERFORMED
[2021-12-29] MEDS ORDERED: Iopamidol 612 MG/ML 100 ML Bottle IVPUSH ONE (11:38)
[2021-12-29] MEDS ORDERED: Meclizine 12.5 MG Tab PO PRN (11:45)
[2021-12-29] MEDS ORDERED: Glucagon,Human Recombinant 1 MG Vial IM PRN (11:50)
[2021-12-29] MEDS ORDERED: 50% Dextrose in Water 50 ML Syringe IVPUSH PRN (11:50)
[2021-12-29] MEDS ORDERED: Sodium Chloride 0.9% 250 ML IV ONE (11:50)
[2021-12-29] MEDS ORDERED: Insulin Lispro 100 Units/ML 3 ML Vial SUBCUT SCH (12:00)
[2021-12-29] MEDS: ESTRADIOL 1 MG PO SCH (15:10)
[2021-12-29] MEDS: ROFLUMILAST 500 MCG PO SCH (15:11)
[2021-12-29] MEDS: Albuterol/Ipratropium 3.0-0.5 MG/3 ML Neb Soln NEB PRN (18:14)
[2021-12-29] MEDS: Rosuvastatin 10 MG Tab PO SCH (21:43)
[2021-12-29] MEDS: KETOTIFEN FUMARATE 0.035% EYEBOTH SCH (23:19)
[2021-12-30] MEDS: Acetaminophen/oxyCODONE 325-5 MG Tab PO PRN ×4 (05:20→23:26)
[2021-12-30] MEDS: Albuterol/Ipratropium 3.0-0.5 MG/3 ML Neb Soln NEB PRN (07:11)
[2021-12-30] MEDS: Budesonide 0.5 MG/2 ML Neb Susp NEB SCH ×2 (07:13→18:23)
[2021-12-30 09:15] LABS: O2 DELIVERY DEVICE NASAL CANNULA
[2021-12-30 09:16] LABS: BASE EXCESS ARTERIAL 5 mmol/L ((-2)-(+3)); BICARBONATE,ARTERIAL 31.9 mmol/L (22-26); O2 SATURATION ARTERIAL 93 % (95-100); PCO2 ARTERIAL 61 mmHg (35-45); PO2 ARTERIAL 65 mmHg (70-100)
[2021-12-30 09:17] LABS: ALLEN TEST PERFORMED; O2 FLOW RATE 3
[2021-12-30] MEDS: Enoxaparin 40 MG/0.4 ML Syringe SUBCUT SCH (09:53)
[2021-12-30] MEDS: methylPREDNISolone Sodium Succinate 40 MG/1 ML SDV IVPUSH SCH ×2 (09:55→20:52)
[2021-12-30] MEDS: Sertraline 50 MG Tab PO SCH (09:57)
[2021-12-30] MEDS: Gabapentin 300 MG Cap PO SCH ×3 (09:58→20:53)
[2021-12-30 09:59] LABS: ANION GAP 3.4 mEq/L (7-13)
[2021-12-30] MEDS: ALPRAZolam 0.25 MG Tab PO SCH ×2 (09:59→20:53)
[2021-12-30] MEDS: Ferrous Sulfate 325 MG Tab PO SCH (09:59)
[2021-12-30] MEDS: Azithromycin 500 MG in Sodium Chloride 0.9% 250 ML IV SCH (10:00)
[2021-12-30] MEDS: Acetaminophen 325 MG Tab PO PRN (10:04)
[2021-12-30] MEDS: Polyethylene Glycol 3350 Powder 17 GM Packet PO SCH (10:07)
[2021-12-30] MEDS: ESTRADIOL 1 MG PO SCH (10:09)
[2021-12-30] MEDS: KETOTIFEN FUMARATE 0.035% EYEBOTH SCH ×2 (10:10→20:54)
[2021-12-30] MEDS: ROFLUMILAST 500 MCG PO SCH (10:10)
[2021-12-30] MEDS: Nicotine 7 MG/24 Hr Patch TRDERM SCH (12:15)
[2021-12-30] MEDS: Sodium Chloride 0.45% 1,000 ML IV SCH (15:49)
[2021-12-30] MEDS: Diltiazem 120 MG Cap.CD PO SCH (17:26)
[2021-12-30] MEDS: Rosuvastatin 10 MG Tab PO SCH (20:53)
[2021-12-30] MEDS: Melatonin 3 MG Tab PO PRN (23:26)
[2021-12-31] MEDS: Budesonide 0.5 MG/2 ML Neb Susp NEB SCH ×2 (07:31→18:15)
[2021-12-31] MEDS: Sertraline 50 MG Tab PO SCH (09:51)
[2021-12-31] MEDS: ALPRAZolam 0.25 MG Tab PO SCH ×2 (09:52→20:58)
[2021-12-31] MEDS: Gabapentin 300 MG Cap PO SCH ×3 (09:52→20:58)
[2021-12-31] MEDS: Diltiazem 120 MG Cap.CD PO SCH (09:53)
[2021-12-31] MEDS: Ferrous Sulfate 325 MG Tab PO SCH (09:53)
[2021-12-31] MEDS: Pantoprazole 40 MG Tab.CR PO SCH (09:54)
[2021-12-31] MEDS: ROFLUMILAST 500 MCG PO SCH (09:55)
[2021-12-31] MEDS: ESTRADIOL 1 MG PO SCH (09:55)
[2021-12-31] MEDS: Acetaminophen/oxyCODONE 325-5 MG Tab PO PRN ×3 (09:56→22:53)
[2021-12-31] MEDS: Enoxaparin 40 MG/0.4 ML Syringe SUBCUT SCH (09:57)
[2021-12-31] MEDS: Polyethylene Glycol 3350 Powder 17 GM Packet PO SCH (09:57)
[2021-12-31] MEDS: KETOTIFEN FUMARATE 0.035% EYEBOTH SCH ×2 (09:58→20:58)
[2021-12-31] MEDS: Nicotine 7 MG/24 Hr Patch TRDERM SCH (09:58)
[2021-12-31] MEDS: methylPREDNISolone Sodium Succinate 40 MG/1 ML SDV IVPUSH SCH ×3 (10:05→20:58)
[2021-12-31] MEDS: Azithromycin 500 MG in Sodium Chloride 0.9% 250 ML IV SCH (10:21)
[2021-12-31 10:46] LABS: ANION GAP 7.6 mEq/L (7-13)
[2021-12-31] MEDS: Potassium Chloride 10 MEQ Tab.ER PO SCH ×2 (11:44→17:17)
[2021-12-31] MEDS ORDERED: Sodium Chloride 0.9% 10 ML Syringe FLUSH PRN (14:33)
[2021-12-31] MEDS: Albuterol/Ipratropium 3.0-0.5 MG/3 ML Neb Soln NEB PRN (18:15)
[2021-12-31] MEDS: Rosuvastatin 10 MG Tab PO SCH (20:57)
[2021-12-31] MEDS: Melatonin 3 MG Tab PO PRN (20:58)
[2021-12-31] MEDS ORDERED: methylPREDNISolone Sodium Succinate 40 MG/1 ML SDV IVPUSH SCH (21:00)
[2022-01-01] MEDS: Acetaminophen/oxyCODONE 325-5 MG Tab PO PRN ×2 (06:01→21:52)
[2022-01-01] MEDS: Pantoprazole 40 MG Tab.CR PO SCH (06:01)
[2022-01-01 07:19] LABS: ANION GAP 8.6 mEq/L (7-13)
[2022-01-01] MEDS: Budesonide 0.5 MG/2 ML Neb Susp NEB SCH ×2 (07:47→18:10)
[2022-01-01] MEDS: Azithromycin 500 MG in Sodium Chloride 0.9% 250 ML IV SCH (09:22)
[2022-01-01] MEDS: Sertraline 50 MG Tab PO SCH (09:23)
[2022-01-01] MEDS: ALPRAZolam 0.25 MG Tab PO SCH ×2 (09:23→20:21)
[2022-01-01] MEDS: Ferrous Sulfate 325 MG Tab PO SCH (09:23)
[2022-01-01] MEDS: Gabapentin 300 MG Cap PO SCH ×3 (09:23→20:21)
[2022-01-01] MEDS: Polyethylene Glycol 3350 Powder 17 GM Packet PO SCH ×2 (09:23→09:31)
[2022-01-01] MEDS: Diltiazem 120 MG Cap.CD PO SCH (09:25)
[2022-01-01] MEDS: methylPREDNISolone Sodium Succinate 40 MG/1 ML SDV IVPUSH SCH ×3 (09:25→21:51)
[2022-01-01] MEDS: Enoxaparin 40 MG/0.4 ML Syringe SUBCUT SCH (09:25)
[2022-01-01] MEDS: Nicotine 7 MG/24 Hr Patch TRDERM SCH (09:32)
[2022-01-01] MEDS: ESTRADIOL 1 MG PO SCH (09:34)
[2022-01-01] MEDS: KETOTIFEN FUMARATE 0.035% EYEBOTH SCH ×2 (09:34→21:54)
[2022-01-01] MEDS: ROFLUMILAST 500 MCG PO SCH (09:35)
[2022-01-01] MEDS: Acetaminophen 325 MG Tab PO PRN (19:49)
[2022-01-01] MEDS: Rosuvastatin 10 MG Tab PO SCH (20:21)
[2022-01-01] MEDS: Melatonin 3 MG Tab PO PRN (20:21)
[2022-01-02] MEDS: Pantoprazole 40 MG Tab.CR PO SCH (05:45)
[2022-01-02] MEDS: Acetaminophen/oxyCODONE 325-5 MG Tab PO PRN (05:52)
[2022-01-02] MEDS: Budesonide 0.5 MG/2 ML Neb Susp NEB SCH (07:52)
[2022-01-02] MEDS: Ferrous Sulfate 325 MG Tab PO SCH (09:34)
[2022-01-02] MEDS: Nicotine 7 MG/24 Hr Patch TRDERM SCH (09:34)
[2022-01-02] MEDS: methylPREDNISolone Sodium Succinate 40 MG/1 ML SDV IVPUSH SCH (09:34)
[2022-01-02] MEDS: Sertraline 50 MG Tab PO SCH (09:34)
[2022-01-02] MEDS: Enoxaparin 40 MG/0.4 ML Syringe SUBCUT SCH (09:35)
[2022-01-02] MEDS: ALPRAZolam 0.25 MG Tab PO SCH (09:35)
[2022-01-02] MEDS: Gabapentin 300 MG Cap PO SCH (09:35)
[2022-01-02] MEDS: Polyethylene Glycol 3350 Powder 17 GM Packet PO SCH (09:36)
[2022-01-02] MEDS: Diltiazem 120 MG Cap.CD PO SCH (09:37)
[2022-01-02] MEDS: ROFLUMILAST 500 MCG PO SCH (09:57)
[2022-01-02] MEDS: ESTRADIOL 1 MG PO SCH (09:57)
[2022-01-02] MEDS: KETOTIFEN FUMARATE 0.035% EYEBOTH SCH (09:59)
[2022-01-02 12:03] LABS: ANION GAP 9.8 mEq/L (7-13)
[2022-01-02 12:06] VITALS: BP 106/54; PULSE 63
== END 2022-01-02 12:55 | disposition home or self-care (01) | DRG 189 ==
LOC: DL.ED 11:05 → DL.MS 13:41
PROVIDERS: ADMIT Internal Medicine; ATTEND Internal Medicine
DX: J96.21 Acute and chronic respiratory failure with hypoxia (principal); J44.1 Chronic obstructive pulmonary disease with (acute) exacerbation; E87.2 Acidosis; E87.0 Hyperosmolality and hypernatremia; J96.22 Acute and chronic respiratory failure with hypercapnia; I10 Essential (primary) hypertension; J18.9 Pneumonia, unspecified organism; R73.9 Hyperglycemia, unspecified; R10.9 Unspecified abdominal pain; N20.0 Calculus of kidney; E86.0 Dehydration; H54.7 Unspecified visual loss; F17.210 Nicotine dependence, cigarettes, uncomplicated; G62.9 Polyneuropathy, unspecified; K21.9 Gastro-esophageal reflux disease without esophagitis; M19.90 Unspecified osteoarthritis, unspecified site; D50.9 Iron deficiency anemia, unspecified; F41.9 Anxiety disorder, unspecified; G25.81 Restless legs syndrome; F32.A Depression, unspecified; R43.9 Unspecified disturbances of smell and taste; Z88.6 Allergy status to analgesic agent; Z88.5 Allergy status to narcotic agent; Z87.442 Personal history of urinary calculi; Z88.8 Allergy status to other drugs, medicaments and biological substances; Z79.51 Long term (current) use of inhaled steroids; Z79.52 Long term (current) use of systemic steroids; Z79.899 Other long term (current) drug therapy; Z86.16 Personal history of COVID-19; Z20.822 Contact with and (suspected) exposure to COVID-19
CPT/HCPCS: 0240U; 36415; 36600; 70450; 71045; 74177; 80053; 81001; 82232; 82803; 83036; 83605; 83615; 83735; 83880; 84145; 84155; 84165; 84484; 85025; 85379; 85610; 86140; 87040; 87077; 87081; 87186; 93005; 94640; 94660; 97161; 97165; 93010; 99222; 99232; 99238; 99284; 99285; A9270-GY; J0456; J1650; J2920; J3490; J7050; J7620-GY; Q9967; U0002

== ENCOUNTER 2022-04-06 15:31 | Emergency (ER) | payer MEDICARE, MEDICAID ==
[2022-04-06 15:39] VITALS: BP 102/61; PULSE 73
[2022-04-06] MEDS: Sodium Chloride 0.9% 1,000 ML IV ONE (17:32)
[2022-04-06] MEDS: Ondansetron 4 MG/2 ML SDV IVPUSH ONE (17:32)
[2022-04-06] MEDS: Ketorolac 30 MG/ML SDV IVPUSH ONE (17:32)
[2022-04-06 18:09] LABS: ANION GAP 9.6 mEq/L (7-13); CHLORIDE,CL 110 mmol/L (98-107); SODIUM,NA 147 mmol/L (136-145)
[2022-04-06 18:11] LABS: ESTIMATED GFR 103 mL/min (>=60)
[2022-04-06 18:47] LABS: AMPHETAMINES,URINE NEGATIVE (NEGATIVE); BARBITURATES,URINE NEGATIVE (NEGATIVE); BENZODIAZEPINE,URINE POSITIVE (NEGATIVE); MDMA (ECSTASY), URINE NEGATIVE (NEGATIVE); METHADONE,URINE NEGATIVE (NEGATIVE); METHAMPHETAMINES,URINE NEGATIVE (NEGATIVE); OPIATES,URINE POSITIVE (NEGATIVE); OXYCODONE,URINE NEGATIVE (NEGATIVE); PHENCYCLIDINE,URINE NEGATIVE (NEGATIVE); TCA,URINE NEGATIVE (NEGATIVE)
[2022-04-06] MEDS: Promethazine 25 MG/ML SDV IM ONE (19:01)
[2022-04-06] MEDS: Butorphanol 2 MG/ML SDV IM ONE (19:02)
== END 2022-04-06 19:25 | disposition home or self-care (01) ==
LOC: DL.ED 15:31
DX: S06.0XAA Concussion with loss of consciousness status unknown, initial encounter (principal); S00.03XA Contusion of scalp, initial encounter; G44.311 Acute post-traumatic headache, intractable; K21.9 Gastro-esophageal reflux disease without esophagitis; Z88.5 Allergy status to narcotic agent; Z88.6 Allergy status to analgesic agent; W19.XXXA Unspecified fall, initial encounter
CPT/HCPCS: 36415; 70450; 72125; 80053; 80305; 81003; 83735; 85025; 96361; 96372; 96374; 96375; 99284; J0595; J1885; J2405; J2550; J7030

== ENCOUNTER 2022-05-14 16:28 | Emergency (ER) | payer MEDICARE, MEDICAID ==
[2022-05-14 16:46] VITALS: BP 113/71; PULSE 87
[2022-05-14 17:54] LABS: PTT,PARTIAL THROMBOPLSTIN TIME 25.6 SEC (22.0-34.0)
[2022-05-14 17:57] LABS: ANION GAP 10.4 mEq/L (7-13)
[2022-05-14 18:27] LABS: RESPIRATORY SYNCYTIAL VIR NAA NEGATIVE (NEGATIVE)
[2022-05-14 18:29] LABS: CORONAVIRUS COVID-19 NAA POSITIVE (NEGATIVE)
[2022-05-14] MEDS ORDERED: Dexamethasone 6 MG TABLET PO ONE (20:19)
[2022-05-14] MEDS ORDERED: Albuterol/Ipratropium 3.0-0.5 MG/3 ML Neb Soln NEB ONE (20:19)
[2022-05-14] MEDS ORDERED: Acetaminophen 500 MG Tab PO ONE (21:18)
== END 2022-05-14 21:51 ==
LOC: DL.ED 16:28
DX: U07.1 COVID-19 (principal); J44.9 Chronic obstructive pulmonary disease, unspecified; R09.1 Pleurisy; K21.9 Gastro-esophageal reflux disease without esophagitis; Z88.5 Allergy status to narcotic agent
CPT/HCPCS: 0241U; 36415; 71045; 80053; 83605; 83880; 84484; 85025; 85379; 85610; 85730; 86140; 93005; 99285; A9270; J8540; J7620-GY

== ENCOUNTER 2022-06-18 15:05 | Emergency (ER) | payer MEDICARE, MEDICAID ==
[2022-06-18] MEDS ORDERED: Ondansetron 4 MG Tab.DIS PO ONE (15:36)
[2022-06-18 15:37] VITALS: BP 124/79; PULSE 91
== END 2022-06-18 16:05 | disposition home or self-care (01) ==
LOC: DL.ED 15:05
DX: R11.2 Nausea with vomiting, unspecified (principal); J43.9 Emphysema, unspecified; K21.9 Gastro-esophageal reflux disease without esophagitis; M19.90 Unspecified osteoarthritis, unspecified site; Z88.5 Allergy status to narcotic agent; Z88.8 Allergy status to other drugs, medicaments and biological substances; Z79.899 Other long term (current) drug therapy
CPT/HCPCS: 99283; A9270

== ENCOUNTER 2022-08-11 23:28 | Inpatient (IN) | payer MEDICARE, MEDICAID ==
[2022-08-11] MEDS: Sodium Chloride 0.9% 10 ML Syringe FLUSH PRN (23:53)
[2022-08-11] MEDS ORDERED: methylPREDNISolone Sodium Succinate 40 MG/1 ML SDV IVPUSH ONE (23:55)
[2022-08-12] MEDS: Sodium Chloride 0.9% 10 ML Syringe FLUSH PRN ×3 (00:02→01:12)
[2022-08-12] MEDS ORDERED: fentaNYL 100 MCG/2 ML SDV IVPUSH ONE (00:05)
[2022-08-12 00:32] LABS: CORONAVIRUS COVID-19 NAA NEGATIVE (NEGATIVE); RESPIRATORY SYNCYTIAL VIR NAA NEGATIVE (NEGATIVE)
[2022-08-12] MEDS ORDERED: Azithromycin 500 MG in Sodium Chloride 0.9% 250 ML IV ONE (00:57)
[2022-08-12] MEDS ORDERED: cefTRIAXone 1 GM Vial IVPUSH ONE (00:57)
[2022-08-12] MEDS ORDERED: Magnesium Hydroxide 400 MG/5 ML Susp 30 ML Cup PO PRN (01:28)
[2022-08-12] MEDS ORDERED: Ondansetron 4 MG/2 ML SDV IVPUSH PRN (01:28)
[2022-08-12] MEDS ORDERED: Albuterol/Ipratropium 3.0-0.5 MG/3 ML Neb Soln NEB PRN (01:28)
[2022-08-12] MEDS ORDERED: Polyethylene Glycol 3350 Powder 17 GM Packet PO PRN (01:28)
[2022-08-12] MEDS ORDERED: Bisacodyl 5 MG Tab PO PRN (01:28)
[2022-08-12] MEDS ORDERED: [UNRECOGNIZED DRUG - OTHER] PO PRN (01:35)
[2022-08-12] MEDS ORDERED: hydrOXYzine HCl 10 MG Tab PO PRN (01:35)
[2022-08-12] MEDS ORDERED: PROMETHAZINE HCL PO PRN (01:35)
[2022-08-12] MEDS ORDERED: CODEINE PO PRN (01:35)
[2022-08-12] MEDS ORDERED: hydrALAZINE 20 MG/ML SDV IVPUSH PRN (01:39)
[2022-08-12] MEDS ORDERED: Metoprolol Tartrate 5 MG/5 ML SDV IVPUSH PRN (01:39)
[2022-08-12] MEDS ORDERED: Magnesium Sulfate/Water 2 GM in Premix Bag 1 BAG IV ONE (01:42)
[2022-08-12] MEDS ORDERED: Glucagon,Human Recombinant 1 MG Vial IM PRN (01:43)
[2022-08-12] MEDS ORDERED: 50% Dextrose in Water 50 ML Syringe IVPUSH PRN (01:43)
[2022-08-12] MEDS ORDERED: fentaNYL 100 MCG/2 ML SDV IVPUSH PRN (02:01)
[2022-08-12] MEDS ORDERED: Sodium Chloride 0.9% 1,000 ML IV SCH (02:15)
[2022-08-12] MEDS: Acetaminophen 325 MG Tab PO PRN ×2 (02:51→13:24)
[2022-08-12] MEDS: methylPREDNISolone Sodium Succinate 125 MG/2 ML SDV IVPUSH SCH ×4 (06:30→23:52)
[2022-08-12 07:26] LABS: ANION GAP 14.1 mEq/L (7-13); CHLORIDE,CL 105 mmol/L (98-107); SODIUM,NA 142 mmol/L (136-145)
[2022-08-12 07:37] LABS: ESTIMATED GFR 95 mL/min (>=60)
[2022-08-12] MEDS ORDERED: Calcium Carbonate 500 MG Tab.Chew PO PRN (08:21)
[2022-08-12] MEDS ORDERED: Benzonatate 100 MG Cap PO PRN (08:21)
[2022-08-12] MEDS: Nicotine 21 MG/24 Hr Patch TRDERM SCH (08:27)
[2022-08-12] MEDS: Isosorbide Mononitrate 30 MG Tab.ER PO SCH (08:29)
[2022-08-12] MEDS: ALPRAZolam 0.5 MG Tab PO SCH ×2 (08:30→21:07)
[2022-08-12] MEDS: Diltiazem 120 MG Cap.CD PO SCH (08:32)
[2022-08-12] MEDS: Saccharomyces Boulardii (Probiotic) 250 MG Cap PO SCH ×2 (08:32→21:07)
[2022-08-12] MEDS: guaiFENesin 600 MG Tab.ER PO SCH ×2 (08:32→21:08)
[2022-08-12] MEDS: Gabapentin 300 MG Cap PO SCH ×3 (08:33→21:08)
[2022-08-12] MEDS: Insulin Lispro 100 Units/ML 3 ML Vial SUBCUT SCH ×3 (08:35→16:57)
[2022-08-12] MEDS ORDERED: KETOTIFEN FUMARATE EYEBOTH SCH (09:00)
[2022-08-12] MEDS ORDERED: Non-Formulary Medication 1 Each (Umeclidinium Bromide [Incruse Ellipta*] 62.5 MCG Blst.W.D INH SCH (09:00)
[2022-08-12] MEDS: Sertraline 50 MG Tab PO SCH (11:19)
[2022-08-12] MEDS: Albuterol/Ipratropium 3.0-0.5 MG/3 ML Neb Soln NEB SCH ×2 (11:20→18:31)
[2022-08-12] MEDS: Montelukast 10 MG Tab PO SCH (11:20)
[2022-08-12] MEDS: Fluticasone NASAL Spray 16 GM Bottle NASBOTH SCH (11:21)
[2022-08-12] MEDS: Budesonide 0.5 MG/2 ML Neb Susp NEB SCH ×3 (11:21→21:17)
[2022-08-12] MEDS: Famotidine 20 MG Tab PO SCH (16:44)
[2022-08-12] MEDS ORDERED: Rosuvastatin 10 MG Tab PO SCH (21:00)
[2022-08-12] MEDS ORDERED: CHECK NICOTINE TRDERM SCH (21:00)
[2022-08-12] MEDS: Ketorolac 30 MG/ML SDV IVPUSH PRN (23:51)
[2022-08-13 04:55] VITALS: PULSE 75
[2022-08-13] MEDS: Famotidine 20 MG Tab PO SCH (05:16)
[2022-08-13] MEDS: Acetaminophen 325 MG Tab PO PRN (05:17)
[2022-08-13] MEDS: methylPREDNISolone Sodium Succinate 125 MG/2 ML SDV IVPUSH SCH (05:17)
[2022-08-13] MEDS ORDERED: Azithromycin 500 MG in Sodium Chloride 0.9% 250 ML IV SCH (07:00)
[2022-08-13] MEDS ORDERED: cefTRIAXone 1 GM Vial IVPUSH SCH (07:00)
[2022-08-13 07:24] LABS: ANION GAP 15.4 mEq/L (7-13)
[2022-08-13] MEDS: Ketorolac 30 MG/ML SDV IVPUSH PRN (07:26)
[2022-08-13] MEDS: Insulin Lispro 100 Units/ML 3 ML Vial SUBCUT SCH ×2 (07:59→11:04)
[2022-08-13] MEDS ORDERED: Non-Formulary Medication 1 Each (Ferrous Gluconate [Ferrous Gluconate] 324 MG Tablet) PO SCH (08:00)
[2022-08-13] MEDS ORDERED: Potassium Chloride 10 MEQ Tab.ER PO ONE (08:31)
[2022-08-13] MEDS: Gabapentin 300 MG Cap PO SCH (09:00)
[2022-08-13] MEDS: Sertraline 50 MG Tab PO SCH (09:00)
[2022-08-13] MEDS: Saccharomyces Boulardii (Probiotic) 250 MG Cap PO SCH (09:00)
[2022-08-13] MEDS: guaiFENesin 600 MG Tab.ER PO SCH (09:01)
[2022-08-13] MEDS: Montelukast 10 MG Tab PO SCH (09:01)
[2022-08-13] MEDS: Isosorbide Mononitrate 30 MG Tab.ER PO SCH (09:03)
[2022-08-13] MEDS: Diltiazem 120 MG Cap.CD PO SCH (09:03)
[2022-08-13 09:05] VITALS: BP 120/75
[2022-08-13] MEDS: ALPRAZolam 0.5 MG Tab PO SCH (09:05)
[2022-08-13] MEDS: Nicotine 21 MG/24 Hr Patch TRDERM SCH (09:06)
[2022-08-13] MEDS: Fluticasone NASAL Spray 16 GM Bottle NASBOTH SCH (09:13)
[2022-08-13] MEDS: Budesonide 0.5 MG/2 ML Neb Susp NEB SCH (10:07)
== END 2022-08-13 12:18 | disposition home or self-care (01) | DRG 189 ==
LOC: DL.ED 23:28 → DL.MS 08-12 01:18
PROVIDERS: ADMIT Internal Medicine; ATTEND Internal Medicine
DX: J96.21 Acute and chronic respiratory failure with hypoxia (principal); J44.1 Chronic obstructive pulmonary disease with (acute) exacerbation; R64 Cachexia; I10 Essential (primary) hypertension; E78.5 Hyperlipidemia, unspecified; I50.9 Heart failure, unspecified; K21.9 Gastro-esophageal reflux disease without esophagitis; Z20.822 Contact with and (suspected) exposure to COVID-19; M54.9 Dorsalgia, unspecified; G89.29 Other chronic pain; F32.A Depression, unspecified; R73.9 Hyperglycemia, unspecified; E88.09 Other disorders of plasma-protein metabolism, not elsewhere classified; F17.210 Nicotine dependence, cigarettes, uncomplicated; Z88.5 Allergy status to narcotic agent; Z88.6 Allergy status to analgesic agent; Z99.81 Dependence on supplemental oxygen; Z88.8 Allergy status to other drugs, medicaments and biological substances; Z79.899 Other long term (current) drug therapy; Z79.52 Long term (current) use of systemic steroids; Z87.442 Personal history of urinary calculi; Z68.21 Body mass index [BMI] 21.0-21.9, adult
CPT/HCPCS: 0241U; 36415; 71045; 80053; 81001; 82947; 83605; 83735; 84484; 85025; 86140; 87040; 87070; 87077; 87186; 87205; 93005; 94640; 99223; 99238; 93010; 96374; 96375; 99284; 99285-25; A9270-GY; J0456; J0696; J1815-GY; J1885; J2920; J2930; J3010; J3475; J3490; J7030; J7050; J7606; J7620-GY

== ENCOUNTER 2022-12-01 23:13 | Emergency (ER) | payer MEDICARE, MEDICAID ==
[2022-12-01] MEDS ORDERED: Albuterol/Ipratropium 3.0-0.5 MG/3 ML Neb Soln ONE (23:15)
[2022-12-01] MEDS ORDERED: Sodium Chloride 0.9% 10 ML Syringe FLUSH PRN (23:17)
[2022-12-01] MEDS ORDERED: Albuterol/Ipratropium 3.0-0.5 MG/3 ML Neb Soln NEB ONE (23:19)
[2022-12-01] MEDS ORDERED: Azithromycin 500 MG in Sodium Chloride 0.9% 250 ML IV ONE (23:19)
[2022-12-01] MEDS ORDERED: predniSONE 20 MG Tab PO ONE (23:20)
[2022-12-01] MEDS ORDERED: Ibuprofen 400 MG Tab PO ONE (23:51)
[2022-12-01] MEDS ORDERED: Acetaminophen 325 MG Tab PO ONE (23:53)
[2022-12-01 23:55] LABS: BASOPHILS PERCENT AUTO 0.1 % (0.0-1.0); EOSINOPHILS PERCENT AUTO 0.3 % (1.0-3.0); HEMATOCRIT 42.7 % (37.0-47.0); HEMOGLOBIN 13.6 g/dL (12.0-16.0); LYMPHOCYTES PERCENT AUTO 29.4 % (20.5-50.1); MEAN CORPUSCULAR HEMOGLOBIN 27.6 pg (27.0-34.0); MEAN CORPUSCULAR HGB CONC 31.9 g/dL (33.0-35.0); MEAN CORPUSCULAR VOLUME 86.8 fL (80-100); MONOCYTES PERCENT AUTO 9.8 % (2-8); NEUTROPHILS PERCENT AUTO 60.4 % (42.2-75.2); PLATELET COUNT,PLT 218 10^3/uL (150-450); RED BLOOD CELL COUNT 4.92 10^6/uL (4.2-5.4); WHITE BLOOD CELL COUNT,WBC 9.2 10^3/uL (5.0-10.0)
[2022-12-02 00:17] VITALS: BP 151/110; PULSE 125
[2022-12-02 00:17] LABS: A/G RATIO 0.9; ALANINE AMINOTRANSFERASE,ALT 23 U/L (14-59); ALBUMIN 3.8 g/dL (3.4-5.0); ALKALINE PHOSPHATASE 145 U/L (46-116); ANION GAP 11.7 mEq/L (7-13); ASPARTATE AMNIOTRANSFERASE,AST 24 U/L (15-37); BILIRUBIN TOTAL 0.2 mg/dL (0.2-1.0); BLOOD UREA NITROGEN,BUN 12 mg/dL (7-18); BUN/CREATININE RATIO 15.2 (No establ ref range); CALCIUM 9.3 mg/dL (8.5-10.1); CARBON DIOXIDE,CO2 33 mmol/L (21-32); CHLORIDE,CL 99 mmol/L (98-107); CREATININE 0.79 mg/dL (0.55-1.02); GLUCOSE RANDOM 112 mg/dL (70-99); POTASSIUM,K 3.7 mmol/L (3.5-5.1); PROTEIN TOTAL,TP 8.1 g/dL (6.4-8.2); SODIUM,NA 140 mmol/L (136-145)
[2022-12-02 00:26] LABS: ESTIMATED GFR 81 mL/min (>=60)
[2022-12-02] MEDS ORDERED: Take Home: Azithromycin 250 MG, 2 Tab Pack PO ONE (00:50)
[2022-12-02] MEDS ORDERED: Take Home: predniSONE 20 MG, 4 Tab Pack PO ONE (00:51)
== END 2022-12-02 04:07 | disposition home or self-care (01) ==
LOC: DL.ED 23:13
DX: J44.1 Chronic obstructive pulmonary disease with (acute) exacerbation (principal); J96.21 Acute and chronic respiratory failure with hypoxia; Z88.5 Allergy status to narcotic agent; Z88.6 Allergy status to analgesic agent; Z88.8 Allergy status to other drugs, medicaments and biological substances; Z86.16 Personal history of COVID-19; Z79.51 Long term (current) use of inhaled steroids
CPT/HCPCS: 36415; 71045; 80053; 85025; 96365; 99285; A9270; J0456; J7050; J7512; J3490; J7620-GY

== ENCOUNTER 2022-12-10 01:26 | Emergency (ER) | payer MEDICARE, MEDICAID ==
[2022-12-10] MEDS ORDERED: guaiFENesin/Dextromethorphan 100-10 MG/5 ML Soln 5 ML Cup PO ONE (02:00)
[2022-12-10] MEDS ORDERED: Albuterol/Ipratropium 3.0-0.5 MG/3 ML Neb Soln NEB ONE ×3 (02:00→02:10)
[2022-12-10] MEDS ORDERED: Dexamethasone 4 MG/ML SDV IVPUSH ONE (02:00)
[2022-12-10] MEDS ORDERED: Sodium Chloride 0.9% 10 ML Syringe FLUSH PRN (02:00)
[2022-12-10] MEDS ORDERED: Benzonatate 100 MG Cap PO ONE (02:00)
[2022-12-10] MEDS ORDERED: Acetaminophen 325 MG Tab PO ONE (02:07)
[2022-12-10] MEDS ORDERED: Sodium Chloride 0.9% 1,000 ML IV ONE (02:07)
[2022-12-10] MEDS ORDERED: Piperacillin/Tazobactam 4.5 GM in Sodium Chloride 0.9% 100 ML IV ONE (02:07)
[2022-12-10] MEDS ORDERED: Levofloxacin/Dextrose 5%-Water 750 MG in Premix Bag 1 BAG IV ONE (02:07)
[2022-12-10 02:40] LABS: BASOPHILS PERCENT AUTO 0.1 % (0.0-1.0); EOSINOPHILS PERCENT AUTO 2.6 % (1.0-3.0); HEMATOCRIT 42.9 % (37.0-47.0); HEMOGLOBIN 13.5 g/dL (12.0-16.0); LYMPHOCYTES PERCENT AUTO 17.7 % (20.5-50.1); MEAN CORPUSCULAR HEMOGLOBIN 27.1 pg (27.0-34.0); MEAN CORPUSCULAR HGB CONC 31.5 g/dL (33.0-35.0); MONOCYTES PERCENT AUTO 9.7 % (2-8); NEUTROPHILS PERCENT AUTO 69.9 % (42.2-75.2); PLATELET COUNT,PLT 329 10^3/uL (150-450); RED BLOOD CELL COUNT 4.99 10^6/uL (4.2-5.4); WHITE BLOOD CELL COUNT,WBC 13.8 10^3/uL (5.0-10.0)
[2022-12-10 02:59] LABS: BICARBONATE,VENOUS 34 mmol/l (19-25); O2 DELIVERY DEVICE NASAL CANNULA; O2 SATURATION VENOUS 97.6 % (60-80); PCO2 VENOUS 55 mmHg (41-51); PH,VENOUS 7.41 (7.31-7.41); PO2 VENOUS 90 mmHg (35-42)
[2022-12-10 03:01] LABS: LACTIC ACID 0.7 mmol/L (0.4-2.0)
[2022-12-10 03:07] LABS: A/G RATIO 0.69; ALBUMIN 3.3 g/dL (3.4-5.0); ANION GAP 10.3 mEq/L (7-13); BILIRUBIN TOTAL 0.2 mg/dL (0.2-1.0); BUN/CREATININE RATIO 28.6 (No establ ref range); CALCIUM 9.5 mg/dL (8.5-10.1); CREATININE 0.7 mg/dL (0.55-1.02); EST CRCL DRUG DOSING (CG) 55.25 mL/min; POTASSIUM,K 4.3 mmol/L (3.5-5.1); PROTEIN TOTAL,TP 8.1 g/dL (6.4-8.2)
[2022-12-10 03:27] LABS: B-TYPE NATRIURETIC PEPTIDE,BNP 27 pg/ml (0-100)
[2022-12-10 04:02] LABS: APPEARANCE,URINE CLEAR (CLEAR); BILIRUBIN,URINE NEGATIVE (NEGATIVE); COLOR,URINE YELLOW (YELLOW); GLUCOSE,URINE NEGATIVE (NEGATIVE); KETONES,URINE NEGATIVE (NEGATIVE); LEUKOCYTE ESTERASE,URINE NEGATIVE (NEGATIVE); NITRITE,URINE NEGATIVE (NEGATIVE); OCCULT BLOOD,URINE NEGATIVE (NEGATIVE); PH,URINE 7.5 (5.0-9.0); PROTEIN,URINE NEGATIVE (NEGATIVE); UROBILINOGEN,URINE 0.2 mg/dL (0.2-1.0)
[2022-12-10] MEDS ORDERED: Ketorolac 30 MG/ML SDV IVPUSH ONE (04:14)
[2022-12-10 04:39] LABS: RBC,URINE NOT SEEN /HPF (0-5); WBC,URINE NOT SEEN /HPF (0-5/HPF)
[2022-12-10 05:35] VITALS: BP 122/67; PULSE 112
== END 2022-12-10 06:03 ==
LOC: DL.ED 01:26
DX: J44.0 Chronic obstructive pulmonary disease with (acute) lower respiratory infection (principal); J20.9 Acute bronchitis, unspecified; J44.1 Chronic obstructive pulmonary disease with (acute) exacerbation; R00.0 Tachycardia, unspecified; R65.10 Systemic inflammatory response syndrome (SIRS) of non-infectious origin without acute organ dysfunction; K21.9 Gastro-esophageal reflux disease without esophagitis; Z20.822 Contact with and (suspected) exposure to COVID-19; Z88.5 Allergy status to narcotic agent; Z88.6 Allergy status to analgesic agent; Z79.899 Other long term (current) drug therapy
CPT/HCPCS: 36415; 71045; 80053; 81001; 82803; 83605; 83880; 84484; 85025; 85379; 87040; 87804; 93005; 93010; 96365; 96366; 96367; 96375; 99284; 99285; A9270; J1100; J1885; J1956; J2543; J3490; J7030; U0002; J7620-GY

== ENCOUNTER 2022-12-29 21:38 | Emergency (ER) | payer MEDICARE, MEDICAID ==
[2022-12-29] MEDS ORDERED: Albuterol/Ipratropium 3.0-0.5 MG/3 ML Neb Soln NEB ONE (22:06)
[2022-12-29] MEDS ORDERED: methylPREDNISolone Sodium Succinate 125 MG/2 ML SDV IVPUSH ONE (22:07)
[2022-12-29] MEDS ORDERED: Magnesium Sulfate/Water 2 GM in Premix Bag 1 BAG IV ONE (22:07)
[2022-12-29] MEDS ORDERED: Ketorolac 30 MG/ML SDV IVPUSH ONE (22:38)
[2022-12-29 22:45] LABS: BASOPHILS PERCENT AUTO 0.1 % (0.0-1.0); EOSINOPHILS PERCENT AUTO 2.8 % (1.0-3.0); HEMATOCRIT 45.7 % (37.0-47.0); MEAN CORPUSCULAR HEMOGLOBIN 27.4 pg (27.0-34.0); MEAN CORPUSCULAR HGB CONC 30.6 g/dL (33.0-35.0); MEAN CORPUSCULAR VOLUME 89.4 fL (80-100); MONOCYTES PERCENT AUTO 7.5 % (2-8); NEUTROPHILS PERCENT AUTO 69.6 % (42.2-75.2); PLATELET COUNT,PLT 249 10^3/uL (150-450); RED BLOOD CELL COUNT 5.11 10^6/uL (4.2-5.4); WHITE BLOOD CELL COUNT,WBC 9.6 10^3/uL (5.0-10.0)
[2022-12-29] MEDS: Sodium Chloride 0.9% 10 ML Syringe FLUSH SCH ×2 (23:06→23:12)
[2022-12-29 23:09] LABS: ALANINE AMINOTRANSFERASE,ALT 25 U/L (14-59); ALBUMIN 3.2 g/dL (3.4-5.0); ALKALINE PHOSPHATASE 114 U/L (46-116); ANION GAP 5.7 mEq/L (7-13); ASPARTATE AMNIOTRANSFERASE,AST 23 U/L (15-37); BILIRUBIN TOTAL 0.3 mg/dL (0.2-1.0); BLOOD UREA NITROGEN,BUN 24 mg/dL (7-18); BUN/CREATININE RATIO 36.4 (No establ ref range); C-REACTIVE PROTEIN 5.3 mg/dL (0.0-0.9); CALCIUM 9.3 mg/dL (8.5-10.1); CARBON DIOXIDE,CO2 41 mmol/L (21-32); CHLORIDE,CL 104 mmol/L (98-107); CREATININE 0.66 mg/dL (0.55-1.02); GLUCOSE RANDOM 93 mg/dL (70-99); POTASSIUM,K 4.7 mmol/L (3.5-5.1); PROTEIN TOTAL,TP 7.3 g/dL (6.4-8.2)
[2022-12-29 23:23] LABS: A/G RATIO 0.78; ESTIMATED GFR 95 mL/min (>=60)
[2022-12-29 23:24] LABS: SODIUM,NA 146 mmol/L (136-145)
[2022-12-29] MEDS ORDERED: Take Home: Azithromycin 250 MG, 2 Tab Pack PO ONE (23:40)
[2022-12-30 02:20] VITALS: BP 106/67; PULSE 91
== END 2022-12-30 02:13 | disposition home or self-care (01) ==
LOC: DL.ED 21:38
DX: J44.1 Chronic obstructive pulmonary disease with (acute) exacerbation (principal); K21.9 Gastro-esophageal reflux disease without esophagitis; M19.90 Unspecified osteoarthritis, unspecified site; Z86.16 Personal history of COVID-19; Z88.5 Allergy status to narcotic agent; Z88.8 Allergy status to other drugs, medicaments and biological substances; Z79.899 Other long term (current) drug therapy
CPT/HCPCS: 36415; 71045; 80053; 85025; 86140; 94640; 96365; 96366; 96375; 99284; 99285; A9270; J1885; J2930; J3475; J3490; J7620-GY

== ENCOUNTER 2023-06-03 21:22 | Emergency (ER) | payer MEDICARE, MEDICAID ==
[~2023-06-03 21:22] MED LIST changes: +Sodium Chloride 0.9% 10 ML Syringe FLUSH PRN; -Tropicamide 1% Ophth Soln 15 ML Bottle EYERT ONE
[2023-06-03 22:17] LABS: INR 0.9 (0.9-1.2); PROTHROMBIN TIME 9.2 SEC (9.0-12.0); PTT,PARTIAL THROMBOPLSTIN TIME 27.6 SEC (22.0-34.0)
[2023-06-03 22:19] VITALS: BP 115/65; PULSE 92
[2023-06-03 22:19] LABS: CORONAVIRUS COVID-19 NAA NEGATIVE (NEGATIVE); INFLUENZA A NAA NEGATIVE (NEGATIVE); INFLUENZA B NAA NEGATIVE (NEGATIVE); RESPIRATORY SYNCYTIAL VIR NAA NEGATIVE (NEGATIVE)
[2023-06-03 22:24] LABS: A/G RATIO 0.69; ALBUMIN 3.4 g/dL (3.4-5.0); ANION GAP 10.7 mEq/L (7-13); BILIRUBIN TOTAL 0.4 mg/dL (0.2-1.0); BLOOD UREA NITROGEN,BUN 16 mg/dL (7-18); BUN/CREATININE RATIO 20.5 (No establ ref range); CALCIUM 9.6 mg/dL (8.5-10.1); CARBON DIOXIDE,CO2 33 mmol/L (21-32); CHLORIDE,CL 99 mmol/L (98-107); CREATININE 0.78 mg/dL (0.55-1.02); EST CRCL DRUG DOSING (CG) 56.31 mL/min; ESTIMATED GFR 82 mL/min (>=60); GLUCOSE RANDOM 113 mg/dL (70-99); MAGNESIUM 1.8 mg/dL (1.8-2.4); POTASSIUM,K 4.1 mmol/L (3.5-5.1); PROTEIN TOTAL,TP 8.3 g/dL (6.4-8.2); SODIUM,NA 139 mmol/L (136-145)
[2023-06-03 22:25] LABS: ALANINE AMINOTRANSFERASE,ALT 21 U/L (14-59); ALKALINE PHOSPHATASE 131 U/L (46-116); ASPARTATE AMNIOTRANSFERASE,AST 20 U/L (15-37); B-TYPE NATRIURETIC PEPTIDE,BNP 14 pg/ml (0-100); C-REACTIVE PROTEIN > 25.00 ng/dL (<=0.50)
[2023-06-03 22:26] LABS: LACTIC ACID 1.7 mmol/L (0.4-2.0)
[2023-06-03 22:29] LABS: WHITE BLOOD CELL COUNT,WBC 11.5 10^3/uL (5.0-10.0)
[2023-06-03 22:30] LABS: BASOPHILS PERCENT AUTO 0.1 % (0.0-1.0); EOSINOPHILS PERCENT AUTO 1.3 % (1.0-3.0); HEMOGLOBIN 12.7 g/dL (12.0-16.0); LYMPHOCYTES PERCENT AUTO 25.7 % (20.5-50.1); MEAN CORPUSCULAR HEMOGLOBIN 26.7 pg (27.0-34.0); MEAN CORPUSCULAR HGB CONC 31.8 g/dL (33.0-35.0); MONOCYTES PERCENT AUTO 7.1 % (2-8); NEUTROPHILS PERCENT AUTO 65.8 % (42.2-75.2); PLATELET COUNT,PLT 247 10^3/uL (150-450); RED BLOOD CELL COUNT 4.76 10^6/uL (4.2-5.4)
[2023-06-03] MEDS ORDERED: predniSONE 20 MG Tab PO ONE (22:39)
[2023-06-03] MEDS ORDERED: Azithromycin 250 MG Tab PO ONE (22:39)
[2023-06-03 23:43] LABS: EOSINOPHILS PERCENT MAN 1 % (1-3); LYMPHOCYTES PERCENT MAN 30 % (20-50); MONOCYTES PERCENT MAN 10 % (2-8); SEG NEUTROPHILS PERCENT MAN 59 % (42-75)
== END 2023-06-03 23:41 | disposition home or self-care (01) ==
LOC: DL.ED 21:22
DX: J44.1 Chronic obstructive pulmonary disease with (acute) exacerbation (principal); I10 Essential (primary) hypertension; E78.00 Pure hypercholesterolemia, unspecified; Z79.899 Other long term (current) drug therapy; Z88.6 Allergy status to analgesic agent; Z88.5 Allergy status to narcotic agent; Z20.822 Contact with and (suspected) exposure to COVID-19; Z86.16 Personal history of COVID-19
CPT/HCPCS: 0241U; 36415; 71045; 80053; 83605; 83735; 83880; 84145; 84484; 85025; 85610; 85730; 86140; 93005; 93010; 99284; 99285; A9270-GY; J3490; J7512

== ENCOUNTER 2023-09-23 17:23 | Emergency (ER) | payer MEDICARE, MEDICAID | END 2023-09-23 19:11 | disposition left against medical advice (07) | LOC: DL.ED 17:23 | DX: Z53.21 Procedure and treatment not carried out due to patient leaving prior to being seen by health care provider (principal) ==

== ENCOUNTER 2023-11-22 23:46 | Emergency (ER) | payer MEDICARE, MEDICAID ==
[2023-11-23] MEDS: Albuterol/Ipratropium 3.0-0.5 MG/3 ML Neb Soln NEB ONE (00:10)
[2023-11-23 02:02] VITALS: BP 117/76; PULSE 98
== END 2023-11-23 02:37 | disposition home or self-care (01) ==
LOC: DL.ED 23:46
DX: M25.551 Pain in right hip (principal); I10 Essential (primary) hypertension; E78.00 Pure hypercholesterolemia, unspecified; J44.9 Chronic obstructive pulmonary disease, unspecified; Z90.49 Acquired absence of other specified parts of digestive tract; Z90.710 Acquired absence of both cervix and uterus; Z86.16 Personal history of COVID-19; Z87.891 Personal history of nicotine dependence; Z79.899 Other long term (current) drug therapy; Z79.1 Long term (current) use of non-steroidal anti-inflammatories (NSAID); Z88.5 Allergy status to narcotic agent; Z88.6 Allergy status to analgesic agent; W19.XXXA Unspecified fall, initial encounter; Y92.009 Unspecified place in unspecified non-institutional (private) residence as the place of occurrence of the external cause
CPT/HCPCS: 72220; 94640; 99284; J7620-GY

== ENCOUNTER 2024-01-12 03:28 | Inpatient (IN) | payer MEDICARE, MEDICAID ==
[2024-01-12 03:52] LABS: BASOPHILS PERCENT AUTO 0.1 % (0.0-1.0); EOSINOPHILS PERCENT AUTO 0.5 % (1.0-3.0); HEMATOCRIT 43.6 % (37.0-47.0); HEMOGLOBIN 13.2 g/dL (12.0-16.0); LYMPHOCYTES PERCENT AUTO 16.2 % (20.5-50.1); MEAN CORPUSCULAR HGB CONC 30.3 g/dL (33.0-35.0); MEAN CORPUSCULAR VOLUME 89.2 fL (80-100); MONOCYTES PERCENT AUTO 4.9 % (2-8); NEUTROPHILS PERCENT AUTO 78.3 % (42.2-75.2); PLATELET COUNT,PLT 225 10^3/uL (150-450); RED BLOOD CELL COUNT 4.89 10^6/uL (4.2-5.4); WHITE BLOOD CELL COUNT,WBC 8.5 10^3/uL (5.0-10.0)
[2024-01-12] MEDS: Albuterol/Ipratropium 3.0-0.5 MG/3 ML Neb Soln NEB ONE (04:02)
[2024-01-12] MEDS: Sodium Chloride 0.9% 10 ML Syringe FLUSH PRN (04:05)
[2024-01-12 04:09] LABS: A/G RATIO 0.9; ALANINE AMINOTRANSFERASE,ALT 25 U/L (14-59); ALBUMIN 3.4 g/dL (3.4-5.0); ALKALINE PHOSPHATASE 122 U/L (46-116); ANION GAP 7.7 mEq/L (7-13); ASPARTATE AMNIOTRANSFERASE,AST 20 U/L (15-37); BILIRUBIN TOTAL 0.3 mg/dL (0.2-1.0); BLOOD UREA NITROGEN,BUN 9 mg/dL (7-18); BUN/CREATININE RATIO 12.3 (No establ ref range); CALCIUM 9.9 mg/dL (8.5-10.1); CARBON DIOXIDE,CO2 39 mmol/L (21-32); CHLORIDE,CL 100 mmol/L (98-107); CREATININE 0.73 mg/dL (0.55-1.02); EST CRCL DRUG DOSING (CG) 60.17 mL/min; GLUCOSE RANDOM 157 mg/dL (70-99); MAGNESIUM 1.7 mg/dL (1.8-2.4); POTASSIUM,K 3.7 mmol/L (3.5-5.1); PROTEIN TOTAL,TP 7.4 g/dL (6.4-8.2); SODIUM,NA 143 mmol/L (136-145)
[2024-01-12 04:10] LABS: ESTIMATED GFR 89 mL/min (>=60); ETHANOL BLOOD MEDICAL < 3 mg/dL (0); PROTHROMBIN TIME 10.4 SEC (9.0-12.0)
[2024-01-12 04:11] LABS: LACTIC ACID 1.2 mmol/L (0.4-2.0)
[2024-01-12 05:16] LABS: APPEARANCE,URINE CLEAR (CLEAR); BILIRUBIN,URINE NEGATIVE (NEGATIVE); COLOR,URINE YELLOW (YELLOW); GLUCOSE,URINE NEGATIVE (NEGATIVE); KETONES,URINE NEGATIVE (NEGATIVE); LEUKOCYTE ESTERASE,URINE NEGATIVE (NEGATIVE); NITRITE,URINE NEGATIVE (NEGATIVE); OCCULT BLOOD,URINE NEGATIVE (NEGATIVE); PROTEIN,URINE NEGATIVE (NEGATIVE); UROBILINOGEN,URINE 0.2 mg/dL (0.2-1.0)
[2024-01-12 05:18] LABS: AMPHETAMINES,URINE NEGATIVE (NEGATIVE); BARBITURATES,URINE NEGATIVE (NEGATIVE); BENZODIAZEPINE,URINE POSITIVE (NEGATIVE); MDMA (ECSTASY), URINE NEGATIVE (NEGATIVE); METHADONE,URINE NEGATIVE (NEGATIVE); METHAMPHETAMINES,URINE NEGATIVE (NEGATIVE); OPIATES,URINE NEGATIVE (NEGATIVE); OXYCODONE,URINE NEGATIVE (NEGATIVE); PHENCYCLIDINE,URINE NEGATIVE (NEGATIVE); TCA,URINE NEGATIVE (NEGATIVE)
[2024-01-12] MEDS: Magnesium Sulfate/Water 2 GM in Premix Bag 1 BAG IV ONE (05:26)
[2024-01-12] MEDS: methylPREDNISolone Sodium Succinate 125 MG/2 ML SDV IVPUSH ONE (05:26)
[2024-01-12] MEDS: Iopamidol 755 Mg/ML 100 ML Bottle IVPUSH ONE (05:42)
[2024-01-12] MEDS ORDERED: Sodium Chloride 0.9% 500 ML IV ONE (06:04)
[2024-01-12] MEDS: Sodium Chloride 0.9% 500 ML IV ONE ×2 (06:44→10:25)
[2024-01-12 07:18] LABS: O2 DELIVERY DEVICE NASAL CANNULA
[2024-01-12 07:40] LABS: ANION GAP 6.9 mEq/L (7-13); CALCIUM 9.7 mg/dL (8.5-10.1); CREATININE 0.55 mg/dL (0.55-1.02); EST CRCL DRUG DOSING (CG) 79.86 mL/min; POTASSIUM,K 3.9 mmol/L (3.5-5.1)
[2024-01-12 07:42] LABS: PCO2 VENOUS 99 mmHg (41-51); PH,VENOUS 7.24 (7.31-7.41); PO2 VENOUS 282 mmHg (35-42)
[2024-01-12 07:43] LABS: BASE EXCESS VENOUS 9.9 mmol/l ((-2)-(+3)); BICARBONATE,VENOUS 41 mmol/l (19-25); O2 SATURATION VENOUS 99.9 % (60-80)
[2024-01-12] MEDS ORDERED: Magnesium Hydroxide 400 MG/5 ML Susp 30 ML Cup PO PRN (13:25)
[2024-01-12] MEDS ORDERED: Polyethylene Glycol 3350 Powder 17 GM Packet PO PRN (13:25)
[2024-01-12] MEDS ORDERED: Promethazine 25 MG/ML SDV IM PRN (13:25)
[2024-01-12] MEDS ORDERED: Ondansetron 4 MG/2 ML SDV IVPUSH PRN (13:25)
[2024-01-12] MEDS ORDERED: Naloxone 2 MG/2 ML Syringe IVPUSH PRN (13:25)
[2024-01-12] MEDS ORDERED: guaiFENesin/Dextromethorphan 100-10 MG/5 ML Soln 5 ML Cup PO PRN (13:33)
[2024-01-12] MEDS ORDERED: 50% Dextrose in Water 50 ML Syringe IVPUSH PRN (13:36)
[2024-01-12] MEDS ORDERED: Glucagon,Human Recombinant 1 MG Vial IM PRN (13:36)
[2024-01-12] MEDS: Gabapentin 300 MG Cap PO SCH (14:12)
[2024-01-12] MEDS: Acetaminophen/oxyCODONE 325-5 MG Tab PO PRN (14:12)
[2024-01-12] MEDS: Azithromycin 500 MG in Sodium Chloride 0.9% 250 ML IV ONE (14:12)
[2024-01-12] MEDS: Albuterol/Ipratropium 3.0-0.5 MG/3 ML Neb Soln NEB PRN (14:25)
[2024-01-12] MEDS: methylPREDNISolone Sod Succ 125 MG in Sodium Chloride 0.9% 100 ML IV ONE (14:28)
[2024-01-12] MEDS: methylPREDNISolone Sodium Succinate 125 MG/2 ML SDV IVPUSH SCH (17:29)
[2024-01-12] MEDS: Insulin Lispro 100 Units/ML 3 ML Vial SUBCUT SCH (17:29)
[2024-01-12] MEDS: Magnesium Oxide 400 MG Tab PO SCH (17:30)
[2024-01-12] MEDS: guaiFENesin 600 MG Tab.ER PO SCH (19:48)
[2024-01-13] MEDS: hydrOXYzine HCl 25 MG Tab PO ONE (03:26)
[2024-01-13 06:58] LABS: BASOPHILS PERCENT AUTO 0.1 % (0.0-1.0); HEMATOCRIT 40.1 % (37.0-47.0); HEMOGLOBIN 12.4 g/dL (12.0-16.0); MEAN CORPUSCULAR HEMOGLOBIN 27.3 pg (27.0-34.0); MEAN CORPUSCULAR HGB CONC 30.9 g/dL (33.0-35.0); MEAN CORPUSCULAR VOLUME 88.1 fL (80-100); MONOCYTES PERCENT AUTO 1.5 % (2-8); NEUTROPHILS PERCENT AUTO 84.4 % (42.2-75.2); PLATELET COUNT,PLT 232 10^3/uL (150-450); RED BLOOD CELL COUNT 4.55 10^6/uL (4.2-5.4); WHITE BLOOD CELL COUNT,WBC 8.1 10^3/uL (5.0-10.0)
[2024-01-13 07:32] LABS: ALBUMIN 3.2 g/dL (3.4-5.0); ANION GAP 5.2 mEq/L (7-13); BILIRUBIN TOTAL 0.3 mg/dL (0.2-1.0); BUN/CREATININE RATIO 27.3 (No establ ref range); CALCIUM 9.5 mg/dL (8.5-10.1); CREATININE 0.55 mg/dL (0.55-1.02); EST CRCL DRUG DOSING (CG) 69.34 mL/min; MAGNESIUM 2.1 mg/dL (1.8-2.4); POTASSIUM,K 4.2 mmol/L (3.5-5.1); PROTEIN TOTAL,TP 6.9 g/dL (6.4-8.2); T4 FREE 0.86 ng/dL (0.76-1.46); TSH ULTRASENSITIVE 0.14 uIU/mL (0.36-3.74)
[2024-01-13 07:33] LABS: A/G RATIO 0.86
[2024-01-13] MEDS: Azithromycin 500 MG in Sodium Chloride 0.9% 250 ML IV SCH (08:46)
[2024-01-13] MEDS: Nicotine 21 MG/24 Hr Patch TRDERM SCH (08:46)
[2024-01-13] MEDS: Aminophylline 500 MG in Sodium Chloride 0.9% 500 ML IV SCH (12:56)
[2024-01-13] MEDS: HYDROmorphone 0.5 MG/0.5 ML Syringe IVPUSH PRN (13:56)
[2024-01-13] MEDS: Sennosides/Docusate Sodium 50-8.6 MG Tab PO PRN (20:31)
[2024-01-14 06:42] LABS: HEMATOCRIT 42.1 % (37.0-47.0); HEMOGLOBIN 12.9 g/dL (12.0-16.0); LYMPHOCYTES PERCENT AUTO 7.5 % (20.5-50.1); MEAN CORPUSCULAR HEMOGLOBIN 26.8 pg (27.0-34.0); MEAN CORPUSCULAR HGB CONC 30.6 g/dL (33.0-35.0); MEAN CORPUSCULAR VOLUME 87.5 fL (80-100); MONOCYTES PERCENT AUTO 3.2 % (2-8); NEUTROPHILS PERCENT AUTO 89.3 % (42.2-75.2); PLATELET COUNT,PLT 274 10^3/uL (150-450); RED BLOOD CELL COUNT 4.81 10^6/uL (4.2-5.4); WHITE BLOOD CELL COUNT,WBC 10.4 10^3/uL (5.0-10.0)
[2024-01-14 07:03] LABS: ALBUMIN 3.3 g/dL (3.4-5.0); BILIRUBIN TOTAL 0.2 mg/dL (0.2-1.0); BUN/CREATININE RATIO 27.5 (No establ ref range); CALCIUM 9.4 mg/dL (8.5-10.1); CREATININE 0.51 mg/dL (0.55-1.02); EST CRCL DRUG DOSING (CG) 74.78 mL/min; MAGNESIUM 2.1 mg/dL (1.8-2.4); POTASSIUM,K 3.5 mmol/L (3.5-5.1)
[2024-01-14 07:13] LABS: ANION GAP 4.5 mEq/L (7-13)
[2024-01-14 07:17] LABS: A/G RATIO 0.89
[2024-01-14] MEDS ORDERED: hydrOXYzine HCl 25 MG Tab PO PRN (07:21)
[2024-01-14] MEDS ORDERED: hydrALAZINE 25 MG Tab PO PRN (07:21)
[2024-01-14] MEDS ORDERED: ALPRAZolam 0.5 MG Tab PO PRN (07:21)
[2024-01-14] MEDS: acetaZOLAMIDE 500 MG Vial IVPUSH ONE (08:00)
[2024-01-14] MEDS: Acetaminophen 325 MG Tab PO PRN (08:06)
[2024-01-14] MEDS: Sertraline 50 MG Tab PO SCH (08:07)
[2024-01-14] MEDS: Isosorbide Mononitrate 30 MG Tab.ER PO SCH (08:08)
[2024-01-14] MEDS: Pantoprazole 40 MG Tab.CR PO SCH (08:08)
[2024-01-14] MEDS: Diltiazem 120 MG Cap.CD PO SCH (08:09)
[2024-01-14] MEDS: Ferrous Sulfate 325 MG Tab PO SCH (08:09)
[2024-01-14] MEDS ORDERED: Non-Formulary Medication 1 Each (Roflumilast [Roflumilast] 500 MCG Tablet) PO SCH (09:00)
[2024-01-14] MEDS ORDERED: KETOTIFEN FUMARATE EYEBOTH SCH (09:00)
[2024-01-14] MEDS ORDERED: Non-Formulary Medication 1 Each (Gabapentin 600 MG Tablet) PO SCH (09:00)
[2024-01-14] MEDS: Tiotropium Bromide 4 GM Inhalation Spray (2.5mcg/1 dose; 10 doses) INH SCH (10:48)
[2024-01-14] MEDS: Arformoterol 15 MCG/2 ML Neb Soln INH SCH (11:28)
[2024-01-14] MEDS: Budesonide 0.5 MG/2 ML Neb Susp INH SCH (11:28)
[2024-01-14] MEDS: Montelukast 10 MG Tab PO SCH (20:08)
[2024-01-14] MEDS: Melatonin 3 MG Tab PO PRN (20:08)
[2024-01-14] MEDS: Rosuvastatin 10 MG Tab PO SCH (20:08)
[2024-01-14] MEDS: acetaZOLAMIDE 250 MG Tab PO SCH (20:08)
[2024-01-15 06:16] LABS: BASOPHILS PERCENT AUTO 0.3 % (0.0-1.0); HEMATOCRIT 40.8 % (37.0-47.0); HEMOGLOBIN 12.9 g/dL (12.0-16.0); LYMPHOCYTES PERCENT AUTO 10.9 % (20.5-50.1); MEAN CORPUSCULAR HEMOGLOBIN 27.2 pg (27.0-34.0); MEAN CORPUSCULAR HGB CONC 31.6 g/dL (33.0-35.0); MEAN CORPUSCULAR VOLUME 85.9 fL (80-100); MONOCYTES PERCENT AUTO 1.7 % (2-8); NEUTROPHILS PERCENT AUTO 87.1 % (42.2-75.2); PLATELET COUNT,PLT 245 10^3/uL (150-450); RED BLOOD CELL COUNT 4.75 10^6/uL (4.2-5.4); WHITE BLOOD CELL COUNT,WBC 7.5 10^3/uL (5.0-10.0)
[2024-01-15 06:51] LABS: ALBUMIN 3.1 g/dL (3.4-5.0); ANION GAP 9.2 mEq/L (7-13); BILIRUBIN TOTAL 0.3 mg/dL (0.2-1.0); BUN/CREATININE RATIO 36.8 (No establ ref range); CALCIUM 9.6 mg/dL (8.5-10.1); CREATININE 0.68 mg/dL (0.55-1.02); EST CRCL DRUG DOSING (CG) 56.08 mL/min; MAGNESIUM 2.3 mg/dL (1.8-2.4); POTASSIUM,K 3.2 mmol/L (3.5-5.1); PROTEIN TOTAL,TP 6.4 g/dL (6.4-8.2)
[2024-01-15 06:55] LABS: A/G RATIO 0.94
[2024-01-15 07:59] VITALS: BP 110/60; PULSE 76
== END 2024-01-15 11:30 | disposition other institution (70) | DRG 70 ==
LOC: DL.ED 03:28 → DL.MS 12:04
PROVIDERS: ADMIT Internal Medicine; ATTEND Internal Medicine
DX: G93.41 Metabolic encephalopathy (principal); E43 Unspecified severe protein-calorie malnutrition; J96.21 Acute and chronic respiratory failure with hypoxia; J96.22 Acute and chronic respiratory failure with hypercapnia; R64 Cachexia; J44.1 Chronic obstructive pulmonary disease with (acute) exacerbation; R62.51 Failure to thrive (child); I10 Essential (primary) hypertension; E78.5 Hyperlipidemia, unspecified; D50.9 Iron deficiency anemia, unspecified; D72.829 Elevated white blood cell count, unspecified; E87.6 Hypokalemia; K21.9 Gastro-esophageal reflux disease without esophagitis; G89.29 Other chronic pain; M54.9 Dorsalgia, unspecified; E83.42 Hypomagnesemia; E88.09 Other disorders of plasma-protein metabolism, not elsewhere classified; R73.9 Hyperglycemia, unspecified; G62.9 Polyneuropathy, unspecified; F41.9 Anxiety disorder, unspecified; F32.A Depression, unspecified; F17.210 Nicotine dependence, cigarettes, uncomplicated; Z68.21 Body mass index [BMI] 21.0-21.9, adult; Z88.5 Allergy status to narcotic agent; Z88.6 Allergy status to analgesic agent; Z79.899 Other long term (current) drug therapy; Z91.148 Patient's other noncompliance with medication regimen for other reason; Z86.16 Personal history of COVID-19
CPT/HCPCS: 36415; 70450; 70496; 70498; 71275; 74176; 80048; 80053; 80198; 80305-QW; 80307; 81003; 82140; 82306; 82803; 82947; 83605; 83735; 84439; 84443; 84484; 85025; 85610; 85730; 87804; 93005; 93010; 93306; 94010; 94640; 94664; 94760; 96361; 96365; 96366; 96375; 97161-GP; 97165-GO; 97530-GP; 99284; 99285-25; A9270-GY; C1758; J0280; J0456; J1120; J1170; J1815-GY; J2919; J3475; J3490; J7030; J7040; J7050; J7620-GY; Q9967; U0002

== ENCOUNTER 2024-01-16 23:17 | Emergency (ER) | payer MEDICARE, MEDICAID ==
[2024-01-17 00:19] VITALS: BP 115/67; PULSE 68
[2024-01-17 00:38] LABS: APPEARANCE,URINE CLEAR (CLEAR); BILIRUBIN,URINE NEGATIVE (NEGATIVE); COLOR,URINE YELLOW (YELLOW); GLUCOSE,URINE NEGATIVE (NEGATIVE); KETONES,URINE NEGATIVE (NEGATIVE); LEUKOCYTE ESTERASE,URINE NEGATIVE (NEGATIVE); NITRITE,URINE NEGATIVE (NEGATIVE); OCCULT BLOOD,URINE NEGATIVE (NEGATIVE); PROTEIN,URINE NEGATIVE (NEGATIVE); UROBILINOGEN,URINE 0.2 mg/dL (0.2-1.0)
[2024-01-17 00:46] LABS: ALBUMIN 3.2 g/dL (3.4-5.0); ANION GAP 8.6 mEq/L (7-13); BILIRUBIN TOTAL 0.2 mg/dL (0.2-1.0); BUN/CREATININE RATIO 49.3 (No establ ref range); C-REACTIVE PROTEIN 0.68 ng/dL (<=0.50); CALCIUM 9.3 mg/dL (8.5-10.1); CREATININE 0.75 mg/dL (0.55-1.02); EST CRCL DRUG DOSING (CG) 58.56 mL/min; POTASSIUM,K 3.6 mmol/L (3.5-5.1); PROTEIN TOTAL,TP 6.3 g/dL (6.4-8.2)
[2024-01-17 00:47] LABS: LACTIC ACID 0.3 mmol/L (0.4-2.0)
[2024-01-17 00:55] LABS: A/G RATIO 1.03
[2024-01-17 00:56] LABS: HEMATOCRIT 39.9 % (37.0-47.0); HEMOGLOBIN 12.4 g/dL (12.0-16.0); LYMPHOCYTES PERCENT AUTO 5.7 % (20.5-50.1); MEAN CORPUSCULAR HGB CONC 31.1 g/dL (33.0-35.0); MEAN CORPUSCULAR VOLUME 86.9 fL (80-100); NEUTROPHILS PERCENT AUTO 92.3 % (42.2-75.2); PLATELET COUNT,PLT 229 10^3/uL (150-450); RED BLOOD CELL COUNT 4.59 10^6/uL (4.2-5.4); WHITE BLOOD CELL COUNT,WBC 9.3 10^3/uL (5.0-10.0)
[2024-01-17] MEDS: Sodium Chloride 0.9% 1,000 ML IV ONE (01:31)
[2024-01-17] MEDS: Sodium Chloride 0.9% 1,000 ML IV SCH (02:49)
== END 2024-01-17 06:18 ==
LOC: DL.ED 23:17
DX: E86.0 Dehydration (principal); T50.905A Adverse effect of unspecified drugs, medicaments and biological substances, initial encounter; I10 Essential (primary) hypertension; E78.00 Pure hypercholesterolemia, unspecified; J44.9 Chronic obstructive pulmonary disease, unspecified; Z86.16 Personal history of COVID-19; Z90.49 Acquired absence of other specified parts of digestive tract; Z90.710 Acquired absence of both cervix and uterus; Z88.5 Allergy status to narcotic agent; Z88.6 Allergy status to analgesic agent; Z79.51 Long term (current) use of inhaled steroids; Z79.899 Other long term (current) drug therapy; Z87.891 Personal history of nicotine dependence
CPT/HCPCS: 36415; 70450; 80053; 81003; 82550; 83605; 83880; 84484; 85025; 86140; 93005; 93010; 96360; 96361; 99284; 99285-25; J7030

== ENCOUNTER 2024-01-27 20:06 | Emergency (ER) | payer MEDICARE, MEDICAID ==
[2024-01-27 21:03] VITALS: BP 116/67; PULSE 113
[2024-01-27 21:10] LABS: EOSINOPHILS PERCENT AUTO 1.1 % (1.0-3.0); HEMATOCRIT 39.9 % (37.0-47.0); HEMOGLOBIN 11.9 g/dL (12.0-16.0); LYMPHOCYTES PERCENT AUTO 13.6 % (20.5-50.1); MEAN CORPUSCULAR HEMOGLOBIN 27.1 pg (27.0-34.0); MEAN CORPUSCULAR HGB CONC 29.8 g/dL (33.0-35.0); MEAN CORPUSCULAR VOLUME 90.9 fL (80-100); MONOCYTES PERCENT AUTO 7.3 % (2-8); PLATELET COUNT,PLT 157 10^3/uL (150-450); RED BLOOD CELL COUNT 4.39 10^6/uL (4.2-5.4); WHITE BLOOD CELL COUNT,WBC 11.4 10^3/uL (5.0-10.0)
[2024-01-27 21:26] LABS: ALANINE AMINOTRANSFERASE,ALT 29 U/L (14-59); ALBUMIN 3.2 g/dL (3.4-5.0); ALKALINE PHOSPHATASE 107 U/L (46-116); ANION GAP 5.8 mEq/L (7-13); ASPARTATE AMNIOTRANSFERASE,AST 20 U/L (15-37); BILIRUBIN TOTAL 0.4 mg/dL (0.2-1.0); BLOOD UREA NITROGEN,BUN 14 mg/dL (7-18); BUN/CREATININE RATIO 13.2 (No establ ref range); CALCIUM 9.8 mg/dL (8.5-10.1); CARBON DIOXIDE,CO2 44 mmol/L (21-32); CHLORIDE,CL 98 mmol/L (98-107); CREATININE 1.06 mg/dL (0.55-1.02); GLUCOSE RANDOM 142 mg/dL (70-99); MAGNESIUM 1.8 mg/dL (1.8-2.4); POTASSIUM,K 3.8 mmol/L (3.5-5.1); PROTEIN TOTAL,TP 6.4 g/dL (6.4-8.2); SODIUM,NA 144 mmol/L (136-145)
[2024-01-27 21:27] LABS: ESTIMATED GFR 57 mL/min (>=60)
[2024-01-27] MEDS: Acetaminophen 325 MG Tab PO ONE (21:31)
[2024-01-27] MEDS: Ondansetron 4 MG/2 ML SDV IVPUSH ONE (21:31)
[2024-01-27] MEDS: Sodium Chloride 0.9% 1,000 ML IV ONE (21:31)
[2024-01-27 22:59] LABS: APPEARANCE,URINE CLEAR (CLEAR); BILIRUBIN,URINE SMALL (NEGATIVE); COLOR,URINE YELLOW (YELLOW); GLUCOSE,URINE NEGATIVE (NEGATIVE); KETONES,URINE 15 (NEGATIVE); LEUKOCYTE ESTERASE,URINE NEGATIVE (NEGATIVE); NITRITE,URINE NEGATIVE (NEGATIVE); OCCULT BLOOD,URINE NEGATIVE (NEGATIVE); PROTEIN,URINE NEGATIVE (NEGATIVE); UROBILINOGEN,URINE 0.2 mg/dL (0.2-1.0)
== END 2024-01-28 00:50 | disposition home or self-care (01) ==
LOC: DL.ED 20:06
DX: S00.03XA Contusion of scalp, initial encounter (principal); E86.0 Dehydration; N17.9 Acute kidney failure, unspecified; I10 Essential (primary) hypertension; E78.00 Pure hypercholesterolemia, unspecified; J44.9 Chronic obstructive pulmonary disease, unspecified; Z90.710 Acquired absence of both cervix and uterus; F17.200 Nicotine dependence, unspecified, uncomplicated; Z86.16 Personal history of COVID-19; Z90.49 Acquired absence of other specified parts of digestive tract; Z88.5 Allergy status to narcotic agent; Z88.6 Allergy status to analgesic agent; Z79.51 Long term (current) use of inhaled steroids; Z79.899 Other long term (current) drug therapy; W18.39XA Other fall on same level, initial encounter
CPT/HCPCS: 36415; 70450; 71045; 72125; 80053; 81003; 83735; 84484; 85025; 87804; 93005; 93010; 96361; 96374; 99284; 99285; A9270; J2405; J7030; U0002

== ENCOUNTER 2024-01-28 20:47 | Emergency (ER) | payer MEDICARE, MEDICAID ==
[2024-01-28] MEDS ORDERED: Diphtheria,Pertussis(Acell),Tetanus Vaccine 0.5 ML Syringe IM ONE (21:02)
[2024-01-28] MEDS ORDERED: Bacitracin Oint 1 GM U/D Packet TOP ONE ×2 (21:02→22:41)
[2024-01-28] MEDS ORDERED: Lidocaine 1% 5 ML VIAL INJECT ONE (21:02)
[2024-01-28 21:07] VITALS: BP 130/87; PULSE 95
[2024-01-28] MEDS ORDERED: Sodium Chloride 0.9% 10 ML Syringe FLUSH PRN (21:08)
[2024-01-28 21:38] LABS: BASOPHILS PERCENT AUTO 0.1 % (0.0-1.0); EOSINOPHILS PERCENT AUTO 1.5 % (1.0-3.0); HEMATOCRIT 40.5 % (37.0-47.0); HEMOGLOBIN 11.8 g/dL (12.0-16.0); LYMPHOCYTES PERCENT AUTO 12.7 % (20.5-50.1); MEAN CORPUSCULAR HEMOGLOBIN 26.9 pg (27.0-34.0); MEAN CORPUSCULAR HGB CONC 29.1 g/dL (33.0-35.0); MEAN CORPUSCULAR VOLUME 92.3 fL (80-100); MONOCYTES PERCENT AUTO 7.7 % (2-8); PLATELET COUNT,PLT 188 10^3/uL (150-450); RED BLOOD CELL COUNT 4.39 10^6/uL (4.2-5.4); WHITE BLOOD CELL COUNT,WBC 10.1 10^3/uL (5.0-10.0)
[2024-01-28] MEDS ORDERED: Acetaminophen 500 MG Tab PO ONE ×2 (21:42→22:01)
[2024-01-28 22:07] LABS: ALANINE AMINOTRANSFERASE,ALT 24 U/L (14-59); ALBUMIN 2.9 g/dL (3.4-5.0); ALKALINE PHOSPHATASE 94 U/L (46-116); ASPARTATE AMNIOTRANSFERASE,AST 16 U/L (15-37); BILIRUBIN TOTAL 0.3 mg/dL (0.2-1.0); BLOOD UREA NITROGEN,BUN 10 mg/dL (7-18); BUN/CREATININE RATIO 15.2 (No establ ref range); CALCIUM 9.4 mg/dL (8.5-10.1); CHLORIDE,CL 101 mmol/L (98-107); CREATINE KINASE,CK 15 U/L (16-191); CREATININE 0.66 mg/dL (0.55-1.02); GLUCOSE RANDOM 119 mg/dL (70-99); MAGNESIUM 1.8 mg/dL (1.8-2.4); PROTEIN TOTAL,TP 6.2 g/dL (6.4-8.2); SODIUM,NA 144 mmol/L (136-145); TSH ULTRASENSITIVE 0.75 uIU/mL (0.36-3.74)
[2024-01-28 22:16] LABS: INR 0.9 (0.9-1.2); PROTHROMBIN TIME 9.7 SEC (9.0-12.0); PTT,PARTIAL THROMBOPLSTIN TIME 22.7 SEC (22.0-34.0)
[2024-01-28 22:19] LABS: A/G RATIO 0.88; ESTIMATED GFR 95 mL/min (>=60)
[2024-01-28 22:20] LABS: CARBON DIOXIDE,CO2 > 45 mmol/L (21-32)
[2024-01-28] MEDS ORDERED: Lidocaine 1% 30 ML SDV NERVRT ONE (22:30)
[2024-01-28] MEDS ORDERED: Lactulose Soln 10 GM/15 ML 30 ML UD Cup PO ONE (22:55)
[2024-01-28 23:14] LABS: O2 DELIVERY DEVICE NASAL CANNULA
[2024-01-28 23:37] LABS: PH,VENOUS 7.25 (7.31-7.41)
[2024-01-28 23:38] LABS: O2 SATURATION VENOUS 80.9 % (60-80); PCO2 VENOUS 116 mmHg (41-51); PO2 VENOUS 52 mmHg (35-42)
[2024-01-28 23:39] LABS: BASE EXCESS VENOUS 17.9 mmol/l ((-2)-(+3)); BICARBONATE,VENOUS 49 mmol/l (19-25)
[2024-01-28 23:54] LABS: APPEARANCE,URINE CLEAR (CLEAR); BILIRUBIN,URINE NEGATIVE (NEGATIVE); COLOR,URINE YELLOW (YELLOW); GLUCOSE,URINE NEGATIVE (NEGATIVE); KETONES,URINE NEGATIVE (NEGATIVE); LEUKOCYTE ESTERASE,URINE NEGATIVE (NEGATIVE); NITRITE,URINE NEGATIVE (NEGATIVE); OCCULT BLOOD,URINE TRACE-INTACT (NEGATIVE); PROTEIN,URINE NEGATIVE (NEGATIVE); UROBILINOGEN,URINE 0.2 mg/dL (0.2-1.0)
[2024-01-28 23:57] LABS: AMPHETAMINES,URINE NEGATIVE (NEGATIVE); BARBITURATES,URINE NEGATIVE (NEGATIVE); BENZODIAZEPINE,URINE POSITIVE (NEGATIVE); MDMA (ECSTASY), URINE NEGATIVE (NEGATIVE); METHADONE,URINE NEGATIVE (NEGATIVE); METHAMPHETAMINES,URINE NEGATIVE (NEGATIVE); OPIATES,URINE NEGATIVE (NEGATIVE); OXYCODONE,URINE NEGATIVE (NEGATIVE); PHENCYCLIDINE,URINE NEGATIVE (NEGATIVE); TCA,URINE NEGATIVE (NEGATIVE)
[2024-01-29] MEDS ORDERED: Lactulose Soln 10 GM/15 ML 30 ML UD Cup PO ONE (00:07)
[2024-01-29 00:13] LABS: BACTERIA,URINE MODERATE /HPF (0-FEW/HPF); EPITHELIAL CELLS,URINE MODERATE /HPF (NOT SEEN); MUCUS,URINE FEW /LPF (NOT SEEN)
== END 2024-01-29 00:37 ==
LOC: DL.ED 20:47
DX: S01.81XA Laceration without foreign body of other part of head, initial encounter (principal); E72.20 Disorder of urea cycle metabolism, unspecified; J44.9 Chronic obstructive pulmonary disease, unspecified; I10 Essential (primary) hypertension; E78.00 Pure hypercholesterolemia, unspecified; Z86.16 Personal history of COVID-19; Z88.5 Allergy status to narcotic agent; Z88.8 Allergy status to other drugs, medicaments and biological substances; Z88.6 Allergy status to analgesic agent; Z79.51 Long term (current) use of inhaled steroids; Z79.899 Other long term (current) drug therapy; Z90.49 Acquired absence of other specified parts of digestive tract; Z90.710 Acquired absence of both cervix and uterus; Z23 Encounter for immunization; W18.39XA Other fall on same level, initial encounter
CPT/HCPCS: 12011; 36415; 70450; 71045; 72125; 73502; 80053; 80305; 81001; 82140; 82550; 82803; 83605; 83735; 84443; 84484; 85025; 85610; 85730; 90471; 93005; 93010; 99284; 99285; A9270; J3490

== ENCOUNTER 2024-04-08 21:01 | Emergency (ER) | payer MEDICARE, MEDICAID ==
[2024-04-08 21:15] VITALS: BP 115/63; PULSE 77
[2024-04-08 21:39] LABS: BASOPHILS PERCENT AUTO 0.1 % (0.0-1.0); EOSINOPHILS PERCENT AUTO 7.7 % (1.0-3.0); HEMATOCRIT 38.3 % (37.0-47.0); HEMOGLOBIN 11.8 g/dL (12.0-16.0); LYMPHOCYTES PERCENT AUTO 36.1 % (20.5-50.1); MEAN CORPUSCULAR HEMOGLOBIN 26.8 pg (27.0-34.0); MEAN CORPUSCULAR HGB CONC 30.8 g/dL (33.0-35.0); MONOCYTES PERCENT AUTO 9.3 % (2-8); NEUTROPHILS PERCENT AUTO 46.8 % (42.2-75.2); PLATELET COUNT,PLT 244 10^3/uL (150-450)
[2024-04-08 22:00] LABS: ALBUMIN 3.2 g/dL (3.4-5.0); ANION GAP 6.9 mEq/L (7-13); BILIRUBIN TOTAL 0.2 mg/dL (0.2-1.0); BUN/CREATININE RATIO 23.9 (No establ ref range); CALCIUM 9.6 mg/dL (8.5-10.1); CREATININE 0.67 mg/dL (0.55-1.02); EST CRCL DRUG DOSING (CG) 56.92 mL/min; POTASSIUM,K 3.9 mmol/L (3.5-5.1)
[2024-04-08 22:06] LABS: A/G RATIO 0.84
[2024-04-08 22:14] LABS: APPEARANCE,URINE CLEAR (CLEAR); BILIRUBIN,URINE NEGATIVE (NEGATIVE); COLOR,URINE YELLOW (YELLOW); GLUCOSE,URINE NEGATIVE (NEGATIVE); KETONES,URINE NEGATIVE (NEGATIVE); LEUKOCYTE ESTERASE,URINE TRACE (NEGATIVE); NITRITE,URINE NEGATIVE (NEGATIVE); OCCULT BLOOD,URINE NEGATIVE (NEGATIVE); PH,URINE 6.5 (5.0-9.0); PROTEIN,URINE NEGATIVE (NEGATIVE); UROBILINOGEN,URINE 0.2 mg/dL (0.2-1.0)
[2024-04-08 22:22] LABS: AMORPHOUS SEDIMENT,URINE FEW /HPF (NOT SEEN); BACTERIA,URINE FEW /HPF (0-FEW/HPF); EPITHELIAL CELLS,URINE FEW /HPF (NOT SEEN); MUCUS,URINE MODERATE /LPF (NOT SEEN); RBC,URINE 0-5 /HPF (0-5)
== END 2024-04-08 22:35 ==
LOC: DL.ED 21:01
DX: F13.982 Sedative, hypnotic or anxiolytic use, unspecified with sedative, hypnotic or anxiolytic-induced sleep disorder (principal); I10 Essential (primary) hypertension; J44.9 Chronic obstructive pulmonary disease, unspecified; E78.00 Pure hypercholesterolemia, unspecified; Z86.16 Personal history of COVID-19; Z90.49 Acquired absence of other specified parts of digestive tract; Z90.710 Acquired absence of both cervix and uterus; Z88.5 Allergy status to narcotic agent; Z88.6 Allergy status to analgesic agent; Z79.1 Long term (current) use of non-steroidal anti-inflammatories (NSAID); Z79.2 Long term (current) use of antibiotics; Z79.51 Long term (current) use of inhaled steroids; Z79.02 Long term (current) use of antithrombotics/antiplatelets; Z79.899 Other long term (current) drug therapy
CPT/HCPCS: 36415; 80053; 81001; 82140; 85025; 87086; 99285

== ENCOUNTER 2024-11-17 16:40 | Emergency (ER) | payer MEDICARE, MEDICAID ==
[2024-11-17 16:59] VITALS: BP 131/67; PULSE 82
== END 2024-11-17 18:23 | disposition home or self-care (01) ==
LOC: DL.ED 16:40
DX: K64.4 Residual hemorrhoidal skin tags (principal); I10 Essential (primary) hypertension; E78.00 Pure hypercholesterolemia, unspecified; J44.9 Chronic obstructive pulmonary disease, unspecified; Z86.16 Personal history of COVID-19; Z90.49 Acquired absence of other specified parts of digestive tract; Z90.710 Acquired absence of both cervix and uterus; Z79.899 Other long term (current) drug therapy; Z88.8 Allergy status to other drugs, medicaments and biological substances; Z88.5 Allergy status to narcotic agent
CPT/HCPCS: 99283

== ENCOUNTER 2025-04-01 17:19 | Emergency (ER) | payer MEDICARE, MEDICAID ==
[2025-04-01] MEDS ORDERED: Sodium Chloride 0.9% 10 ML Syringe FLUSH PRN (17:22)
[2025-04-01 17:41] LABS: BASOPHILS PERCENT AUTO 0.0 % (0.0-1.0); EOSINOPHILS PERCENT AUTO 0.0 % (1.0-3.0); LYMPHOCYTES PERCENT AUTO 8.2 % (20.5-50.1); MONOCYTES PERCENT AUTO 0.7 % (2-8); NEUTROPHILS PERCENT AUTO 91.1 % (42.2-75.2); PLATELET COUNT,PLT 230 10^3/uL (150-450); RED BLOOD CELL COUNT 4.19 10^6/uL (4.2-5.4); WHITE BLOOD CELL COUNT,WBC 6.7 10^3/uL (5.0-10.0)
[2025-04-01 18:03] LABS: A/G RATIO 1.0; ALANINE AMINOTRANSFERASE,ALT 29 U/L (14-59); ASPARTATE AMNIOTRANSFERASE,AST 20 U/L (15-37); BILIRUBIN TOTAL 0.2 mg/dL (0.2-1.0); BLOOD UREA NITROGEN,BUN 16 mg/dL (7-18); CARBON DIOXIDE,CO2 33 mmol/L (21-32); CHLORIDE,CL 105 mmol/L (98-107); CREATININE 0.55 mg/dL (0.55-1.02); GLUCOSE RANDOM 160 mg/dL (70-99); POTASSIUM,K 4.0 mmol/L (3.5-5.1); PROTEIN TOTAL,TP 6.9 g/dL (6.4-8.2); SODIUM,NA 146 mmol/L (136-145)
[2025-04-01 18:04] LABS: ESTIMATED GFR 99 mL/min (>=60); LACTIC ACID 0.7 mmol/L (0.4-2.0)
[2025-04-01] MEDS: Ondansetron 4 MG/2 ML SDV IVPUSH ONE (18:38)
[2025-04-01] MEDS: Ketorolac 30 MG/ML SDV IVPUSH ONE (18:38)
[2025-04-01] MEDS: Lactulose Soln 10 GM/15 ML 30 ML UD Cup PO ONE (18:42)
[2025-04-01 19:26] VITALS: BP 122/59; PULSE 72
== END 2025-04-01 19:05 | disposition home or self-care (01) ==
LOC: DL.ED 17:19
DX: K59.00 Constipation, unspecified (principal); E78.00 Pure hypercholesterolemia, unspecified; I10 Essential (primary) hypertension; J44.9 Chronic obstructive pulmonary disease, unspecified; Z86.16 Personal history of COVID-19; Z88.5 Allergy status to narcotic agent; Z88.6 Allergy status to analgesic agent; Z79.899 Other long term (current) drug therapy; Z90.49 Acquired absence of other specified parts of digestive tract
CPT/HCPCS: 36415; 74018; 80053; 83605; 83690; 83735; 84484; 85025; 86140; 93005; 96374; 96375; 99284; A9270; J1885; J2405

== ENCOUNTER 2025-04-11 19:17 | Inpatient (IN) | payer MEDICARE, MEDICAID ==
[2025-04-11] MEDS: Ketorolac 30 MG/ML SDV IVPUSH ONE (20:12)
[2025-04-11] MEDS: Albuterol 0.083% 2.5 MG/3 ML Neb Soln NEB ONE (20:21)
[2025-04-11 20:30] LABS: BASOPHILS PERCENT AUTO 0.1 % (0.0-1.0); EOSINOPHILS PERCENT AUTO 1.2 % (1.0-3.0); LYMPHOCYTES PERCENT AUTO 16.6 % (20.5-50.1); MONOCYTES PERCENT AUTO 8.7 % (2-8); NEUTROPHILS PERCENT AUTO 73.4 % (42.2-75.2); PLATELET COUNT,PLT 232 10^3/uL (150-450); RED BLOOD CELL COUNT 4.68 10^6/uL (4.2-5.4); WHITE BLOOD CELL COUNT,WBC 17.0 10^3/uL (5.0-10.0)
[2025-04-11 20:43] LABS: A/G RATIO 0.9; ALANINE AMINOTRANSFERASE,ALT 31.0 U/L (14-59); ASPARTATE AMNIOTRANSFERASE,AST 17.0 U/L (15-37); BILIRUBIN TOTAL 0.3 mg/dL (0.2-1.0); BLOOD UREA NITROGEN,BUN 17.0 mg/dL (7-18); CARBON DIOXIDE,CO2 32.0 mmol/L (21-32); CHLORIDE,CL 103.0 mmol/L (98-107); CREATININE 0.59 mg/dL (0.55-1.02); EST CRCL DRUG DOSING (CG) 63.73 mL/min; GLUCOSE RANDOM 146.0 mg/dL (70-99); POTASSIUM,K 3.9 mmol/L (3.5-5.1); PROTEIN TOTAL,TP 7.2 g/dL (6.4-8.2); SODIUM,NA 143.0 mmol/L (136-145)
[2025-04-11 20:47] LABS: LACTIC ACID 1.1 mmol/L (0.4-2.0)
[2025-04-11 20:51] LABS: ESTIMATED GFR 97.0 mL/min (>=60)
[2025-04-11] MEDS: Dexamethasone 4 MG/ML SDV IVPUSH ONE (21:17)
[2025-04-12] MEDS ORDERED: hydrALAZINE 20 MG/ML SDV IVPUSH PRN ×2 (00:04→00:44)
[2025-04-12] MEDS ORDERED: Metoprolol Tartrate 5 MG/5 ML SDV IVPUSH PRN ×2 (00:04→00:44)
[2025-04-12] MEDS ORDERED: Magnesium Hydroxide 400 MG/5 ML Susp 30 ML Cup PO PRN (00:05)
[2025-04-12] MEDS ORDERED: Ondansetron 4 MG/2 ML SDV IVPUSH PRN (00:05)
[2025-04-12] MEDS ORDERED: guaiFENesin/Dextromethorphan 100-10 MG/5 ML Soln 5 ML Cup PO PRN (00:59)
[2025-04-12] MEDS ORDERED: AMINOPHYLLINE IV ONE (01:00)
[2025-04-12] MEDS: SODIUM CHLORIDE 0.9% IV ONE (01:59)
[2025-04-12] MEDS: AMINOPHYLLINE IV ONE (01:59)
[2025-04-12] MEDS: Budesonide 0.5 MG/2 ML Neb Susp NEB SCH (06:19)
[2025-04-12 06:46] LABS: BASOPHILS PERCENT AUTO 0.0 % (0.0-1.0); EOSINOPHILS PERCENT AUTO 0.0 % (1.0-3.0); LYMPHOCYTES PERCENT AUTO 7.9 % (20.5-50.1); MONOCYTES PERCENT AUTO 1.1 % (2-8); NEUTROPHILS PERCENT AUTO 91.0 % (42.2-75.2); PLATELET COUNT,PLT 217 10^3/uL (150-450); RED BLOOD CELL COUNT 4.04 10^6/uL (4.2-5.4); WHITE BLOOD CELL COUNT,WBC 13.3 10^3/uL (5.0-10.0)
[2025-04-12 07:06] LABS: ALANINE AMINOTRANSFERASE,ALT 26.0 U/L (14-59); ASPARTATE AMNIOTRANSFERASE,AST 18.0 U/L (15-37); BILIRUBIN TOTAL 0.3 mg/dL (0.2-1.0); BLOOD UREA NITROGEN,BUN 16.0 mg/dL (7-18); CARBON DIOXIDE,CO2 28.0 mmol/L (21-32); CHLORIDE,CL 107.0 mmol/L (98-107); CREATININE 0.46 mg/dL (0.55-1.02); EST CRCL DRUG DOSING (CG) 81.74 mL/min; GLUCOSE RANDOM 147.0 mg/dL (70-99); POTASSIUM,K 4.4 mmol/L (3.5-5.1); PROTEIN TOTAL,TP 6.3 g/dL (6.4-8.2); SODIUM,NA 143.0 mmol/L (136-145)
[2025-04-12 07:07] LABS: A/G RATIO 0.85; ESTIMATED GFR 103.0 mL/min (>=60)
[2025-04-12] MEDS: Dexamethasone 4 MG/ML SDV IVPUSH SCH (08:43)
[2025-04-12] MEDS ORDERED: LACTOSE REDUCED FOOD PO PRN (20:24)
[2025-04-12] MEDS ORDERED: Budesonide 0.5 MG/2 ML Neb Susp INH SCH (21:00)
[2025-04-12] MEDS ORDERED: KETOTIFEN FUMARATE OP SCH (21:00)
[2025-04-12] MEDS: Sodium Chloride 0.9% 10 ML Syringe FLUSH PRN (21:08)
[2025-04-12] MEDS: Arformoterol 15 MCG/2 ML Neb Soln NEB SCH (21:09)
[2025-04-13] MEDS: Tiotropium Bromide 4 GM Inhalation Spray (2.5mcg/1 dose; 10 doses) INH SCH (05:42)
[2025-04-13] MEDS: Budesonide 0.5 MG/2 ML Neb Susp INH SCH (05:43)
[2025-04-13] MEDS: Psyllium Husk Powder (4 in 1) 3.4 GM Packet PO SCH (08:57)
[2025-04-13] MEDS: Diltiazem 120 MG Cap.CD PO SCH (08:58)
[2025-04-13] MEDS ORDERED: [UNRECOGNIZED DRUG - OTHER] INH SCH (15:30)
[2025-04-13] MEDS: KETOTIFEN FUMARATE EYEBOTH SCH (15:49)
[2025-04-13] MEDS: ROFLUMILAST 500 MCG PO SCH (15:51)
[2025-04-13] MEDS: INCRUSE ELLIPTA 62.5 MCG INH SCH (15:53)
[2025-04-13] MEDS: [UNRECOGNIZED DRUG - OTHER] INH SCH (18:19)
[2025-04-14] MEDS: Budesonide 0.5 MG/2 ML Neb Susp INH SCH (17:49)
[2025-04-14] MEDS: Sennosides/Docusate Sodium 50-8.6 MG Tab PO PRN (17:54)
[2025-04-15] MEDS: FLU (Fluad Triv) 25-26 (65UP)/MF59C/PF 45 MCG/0.5 ML Syringe IM ONE (09:50)
[2025-04-15 09:55] VITALS: BP 128/61; PULSE 59
== END 2025-04-15 10:25 | disposition home or self-care (01) | DRG 871 ==
LOC: DL.ED 19:17 → DL.MS 21:14
PROVIDERS: ADMIT Internal Medicine; ATTEND Internal Medicine
DX: A41.9 Sepsis, unspecified organism (principal); E43 Unspecified severe protein-calorie malnutrition; J96.21 Acute and chronic respiratory failure with hypoxia; J44.1 Chronic obstructive pulmonary disease with (acute) exacerbation; D72.829 Elevated white blood cell count, unspecified; H54.7 Unspecified visual loss; F17.200 Nicotine dependence, unspecified, uncomplicated; R73.9 Hyperglycemia, unspecified; E86.0 Dehydration; J18.9 Pneumonia, unspecified organism; I10 Essential (primary) hypertension; F41.9 Anxiety disorder, unspecified; F32.A Depression, unspecified; J44.9 Chronic obstructive pulmonary disease, unspecified; Z98.49 Cataract extraction status, unspecified eye; E78.00 Pure hypercholesterolemia, unspecified; Z68.21 Body mass index [BMI] 21.0-21.9, adult; Z99.81 Dependence on supplemental oxygen; Z86.16 Personal history of COVID-19; Z79.899 Other long term (current) drug therapy; Z98.890 Other specified postprocedural states; Z90.49 Acquired absence of other specified parts of digestive tract; Z90.710 Acquired absence of both cervix and uterus; Z88.5 Allergy status to narcotic agent; Z88.6 Allergy status to analgesic agent; Z88.8 Allergy status to other drugs, medicaments and biological substances
CPT/HCPCS: 36415; 71045; 80053; 80198; 83605; 83735; 85025; 86140; 87040; 87428-QW; 90653; 94640; 96361; 96374; 99285; 99285-25; A9270-GY; G0008; J0280; J0692; J1100; J1308; J1885; J2270; J2543; J3373; J3490; J7030; J7040; J7050

== ENCOUNTER 2025-05-05 13:52 | Emergency (ER) | payer MEDICARE, MEDICAID ==
[2025-05-05] MEDS ORDERED: Sodium Chloride 0.9% 10 ML Syringe FLUSH PRN (13:58)
[2025-05-05 14:23] LABS: BASOPHILS PERCENT AUTO 0.1 % (0.0-1.0); EOSINOPHILS PERCENT AUTO 5.3 % (1.0-3.0); LYMPHOCYTES PERCENT AUTO 29.1 % (20.5-50.1); MONOCYTES PERCENT AUTO 11.1 % (2-8); NEUTROPHILS PERCENT AUTO 54.4 % (42.2-75.2); PLATELET COUNT,PLT 224 10^3/uL (150-450); RED BLOOD CELL COUNT 3.89 10^6/uL (4.2-5.4); WHITE BLOOD CELL COUNT,WBC 6.9 10^3/uL (5.0-10.0)
[2025-05-05 14:46] LABS: INR 0.9 (0.9-1.2)
[2025-05-05 14:52] LABS: ALANINE AMINOTRANSFERASE,ALT 30 U/L (14-59); ASPARTATE AMNIOTRANSFERASE,AST 18 U/L (15-37); BILIRUBIN TOTAL 0.3 mg/dL (0.2-1.0); BLOOD UREA NITROGEN,BUN 20 mg/dL (7-18); CARBON DIOXIDE,CO2 35 mmol/L (21-32); CHLORIDE,CL 106 mmol/L (98-107); CREATININE 1.19 mg/dL (0.55-1.02); GLUCOSE RANDOM 90 mg/dL (70-99); POTASSIUM,K 4.4 mmol/L (3.5-5.1); PROTEIN TOTAL,TP 6.5 g/dL (6.4-8.2); SODIUM,NA 144 mmol/L (136-145)
[2025-05-05 14:55] LABS: A/G RATIO 0.86; ESTIMATED GFR 49 mL/min (>=60)
[2025-05-05 15:20] VITALS: BP 109/63; PULSE 61
== END 2025-05-05 17:02 | disposition home or self-care (01) ==
LOC: DL.ED 13:52
DX: E86.0 Dehydration (principal); M54.2 Cervicalgia; J44.9 Chronic obstructive pulmonary disease, unspecified; I10 Essential (primary) hypertension; E78.00 Pure hypercholesterolemia, unspecified; Z86.16 Personal history of COVID-19; Z79.899 Other long term (current) drug therapy; Z88.5 Allergy status to narcotic agent; Z88.8 Allergy status to other drugs, medicaments and biological substances; W19.XXXA Unspecified fall, initial encounter
CPT/HCPCS: 36415; 70450; 72125; 72128; 80053; 83735; 84484; 85025; 85610; 93005; 96360; 99284; A9270; J7040